=== PATIENT | female | born 1950 ===

== ENCOUNTER 2022-12-02 14:24 | Outpatient (REF) | payer OTHER, SELFPAY ==
--- NOTE | ~2022-12-02 | XR_ITS ---
EXAMINATION: XR LUMBOSACRAL SPINE WITH OBLIQUES CLINICAL INFORMATION: Status post arthrodesis COMPARISON: 05/24/2021 TECHNIQUE: FINDINGS: Patient is status post fusion at the level of L4-L5 and there is spacer at the same level. There are degenerative changes with narrowing of L3-L4 with subchondral sclerosis and marginal spurring and L5-S1. There is mild instability on flexion and extension views and the level of L3-L4.. XR/XR lumbar spine 4V min IMPRESSION: Mild instability seen at the level of L3-L4 on flexion and extension views. Postsurgical changes
== END 2022-12-02 14:25 | disposition home or self-care (01) ==
LOC: HO.HOSX 14:24
PROVIDERS: PCP Internal Medicine Endocrinology, Diabetes & Metabolism; Visit Provider Neurological Surgery
DX: M51.16 Intervertebral disc disorders with radiculopathy, lumbar region (principal); Z98.1 Arthrodesis status
CPT/HCPCS: 72110

== ENCOUNTER 2023-01-06 14:05 | Outpatient (REF) | payer OTHER, SELFPAY ==
--- NOTE | ~2023-01-06 | MR_ITS ---
EXAMINATION: MR LUMBAR SPINE WITHOUT CONTRAST CLINICAL INFORMATION: Intervertebral disc disorder is with radiculopathy, lumbar region. COMPARISON: Lumbar spine MRI 07/29/2021. TECHNIQUE: MRI of the lumbar spine was obtained using routine sequences without contrast. FINDINGS: There are postoperative findings related to instrumented fusion from L4 to L5 with transpedicular screws, paired rods, and an interbody device within the disc space. There is progressive moderate to severe disc height loss at L3-L4 with degenerative endplate changes and mild endplate edema. There is unchanged severe disc height loss at L5-S1. The distal spinal cord appears normal. The conus medullaris terminates normally at the L2 level. The visualized paraspinal muscles and intra-abdominal and pelvic contents are within normal limits. SPINAL LEVELS: L1-L2: No posterior disc abnormality. Mild facet arthropathy. No spinal canal or neural foraminal stenosis. L2-L3: No posterior disc abnormality. Mild to moderate facet arthropathy. No spinal canal or neural foraminal stenosis. L3-L4: Disc bulging with ligamentum flavum infolding and severe right and moderate left facet arthropathy and increased fluid in the right facet joint. Left foraminal protrusion resulting in severe left neural foraminal stenosis with compression of the exiting left L3 nerve root, progressed from prior. The previously seen right-sided foraminal protrusion has regressed but with persistent moderate to severe right-sided neural foraminal stenosis and moderate compression of the exiting right L3 nerve root. L4-L5: Instrumented fusion with posterior decompression changes. No spinal canal stenosis. No definite foraminal nerve root compression. L5-S1: Posterior decompression. Disc bulging with severe facet arthropathy. No spinal canal stenosis. Stable moderate bilateral neural foraminal stenosis with abutment of the exiting L5 nerve roots. MR/MR lumbar spine wo con IMPRESSION: 1. Postoperative findings related to instrumented fusion at L4-L5. No spinal canal stenosis or foraminal nerve root compression at this level. 2. At L3-L4 there is progressive moderate to severe disc height loss with degenerative endplate changes and mild endplate edema. Left foraminal protrusion results in progressive severe left neural foraminal stenosis with compression of the exiting left L3 nerve root. The previously seen right-sided foraminal protrusion has regressed but with persistent moderate to severe right-sided neural foraminal stenosis and moderate compression of the exiting right L3 nerve root. 3. At L5-S1 there is stable moderate bilateral neural foraminal stenosis with abutment of the exiting L5 nerve roots.
== END 2023-01-06 14:06 | disposition home or self-care (01) ==
LOC: HO.MRI 14:05
PROVIDERS: PCP Internal Medicine; Visit Provider Neurological Surgery
DX: M51.16 Intervertebral disc disorders with radiculopathy, lumbar region (principal); Z98.1 Arthrodesis status
CPT/HCPCS: 72148

== ENCOUNTER → 2023-01-12 13:59 | Outpatient (BNVA) | payer OTHER, SELFPAY | PROVIDERS: PCP Internal Medicine; Visit Provider Physician Assistant ==

== ENCOUNTER 2023-02-11 14:32 | Outpatient (AMB) | payer OTHER, SELFPAY ==
--- NOTE | 2023-02-11 15:26 | A.SPINEOV_ITS ---
Intake Intake Visit Reasons: Discuss surgery Intake Note: Ms. Olivares is here today to address some pre-surgical questions. Special Programs Director Required: No Assessment & Plan Assessment & Plan (1) Left upper extremity numbness: Code(s): R20.0 - Anesthesia of skin (2) Status post cervical spinal fusion: Code(s): Z98.1 - Arthrodesis status Plan Dear colleague, On February 11, 2023, I saw for preoperative visit your patient Nancy Rubio. She scheduled to undergo an oblique lateral lumbar interbody fusion L3- 4 to address her lumbar radiculopathy. She was last seen by my physician credentialing assistant and want to see me to discuss the procedure. I explained the procedure on a model with possible complications. During the visit she mentions that she has complete left arm numbness since 2 weeks with intermittent urinary incontinence. On exam, there is diffuse left arm numbness. No pathological reflexes. I would like to have an MRI of the cervical spine to exclude spinal cord compression that she has a history of cervical spine fusion and with the new symptoms of left arm numbness and incontinence this seems a good idea before the lumbar fusion surgery. Thank you for letting me take care of your patient. I will keep you updated on her progress. Franklin Mckeon MD, PhD Spine Fellowship Trained Neurosurgeon Director, [facility] [employer] Orders: Orders MR cervical spine wo con Today R20.0 - Anesthesia of skin, Z98.1 - Arthrodesis status Coding Level of Care Code Est Pt Level 2 (64195) Diagnoses Left upper extremity numbness R20.0 Status post cervical spinal fusion Z98.1
== END 2023-02-11 16:25 | disposition home or self-care (01) ==
PROVIDERS: PCP Internal Medicine; Visit Provider Neurological Surgery
DX: R20.0 Anesthesia of skin (principal); Z98.1 Arthrodesis status
CPT/HCPCS: 99212

== ENCOUNTER → 2023-02-11 14:32 | Outpatient (BNVA) | payer OTHER, SELFPAY | PROVIDERS: PCP Internal Medicine; Visit Provider Neurological Surgery ==

== ENCOUNTER → 2023-03-04 14:15 | Outpatient (BNV) | payer OTHER, SELFPAY | PROVIDERS: Admitting Provider Neurological Surgery; PCP Internal Medicine; Visit Provider Internal Medicine Cardiovascular Disease | DX: R94.31 Abnormal electrocardiogram [ECG] [EKG] (principal); I45.10 Unspecified right bundle-branch block | CPT/HCPCS: 93010 ==

== ENCOUNTER 2023-03-12 19:40 | Outpatient (REF) | payer OTHER, SELFPAY ==
--- NOTE | ~2023-03-12 | MR_ITS ---
EXAMINATION: MR CERVICAL SPINE WITHOUT CONTRAST CLINICAL INFORMATION: Numbness left upper extremity x2 weeks and incontinence. History of prior cervical fusion. COMPARISON: Cervical spine MRI 02/14/2015. TECHNIQUE: MRI of the cervical spine was obtained using routine sequences without contrast. FINDINGS: There are chronic postoperative changes of an anterior cervical discectomy and fusion with plate and screw hardware extending from C6 to C7. There is slight anterolisthesis of C3 on C4, C4 on C5, and C7 on T1 related to facet degenerative changes at each of these levels. Vertebral heights are preserved. No acute bone marrow signal changes. There is slight loss of intervertebral disc height and T2 signal intensity at multiple levels related to disc degeneration. There are short segments of increased intramedullary T2 signal intensity at levels of C3-C4 and C4-C5. The cervicomedullary junction is normal. Limited visualization of the posterior fossa reveals no abnormal finding. The occipital condyles and lateral C1 masses are intact. There is degenerative arthrosis of the atlantodental joint. C1-C2 articular facets are unremarkable. At C2-C3 the annular contour. The annular contour is normal. No canal stenosis. Bilateral facet degenerative change. Moderate neuroforaminal encroachment. At C3-C4 there is a pseudodisc bulge and buckling of the ligamenta flava causing moderate canal stenosis. Uncovertebral joint spurring in conjunction with facet degenerative change causes moderate bilateral neuroforaminal encroachment, greater on the right. At C4-C5 there is bridging bone that fuses the right articular facet joint. Mild canal stenosis. Uncovertebral joint spurring in conjunction with facet degenerative change causes mild bilateral neuroforaminal encroachment. At C5-C6 there is a diffusely bulging disc and buckling of the ligamenta flava causing moderate canal stenosis and subtle flattening of the AP contour of the cervical spinal cord. Uncovertebral joint spurring in conjunction with facet degenerative change causes moderate bilateral neuroforaminal encroachment. At C6-C7 there is no canal or neuroforaminal compromise. At C7-T1 there is a pseudodisc bulge. Buckling of ligamenta flava. Moderate canal stenosis. Uncovertebral joint spurring in conjunction with facet degenerative change causes severe left and moderate right neuroforaminal encroachment. Visualized soft tissues of the neck are normal. Vascular flow voids are grossly maintained. MR/MR cervical spine wo con IMPRESSION: There are chronic postoperative changes of an anterior cervical discectomy and fusion with plate and screw hardware extending from C6 to C7. There are short segments of chronic myelomalacia involving the cervical spinal cord at the levels of C3-C4 and C4-C5. Moderate canal stenosis at T3 C4, C5-C6, and C7-T1. There are varying degrees of neuroforaminal encroachment related to uncovertebral joint spurring and facet degenerative change as described above.
== END 2023-03-12 19:41 | disposition home or self-care (01) ==
LOC: HO.MRI 19:40
PROVIDERS: PCP Internal Medicine; Visit Provider Neurological Surgery
DX: R20.0 Anesthesia of skin (principal); Z98.1 Arthrodesis status
CPT/HCPCS: 72141

== ENCOUNTER 2023-03-17 07:57 | Inpatient (IN) | payer OTHER, SELFPAY ==
--- NOTE | 2023-03-04 | ECG_ITS ---
Test Reason : pre op Blood Pressure : / mmHG Vent. Rate : 060 BPM Atrial Rate : 060 BPM P-R Int : 196 ms QRS Dur : 126 ms QT Int : 418 ms P-R-T Axes : 060 -26 009 degrees QTc Int : 418 ms Normal sinus rhythm Right bundle branch block Inferior infarct , age undetermined Abnormal ECG No previous ECGs available Referred By: Meli Tafoya Electronically Signed By:Marcus Key
[2023-03-04 13:19] VITALS: BMI 31.3
[2023-03-04 13:32] VITALS: BP 153/67; PULSE 63; RESP 16; O2SAT 98
--- NOTE | 2023-03-04 13:39 | P.CONAN_ITS ---
Documented by User: Meli Tafoya NP 03/09/23 10:50 HPI - Anesthesia Eval Consult details Narrative: Pending labs, ekg, pcp note 73yo F for Transkambin Lumbar Interbody Fusion and Removal of old instumentation No recent illness No CP/SOB with very minimal activity r/t backpain Rarely checks blood sugar, but reports A1C~ 6% PONV Recently cleared by PCP for cataract but surgery pending d/t MD illness PMFSH Active Problems Active Problems: All Active Problems (Updated 03/04/23 @ 13:09 by Barbara Blas RN) Status post lumbar spinal arthrodesis (Acute) Lumbar disc herniation with radiculopathy (Acute) Status post cervical spinal fusion (Acute) Left upper extremity numbness (Acute) Past Medical History Medical History Cataract Diabetes mellitus, type 2 Glaucoma Hyperlipidemia Hypertension Hypothyroidism Osteoarthritis Osteopenia PONV (postoperative nausea and vomiting) Right bundle branch block (RBBB) Family History Family history of problems with anesthesia: No Surgical History Surgical History History of bilateral carpal tunnel release Hx of bariatric surgery Hx of colonoscopy Hx of hysterectomy Hx of partial thyroidectomy Previous back surgery History of Problems with Anesthesia: Yes (PONV) Social History Social History (Updated 03/04/23 @ 13:36 by Barbara Blas RN) Household Members: None Housing: House Are you a primary child care coordinator to a significant other at home: No Do you presently have visiting nurse or other home services: No Patient Tobacco Use Status: Former Tobacco user Quit Date: 2012 Tobacco use type: Cigarette Smoked in Last 30 Days: No Patient Interested in Nicotine Replacement: No Patient Given Instructions on How to Stop Smoking: No Second Hand Smoke Exposure: No Use of substances other than those prescribed or required for medical reasons: Yes Substance Use Type: Marijuana Substance Use Frequency: Weekly Currently Displaying Signs/Symptoms of Drug Intoxication Withdrawal: No Any prior treatment program specific to substance use: No Have you been hit, kicked, punched, or otherwise hurt by someone within the past year? If so, by whom?: No Do you feel safe in your current relationship?: Yes Is there a partner from a previous relationship who is making you feel unsafe now?: No Are you made to feel afraid or neglected: No Are you DNR?: No Advance Directives: No Advance Directives Information Provided: Yes Advance Directives on File: No Do you have thoughts of harming others: None Do you have a plan to hurt others: No Plan Recently lost weight without trying: No Eating poorly because of decreased appetite: No Nutrition Risks: No Nutritional Risk Patient : No : No Poor oral hygiene: No Meds Allergies Allergy/AdvReac Type Severity Reaction Status Date / Time No Known Allergies Allergy Verified 03/17/23 08:05 Home Medications Medication Instructions Recorded Confirmed Last Taken Type bupropion HCl 150 mg 24 hr tablet, 150 mg PO QAM 03/03/23 03/03/23 03/16/23 History extended release gabapentin 600 mg tablet 600 mg PO TID 03/03/23 03/03/23 03/16/23 History levothyroxine 100 mcg tablet 100 mcg PO MOTUWETHFRSA 03/03/23 03/17/23 03/16/23 History lisinopril 40 mg tablet 40 mg PO DAILY 03/03/23 03/03/23 03/16/23 History metformin 500 mg tablet,extended 500 mg PO DAILY 03/03/23 03/04/23 03/16/23 History release 24 hr rosuvastatin 10 mg tablet 10 mg PO DAILY 03/03/23 03/03/23 03/16/23 History travoprost 0.004 % eye drops 1 drp ophthalmic (eye) BEDTIME 03/03/23 03/03/23 03/16/23 History Exam Exam Date and Time: March 04, 2023 1339 Height,Weight and Vital Signs: Height 5 ft 5.5 in Weight 86.636 kg Last Vital Signs Pulse 63 03/04/23 13:32 Resp 16 03/04/23 13:32 BP 153/67 H 03/04/23 13:32 Pulse Ox 98 03/04/23 13:32 O2 Del Method Room Air 03/04/23 13:32 Pertinent Lab Results Pertinent Lab Results: CBC and BMP 01/2023 from outside facility WNL Narrative Narrative: EKG 02/2023 Vent. Rate : 060 BPM ? ? Atrial Rate : 060 BPM ?? P-R Int : 196 ms? QRS Dur : 126 ms ? ? QT Int : 418 ms ? ? ? P-R-T Axes : 060 -26 009 degrees ?? QTc Int : 418 ms ? Normal sinus rhythm Right bundle branch block Inferior infarct , age undetermined Abnormal ECG No change from 2020 outside facility EKG Airway Mallampati Class: III TM Dist: >3cm Neck ROM: Limited (s/p cspine surgery) Loose/Missing/Broken Teeth: Yes (molars pulled, capped front teeth, crowned molars throughout) Heart: RRR Lungs: CTAB Assessment and Plan Assessment Anesthesia Assessment: Anesthesia Plan Discussed and PAT Visit Final Anesthetic Review Family History of Problems with Anesthesia: No History of Problems with Anesthesia: Yes (PONV) Documented by User: Ajith Chinchilla MD 03/17/23 15:03 [facility] Past Medical History Medical History Cataract Diabetes mellitus, type 2 Glaucoma Hyperlipidemia Hypertension Hypothyroidism Osteoarthritis Osteopenia PONV (postoperative nausea and vomiting) Right bundle branch block (RBBB) Surgical History Surgical History History of bilateral carpal tunnel release Hx of bariatric surgery Hx of colonoscopy Hx of hysterectomy Hx of partial thyroidectomy Previous back surgery Social History Social History (Updated 03/04/23 @ 13:36 by Barbara Blas RN) Household Members: None Housing: House Are you a primary child care coordinator to a significant other at home: No Do you presently have visiting nurse or other home services: No Patient Tobacco Use Status: Former Tobacco user Quit Date: 2012 Tobacco use type: Cigarette Smoked in Last 30 Days: No Patient Interested in Nicotine Replacement: No Patient Given Instructions on How to Stop Smoking: No Second Hand Smoke Exposure: No Use of substances other than those prescribed or required for medical reasons: Yes Substance Use Type: Marijuana Substance Use Frequency: Weekly Currently Displaying Signs/Symptoms of Drug Intoxication Withdrawal: No Any prior treatment program specific to substance use: No Have you been hit, kicked, punched, or otherwise hurt by someone within the past year? If so, by whom?: No Do you feel safe in your current relationship?: Yes Is there a partner from a previous relationship who is making you feel unsafe now?: No Are you made to feel afraid or neglected: No Are you DNR?: No Advance Directives: No Advance Directives Information Provided: Yes Advance Directives on File: No Do you have thoughts of harming others: None Do you have a plan to hurt others: No Plan Recently lost weight without trying: No Eating poorly because of decreased appetite: No Nutrition Risks: No Nutritional Risk Patient : No : No Poor oral hygiene: No Meds Allergies Allergy/AdvReac Type Severity Reaction Status Date / Time No Known Allergies Allergy Verified 03/17/23 08:05 Home Medications Medication Instructions Recorded Confirmed Last Taken Type bupropion HCl 150 mg 24 hr tablet, 150 mg PO QAM 03/03/23 03/03/23 03/16/23 History extended release gabapentin 600 mg tablet 600 mg PO TID 03/03/23 03/03/23 03/16/23 History levothyroxine 100 mcg tablet 100 mcg PO MOTUWETHFRSA 03/03/23 03/17/23 03/16/23 History lisinopril 40 mg tablet 40 mg PO DAILY 03/03/23 03/03/23 03/16/23 History metformin 500 mg tablet,extended 500 mg PO DAILY 03/03/23 03/04/23 03/16/23 History release 24 hr rosuvastatin 10 mg tablet 10 mg PO DAILY 03/03/23 03/03/23 03/16/23 History travoprost 0.004 % eye drops 1 drp ophthalmic (eye) BEDTIME 03/03/23 03/03/23 03/16/23 History Assessment and Plan Final Anesthetic Review NPO: Yes ASA Class: III Final Preanesthetic Review: No Changes in Pt Med Stat, Meds/Allgs Chart Reviewed, Consent Obtained/Reviewed and Anes Risks/Benef Reviewed Patient Risk: Intermediate Procedure Risk: Low Anesthetic Plan Anesthetic Plan: GA Disposition: Standard PACU
[2023-03-17] VITALS (14 sets, daily range): BP systolic 144–182; BP diastolic 66–94; PULSE 68–79; RESP 10–17; TEMP 36.1–36.8; O2SAT 92–99; BMI 32.8
--- NOTE | ~2023-03-17 | FL_ITS ---
EXAMINATION: XR FLUOROSCOPY WITH IMAGES CLINICAL INFORMATION: Left L3-L4 lumbar interbody fusion. COMPARISON: Previous x-ray of the lumbar spine November 2022 MRI December 2022. TECHNIQUE: Fluoroscopy Supervised By: Dr. Franklin Baum. Fluoroscopy Time: 0.9 minutes Cumulative Dose: 83.4 mGy DAP: 11.707 Gy-cm2 Images: 2 FINDINGS: Images demonstrate posterior fusion hardware with rods and bilateral interpedicular screws and disc prosthesis in the lower lumbar spine. When compared with previous lumbar spine exam this is at the L3-L4 level. Intervertebral body disc spacer seen at the next more inferior level, L4-L5. Previously identified posterior fusion hardware at L4-L5 seen on lumbar spine MRI November 2022 no longer seen. FL/FL guidance in OR IMPRESSION: Fluoroscopy guidance for lumbar spine surgery.
[2023-03-17] MEDS: methocarbamoL 750 MG TABLET PO (08:35)
[2023-03-17] MEDS: Aprepitant 32 MG/4.4 ML VIAL IVPUSH (08:35)
[2023-03-17] MEDS: Gabapentin 300 MG CAPSULE PO (08:35)
[2023-03-17] MEDS: Lactated Ringers 1,000 ML 100 ML IVCONT (08:37)
[2023-03-17 08:45] LABS: Glucose, Whole Blood 88 mg/dL (60-115)
[2023-03-17] MEDS: ceFAZolin Sodium/Dextrose,Iso 2 GM/50 ML PIGGYBACK IV ×3 (10:20→20:20)
[2023-03-17] MEDS: Ketorolac Tromethamine 15 MG/ML VIAL IVPUSH ×2 (11:30→20:20)
--- NOTE | 2023-03-17 11:48 | W.PM.OPN ---
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 Previous L4-5 fusion in an another institution Postprocedure diagnosis: 1) same as above Procedure: 1) L3-4 oblique lateral lumbar interbody fusion with discectomy, preparation of the endplates and placement of a titanium bullet cage packed with allograft, anterior to the transverse process in modified prone position, with intraoperative biplanar fluoroscopy imaging and electrophysiological monitoring 2) Removal posterior instrumentation L4-5. Insertion L3-4 posterior minimally invasive pedicle screw placement and posterior lateral instrumentation and fusion with intraoperative biplanar fluoroscopic imaging and electrophysiological monitoring 3 L3-4 injection of 0.75 Marcaine in paravertebral tissue for postop management Consent Informed Consent was obtained for this operation. I have explained the nature, purpose and benefits of the operation. I have discussed the risks and benefit of the operation including possible complications or adverse events with patient/family. Alternative(s) were discussed with the patient with their relative benefits and risks as well as the consequences of not accepting the operation were included in obtaining consent. Surgeon: SOPHIE MERCEDES MD, PHD Procedure Assisted By: Hermes QUINTANILLA Description of Procedure: This is a complex surgery on the lumbar spine and an assistant professor of archaeology as needed for safety of the surgery for setup of instrumentation, retraction and closing. History: the patient had an L4-5 fusion in the past. She presented with back pain and lumbar radiculopathy due to adjacent degenerative disc disease L3-4 with associated spondylolisthesis and spinal stenosis. The patient was offered an oblique lumbar lateral interbody fusion followed by removal of L4-5 instrumentation and insertion of L3-4 insertion with aposterior lateral instrumented fusion L3-4. The procedure and complications were explained and the patient was consented. Procedure: The patient was brought to the operating room and endotracheally intubated. The patient was positioned on the Frederic spine table in a modified prone position for ease of access from the left side.. 2C arms were installed for fluoroscopy. Prepping and draping was done followed by timeout. The landmarks, including spinal processes, transverse processes, disc space, endplates and pedicles are identified and marked. The following steps are taken for each specified level: L3-4 level: Cage size 10 mm high and 33 mm long titanium . The patient was turned using the rotation of the surgical table so a near direct anterior lateral approach to the lumbar spine could be achieved. A small incision was then made superior to the mid iliac crest and then using biplanar fluoroscopy visualization, under electrophysiological monitoring and stimulation, we introduced an electrophysiological probe through the retroperitoneal space into the desired disc anterior to the transverse process and then passed it into the disc space after finding a silent window. The sleeve was retained and the probe was removed, then the K wire was passed sequentially into the disc space. A dilating tube was then passed along the same route. Following this, a working channel, a working channel was then passed sequentially into the disc space. The working channel was manually held in position while a series of disc cleaning tools were passed through the channel to remove the affected disc under clear and direct biplanar fluoroscopic visualization, decompress the nerve roots and equal corticated vertebral endplates at this segment. Arthrodesis of the intervertebral space via an anterior retroperitoneal exposure was achieved through [place] and lateral extraforaminal space. Allograft was added into the anterior disc space. The working channel was then removed. A titanium interbody cage tightly packed with allograft was then inserted into the midportion of the intervertebral disc space over a K-wire under biplanar fluoroscopic visualization and intraoperative neuro monitoring. The inter pedicular and intradiscal space was significantly enlarged and disc height was restored to worked normal anatomy there for releasing pressure on the nerve roots visual largely the spinal canal and lateral recess as well as foramen were bilateral decompressed and all bones were confined to the borders of the disc space . The following steps are then taken for each specified level: L4-5 level: 2 paramedian incisions were made to expose the previous L4-5 instrumentation. The locking caps,, bilateral rods and L4 and L5 pedicle screws were removed. A new 7.5 x 45 into a screw was inserted in the bilateral L4 pedicles under fluoroscopic guidance. Then two paramedian seizures were made for the L3 pedicle screw placement. The entry point to the pedicle is identified in the AP and lateral views and then the skin incision is injected with local anesthetic. We entered the pedicle with the pediguard tap after which a K-wire was introduced into the vertebral body. Additionally, I used a small instrument to decorticate along the screws to refresh the surface of the bone and facet I put some amount of allograft for additional stability for the posterolateral fusion L3-4. Over the K-wire we insert pedicle screws bilaterally with a diameter of 6.5 x 40 mm. After the screws were placed, we put the tere in place and under fluoroscopic imaging, we locked the tere in place and removed the screw tops and then each incision has been closed with 0 Vicryl for the fascia and a 3-0 Vicryl for the subdermal layer. Steri-Strips were used to approximate the incisions. An OpSite with Tegaderm was used to cover the incision. Final x-rays and AP and lateral projection showed good position of the interbody device and instrumentation. All sponge and needle counts were correct. The patient was extubated and transported in a stable condition to the recovery room. 2-0 Vicryl This procedure was done with the aid of a physician assistant professor of archaeology as a qualified resident was not available. he performed partial screw insertion, hemostasis and closure of the incisions Anesthesia: General Estimated Blood Loss (ml): 20 Specimen: None Duration of Surgery: 90 minutes Postoperative Plan: Admit to inpatient
[2023-03-17] MEDS: HYDROmorphone HCl 0.5 MG/0.5 ML SYRINGE 0.25 MG IVPUSH ×2 (12:21→12:30)
[2023-03-17] MEDS: oxyCODONE HCl Immed Release 5 MG TABLET PO ×2 (12:38→20:21)
--- NOTE | 2023-03-17 13:47 | PC.NURSE ---
as discussed with floor nurse dilaudid amount given and oxy as well as bladder scan of 319ml bed li time.
--- NOTE | 2023-03-17 14:05 | HO.NEURO.PN ---
Neurosurgery Operative Note Date of Service: 03/17/23 Narrative: POD: 0 Procedure:?L3-4 oblique lateral lumbar interbody fusion with discectomy. Removal of posterior instrumentation L4-5. Omaira was seen in her room postoperatively on .? She reports she is still having quite a bit of back pain which is well controlled with pain medication. She is otherwise doing well. She feels her symptoms are much better than pre-operatively, and reports no R leg pain at all at this time. Her diet orders are in, and nursing will be attempting to ambulate her to the bathroom shortly. She is scheduled to see PT. Afebrile, vital signs stable. Full sensation noted in lower extremities. plantar flexion / dorsiflexion intact. EHL intact. Did not further test strength as patient was just arriving to her room and waking up post-operatively. Back dressings have some staining without signs of hematoma. No active sanguineous drainage. Plan: Patient will be admitted to [facility] for pain control, post-surgical recovery and further evaluation. Dr. Mckeon made aware of patient status. Will round with him in the morning on this patient. He is aware of and agrees to this plan.
[2023-03-17] MEDS: Acetaminophen 325 MG TABLET 975 MG PO ×2 (14:10→20:21)
[2023-03-17] MEDS: 0.9 % Sodium Chloride 1,000 ML 75 ML IVCONT (14:12)
[2023-03-17] MEDS: Acetaminophen 1,000 MG/100 ML PIGGYBACK 400 MG IV (14:14)
[2023-03-17] MEDS: Gabapentin 600 MG TABLET PO ×2 (14:22→20:21)
[2023-03-17] MEDS: Docusate Sodium 100 MG CAPSULE PO (20:21)
[2023-03-17] MEDS: metFORMIN HCl ER 500 MG TAB.ER.24H PO (20:35)
[2023-03-17 20:46] LABS: Glucose, Whole Blood 243 mg/dL (60-115)
--- NOTE | 2023-03-17 21:54 | PC.NURSE ---
Patient states takes metformin at bedtime therefore it was given. POC was 243
[2023-03-17] MEDS: Latanoprost 0.005 % Ophth Sol 2.5 ML DROPS 1 DROP EYE-BOTH (21:58)
[2023-03-18] MEDS: Acetaminophen 325 MG TABLET 975 MG PO ×2 (02:57→09:08)
[2023-03-18] MEDS: ceFAZolin Sodium/Dextrose,Iso 2 GM/50 ML PIGGYBACK IV (02:58)
[2023-03-18] MEDS: oxyCODONE HCl Immed Release 5 MG TABLET PO ×2 (02:58→09:07)
[2023-03-18] MEDS: 0.9 % Sodium Chloride 1,000 ML 75 ML IVCONT (02:59)
[2023-03-18 03:07] VITALS: BP 152/74; PULSE 69; RESP 16; TEMP 36.2; O2SAT 96
[2023-03-18] MEDS: Levothyroxine Sodium 100 MCG TABLET PO (05:54)
[2023-03-18] MEDS: Ketorolac Tromethamine 15 MG/ML VIAL IVPUSH ×2 (05:54→11:48)
[2023-03-18 07:03] LABS: Glucose, Whole Blood 147 mg/dL (60-115)
[2023-03-18 07:22] VITALS: BP 131/61; PULSE 72; RESP 16; TEMP 36.6; O2SAT 97
--- NOTE | 2023-03-18 08:57 | PM.DS ---
DS: Providers Provider Date of Service: 03/18/23 Date of admission: 03/17/23 07:57 Primary care physician: Ian Holland III, MD DS: Diagnosis Discharge Diagnosis (1) Lumbar disc herniation with radiculopathy: Status: Acute DS: Summary Time Spent with Patient Time attestation: Total time managing care of this patient today ____ minutes. Discharge coordination time: Less than 30 minutes Quality: Safe Use of Opioids Does Pt have an Active Cancer Diagnosis on the Problem List?: No Quality: Stroke Does the patient have a stroke diagnosis?: No Physical Exam Vital Signs: Vital Signs: Last Vital Signs Temp 97.8 F 03/18/23 07:22 Pulse 72 03/18/23 07:22 Resp 16 03/18/23 07:22 BP 131/61 03/18/23 07:22 Pulse Ox 97 03/18/23 07:22 O2 Del Method Room Air 03/18/23 07:22 O2 Flow Rate 4 03/17/23 12:35 BMI result Body Mass Index 32.8 DS: Data Data Completed and Pending Labs on day of discharge: Laboratory Results - last 24 hr 03/17/23 03/18/23 20:31 06:56 POC Glucose 243 H 147 H Discharge Plan Discharge Anticipated Discharge Date/Time: 03/18/23 08:59 Patient Disposition: Home, Self-Care Discharge Diagnosis: S/p L3-4 diskectomy with lumbar fusion and removal of L4-5 instrumentation Referrals: Ian Holland III, MD [Primary Care Provider] - 1 Week Discharge Medications: New oxycodone 5 mg tablet 5 mg PO Q6H PRN (Reason: severe pain) 7 Days Qty: 28 0RF Rx Instructions: Partial Fill upon patient request. acetaminophen 500 mg capsule 500 mg PO Q4H 7 Days Qty: 42 0RF docusate sodium 50 mg capsule 50 mg PO BID Qty: 20 0RF Continued gabapentin 600 mg tablet 600 mg PO TID travoprost 0.004 % drops 1 drp ophthalmic (eye) BEDTIME levothyroxine 100 mcg tablet 100 mcg PO MOTUWETHFRSA Patient Comments: none on Thursday lisinopril 40 mg tablet 40 mg PO DAILY metformin 500 mg tablet extended release 24 hr 500 mg PO DAILY rosuvastatin 10 mg tablet 10 mg PO DAILY bupropion HCl 150 mg tablet extended release 24 hr 150 mg PO QAM Discharge Orders: Discharge Order (Routine); Ordered 03/18/23 Ordered By: Paul Lang Diet: Advance to usual diet Activity on Discharge: As tolerated Stand Alone Forms: Patient Portal Discharge page Activity Restrictions/Additional Instructions: After your spinal surgery we ask you to observe the following restrictions/guidelines: Activity: With lumbar fusion surgery it is normal to have days in the 1st couple of weeks where you have increased leg pain. This usually lasts 1-2 days and self resolves with the continuation of medication. Attempt to stay mobile and continue activity as tolerated. It is normal to feel some discomfort as you increase your activity, but that will improve with time. We ask you avoid heavy lifting or acitivities that cause pain. As a general rule, 8lbs is a safe limit for lifting right after surgery. Walk as much as you feel comfortable but not to exhaustion. You will feel extra tired the first few days after surgery. Stay well hydrated. It is OK to walk up and down stairs You may return to driving when you are off narcotics (such as vicodin, oxycodone, dilaudid, etc), and you are back to normal functional capacity. If you have any concerns please check with office before driving. Return to work is specific to each patient and each surgery, so please speak with your doctor/PA at first follow up. Please bring paperwork such as FMLA at that time if you need it filled out. Medications: It is recommended that you take Tylenol 500 mg every 4 hours for the 1st week postoperatively. Continue your Gabapentin Rx. We will give you a short supply of narcotics after surgery (usually one weeks worth). Please use this for breakthrough pain that is refractory to the Tylenol ibuprofen and gabapentin. If you need more please call the office but do not use more than prescribed. You will need to give our office 48 hours notice if you need narcotics refilled and we do not fill narcotics on weekends or evenings. If you are on a narcotic, it is a good idea to take a stool softener such as colace or senna to avoid constipation If you take blood thinner such as aspirin, Plavix, Coumadin, Effient, Eliquis etc for conditions such as Afib, DVT, Pulmonary embolus, coronary disease, stents etc please speak with your surgeon about specific details as to when you can resume these medications. You can resume NSAIDs on post op day 1 (eg: Motrin, Naproxen, etc). Follow up: Please call the office, , after surgery to arrange a 3 week follow up for wound check. Wound Care: You may remove your dressing on the first day after surgery. You may leave open to air. Please do not remove the steri strips underneath. they will fall off on their own in one week. IT IS NORMAL FOR THE WOUND TO OOZE OR BE BLOODY FOR A FEW DAYS AFTER SURGERY. IF THIS HAPPENS JUST PLACE NEW DRESSING OVER IT TO AVOID STAINING CLOTHES. You may shower on post op day # 1 We ask that you do not let the water soak the wound. If it does get wet, just towel dry lightly. Please do not scrub your incision or place any type of chemical/ointment on the wound. No tub baths, pools or jacuzzis for one month. If you have any leaking or redness from your wound, or fevers, please call office Care Plan Goals: Return to activity as tolerated Health Concerns: None Plan of Treatment: Follow-up in clinic in 3 weeks Assessment: Stable
--- NOTE | 2023-03-18 09:05 | P.F2F_ITS ---
Service Date Service Date: 03/18/23 Encounter Date of encounter: 03/18/23 Reasons for Services Signs and symptoms assessed: S/p L3-4 diskectomy and fusion, removal of L4-5 instrumentation Reason for prison: postoperative assessment and/or care, diabetic teaching, medication management, medication treatment and GI/ assessment Reason for physical therapy: home safety and mobility, therapeutic exercises, gait/transfer training and ADL training Reason for occupational therapy: home safety and mobility, therapeutic exe rcises, gait/transfer training, ADL training and energy conservation Reason for speech therapy: other Homebound: Leaving the home is medically contraindicated at this time without the assist of a device and/or another person due to the listed conditions above and below. Reason homebound: unsteady gait / fall risk, pain with ambulation, pain with transfers, poor balance / fall risk and weakness related to hospital stay Certification: Based on the above findings, I certify that this patient is confined to the home and needs intermittent prison care, physical therapy, or continues to need occupational therapy. The patient is under my care, and I have initiated the establishment of the plan of care. The patient will be followed by a physician who will periodically review the plan of care. Time Spent With Patient Time: Total time managing care of this patient today __10__ minutes.
[2023-03-18] MEDS: Docusate Sodium 100 MG CAPSULE PO (09:06)
[2023-03-18] MEDS: metFORMIN HCl ER 500 MG TAB.ER.24H PO (09:07)
[2023-03-18 09:08] VITALS: BP 131/61; PULSE 72; O2SAT 97
[2023-03-18] MEDS: buPROPion HCl XL 150 MG TAB.ER.24H PO (09:08)
[2023-03-18] MEDS: Gabapentin 600 MG TABLET PO (09:08)
[2023-03-18] MEDS: lisinopriL 40 MG TABLET PO (09:08)
[2023-03-18] MEDS: Atorvastatin Calcium 40 MG TABLET PO (09:08)
--- NOTE | 2023-03-18 09:08 | HO.NEURO.PN ---
Neurosurgery Operative Note Date of Service: 03/18/23 Narrative: POD: 1 Procedure: S/p L3-4 diskectomy and fusion, removal of instrumentation at L4-5 Omaira was seen in her room this morning on alongside Dr. Mckeon. She was just finishing her evaluation with PT. She reports she is up walking around is otherwise doing well. She feels her symptoms are much better than pre-operatively. She reports that her right-sided leg pain has completely resolved. She endorses no right-sided symptoms. She continues to report that she has no left-sided symptoms as she stated preoperatively. She is voiding well, tolerating diet, and ambulating to the bathroom. Afebrile, vital signs stable. Full strength 5/5 UE / LE. Patient was ambulating with assist of walker due to fear of falling as she had fallen prior to surgery. Back dressings have some staining without signs of hematoma. No active sanguineous drainage. Area is C/D/I. Plan: Patient meets criteria to be medically discharged home. [id number] was created for [facility] services. PT is aware of patient's want/desire to have at home services.
--- NOTE | 2023-03-18 09:26 | MHC.CM.PN ---
pt dcd home no skilled servies ordered by
[2023-03-18 09:33] LABS: Creatinine Clr Calc Pharmacy 46.3; Estimated Glomerular Filt Rate 43
--- NOTE | 2023-03-18 09:59 | MHC.CM.PN ---
Patient is discharged to home today. A face 2 Face document orders PT and [facility]. [facility] has been referred at Pts request. Patient has arranged for transport home.
[2023-03-18 11:26] LABS: Glucose, Whole Blood 144 mg/dL (60-115)
--- NOTE | 2023-03-18 13:47 | HO.POSTANES ---
Post Anesthesia Evaluation Post Anesthesia Evaluation Date of Service: 03/18/23 Vital Signs: Vital Signs Temp Pulse Resp BP Pulse Ox O2 Del Method 03/18/23 09:08 72 131/61 97 03/18/23 07:22 97.8 F 72 16 131/61 97 Room Air 03/18/23 03:07 97.2 F 69 16 152/74 H 96 Room Air Anesthesia: General Endotracheal-GETA Mental Status: Awake Pain Control: Satisfactory Nausea/Vomiting: None Hydration: Adequate Anesthesia-Related Issues: No Anes. Related Issues
== END 2023-03-18 13:44 | disposition home health service (06) | DRG 460 ==
LOC: HO.S3 03-18 13:43 → HO.SSSA 03-24 18:39
PROVIDERS: Physician Assistant; Admitting Provider Neurological Surgery; PCP Internal Medicine; Visit Provider Neurological Surgery
PROC: 0SG00A0 Fusion of Lumbar Vertebral Joint with Interbody Fusion Device, Anterior Approach, Anterior Column, Open Approach (ICD-10-PCS; principal; 2023-03-17 09:10)
DX: M43.16 Spondylolisthesis, lumbar region (principal); M54.16 Radiculopathy, lumbar region; E11.9 Type 2 diabetes mellitus without complications; E78.5 Hyperlipidemia, unspecified; I10 Essential (primary) hypertension; Z98.84 Bariatric surgery status; Z87.891 Personal history of nicotine dependence; Z79.890 Hormone replacement therapy; Z79.899 Other long term (current) drug therapy
CPT/HCPCS: 36415; 82565; 82947; 93005; 97116; 97162; 97530; C1713; C9145; J0131; J0690; J1100; J1170; J1885; J2405; J3010; L8699

== ENCOUNTER → 2023-03-17 07:57 | Outpatient (BNV) | payer OTHER, SELFPAY | PROVIDERS: Admitting Provider Physician Assistant; PCP Internal Medicine; Visit Provider Neurological Surgery | DX: M51.16 Intervertebral disc disorders with radiculopathy, lumbar region (principal); Z48.89 Encounter for other specified surgical aftercare | CPT/HCPCS: 20930; 22558; 22612; 22840; 22853; 63056; 99024; 99499 ==

== ENCOUNTER 2023-04-07 12:54 | Outpatient (AMB) | payer OTHER, SELFPAY ==
--- NOTE | 2023-04-07 13:08 | HO.SPINEOV ---
Intake Intake Visit Reasons: 1st post op Intake Note: Ms. Olivares is here today for her 1st post-op visit. 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 She is s/p L3-4 oblique lateral lumbar interbody fusion with discectomy performed on 03/17/23. Her postoperative course has been fairly straightforward, complicated only by some minor issues with her medication refills due to insurance coverage. She states that over the course of the last couple of weeks she is return to state of somewhat normalcy. 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 She states she is able to ambulate across campus and get to her classroom without much difficulty. She does use the assistance of a cane. Overall she endorses much improved symptoms compared to preoperatively. She states that her right leg symptoms are completely gone with no radiculopathy, but does say some persistent dull aching in her left side. She is encouraged that this is fairly common and can be seen in our patients who have OLIF procedures done. Her only real complaint is some nonspecific sensation differences of the dorsal side of her bilateral feet. She does not report any symptoms in her toes or her ankles. On exam of the surgical site all 5 incisions are clean, well-healing, nonerythematous, and nonedematous. No fluctuance, purulence, or other signs of infection are noted. She will be scheduled for a follow-up appointment in 6 weeks at which time we will get flexion-extension x-rays of her lumbar spine in order to better visualize the instrumentation after inflammation has resolved. The patient is agreeable to this plan and reports no further concerns or issues. Total amount of time spent in this visit was 20 minutes in discussion of symptoms, ordering X-ray imaging, ad subsequent plan of care. Paul Mckeon MD,PhD [facility] Orders: Orders XR lumbar spine 4V min 05/05/23 Z98.1 - Arthrodesis status Coding Level of Care Code Est Pt Level 3 (13314) Diagnoses Status post lumbar spinal arthrodesis Z98.1
== END 2023-04-07 13:28 | disposition home or self-care (01) ==
PROVIDERS: PCP Internal Medicine; Visit Provider Physician Assistant
DX: Z98.1 Arthrodesis status (principal)
CPT/HCPCS: 99024

== ENCOUNTER → 2023-04-07 12:54 | Outpatient (BNVA) | payer OTHER, SELFPAY | PROVIDERS: PCP Internal Medicine; Visit Provider Physician Assistant ==

== ENCOUNTER 2023-05-05 15:07 | Outpatient (REF) | payer OTHER, SELFPAY | END 2023-05-05 15:08 | disposition home or self-care (01) | LOC: HO.HOSX 15:07 | PROVIDERS: Visit Provider Physician Assistant | DX: Z13.89 Encounter for screening for other disorder (principal) ==

== ENCOUNTER 2023-05-19 12:42 | Outpatient (REF) | payer OTHER, SELFPAY ==
--- NOTE | ~2023-05-19 | XR_ITS ---
EXAMINATION: XR LUMBOSACRAL SPINE WITH OBLIQUES CLINICAL INFORMATION: Arthrodesis status. Status post L3-L4 interbody fusion. COMPARISON: MR lumbar spine 01/06/2023. X-ray lumbar spine 12/12/2022. TECHNIQUE: 4 views of the lumbar spine, inclusion of flexion and extension views. FINDINGS: Redemonstration of posterior fusion hardware with rods and bilateral interpedicular screws and disc prosthesis at L3-L4. Hardware appears intact. Intervertebral body disc spacer is seen at L4-L5 as previously noted. Atherosclerotic aortoiliac calcifications. Possible mild anterolisthesis at L4-L5 is difficult to evaluate due to overlying structures. XR/XR lumbar spine 4V min IMPRESSION: Redemonstration of posterior fusion hardware with rods and bilateral interpedicular screws and disc prosthesis at L3-L4. Hardware appears intact. Intervertebral body disc spacer is seen at L4-L5 as previously noted. Possible mild anterolisthesis at L4-L5 is difficult to evaluate due to overlying structures.
== END 2023-05-19 12:43 | disposition home or self-care (01) ==
LOC: HO.HOSX 12:42
PROVIDERS: Visit Provider Physician Assistant
DX: Z98.1 Arthrodesis status (principal)
CPT/HCPCS: 72110

== ENCOUNTER 2023-05-19 12:42 | Outpatient (AMB) | payer OTHER, SELFPAY ==
--- NOTE | 2023-05-19 12:59 | A.SPINEOV_ITS ---
Intake Intake Visit Reasons: 2nd post op with x-rays Intake Note: Ms. Alexandrea Rubio is here today for her 2nd post-op visit. 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 Omaira comes in today for her 2nd postoperative visit. She reports she is very satisfied with the surgery and feels much better than she did pre-operatively. The patient reports she is up walking around and completing the majority of her ADLs. She reports that she does still have some pain in her lower back/legs which increases with extended ambulation, but does feel that it is getting better. She has completely stopped her oxycodone is only taking gabapentin and Tylenol. She stated she has also significantly reduced her gabapentin to to 300 mg pills per day. She would like to reduce this until she only needs Tylenol. We reviewed her postoperative x-rays which show stable cage placement and stable placement of posterior instrumentation. This was compared to her intraoperative x-rays which show no changes compared to today. Mobility is intact. No neurological deficits. Patient is able to ambulate well with assistance of a cane. Incision sites are closed & well healed. Omaira was encouraged that she continues to get better each time we see her. We no longer need to follow up regularly with her. She may be discharged as a patient. Paul Mckeon MD,PhD [facility] Coding Level of Care Code Global (86016) Diagnoses Status post lumbar spinal arthrodesis Z98.1
== END 2023-05-19 13:29 | disposition home or self-care (01) ==
PROVIDERS: PCP Internal Medicine; Visit Provider Physician Assistant
DX: Z98.1 Arthrodesis status (principal)
CPT/HCPCS: 99024

== ENCOUNTER → 2023-05-19 12:42 | Outpatient (BNVA) | payer OTHER, SELFPAY | PROVIDERS: PCP Internal Medicine; Visit Provider Physician Assistant ==

== ENCOUNTER 2023-05-26 11:15 | Outpatient (REF) | payer OTHER, SELFPAY | END 2023-05-26 11:16 | disposition home or self-care (01) | LOC: HO.HOSX 11:15 | PROVIDERS: Visit Provider Physician Assistant | DX: Z13.89 Encounter for screening for other disorder (principal) ==

== ENCOUNTER 2023-08-13 14:38 | Outpatient (AMB) | payer OTHER, SELFPAY ==
--- NOTE | 2023-08-13 14:55 | A.SPINEOV_ITS ---
Intake Intake Visit Reasons: falling down Intake Note: Ms. Alexandrea Rubio is here today s/p fall. Allergies No Known Allergies Allergy (Verified 03/17/23 08:05) Assessment & Plan Assessment & Plan (1) Lumbar disc herniation with radiculopathy: Code(s): M51.16 - Intervertebral disc disorders with radiculopathy, lumbar region Plan HPI: Omaira comes in today for a follow-up visit as an established patient with a new issue. She reports that her right-sided leg pain that she previously had which we addressed with a lumbar spine surgery has been resolved. She reports that over the course of the last month or so she has been falling. She reports that this has been worsening, and initially began with her legs shaking/alerting her that she would fall. She is now at the point where she will fall without notice, meeting her legs do not shake or alert her that they are about to give out. She also reports that her disclosed urinary incontinence has not gotten any better, in she is now at the point where she has been wearing pads daily. She does report a history of prior Hx of 3 other spine surgeries; a L4-5 fusion done in 2019, a laminectomy with Coflex placement at L4-5 later that year, and an anterior diskectomy fusion C6-C7 in 2020. Her previous MRIs from [facility] show chronic myelomalacia which the radiologist reports is likely due to chronic long-term compression of the spinal cord. She states that this was addressed with her previous cervical spinal fusion. Exam: On examination today she has 4/5 strength with knee extension, and the rest of her strength is 5/5. it is noted that she has progressed truncal obesity since her last visit. Her sensation is grossly intact. She is still able to ambulate well and rises from a seated position without much difficulty. Gait is normal / non-spastic. (+) Granados's bilaterally. (+) 3-4 beats of clonus on the left. 1-2 beats of clonus on the right. Plan: Upon reviewing her MRI here at [facility] it is noted to be somewhat progressed to that completed at [place] in 2020. Her MRI from 2020 showed similar myelomalacia and only mildly progressed steonsis at C5-6 (adjacent segment). She also appears to have some newer kyphosis at of the cervical spine that originates at this level. Her myelopathic reflexes are likely longstanding as a result of her report chronic myelomalacia of the cervical spine. I reviewed this case with Dr. Mckeon alongside Omaira's imaging, and he does not believe there to be a neurosurgical intervention that could help resolve her symptoms at this time. We will be recommending Omaira follow up with a neurologist to address her weakness and reported bladder issues. I also believe that strength training her lower extremities can be of significant utility to her as her lower extremities are significantly incom mensurate to her upper trunk area. Total amount of time spent in this visit was 35 minutes in discussion of symptoms, MRI imaging results and subsequent plan of care Paul Mckeon MD,PhD [facility] Orders: Orders PT Evaluation and Treatment 08/13/23 Z98.890 - Other specified postprocedural states Referrals Neurology Referral R29.898 - Other symptoms and signs involving the musculoskeletal system Coding Level of Care Code Tele Est Pt Level 4 (39158) Diagnoses Lumbar disc herniation with radiculopathy M51.16
== END 2023-08-13 15:32 | disposition home or self-care (01) ==
PROVIDERS: PCP Internal Medicine; Visit Provider Physician Assistant
DX: M51.16 Intervertebral disc disorders with radiculopathy, lumbar region (principal)
CPT/HCPCS: 99214

== ENCOUNTER → 2023-08-13 14:38 | Outpatient (BNVA) | payer OTHER, SELFPAY | PROVIDERS: PCP Internal Medicine; Visit Provider Physician Assistant ==

== ENCOUNTER 2024-01-04 09:10 | Outpatient (AMB) | payer OTHER, SELFPAY ==
--- NOTE | 2024-01-04 09:15 | MHC.OFFVIS ---
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 Word Processor Technician Required: No Allergies acetaminophen [From Percocet] Allergy (Mild, Verified 01/04/24 09:21) Nausea oxycodone [From Percocet] Allergy (Mild, Verified 01/04/24 09:21) Nausea Medication List - Last Reconciled 01/04/24 by Alisha Vital MD acetaminophen 500 mg PO Q4H 7 days bupropion HCl XL 300 mg PO QAM docusate sodium 50 mg PO BID levothyroxine 100 mcg PO MOTUWETHFRSA lisinopril 40 mg PO DAILY rosuvastatin 10 mg PO DAILY HPI Comments Details: 73y/o female comes for lower extremity weakness. she had lower back surgery in January 2023 and started having weakness is right leg and falls.she also reports numbness tingling in her hands and fine motor coordination is difficult she also reports urinary incontinence. she denies memory issues she does report a history of prior Hx of 3 other spine surgeries; a L4-5 fusion done in 2019, a laminectomy with Coflex placement at L4-5 later that year, and an anterior diskectomy fusion C6-C7 in 2020. Her previous MRIs from [facility] show chronic myelomalacia which the radiologist reports is likely due to chronic long-term compression of the spinal cord. She states that this was addressed with her previous cervical spinal fusion. [facility] Medical History (Updated 01/04/24 @ 10:30 by Alisha Vital MD) Gait disorder Hand weakness Numbness and tingling in both hands Anxiety PONV (postoperative nausea and vomiting) Cataract Diabetes mellitus, type 2 Hyperlipidemia Hypertension Right bundle branch block (RBBB) Osteopenia Osteoarthritis Glaucoma Hypothyroidism Surgical History Hx of hysterectomy Hx of colonoscopy Hx of partial thyroidectomy History of bilateral carpal tunnel release Hx of bariatric surgery Previous back surgery Social History Household Members: None Housing: House Are you a primary veterinarian laboratory animal care to a significant other at home: No Do you presently have visiting nurse or other home services: No Patient Tobacco Use Status: Former Tobacco user Tobacco use type: Cigarette Second Hand Smoke Exposure: No Substance Use Type: Marijuana Physical Exam Vital Signs: Last Vital Signs Pulse 80 01/04/24 09:16 Resp 16 01/04/24 09:16 BP 146/74 H 01/04/24 09:16 BMI result Body Mass Index 29.4 Const Orientation/consciousness: patient oriented x3 Eyes Pupils: Equal, round and reactive pupils present Neuro Other: Finger nose- slow - difficulty Wide based impulsive gait General: patient oriented x3, tone normal and moves all extremities Cranial nerves: Yes Facial sensation intact/muscles of mastication intact, Yes Equal, round and reactive pupils present, Yes Bilaterally intact EOM present, Yes Nystagmus not present, Yes Normal facial strength present and Yes Midline tongue present Cognition (Neuro): normal cognition Gait exam (Neuro): Ataxic gait present Deep tendon reflexes (DTR's): Right triceps reflex intensity grade: 1+, Left triceps reflex intensity grade: 1+, Rt Biceps (C5, C6): 1+, Left biceps reflex intensity grade: 1+, Right brachioradialis reflex intensity grade: 1+, Left brachioradialis reflex intensity grade: 1+, Right patellar reflex intensity grade: 1+ and Left patellar reflex intensity grade: 1+ Psych Affect: Anxious affect present Results Reviewed Results Reviewed: MRI C spine 02/2023 There are chronic postoperative changes of an anterior cervical discectomy and fusion with plate and screw hardware extending from C6 to C7. There are short segments of chronic myelomalacia involving the cervical spinal cord at the levels of C3-C4 and C4-C5. Moderate canal stenosis at T3 C4, C5-C6, and C7-T1. There are varying degrees of neuroforaminal encroachment related to uncovertebral joint spurring and facet degenerative change as described above. MRI LS spine 01/2023 Postoperative findings related to instrumented fusion at L4-L5. No spinal canal stenosis or foraminal nerve root compression at this level. 2. At L3-L4 there is progressive moderate to severe disc height loss with degenerative endplate changes and mild endplate edema. Left foraminal protrusion results in progressive severe left neural foraminal stenosis with compression of the exiting left L3 nerve root. The previously seen right-sided foraminal protrusion has regressed but with persistent moderate to severe right-sided neural foraminal stenosis and moderate compression of the exiting right L3 nerve root. 3. At L5-S1 there is stable moderate bilateral neural foraminal stenosis with abutment of the exiting L5 nerve roots. Assessment & Plan Assessment & Plan (1) Numbness and tingling in both hands: Comment: ? carpal tunnel , ? cervical spondylosis Code(s): R20.0 - Anesthesia of skin; R20.2 - Paresthesia of skin Category: Medical (2) Gait disorder: Comment: Cervical cord myelomalacia ? neuropathy Code(s): R26.9 - Unspecified abnormalities of gait and mobility Category: Medical (3) Lower extremity weakness: Code(s): R29.898 - Other symptoms and signs involving the musculoskeletal system Category: Medical Plan MRI brain report form [place] November 16 . EMG /NCS everette UE to r/o carpal tunnel syndrome Declines PT Lab reports form pcp Orders: Orders NE electromyogram (EMG) Today R20.0 - Anesthesia of skin, R20.2 - Paresthesia of skin OT Evaluation and Treatment Today R20.0 - Anesthesia of skin, R20.2 - Paresthesia of skin, R29.898 - Other symptoms and signs involving the musculoskeletal system NE nerve conduction velocity Today R20.0 - Anesthesia of skin, R20.2 - Paresthesia of skin Coding Level of Care Code New Pt Level 4 (99060) Diagnoses Numbness and tingling in both hands R20.0; R20.2 Gait disorder R26.9 Lower extremity weakness R29.898
[2024-01-04 09:16] VITALS: BP 146/74; PULSE 80; RESP 16; BMI 29.4
== END 2024-01-04 09:59 | disposition home or self-care (01) ==
PROVIDERS: PCP Internal Medicine; Visit Provider Psychiatry & Neurology Neurology
DX: R20.0 Anesthesia of skin (principal); R20.2 Paresthesia of skin; R26.9 Unspecified abnormalities of gait and mobility; R29.898 Other symptoms and signs involving the musculoskeletal system
CPT/HCPCS: 99204

== ENCOUNTER → 2024-01-04 09:10 | Outpatient (BNVA) | payer OTHER, SELFPAY | PROVIDERS: PCP Internal Medicine; Visit Provider Psychiatry & Neurology Neurology ==

== ENCOUNTER 2024-01-12 09:36 | Outpatient (REF) | payer OTHER, SELFPAY ==
--- NOTE | 2024-01-12 09:40 | EMG_ITS ---
Bilateral median and ulnar motor and sensory studies were performed. Bilateral radial sensory study was performed and paraspinal muscles were tested with a needle. IMPRESSION: 1. [id number]-[id number] bilateral median neuropathy across carpal tunnel. 2. Mild bilateral ulnar neuropathy across cubital tunnel. MD NEREIDA Reese/LASHON / [phone]
== END 2024-01-12 09:37 | disposition home or self-care (01) ==
LOC: HO.NEURO 09:36
PROVIDERS: Visit Provider Psychiatry & Neurology Neurology
DX: R20.0 Anesthesia of skin (principal); R20.2 Paresthesia of skin
CPT/HCPCS: 95886; 95911

== ENCOUNTER 2024-02-09 10:30 | Outpatient (RCR) | payer OTHER, SELFPAY ==
--- NOTE | 2024-01-12 11:13 | MHC.OT.EP ---
[address] [phone] Occupational Therapy Plan of Care Patient Name: Omaira Rubio Date of Evaluation: 01/11/24 Diagnosis: B/L NUMBNESS AND TINGLING IN HANDS Pain Location: NONE Pain Score: Pain Scale Used: Aggravating Factors: Alleviating Factors: Assessment: MS JUSTICE RUBIO REPORTS GRADUAL WORSENING OF B/L PARASTHESIA IN HER HANDS OVER THE PAST YEAR. SHE IS SCHEDULED FOR AN EMG TOMORROW 01/12/24. SHE STATES SHE OFTEN DROPS ITEMS, HAS TROUBLE OPENING TIGHT JARS/ CONTAINERS, AND HAS WORSENING HANDWRITING/ TYPING WITH ERRORS. SEMMES KAYLIN ASSESSMENT IN HANDS INDICATES R SIDED LOSS OF PROTECTIVE SENSATION AND L SIDED DIMINISHED PROTECTIVE SENSATION. A 34% LIMITATION IS REPORTED PER THE QUICK DASH ASSESSMENT. ONGOING SKILLED OT IS WARRANTED TO ADDRESS JT PROTECTION, ACTIVITY MODIFICATION, EXPLORING USE OF AE/AT, AND SAFETY WITH IADLs. Frequency and Duration: The patient will be seen 1X/WEEK FOR 4 WEEKS Short Term Goals: IND HEP IND JT PROTECTION/ ACTIVITY MODIFICATION EXPLORE AND UTILIZE AE/AT FOR ADLs/ IADLs DEMO SAFETY WITH IADLS WITHOUT FURTHER INJURY TO UEs MOD IND ADL CLOSURE BOARD AND COMPLETE FINE MOTOR TASKS Snf Goals: SEE ABOVE Treatment Plan: Therapeutic Exercise Therapeutic Activity Home Exercise Program Splinting Neuro Re-ed Patient Education Desensitization/Sensory Re-ed Edema Control ADL Training Ultrasound NMES Iontophoresis Paraffin Fluidotherapy MHP Cold Packs Joint Mobilization Soft Tissue Mobilization Kinesiotaping Other (see comments) Electronically Signed By: MONICA VIRGEN OTR/L Please Sign and return to therapist. Thank you once again for your referral.
--- NOTE | 2024-02-22 11:40 | MHC.OT.DC ---
[address] [phone] F: [phone] Occupational Therapy Discharge Note Patient Name: Omaira Rubio Provider: Alisha Vital Diagnosis: B/L NUMBNESS AND TINGLING IN HANDS Date of Evaluation: 01/11/24 Date of Discharge: 02/22/24 Treatments to Date: 4 Cancellations to Date: 0 No Shows to Date: 0 Discharge Status: Independent with HEP Discharge Summary: MS JUSTICE RUBIO HAS MADE SOME IMPROVEMENTS IN HER UEs WITH HER PARTICIPATION IN OUTPATIENT OT. SHE IS IND WITH HER HEP. SHE EXPRESSES INTEREST IN SEEKING A CONSULT WITH AN ORTHOPEDIC MD. WILL TRANSITION Pt TO A HOME BASED PROGRAM AT THIS TIME. D/C OT SERVICES. Electronically Signed By: ISABEL RIOS/Elijah Reviewed/agree with student documentation: N/A Therapist: Please Sign and return to therapist, thank you for your referral.
== END 2024-02-22 11:40 | disposition home or self-care (01) ==
LOC: HO.OT 10:30
PROVIDERS: PCP Family Medicine; Visit Provider Psychiatry & Neurology Neurology
DX: R20.0 Anesthesia of skin (principal); R20.2 Paresthesia of skin; R29.898 Other symptoms and signs involving the musculoskeletal system
CPT/HCPCS: 97035; 97110; 97112; 97140; 97167

== ENCOUNTER 2024-02-12 13:21 | Outpatient (AMB) | payer OTHER, SELFPAY ==
--- NOTE | 2024-02-12 13:53 | A.SPINEOV_ITS ---
Intake Visit Reasons: numbness and tingling in hands Intake Note: Ms. Alexandrea Rubio is here today c/o numbness and tingling in the hands. Offal Roller Required: No Allergies acetaminophen [From Percocet] Allergy (Mild, Verified 02/12/24 13:54) Nausea oxycodone [From Percocet] Allergy (Mild, Verified 02/12/24 13:54) Nausea Assessment & Plan Assessment & Plan (1) Hand weakness: Code(s): R29.898 - Other symptoms and signs involving the musculoskeletal system Category: Medical Plan Mrs Alexandrea Rubio is here in follow-up. This is a patient known to us from lumbar fusion last year. She also has a known history of an anterior cervical fusion done at [facility] a number of years ago. Sometime over the beginning of the new year she reports that she started to notice some progressive numbness of her hands. She was seeing a neurologist and was told she had carpal tunnel. Unfortunately over the last few months she has had progressive worsening of the numbness of her hands to the point now where it is also running from her neck down into her arms. If she positions her neck just the right way she will get feelings of electricity jolting down through both of her arms. She is also having progressive arm weakness she is dropping everything and starting to fall. She is broken multiple glasses in her house because she keeps dropping them out of her hands. On my exam today, she is demonstrating significant weakness diffusely in the upper extremities and the proximal lower extremity muscle groups. She is diffusely hyperreflexic with Yefri sign and clonus. I am concerned that she has herniated a disc or has had progression of adjacent segment disease above or below her fusion. I am going to get an urgent MRI. Her MRI from last year done at [place] [facility] was starting to show new spinal cord signal changes above her fusion. My expectation is that that has progressed. We can review the MRI and call her with the results. Total amount of time spent in this visit was 20 minutes in discussion of symptoms, old cervical MRI imaging results and subsequent plan of care Hermes Mckeon MD,PhD [facility] Orders: Orders MR cervical spine wo con Today R29.898 - Other symptoms and signs involving the musculoskeletal system Coding Level of Care Code Est Pt Level 3 (09018) Diagnoses Hand weakness R29.898
== END 2024-02-12 14:20 | disposition home or self-care (01) ==
PROVIDERS: Visit Provider Physician Assistant
DX: R29.898 Other symptoms and signs involving the musculoskeletal system (principal)
CPT/HCPCS: 99213

== ENCOUNTER → 2024-02-12 13:21 | Outpatient (BNVA) | payer OTHER, SELFPAY | PROVIDERS: Visit Provider Physician Assistant ==

== ENCOUNTER 2024-02-25 16:01 | Outpatient (REF) | payer OTHER, SELFPAY | END 2024-02-25 16:02 | disposition home or self-care (01) | LOC: HO.HOSX 16:01 | PROVIDERS: Visit Provider Physician Assistant | DX: Z13.89 Encounter for screening for other disorder (principal) ==

== ENCOUNTER 2024-02-26 16:01 | Outpatient (REF) | payer OTHER, SELFPAY ==
--- NOTE | ~2024-02-26 | XR_ITS ---
EXAMINATION: XR CERVICAL SPINE CLINICAL INFORMATION: Anesthesia of skin. COMPARISON: 03/17/2023, 03/12/2023, 01/06/2023. TECHNIQUE: 4 views of the cervical spine with flexion and extension. FINDINGS: Grade 1 anterolisthesis with loss of disc space height at C4-C5 and C5-C6. Limited visualization of C6-C7 due to overlying bony and soft tissue structures. Status post ACDF at C6-C7. Slight anterolisthesis of C4 on C5 and C7 on T1 with extension. Slight anterolisthesis of C2 on C3, C3 on C4, C7 on T1 with flexion. XR/XR cervical spine 4V IMPRESSION: 1. Status post ACDF at C6-C7. 2. Grade 1 anterolisthesis with loss of disc space height at C4-C5 and C5-C6.
== END 2024-02-26 16:02 | disposition home or self-care (01) ==
LOC: HO.HOSX 16:01
PROVIDERS: Visit Provider Physician Assistant
DX: R20.2 Paresthesia of skin (principal); R20.0 Anesthesia of skin; Z98.1 Arthrodesis status
CPT/HCPCS: 72050

== ENCOUNTER 2024-03-02 06:20 | Day surgery (SDC) | payer OTHER, SELFPAY ==
--- NOTE | 2024-03-01 11:47 | P.CONAN_ITS ---
Documented by User: Meli Tafoya NP 03/01/24 12:10 HPI - Anesthesia Eval Consult details Narrative: 73yo F for C3-4 Ant Cerv Discectomy w/ fusion, possible plating No PAT appointment scheduled d/t urgency of procedure. Labs and E[facility]CP [facility] and [facility] Active Problems Active Problems: All Active Problems Bilateral carpal tunnel syndrome (Acute) Gait disorder (Acute) Hand weakness (Acute) Numbness and tingling in both hands (Acute) Anxiety (Acute) Lower extremity weakness (Acute) S/P spinal surgery (Acute) Status post lumbar spinal arthrodesis (Acute) Lumbar disc herniation with radiculopathy (Acute) Status post cervical spinal fusion (Acute) Left upper extremity numbness (Acute) Past Medical History Medical History Gait disorder Hand weakness Numbness and tingling in both hands Anxiety PONV (postoperative nausea and vomiting) Cataract Diabetes mellitus, type 2 Hyperlipidemia Hypertension Right bundle branch block (RBBB) Osteopenia Osteoarthritis Glaucoma Hypothyroidism Family History Family history of problems with anesthesia: No Surgical History Surgical History Hx of hysterectomy Hx of colonoscopy Hx of partial thyroidectomy History of bilateral carpal tunnel release Hx of bariatric surgery Previous back surgery History of Problems with Anesthesia: Yes Social History Social History Household Members: None Housing: House Are you a primary care connector to a significant other at home: No Do you presently have visiting nurse or other home services: No Patient Tobacco Use Status: Former Tobacco user Tobacco use type: Cigarette Second Hand Smoke Exposure: No Substance Use Type: Marijuana Substance Use Frequency: Daily Are you DNR?: No Advance Directives: No Advance Directives Information Provided: Yes Nutrition Risks: No Nutritional Risk Meds Allergies Allergy/AdvReac Type Severity Reaction Status Date / Time acetaminophen [From Percocet] Allergy Mild Nausea Verified 03/02/24 06:50 oxycodone [From Percocet] Allergy Mild Nausea Verified 03/02/24 06:50 Home Medications ?Medication ?Instructions ?Recorded ?Confirmed ?Last Taken ?Type levothyroxine 100 mcg tablet 100 mcg PO MOTUWETHFRSA 03/03/23 03/02/24 03/16/23 History lisinopril 40 mg tablet 40 mg PO DAILY 03/03/23 03/02/24 03/16/23 History rosuvastatin 10 mg tablet 10 mg PO DAILY 03/03/23 03/02/24 03/16/23 History bupropion HCl 150 mg 24 hr tablet, 300 mg PO QAM 01/04/24 03/02/24 Unknown History extended release Exam Pertinent Lab Results Pertinent Lab Results: CBC and BMP 01/2024 [place] Narrative Narrative: EKG 11/2023 SR @64 RBBB Assessment and Plan Assessment Anesthesia Assessment: Chart Reviewed Final Anesthetic Review Family History of Problems with Anesthesia: No History of Problems with Anesthesia: Yes Documented by User: Eva Ferro MD 03/02/24 08:09 [facility] Past Medical History Medical History Gait disorder Hand weakness Numbness and tingling in both hands Anxiety PONV (postoperative nausea and vomiting) Cataract Diabetes mellitus, type 2 Hyperlipidemia Hypertension Right bundle branch block (RBBB) Osteopenia Osteoarthritis Glaucoma Hypothyroidism Surgical History Surgical History Hx of hysterectomy Hx of colonoscopy Hx of partial thyroidectomy History of bilateral carpal tunnel release Hx of bariatric surgery Previous back surgery Social History Social History Household Members: None Housing: House Are you a primary care connector to a significant other at home: No Do you presently have visiting nurse or other home services: No Patient Tobacco Use Status: Former Tobacco user Tobacco use type: Cigarette Second Hand Smoke Exposure: No Substance Use Type: Marijuana Substance Use Frequency: Daily Are you DNR?: No Advance Directives: No Advance Directives Information Provided: Yes Nutrition Risks: No Nutritional Risk Meds Allergies Allergy/AdvReac Type Severity Reaction Status Date / Time acetaminophen [From Percocet] Allergy Mild Nausea Verified 03/02/24 06:50 oxycodone [From Percocet] Allergy Mild Nausea Verified 03/02/24 06:50 Home Medications ?Medication ?Instructions ?Recorded ?Confirmed ?Last Taken ?Type levothyroxine 100 mcg tablet 100 mcg PO MOTUWETHFRSA 03/03/23 03/02/24 03/16/23 History lisinopril 40 mg tablet 40 mg PO DAILY 03/03/23 03/02/24 03/16/23 History rosuvastatin 10 mg tablet 10 mg PO DAILY 03/03/23 03/02/24 03/16/23 History bupropion HCl 150 mg 24 hr tablet, 300 mg PO QAM 01/04/24 03/02/24 Unknown History extended release Exam Airway Mallampati Class: III (prominent upper central incisors) TM Dist: >3cm Neck ROM: Limited Loose/Missing/Broken Teeth: No Heart: RRR Lungs: CTA Assessment and Plan Assessment Anesthesia Assessment: Anesthesia Plan Discussed Final Anesthetic Review NPO: Yes ASA Class: II Final Preanesthetic Review: Meds/Allgs Chart Reviewed, Consent Obtained/Reviewed and Anes Risks/Benef Reviewed Patient Risk: Low Procedure Risk: Intermediate Anesthetic Plan Anesthetic Plan: GA Disposition: Standard PACU
[2024-03-02] VITALS (15 sets, daily range): BP systolic 143–177; BP diastolic 67–82; PULSE 55–69; RESP 16–18; TEMP 36.1–36.7; O2SAT 94–98; BMI 27.9
--- NOTE | ~2024-03-02 | FL_ITS ---
EXAMINATION: XR FLUOROSCOPY WITH IMAGES CLINICAL INFORMATION: Intraoperative cervical ACDF fluoroscopic guidance COMPARISON: Cervical x-rays 02/26/2024. TECHNIQUE: Fluoroscopy provided to: Dr. Mckeon Fluoroscopy time: 11 seconds DAP: 0.6305 Gycm2 Images: 2 FINDINGS: AP and lateral coned down images cervical spine show anterior fusion with plate and screws at C6-C7. Fusion device also noted C3-4 with disc prosthesis and oblique intrabody screws. No complication identified. Patient is intubated. Surgical clips overlie the left inferior neck. FL/FL guidance in OR IMPRESSION: Fluoroscopic guidance. Please refer to the full operative report for details. Electronically signed by: Vikram Roque MD 04/29/2024 02:45 PM EDT
[2024-03-02] MEDS: Lactated Ringers 1,000 ML 100 ML IVCONT (06:37)
--- NOTE | 2024-03-02 07:01 | PC.NURSE ---
Patient states that she no longer takes metformin x one month per order. Monitoring A1c and if medications will be needed in future. No POC required.
[2024-03-02] MEDS: Scopolamine 1.5 MG PATCH.TD.3 TRANSDERMA (07:05)
[2024-03-02] MEDS: methocarbamoL 750 MG TABLET PO (07:05)
[2024-03-02] MEDS: Gabapentin 300 MG CAPSULE PO (07:05)
--- NOTE | 2024-03-02 07:20 | MHC.SHP ---
Pre-Procedural Eval Section A - 24 Hr Update-Section A only Date of Service: 03/02/24 Section B - Complete if H&P > 30 days Chief Complaint: Disease of spinal cord, unspecified Allergies: Allergies Allergy/AdvReac Type Severity Reaction Status Date / Time acetaminophen [From Percocet] Allergy Mild Nausea Verified 03/02/24 06:50 oxycodone [From Percocet] Allergy Mild Nausea Verified 03/02/24 06:50 Review of Systems Sugical H&P ROS: Negative: Constitution, Cardiovascular, Respiratory, Neurological, Psychiatric, Hem-Onc, Allergic/Immunologic, Gastrointestinal, Genitourinary, Musculoskeletal, Integumentary, Endocrine and Eyes/Ears/Nose/Throat Exam Surgical H&P Exam: Not Evaluated: HEENT, Not Evaluated: Heart, Not Evaluated: Lungs, Not Evaluated: Extremities, Not Evaluated: Abdomen, Not Evaluated: Skin and Not Evaluated: Neurological Exam Comment: The patient is in NAD, A&OX3. She is well appearing. No evidence of recent surgery at proposed surgical incision site. Speaking clearly with no concerns. Continues to have bilateral upper extremity numbness. Plan Diagnosis/Plan: Unchanged I have reviewed the history and physical and performed a pertinent physical examination on my patient. No changes have occurred unless specified. Plan remains the same, C3-4 ACDF. Time Spent With Patient Time: Total time managing care of this patient today __7__ minutes.
--- NOTE | 2024-03-02 09:28 | PM.DS ---
DS: Providers Provider Date of Service: 03/02/24 Primary care physician: Diane King MD DS: Summary Time Attestation Discharge Coordination Time (in mins): 15 Quality: Safe Use of Opioids Does Pt have an Active Cancer Diagnosis on the Problem List?: No Quality: Stroke Does the patient have a stroke diagnosis?: No Physical Exam Vital Signs: Vital Signs: Last Vital Signs Temp 98.1 F 03/02/24 07:00 Pulse 69 03/02/24 07:00 Resp 18 03/02/24 07:00 BP 143/77 H 03/02/24 07:00 Pulse Ox 98 03/02/24 07:00 O2 Del Method Room Air 03/02/24 07:00 BMI result Body Mass Index 27.9 DS: Data Data Completed and Pending Completed studies during hospitalization [Text1]: Procedures Excision of Lumbar Vertebral Disc, Open Approach (03/17/23) Fusion of Lumbar Vertebral Joint with Interbody Fusion Device, Anterior Approach, Anterior Column, Open Approach (03/17/23) Insertion of Interspinous Process Spinal Stabilization Device into Lumbar Vertebral Joint, Open Approach (03/17/23) Monitoring of Peripheral Nervous Electrical Activity, Intraoperative, External Approach (03/17/23) Removal of Internal Fixation Device from Lumbar Vertebral Joint, Open Approach (03/17/23) Discharge Plan Discharge Patient Disposition: Home, Self-Care Referrals: Diane King MD [Primary Care Provider] - 1 Week Discharge Medications: New oxycodone 5 mg tablet 5 mg PO Q6H PRN (Reason: pain) Qty: 30 0RF Rx Instructions: Partial Fill upon patient request. Continued levothyroxine 100 mcg tablet 100 mcg PO MOTUWETHFRSA Patient Comments: none on Thursday lisinopril 40 mg tablet 40 mg PO DAILY rosuvastatin 10 mg tablet 10 mg PO DAILY acetaminophen 500 mg capsule 500 mg PO Q4H 7 Days Qty: 42 0RF docusate sodium 50 mg capsule 50 mg PO BID Qty: 20 0RF bupropion HCl 150 mg tablet extended release 24 hr 300 mg PO QAM Discharge Orders: Discharge Order (Routine); Ordered 03/02/24 Ordered By: Paul Lang Diet: Advance to usual diet Activity on Discharge: As tolerated Activity Restrictions/Additional Instructions: After your spinal surgery we ask you to observe the following restrictions/guidelines: Activity: It is normal to feel some discomfort as you increase your activity, but that will improve with time. We ask you avoid heavy lifting or acitivities that cause pain. As a general rule, 8lbs is a safe limit for lifting right after surgery. Walk as much as you feel comfortable but not to exhaustion. You will feel extra tired the first few days after surgery. Stay well hydrated. It is OK to walk up and down stairs You may return to driving when you are off narcotics (such as vicodin, oxycodone, dilaudid, etc), and you are back to normal functional capacity. If you have any concerns please check with office before driving. Return to work is specific to each patient and each surgery, so please speak with your doctor/PA at first follow up. Please bring paperwork such as FMLA at that time if you need it filled out. Medications: We will give you a short supply of narcotics after surgery (usually one weeks worth). If you need more please call the office but do not use more than prescribed. You will need to give our office 48 hours notice if you need narcotics refilled and we do not fill narcotics on weekends or evenings. If you are on a narcotic, it is a good idea to take a stool softener such as colace or senna to avoid constipation If you take blood thinner such as aspirin, Plavix, Coumadin, Effient, Eliquis etc for conditions such as Afib, DVT, Pulmonary embolus, coronary disease, stents etc please speak with your surgeon about specific details as to when you can resume these medications. You can resume NSAIDs on post op day 1 (eg: Motrin, Naproxen, etc). Follow up: Please call the office, , after surgery to arrange a 3 week follow up for wound check. Wound Care: You may remove your dressing on the first day after surgery. ?You may ?leave open to air. Please do not remove the steri strips underneath. they will fall off on their own in one week. IT IS NORMAL FOR THE WOUND TO OOZE OR BE BLOODY FOR A FEW DAYS AFTER SURGERY. ?IF THIS HAPPENS JUST PLACE NEW DRESSING OVER IT TO AVOID STAINING CLOTHES. You may shower on post op day # 1 We ask that you do not let the water soak the wound. If it does get wet, just towel dry lightly. Please do not scrub your incision or place any type of chemical/ointment on the wound. No tub baths, pools or jacuzzis for one month. If you have any leaking or redness from your wound, or fevers, please call the office. Print Language: Taiwanese
--- NOTE | 2024-03-02 09:28 | W.PM.OPN ---
Operative Note Operative Note Date of Service: 03/02/24 Narrative: Preoperative Diagnosis: Progressive cervical myelopathy Procedure: C3-C4 Anterior discectomy, arthrodesis and implantation cage ; C3-C4 anterior instrumentation ; local autograft; microscope Informed Consent was obtained for this operation. I have explained the nature, purpose and benefits of the operation. I have discussed the risks and benefit of the operation including possible complications or adverse events with patient/family. Alternative(s) were discussed with the patient with their relative benefits and risks as well as the consequences of not accepting the operation were included in obtaining consent. Surgeon: SOPHIE MERCEDES MD, PHD Procedure Assisted By: DWIGHT Lucero Description of Procedure: This 73-year-old female suffering from progressive cervical myelopathy. An MRI shows status post anterior diskectomy fusion C6-7 but more importantly it shows progressive myelomalacia behind the body of C4 due to spinal cord compression at C3-C4. There is also an old myelomalacia spot at C4-C5 without significant spinal cord compression. Flexion-extension x-rays do not show instability. She was offered an anterior diskectomy and fusion C3-C4. The procedure complications were explained. The patient was consented. The patient was brought to the operating room and endotracheally intubated. The patient was put in supine position with slight extension of the neck. Prep and drape was done followed by timeout. A mid cervical incision was made followed by opening of the platysma. The prevertebral fascia was reached following the natural planes while the physician evaluation assistant provided manual retraction. The prevertebral fascia was opened to expose the disc space. A spinal needle was placed in the disk space to confirm the correct level with xray. The longus colli muscles were released bilaterally and a self retaining retractor was inserted. Two Ruskin pins were placed in the C3-C4 vertebral bodies and distraction was give over the interspace. The discectomy was completed toward the posterior annulus of the disc. The microscope was brought in. The remainder of the discectomy was completed. The posterior ligament was opened and resected to expose the underlying dura. Osteophytes were resected from the body of C3-C4 to decompress the underlying spinal cord. The osteophytes were saved for autograft. Bilateral foraminotomies were done. The endplates were prepared after which a 8 mm cage filled with autograft was inserted into the disc space. A separate attached plate was locked down with 2 x 14 mm screws as anterior instrumentation. Final x-rays in AP and lateral projection showed a satisfactory position of the implant. The physician evaluation assistant took over. The Ruskin pin was removed. Hemostasis was done. He closed the incision in 2 layers with a 3-0 Vicryl. Steri-Strips used to approximate incision. An OpSite with Tegaderm was used to cover the incision. All sponge and needle counts were correct. Patient was extubated and transported in stable is to recovery room. Anesthesia: General Estimated Blood Loss (ml): 10 mL Duration of Surgery: 1 hour Postoperative Plan: Discharge home Complications: None
[2024-03-02] MEDS: ondansetron HCL 4 MG/2 ML VIAL IVPUSH (12:24)
== END 2024-03-02 13:52 | disposition home or self-care (01) ==
PROVIDERS: PCP Family Medicine; Visit Provider Neurological Surgery
PROC: (CPT 22551; principal; 2024-03-02 07:30)
DX: M50.01 Cervical disc disorder with myelopathy, high cervical region (principal); G95.89 Other specified diseases of spinal cord; R29.898 Other symptoms and signs involving the musculoskeletal system; R20.0 Anesthesia of skin; R20.2 Paresthesia of skin; I10 Essential (primary) hypertension; E78.5 Hyperlipidemia, unspecified; E11.9 Type 2 diabetes mellitus without complications; E03.9 Hypothyroidism, unspecified; M85.80 Other specified disorders of bone density and structure, unspecified site; M54.9 Dorsalgia, unspecified; Z98.1 Arthrodesis status; Z79.899 Other long term (current) drug therapy; Z88.5 Allergy status to narcotic agent; Z98.84 Bariatric surgery status
CPT/HCPCS: 22551; 22853; 20936; 22845; C1713; C1889; J0131; J0690; J1100; J1170; J2250; J2405; J2704; J3010; L8699

== ENCOUNTER → 2024-03-02 06:20 | Outpatient (BNV) | payer OTHER, SELFPAY | PROVIDERS: PCP Family Medicine; Visit Provider Neurological Surgery | DX: M50.020 Cervical disc disorder with myelopathy, mid-cervical region, unspecified level (principal) | CPT/HCPCS: 20936; 22551; 22845; 22853; 99499 ==

== ENCOUNTER 2024-03-14 16:36 | Outpatient (REF) | payer OTHER, SELFPAY | END 2024-03-14 16:37 | disposition home or self-care (01) | LOC: HO.HOSX 16:36 | PROVIDERS: Visit Provider Physician Assistant | DX: Z13.89 Encounter for screening for other disorder (principal) ==

== ENCOUNTER 2024-03-15 09:36 | Outpatient (REF) | payer OTHER, SELFPAY ==
--- NOTE | ~2024-03-15 | XR_ITS ---
EXAMINATION: XR CERVICAL SPINE CLINICAL INFORMATION: Status-post arthrodesis. COMPARISON: Prior radiographs, most recently 03/15/2024. TECHNIQUE: Frontal and lateral of the cervical spine, inclusive of flexion and extension views, were obtained. FINDINGS: There is bony demineralization. Vertebral body heights and alignment are normal. There is well-maintained alignment status-post C3-4 and C6-7 anterior fusions, with intact C3-4 anterior Low Profile fixator device and C6-7 anterior fixator plate and fixator screws. No hardware failure or loosening is seen. There is no acute fracture or spondylolisthesis. No instability is seen with flexion or extension. There is moderate degenerative disc disease at C2-3, C4-5 and C5-6. There is multi-level endplate and facet arthropathy. The posterior elements are intact. The prevertebral soft tissues are unremarkable, without swelling or gas. XR/XR cervical spine 4V IMPRESSION: There is well-maintained alignment status-post C3-4 and C6-7 anterior discectomies and fusions. No hardware failure or loosening is seen. There is no instability with flexion or extension. Electronically signed by: Jorge Stewart MD 04/07/2024 10:37 PM EDT
== END 2024-03-15 09:37 | disposition home or self-care (01) ==
LOC: HO.HOSX 09:36
PROVIDERS: Visit Provider Physician Assistant
DX: Z98.1 Arthrodesis status (principal); G95.9 Disease of spinal cord, unspecified
CPT/HCPCS: 72050

== ENCOUNTER 2024-03-15 14:24 | Outpatient (AMB) | payer OTHER, SELFPAY ==
--- NOTE | 2024-03-15 14:48 | HO.SPINEOV ---
Intake Visit Reasons: trouble using her hands Intake Note: Ms. Alexandrea Rubio is here today c/o trouble using her hands, also itchy rash on her neck after surgery. Slasher Required: No Allergies acetaminophen [From Percocet] Allergy (Mild, Verified 03/15/24 15:10) Nausea oxycodone [From Percocet] Allergy (Mild, Verified 03/15/24 15:10) Nausea Assessment & Plan Assessment & Plan (1) Cervical myelopathy: Code(s): G95.9 - Disease of spinal cord, unspecified Category: Medical Plan Mrs Alexandrea Rubio is about 2 weeks out from her anterior cervical fusion for compressive myelopathy. She called me yesterday concerned that she is having troubles at home. Doing simple things like feeding herself, doing ADLs like taking shower etc. are very difficult because her hands still remained weak and she is uncoordinated. I brought her in just to do an x-ray and check on the status of her fusion. Her wounds healing up very nicely but on exam she still remains quite weak in her hands, worse on the right. She still has some right arm weakness in the biceps and triceps as well. It does not seem significantly changed or improved after surgery. The left arm is maybe slightly stronger than what it was compared to my note from a few weeks back before she had her surgery. She remains hyperreflexic. Her x-rays today were reviewed with Dr. Mckeon and these look excellent. Unfortunately I think what she is dealing with here is persistent myelopathic symptoms due to the severe amount of compression that she had before surgery. We discussed before surgery that it is not known if she would improve after surgery and that the main goal was to stop the symptoms from getting worse. I am optimistic that it is still early in the process and we can have her work with occupational and physical therapy to make some improvements at home. I offered her the option of doing the therapy in her own home so they could evaluate her there in her own personal environment, but she would prefer that we do the therapy as an outpatient setting. I will give her referral for that. I told her if she has not improving over the course of the next 3-4 weeks we could certainly get an MRI just to double check everything. Hermes Mckeon MD, PhD [facility] Orders: Orders XR cervical spine 4V Today Z98.1 - Arthrodesis status Coding Level of Care Code Global (90264) Diagnoses Cervical myelopathy G95.9
== END 2024-03-15 16:00 | disposition home or self-care (01) ==
PROVIDERS: PCP Family Medicine; Visit Provider Physician Assistant
DX: G95.9 Disease of spinal cord, unspecified (principal)
CPT/HCPCS: 99024

== ENCOUNTER 2024-07-11 18:54 | Outpatient (REF) | payer OTHER, SELFPAY | END 2024-07-11 18:55 | disposition home or self-care (01) | LOC: HO.MRI 18:54 | PROVIDERS: PCP Family Medicine; Visit Provider Physician Assistant | DX: G95.9 Disease of spinal cord, unspecified (principal) | CPT/HCPCS: 72141 ==

== ENCOUNTER 2024-08-12 14:51 | Outpatient (AMB) | payer OTHER, SELFPAY ==
--- NOTE | 2024-08-12 15:33 | A.SPINEOV_ITS ---
Intake Visit Reasons: cervical laminectomy Intake Note: Ms. Alexandrea Rubio is here today c/o neck pain. 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 She underwent an anterior diskectomy and fusion C3-C4 in the past for these symptoms. Postoperatively, she had minor improvement. She continues to have dexterity loss, proximal leg weakness, muscle wasting and a spastic gait with balance problems. In addition to the symptoms, she has a positive Lhermitte on exam with extension with shooting electric shocks down her arms. We reviewed the MRI of the cervical spine of 07/11/2024 that shows the pre-existent myelomalacia at C3-4 and C4-C5. More importantly, there is on going posterior stenosis at C3-C4. I recommended a posterior C3-C4 laminectomy to provide maximum space for the spinal cord in an attempt to stabilize and maybe even improve her symptoms. The Lhermitte sign is worrying and is the main reason for me to offer her this decompression. We discuss the plan with the patient and her sister Laura. There was confusion about her lab work. Apparently there was a abnormal CBC with lymphocytosis and anemia. Fortunately, I was able to look into the records of [facility] and her latest lab values where basically normal. There was no anemia or lymphocytosis. Therefore I think we can go ahead and schedule her for the cervical laminectomy. She is tentatively scheduled for 10/05/2024. I spent 40 minutes in his consult to discuss the MRI findings and explaining the clinical situation and answering questions. Thank you for allowing me take care of your patient. Do not hesitate to call me with any questions or concerns. 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
== END 2024-08-15 08:58 | disposition home or self-care (01) ==
PROVIDERS: PCP Family Medicine; Visit Provider Neurological Surgery
DX: M47.12 Other spondylosis with myelopathy, cervical region (principal)
CPT/HCPCS: 99215

== ENCOUNTER → 2024-08-12 14:51 | Outpatient (BNVA) | payer OTHER, SELFPAY | PROVIDERS: PCP Family Medicine; Visit Provider Neurological Surgery ==

== ENCOUNTER → 2024-09-22 13:35 | Outpatient (BNV) | payer OTHER, SELFPAY | PROVIDERS: PCP Family Medicine; Visit Provider Internal Medicine Cardiovascular Disease | DX: R00.1 Bradycardia, unspecified (principal); I45.10 Unspecified right bundle-branch block; R94.31 Abnormal electrocardiogram [ECG] [EKG] | CPT/HCPCS: 93010 ==

== ENCOUNTER 2024-10-05 06:51 | Day surgery (SDC) | payer OTHER, SELFPAY ==
--- NOTE | 2024-09-22 | ECG_ITS ---
Test Reason : preop Blood Pressure : */* mmHG Vent. Rate : 59 BPM Atrial Rate : 59 BPM P-R Int : 196 ms QRS Dur : 132 ms QT Int : 408 ms P-R-T Axes : 52 -29 13 degrees QTcB Int : 403 ms Sinus bradycardia with Premature atrial complexes Right bundle branch block Inferior infarct (cited on or before 04-Mar-2023) Abnormal ECG When compared with ECG of 04-Mar-2023 14:15, Premature atrial complexes are now Present Referred By: Meli Tafoya Electronically Signed By: Marcus Key
[2024-09-22 12:59] VITALS: BP 143/81; PULSE 66; RESP 18; O2SAT 98; BMI 27.5
--- NOTE | 2024-09-22 13:18 | P.CONAN_ITS ---
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 (Acute) Cervical myelopathy (Acute) Bilateral carpal tunnel syndrome (Acute) Lower extremity weakness (Acute) S/P spinal surgery (Acute) Left upper extremity numbness (Acute) Status post cervical spinal fusion (Acute) Lumbar disc herniation with radiculopathy (Acute) Status post lumbar spinal arthrodesis (Acute) Gait disorder (Acute) Hand weakness (Acute) Numbness and tingling in both hands (Acute) Anxiety (Acute) Past Medical History Medical History Diverticulosis CKD (chronic kidney disease) stage 3, GFR 30-59 ml/min Iron deficiency B-cell lymphoproliferative disorder Tobacco use disorder Pancreatitis Obesity Numbness Neck pain Lumbar spondylosis Thyroid disease Depression Colovaginal fistula Back pain Gait disorder Hand weakness Numbness and tingling in both hands Anxiety PONV (postoperative nausea and vomiting) Cataract Diabetes mellitus, type 2 Hyperlipidemia Hypertension Right bundle branch block (RBBB) Osteopenia Osteoarthritis Glaucoma Hypothyroidism Family History Family history of problems with anesthesia: No Surgical History Surgical History Hx of bilateral cataract extraction History of back surgery History of back surgery History of esophagogastroduodenoscopy (EGD) Hx of tonsillectomy Hx of cholecystectomy Hx of hysterectomy Hx of colonoscopy Hx of partial thyroidectomy History of bilateral carpal tunnel release Hx of bariatric surgery Previous back surgery History of Problems with Anesthesia: Yes (PONV) Social History Social History Household Members: None Housing: House Are you a primary home day care provider to a significant other at home: No Do you presently have visiting nurse or other home services: No Patient Tobacco Use Status: Former Tobacco user Tobacco use type: Cigarette Second Hand Smoke Exposure: No Substance Use Type: Marijuana Substance Use Frequency: Occasionally Have you been hit, kicked, punched, or otherwise hurt by someone within the past year? If so, by whom?: No Are you DNR?: No Advance Directives: No Advance Directives Information Provided: Yes Advance Directives on File: No Recently lost weight without trying: No Eating poorly because of decreased appetite: No Nutrition Risks: No Nutritional Risk Patient : No : No Poor oral hygiene: Yes (upper crowns) Meds Allergies Allergy/AdvReac Type Severity Reaction Status Date / Time acetaminophen [From Percocet] Allergy Mild Nausea Verified 08/12/24 15:34 oxycodone [From Percocet] Allergy Mild Nausea Verified 08/12/24 15:34 Home Medications ?Medication ?Instructions ?Recorded ?Confirmed ?Last Taken ?Type levothyroxine 100 mcg tablet 100 mcg PO MOTUWETHFRSA 03/03/23 09/22/24 03/16/23 History lisinopril 40 mg tablet 40 mg PO BEDTIME 03/03/23 09/22/24 03/16/23 History rosuvastatin 10 mg tablet 10 mg PO BEDTIME 03/03/23 09/22/24 03/16/23 History bupropion HCl 150 mg 24 hr tablet, 300 mg PO QAM 01/04/24 09/22/24 Unknown History extended release acetaminophen 500 mg capsule 500 mg PO Q4H PRN moderate pain 09/22/24 09/22/24 Unknown History ferrous sulfate 325 mg (65 mg 325 mg PO Q OTHER DAY 09/22/24 09/22/24 Unknown History iron) tablet (iron) oxybutynin chloride 10 mg 10 mg PO DAILY 09/22/24 09/22/24 Unknown History tablet,extended release 24 hr Exam Height,Weight and Vital Signs: Height 5 ft 5.5 in Weight 76.204 kg Last Vital Signs Pulse 66 09/22/24 12:59 Resp 18 09/22/24 12:59 BP 143/81 H 09/22/24 12:59 Pulse Ox 98 09/22/24 12:59 O2 Del Method Room Air 09/22/24 12:59 Pertinent Lab Results Pertinent Lab Results: CBC and BMP 01/2024 OK Lab Results 09/22/24 Range/Units 14:01 WBC 6.1 (4.8-10.8) X10*3/uL RBC 4.48 (4.20-5.50) X10*6/uL Hgb 11.9 L (12.0-16.0) g/dl Hct 38.4 (37.0-47.0) % MCV 85.7 (80.0-98.0) fL MCH 26.6 L (27.0-33.0) pg MCHC 31.0 (31.0-35.0) g/dl RDW 14.0 (11.0-16.0) % Plt Count 212 (160-400) X10*3/uL MPV 9.5 (9.4-12.3) fL Absolute Nucleated RBC 0.000 (0.0-0.012) X10*3/uL Nucleated RBC % (auto) 0.0 (0.0-0.2) /100WBC Sodium 143 (135-145) mmol/L Potassium 4.5 (3.3-5.1) mmol/L Chloride 111 H (96-108) mmol/L Carbon Dioxide 26 (22-29) mmol/L Anion Gap 11 L (12-20) BUN 22 H (9-16) mg/dL Creatinine 1.35 (0.5-1.4) mg/dL Estim Creat Clear Calc 37.8 Estimated GFR 38 Random Glucose 78 (60-115) mg/dL Estimat Average Glucose 117 mg/dL Hemoglobin A1c % 5.7 (<6.0) % Calcium 9.4 (8.4-10.2) mg/dL Narrative Narrative: EKG 08/2024 Vent. Rate : 59 BPM Atrial Rate : 59 BPM P-R Int : 196 ms QRS Dur : 132 ms QT Int : 408 ms P-R-T Axes : 52 -29 13 degrees QTcB Int : 403 ms Sinus bradycardia with Premature atrial complexes Right bundle branch block Inferior infarct (cited on or before 04-Mar-2023) Abnormal ECG When compared with ECG of 04-Mar-2023 14:15, Premature atrial complexes are now Present EKG 11/2023 SR @64 RBBB Airway Mallampati Class: III (prominent upper central incisors) TM Dist: >3cm Neck ROM: Limited Loose/Missing/Broken Teeth: No (crowns stable) Heart: RRR Lungs: CTAB Assessment and Plan Assessment Anesthesia Assessment: Anesthesia Plan Discussed and PAT Visit Final Anesthetic Review Family History of Problems with Anesthesia: No History of Problems with Anesthesia: Yes (PONV) Documented by User: Kaye Pratt MD 10/05/24 09:39 [facility] Past Medical History Medical History Diverticulosis CKD (chronic kidney disease) stage 3, GFR 30-59 ml/min Iron deficiency B-cell lymphoproliferative disorder Tobacco use disorder Pancreatitis Obesity Numbness Neck pain Lumbar spondylosis Thyroid disease Depression Colovaginal fistula Back pain Gait disorder Hand weakness Numbness and tingling in both hands Anxiety PONV (postoperative nausea and vomiting) Cataract Diabetes mellitus, type 2 Hyperlipidemia Hypertension Right bundle branch block (RBBB) Osteopenia Osteoarthritis Glaucoma Hypothyroidism Surgical History Surgical History Hx of bilateral cataract extraction History of back surgery History of back surgery History of esophagogastroduodenoscopy (EGD) Hx of tonsillectomy Hx of cholecystectomy Hx of hysterectomy Hx of colonoscopy Hx of partial thyroidectomy History of bilateral carpal tunnel release Hx of bariatric surgery Previous back surgery Social History Social History Household Members: None Housing: House Are you a primary home day care provider to a significant other at home: No Do you presently have visiting nurse or other home services: No Patient Tobacco Use Status: Former Tobacco user Tobacco use type: Cigarette Second Hand Smoke Exposure: No Substance Use Type: Marijuana Substance Use Frequency: Occasionally Have you been hit, kicked, punched, or otherwise hurt by someone within the past year? If so, by whom?: No Are you DNR?: No Advance Directives: No Advance Directives Information Provided: Yes Advance Directives on File: No Recently lost weight without trying: No Eating poorly because of decreased appetite: No Nutrition Risks: No Nutritional Risk Patient : No : No Poor oral hygiene: Yes (upper crowns) Meds Allergies Allergy/AdvReac Type Severity Reaction Status Date / Time acetaminophen [From Percocet] Allergy Mild Nausea Verified 08/12/24 15:34 oxycodone [From Percocet] Allergy Mild Nausea Verified 08/12/24 15:34 Home Medications ?Medication ?Instructions ?Recorded ?Confirmed ?Last Taken ?Type levothyroxine 100 mcg tablet 100 mcg PO MOTUWETHFRSA 03/03/23 09/22/24 03/16/23 History lisinopril 40 mg tablet 40 mg PO BEDTIME 03/03/23 09/22/24 03/16/23 History rosuvastatin 10 mg tablet 10 mg PO BEDTIME 03/03/23 09/22/24 03/16/23 History bupropion HCl 150 mg 24 hr tablet, 300 mg PO QAM 01/04/24 09/22/24 Unknown History extended release acetaminophen 500 mg capsule 500 mg PO Q4H PRN moderate pain 09/22/24 09/22/24 Unknown History ferrous sulfate 325 mg (65 mg 325 mg PO Q OTHER DAY 09/22/24 09/22/24 Unknown History iron) tablet (iron) oxybutynin chloride 10 mg 10 mg PO DAILY 09/22/24 09/22/24 Unknown History tablet,extended release 24 hr Assessment and Plan Final Anesthetic Review NPO: Yes ASA Class: III Final Preanesthetic Review: No Changes in Pt Med Stat, Meds/Allgs Chart Reviewed, Consent Obtained/Reviewed and Anes Risks/Benef Reviewed Patient Risk: Intermediate Procedure Risk: Intermediate Anesthetic Plan Anesthetic Plan: GA Disposition: Standard PACU
[2024-09-22 14:25] LABS: Hematocrit 38.4 % (37.0-47.0); Hemoglobin 11.9 g/dl (12.0-16.0); Mean Corpuscular Hemoglobin 26.6 pg (27.0-33.0); Mean Corpuscular Volume 85.7 fL (80.0-98.0); Mean Platelet Volume 9.5 fL (9.4-12.3); Platelet Count 212 X10*3/uL (160-400); Red Blood Count 4.48 X10*6/uL (4.20-5.50); White Blood Count 6.1 X10*3/uL (4.8-10.8)
[2024-09-22 14:34] LABS: Estimated Average Glucose 117 mg/dL; Hemoglobin A1c % 5.7 % (<6.0); Total Hemoglobin (HGBA1C) 3180.1719 umol/L
[2024-09-22 15:02] LABS: Anion Gap 11 (12-20); Blood Urea Nitrogen 22 mg/dL (9-16); Calcium 9.4 mg/dL (8.4-10.2); Carbon Dioxide 26 mmol/L (22-29); Chloride 111 mmol/L (96-108); Creatinine Clr Calc Pharmacy 37.8; Estimated Glomerular Filt Rate 38; Glucose Random 78 mg/dL (60-115); Potassium 4.5 mmol/L (3.3-5.1); Sodium 143 mmol/L (135-145)
[2024-10-05] VITALS (20 sets, daily range): BP systolic 158–198; BP diastolic 74–89; PULSE 52–79; RESP 10–20; TEMP 36.4–37; O2SAT 95–99; BMI 29.5
--- NOTE | ~2024-10-05 | FL_ITS ---
EXAMINATION: FL GUIDANCE ONLY HISTORY: c3-4 laminectomy COMPARISON: Correlation is made with plain films of the cervical spine dated 03/15/2024. TECHNIQUE: Fluoroscopy time: 2.3 seconds. Cumulative Dose: 0.2552 mGy. DAP: 0.0968 mGym2 Images: 1. FINDINGS: A single fluoroscopic spot film of the cervical spine in the lateral projection demonstrates anterior cervical disc fusion at C3-4. FL/FL guidance in OR IMPRESSION: Fluoroscopy during procedure. Please see procedure report for additional information. Electronically signed by: Meliton Beltran MD 10/05/2024 12:28 PM EDT
--- NOTE | 2024-10-05 06:58 | MHC.SHP ---
Pre-Procedural Eval Section A - 24 Hr Update-Section A only Date of Service: 10/05/24 Section B - Complete if H&P > 30 days Chief Complaint: Other spondylosis with myelopathy, cervical region Allergies: Allergies Allergy/AdvReac Type Severity Reaction Status Date / Time acetaminophen [From Percocet] Allergy Mild Nausea Verified 08/12/24 15:34 oxycodone [From Percocet] Allergy Mild Nausea Verified 08/12/24 15:34 Review of Systems Sugical H&P ROS: Negative: Constitution, Cardiovascular, Respiratory, Neurological, Psychiatric, Hem-Onc, Allergic/Immunologic, Gastrointestinal, Genitourinary, Musculoskeletal, Integumentary, Endocrine and Eyes/Ears/Nose/Throat Exam Surgical H&P Exam: Not Evaluated: HEENT, Not Evaluated: Heart, Not Evaluated: Lungs, Not Evaluated: Extremities, Not Evaluated: Abdomen, Not Evaluated: Skin and Not Evaluated: Neurological Exam Comment: The patient is awake, alert, no acute distress. Proposed surgical incision site is clean, dry, with no recent signs of trauma or injury. Plan Diagnosis/Plan: Unchanged I have reviewed the history and physical and performed a pertinent physical examination on my patient. No changes have occurred unless specified. Plan remains the same, C3-4 laminectomy. Time Spent With Patient Time: Total time managing care of this patient today __12__ minutes.
[2024-10-05] MEDS: methocarbamoL 750 MG TABLET PO (07:51)
[2024-10-05] MEDS: Gabapentin 300 MG CAPSULE PO (07:51)
[2024-10-05] MEDS: Lactated Ringers 1,000 ML 100 ML IVCONT (07:57)
[2024-10-05] MEDS: ceFAZolin Sodium/Dextrose,Iso 2 GM/50 ML PIGGYBACK IV (10:40)
--- NOTE | 2024-10-05 11:35 | P.OP_ITS ---
Operative Note Operative Note Date of Service: 10/05/24 Narrative: Preoperative Diagnosis: cervical myelopathy Operation: C3, C4 laminectomy Consent Informed Consent was obtained for this operation. I have explained the nature, purpose and benefits of the operation. I have discussed the risks and benefit of the operation including possible complications or adverse events with patient/family. Alternative(s) were discussed with the patient with their relative benefits and risks as well as the consequences of not accepting the operation were included in obtaining consent. Surgeon: SOPHIE MERCEDES MD, PHD Procedure Assisted By: Hermes Johnson Description of Procedure This patient is suffering from cervical myelopathy despite anterior decompression. The MRI still shows posterior spinal cord compression. The patient was offered a posterior C3, C4 cervical laminectomy to make sure that the spinal cord has the most space to recover. The procedure complications were explained. The patient was consented. The patient was brought to the operating room and endotracheally intubated. The patient was turned in prone position on the gel rolls with the head fixated in [place]. Prep and drape was done followed by timeout. A midcervical incision was made. Dissection was carried down the midline to avoid blood loss. The paravertebral muscles were released to expose the C3, C4 laminae in preparation for the laminectomy. An x-ray confirmed the correct levels. A Leksell was used to remove the spinous processi in preparation for the laminectomy. A # 2. and 3 Kerr[place] were used to complete a C3, C4 laminectomy. The laminectomy was extended laterally near f lush with the pedicles. This resulted in good decompression of the spinal cord. Extensive hemostasis was done after which the physician elementary assistant teacher closed the fascia and subcutaneous layer with 2-0 Vicryl. Saida were used to approximate the incision. All sponge and needle counts were correct. The [place] was removed. Patient was extubated and transported in a stable base to the recover room. Anesthesia: General Estimated Blood Loss (ml): 30 mL Duration of Surgery: Under 60 Minutes Postoperative Plan: Discharge to home
--- NOTE | 2024-10-05 11:41 | P.DS_ITS ---
DS: Providers Provider Date of Service: 10/05/24 Date of discharge: 10/05/24 Primary care physician: Diane King MD DS: Summary Time Attestation Discharge Coordination Time (in mins): 12 Quality: Safe Use of Opioids Does Pt have an Active Cancer Diagnosis on the Problem List?: No Quality: Stroke Does the patient have a stroke diagnosis?: No Physical Exam Vital Signs: Vital Signs: Last Vital Signs Temp 98.6 F 10/05/24 07:35 Pulse 65 10/05/24 07:35 Resp 16 10/05/24 07:35 BP 158/75 H 10/05/24 07:35 Pulse Ox 99 10/05/24 07:35 O2 Del Method Room Air 10/05/24 07:35 BMI result Body Mass Index 29.5 DS: Data Data Completed and Pending Completed studies during hospitalization [Text1]: Procedures Excision of Lumbar Vertebral Disc, Open Approach (03/17/23) Fusion of Lumbar Vertebral Joint with Interbody Fusion Device, Anterior Approach, Anterior Column, Open Approach (03/17/23) Insertion of Interspinous Process Spinal Stabilization Device into Lumbar Vertebral Joint, Open Approach (03/17/23) Monitoring of Peripheral Nervous Electrical Activity, Intraoperative, External Approach (03/17/23) Removal of Internal Fixation Device from Lumbar Vertebral Joint, Open Approach (03/17/23) Discharge Plan Discharge Patient Disposition: Home, Self-Care Referrals: Diane King MD [Primary Care Provider] - 1 Week Discharge Medications: New hydromorphone 4 mg tablet See Rx Instructions .ROUTE .COMPLEX PRN (Reason: pain) Qty: 14 0RF Rx Instructions: Take 1/2 tablet by mouth every 4 hours. Partial Fill upon patient request. PRN Continued levothyroxine 100 mcg tablet 100 mcg PO MOTUWETHFRSA Patient Comments: none on Thursday lisinopril 40 mg tablet 40 mg PO BEDTIME rosuvastatin 10 mg tablet 10 mg PO BEDTIME bupropion HCl 150 mg tablet extended release 24 hr 300 mg PO QAM oxybutynin chloride 10 mg tablet extended release 24hr 10 mg PO DAILY acetaminophen 500 mg capsule 500 mg PO Q4H PRN (Reason: moderate pain) ferrous sulfate [iron] 325 mg (65 mg iron) Tablet 325 mg PO Q OTHER DAY Discharge Orders: Discharge Order (Routine); Ordered 10/05/24 Ordered By: Paul Lang Diet: Advance to usual diet Activity on Discharge: As tolerated Activity Restrictions/Additional Instructions: After your spinal surgery we ask you to observe the following restrictions/guidelines: Activity: It is normal to feel some discomfort as you increase your activity, but that will improve with time. We ask you avoid heavy lifting or acitivities that cause pain. As a general rule, 8lbs is a safe limit for lifting right after surgery. Walk as much as you feel comfortable but not to exhaustion. You will feel extra tired the first few days after surgery. Stay well hydrated. It is OK to walk up and down stairs You may return to driving when you are off narcotics (such as vicodin, oxycodone, dilaudid, etc), and you are back to normal functional capacity. If you have any concerns please check with office before driving. Return to work is specific to each patient and each surgery, so please speak with your doctor/PA at first follow up. Please bring paperwork such as FMLA at that time if you need it filled out. Medications: We recommend you take 1,000mg Tylenol every 8 hours for the first few weeks after surgery, if you do not have any liver issues and can tolerate this medication. Do not exceed 4,000mg daily. We will give you a short supply of narcotics after surgery (usually one weeks worth). If you need more please call the office but do not use more than prescribed. You will need to give our office 48 hours notice if you need narcotics refilled and we do not fill narcotics on weekends or evenings. If you are on a narcotic, it is a good idea to take a stool softener such as colace or senna to avoid constipation If you take blood thinner such as aspirin, Plavix, Coumadin, Effient, Eliquis etc for conditions such as Afib, DVT, Pulmonary embolus, coronary disease, stents etc please speak with your surgeon about specific details as to when you can resume these medications. You can resume NSAIDs on post op day 1 (eg: Motrin, Naproxen, etc). Follow up: Please call the office, , after surgery to arrange a 3 week follow up for wound check. Wound Care: You may remove your dressing on the first day after surgery. ?You may ?leave open to air. Please do not remove the steri strips underneath. they will fall off on their own in one week. IT IS NORMAL FOR THE WOUND TO OOZE OR BE BLOODY FOR A FEW DAYS AFTER SURGERY. ?IF THIS HAPPENS JUST PLACE NEW DRESSING OVER IT TO AVOID STAINING CLOTHES. You may shower on post op day # 1 We ask that you do not let the water soak the wound. If it does get wet, just towel dry lightly. Please do not scrub your incision or place any type of chemical/ointment on the wound. No tub baths, pools or jacuzzis for one month. If you have any leaking or redness from your wound, or fevers, please call the office. Print Language: Turkish
[2024-10-05] MEDS: HYDROmorphone HCl 0.5 MG/0.5 ML SYRINGE 0.25 MG IVPUSH ×6 (12:05→12:30)
[2024-10-05] MEDS: ondansetron HCL 4 MG/2 ML VIAL IVPUSH (13:25)
[2024-10-05] MEDS: Haloperidol Lactate 5 MG/ML VIAL 1 MG IVPUSH (14:10)
== END 2024-10-05 15:55 | disposition home or self-care (01) ==
PROVIDERS: Nurse Practitioner; PCP Family Medicine; Visit Provider Neurological Surgery
PROC: (CPT 63045; principal; 2024-10-05 10:00)
DX: M47.12 Other spondylosis with myelopathy, cervical region (principal); M54.2 Cervicalgia; G12.9 Spinal muscular atrophy, unspecified; G95.89 Other specified diseases of spinal cord; R29.818 Other symptoms and signs involving the nervous system; R26.81 Unsteadiness on feet; M62.82 Rhabdomyolysis; R27.8 Other lack of coordination; E11.22 Type 2 diabetes mellitus with diabetic chronic kidney disease; I12.9 Hypertensive chronic kidney disease with stage 1 through stage 4 chronic kidney disease, or unspecified chronic kidney disease; N18.30 Chronic kidney disease, stage 3 unspecified; Z79.899 Other long term (current) drug therapy; Z88.5 Allergy status to narcotic agent; Z87.891 Personal history of nicotine dependence
CPT/HCPCS: 63045; 63048; 36415; 80048; 83036; 85027; 93005; J0131; J0690; J1100; J1171; J1630; J2003; J2405; J2704; J3010

== ENCOUNTER → 2024-10-05 06:51 | Outpatient (BNV) | payer OTHER, SELFPAY | PROVIDERS: PCP Family Medicine; Visit Provider Neurological Surgery | DX: M50.01 Cervical disc disorder with myelopathy, high cervical region (principal) | CPT/HCPCS: 63045; 63048; 99499 ==

== ENCOUNTER 2024-10-19 15:26 | Outpatient (AMB) | payer OTHER, SELFPAY ==
--- NOTE | 2024-10-19 15:49 | HO.SPINEOV ---
Intake Visit Reasons: suture removal Intake Note: Ms. Alexandrea Rubio is here today to have her sutures removed. Cinema Or Theatre Manager Required: No Allergies acetaminophen [From Percocet] Allergy (Mild, Verified 10/19/24 15:49) Nausea oxycodone [From Percocet] Allergy (Mild, Verified 10/19/24 15:49) Nausea Assessment & Plan Assessment & Plan (1) Cervical myelopathy: Code(s): G95.9 - Disease of spinal cord, unspecified Category: Medical Plan: Dear colleague, On 10/19/2024 I saw for 1st postoperative visit peter Santoro. She underwent a C3-4 laminectomy for ongoing cervical myelopathy despite an anterior cervical fusion. Her main symptoms are dexterity loss and balance problems. She states that her balance has improved after the last decompression. We both thought it would be a good idea to refer for physical therapy for further strengthening and balance training. Today I removed the yohan and the incision looks healed. I discharged her from further follow-up and she will visit on a p.r.n. basis. Thank you for allowing me take care of your patient. Franklin Mckeon MD, PhD Spine Fellowship Trained Neurosurgeon Director, [facility] Orders: Orders PT Evaluation and Treatment Today G95.9 - Disease of spinal cord, unspecified Coding Level of Care Code Global (37576) Diagnoses Cervical myelopathy G95.9
--- OUTSIDE RECORDS SUMMARY | 2024-10-19 18:29 | XMS_ITS | Encounter Summary ---
Author Organization [facility] Address [address] [place] [address] Phone Care Team Providers Care Silverware Buffer Name Role Phone Diane King MD Primary Care Provider Encounter Details Date Type Department Care Team (Late st Contact Info) Description 06/15/2024 Documentation Only [facility] [address] [place] [address] Fauzia [address] [place] [address] Social History Tobacco Use Types Packs/Day Years Used Date Smoking Tobacco: Never Assessed Comments Unknown Sex and Gender Information Value Date Recorded Sex Assigned at Not on file Legal Sex Female 3:39 PM EDT Gender Identity Not on file Sexual Orientation Not on file documented as of this encounter Plan of Treatment Upcoming Encounters Date Type Department Care Team (Late st Contact Info) Description 12/26/2024 2:30 PM EDT Office Visit [facility] [address] [place] [address] Sal Ferrer MD [address] [place] [address] [place] [address] documented as of this encounter Visit Diagnoses Not on filedocumented in this encounter Care Teams Silverware Buffer Relationship Specialty Start Date End Date Diane King MD PCP - General Family Medicine 02/18/24 documented as of this encounter
--- OUTSIDE RECORDS SUMMARY | 2024-10-19 18:29 | XMS_ITS | Encounter Summary ---
Author Organization [facility] Address [address] [place] [address] Phone Care Team Providers Care Name Plate Stamper Name Role Phone Diane King MD Primary Care Provider [phone] Encounter Details Date Type Department Care Team (Late st Contact Info) Description 04/26/2024 Documentation Only [facility] [address] [place] [address] Fauzia [address] [place] [address] Social History Tobacco Use Types [...] Visit [facility] [address] [place] [address] Sal Ferrer MD [address] [place] [address] [place] [address] documented as of this encounter Visit Diagnoses Not on filedocumented in this encounter Care Teams Name Plate Stamper Relationship Specialty Start Date End Date Diane King MD PCP - General Family Medicine 02/18/24 documented as of this encounter
--- OUTSIDE RECORDS SUMMARY | 2024-10-19 18:29 | XMS_ITS | Encounter Summary ---
Author Organization [facility] Address [address] [place] [address] Phone Care Team Providers Care Marine Animal Trainer Name Role Phone Diane King MD Primary Care Provider Encounter Details Date Type Department Care Team (Late st Contact Info) Description 06/15/2024 Documentation Only [facility] [address] [place] [address] [address]auzia [address] [place] [address] Social History Tobacco Use Types [...] Visit [facility] [address] [place] [address] Sal Ferrer MD [address] [place] [address] [place] [address] documented as of this encounter Visit Diagnoses Not on filedocumented in this encounter Care Teams Marine Animal Trainer Relationship Specialty Start Date End Date Diane King MD PCP - General Family Medicine 02/18/24 documented as of this encounter
--- OUTSIDE RECORDS SUMMARY | 2024-10-19 18:29 | XMS_ITS | Clinical Summary ---
Author Organization [facility] Address [address] [place] [address] Phone Care Team Providers Care Oil Furnace Installer Name Role Phone Diane King MD Primary Care Provider Medications lisinopril 10 MG tablet Take 10 mg by mouth 1 (one) time each day Active ferrous sulfate (Fe Tabs) 325 (65 Fe) MG EC tablet Take 1 tablet (325 mg total) by mouth every other day Do not crush, chew, or split. 15 tablet 5 03/14/2024 Active Social History Tobacco Use Types Packs/Day Years Used Date Smoking Tobacco: Never Assessed Comments Unknown Sex and Gender Information Value Date Recorded Sex Assigned at Not on file Legal Sex Female 3:39 PM EDT Gender Identity Not on file Sexual Orientation Not on file Last Filed Vital Signs Vital Sign Reading Time Taken Comments Blood Pressure 124/62 06/20/2024 3:15 PM EST Pulse - - Temperature - - Respiratory Rate - - Oxygen Saturation - - Inhaled Oxygen Concentration - - Weight 79.4 kg (175 lb) 03/14/2024 4:09 PM EDT Height - - Body Mass Index - - Plan of Treatment Upcoming Encounters Date Type Department Care Team (Late st Contact Info) Description 12/26/2024 2:30 PM EDT Office Visit [facility] [address] [place] [address] Sal Ferrer MD [address] [place] [address] Health Maintenance Due Date Last Done Comments Breast Cancer Screening 1950 Colorectal Cancer Screening: Annual FOBT 2000 Colorectal Cancer Screening: Colonoscopy 2000 Colorectal Cancer Screening: Sigmoidoscopy 2000 Pneumococcal Vaccine: 65+ Years (2 of 2 - PCV) 04/03/2012 04/03/2011 Influenza Vaccine (#1) 2024 2, 05/12/2020, 07/14/2018 Diabetes: Hemoglobin A1C 06/20/2024 024, 01/22/2021 Diabetes: Ophthalmology Exam 06/20/2024 Diabetes: Pedal Pulse Checked 06/20/2024 Diabetes: Sensory Foot Exam 06/20/2024 Diabetes: Visual Foot Exam 06/20/2024 Hepatitis B Vaccine Aged Out No longe r eligible based on patient's age to complete this topic Insurance Care Teams Oil Furnace Installer Relationship Specialty Start Date End Date Diane King MD PCP - General Family Medicine 02/18/24
--- OUTSIDE RECORDS SUMMARY | 2024-10-19 18:29 | XMS_ITS | Encounter Summary ---
Author Organization [facility] Address [address] [place] [address] Phone Care Team Providers Care Rejoiner Name Role Phone Diane King MD Primary Care Provider Encounter Details Date Type Department Care Team (Late st Contact Info) Description 05/20/2024 Documentation Only [facility] [address] [place] [address] Fauzia [address] [place] [address] Social History Tobacco Use Types [...] Visit [facility] [address] [place] [address] Sal Ferrer MD [address] [place] [address] [place] [address] documented as of this encounter Visit Diagnoses Not on filedocumented in this encounter Care Teams Rejoiner Relationship Specialty Start Date End Date Diane King MD PCP - General Family Medicine 02/18/24 documented as of this encounter
--- OUTSIDE RECORDS SUMMARY | 2024-10-19 18:29 | XMS_ITS | Encounter Summary ---
Author Organization [facility] Address [address] [place] [address] Phone Care Team Providers Care Liner Worker Name Role Phone Diane King MD Primary Care Provider [phone] Encounter Details Date Type Department Care Team (Late st Contact Info) Description 06/15/2024 Documentation Only [facility] [address] [place] [address] Fauzia [address] [place] [address] Social History Tobacco Use Types [...] [facility] [address] [place] [address] Sal Ferrer MD [address] [place] [address] [place] [address] documented as of this encounter Visit Diagnoses Not on filedocumented in this encounter Care Teams Liner Worker Relationship Specialty Start Date End Date Diane King MD PCP - General Family Medicine 02/18/24 documented as of this encounter
--- OUTSIDE RECORDS SUMMARY | 2024-10-19 18:29 | XMS_ITS | Encounter Summary ---
Author Organization [facility] Address [address] [place] [address] Phone Care Team Providers Care Distribution Supervisor Name Role Phone Diane King MD Primary Care Provider Encounter Details Date Type Department Care Team (Late st Contact Info) Description 05/02/2024 Documentation Only [facility] [address] [place] [address] Fauzia Ball [address] [place] [address] Social History Tobacco Use Types [...] Visit [facility] [address] [place] [address] Sal Ferrer MD [address] [place] [address] [place] [address] documented as of this encounter Visit Diagnoses Not on filedocumented in this encounter Care Teams Distribution Supervisor Relationship Specialty Start Date End Date Diane King MD PCP - General Family Medicine 02/18/24 documented as of this encounter
--- OUTSIDE RECORDS SUMMARY | 2024-10-19 18:29 | XMS_ITS | Encounter Summary ---
Author Organization [facility] Address [address] [place] [address] Phone Care Team Providers Care Fabric Lay Out Worker Name Role Phone Diane King MD Primary Care Provider Encounter Details Date Type Department Care Team (Late st Contact Info) Description 06/14/2024 Documentation Only [facility] [address] [place] [address] Fauzia Ball [address] [place] [address] Social History Tobacco Use Types [...] Visit [facility] [address] [place] [address] Sal Ferrer MD [address] [place] [address] [place] [address] documented as of this encounter Visit Diagnoses Not on filedocumented in this encounter Care Teams Fabric Lay Out Worker Relationship Specialty Start Date End Date Diane King MD PCP - General Family Medicine 02/18/24 documented as of this encounter
--- OUTSIDE RECORDS SUMMARY | 2024-10-19 18:29 | XMS_ITS | Encounter Summary ---
Author Organization [facility] Address [address] [place] [address] Phone Care Team Providers Care Court Assistant Name Role Phone Diane King MD Primary Care Provider Encounter Details Date Type Department Care Team (Late st Contact Info) Description 02/18/2024 Documentation Only [facility] [address] [place] [address] [place] [address] [place] [address] Social History Tobacco Use Types [...] Visit [facility] [address] [place] [address] Sal Ferrer MD [address] [place] [address] [place] [address] documented as of this encounter Visit Diagnoses Not on filedocumented in this encounter Care Teams Court Assistant Relationship Specialty Start Date End Date Diane King MD PCP - General Family Medicine 02/18/24 documented as of this encounter
--- OUTSIDE RECORDS SUMMARY | 2024-10-19 18:29 | XMS_ITS ---
Author Name [facility] Organization Unknown Care Team Organization Name Specialty Phone Email Start Date End Da sarkis [facility] 05/31/2022 03/14/2024
--- OUTSIDE RECORDS SUMMARY | 2024-10-19 18:29 | XMS_ITS | Encounter Summary ---
Author Organization [facility] Address [address] [place] [address] Phone Care Team Providers Care Central Control Room Operator Name Role Phone Diane King MD Primary Care Provider Encounter Details Date Type Department Care Team (Late st Contact Info) Description 02/29/2024 Documentation Only [facility] [address] [place] [address] [place] [address] [place] [address] Social History Tobacco Use Types [...] Visit [facility] [address] [place] [address] Sal Ferrer MD [address] [place] [address] [place] [address] documented as of this encounter Visit Diagnoses Not on filedocumented in this encounter Care Teams Central Control Room Operator Relationship Specialty Start Date End Date Diane King MD PCP - General Family Medicine 02/18/24 documented as of this encounter
--- OUTSIDE RECORDS SUMMARY | 2024-10-19 18:29 | XMS_ITS | Clinical Summary ---
Author Organization [facility] Address [address] [place] [address] Phone Care Team Providers Care District Director Name Role Phone Diane King MD Primary Care Provider Allergies Active Allergy Reactions Criticality Noted Date Comments Morphine 06/04/2017 Nausea and vomiting Oxycodone Nausea And Vomiting Medium 02/07/2020 Oxycodone-Acetaminophe n Nausea And Vomiting Medium 02/07/2020 Medications buPROPion XL (WELLBUTRIN XL) 150 mg 24 hr tablet Take 1 tablet (150 mg total) by mouth 1 (one) time each day in the morning. 4 Active melatonin 1 mg tablet Take 1 Tablet by mouth. Active OXYBUTYNIN CHLORIDE ORAL Take by mouth. Active levothyroxine (SYNTHROID, LEVOTHROID) 100 mcg tablet TAKE 1 TABLET THURSDAY THROUGH THURSDAY AND OFF ON THURSDAY.(TAKI NG 6 DAYS A WEEK) 78 tablet 2 4 Active rosuvastatin (CRESTOR) 10 mg tablet TAKE 1 TABLET BY MOUTH EVERY DAY 90 tablet 5 Active lisinopril (PRINIVIL,ZEST RIL) 40 mg tablet TAKE 1 TABLET BY MOUTH EVERY DAY 90 tablet 5 Active rosuvastatin (CRESTOR) 10 mg tablet TAKE 1 TABLET BY MOUTH EVERY DAY 90 tablet 4 025 Discontinued lisinopril (PRINIVIL,ZEST RIL) 40 mg tablet TAKE 1 TABLET BY MOUTH EVERY DAY 90 tablet 5 025 Discontinued Active Problems Problem Noted Date Diagnosed Date B-cell lymphoproliferative disorder 06/06/2024 Iron deficiency 06/06/2024 Radicular pain of right upper extremity 12/21/19 Hypothyroid 10/09/2020 Lumbar spondylosis 02/13/2020 Numbness of right lower extremity 09/12/2019 Overview (04/27/2024): Foot, chronic post 2017 surgery Glaucoma 12/17/2018 Colovaginal fistula 07/14/2018 Primary osteoarthritis of left knee 01/06/2018 Osteopenia 11/14/2017 Overview (04/27/2024): T score -1.9 left hip, 11/12/2017 Back pain 02/05/2017 Overview (04/27/2024): L5-S1 decompression 01/01/2017 Right bundle branch block 12/19/2016 Pancreatitis 04/18/2011 Overview (04/27/2024): Recurrent pancreatitis. Obesity 09/26/2010 Type 2 diabetes mellitus without complications 0 09/26/2010 Neck pain 10/06/2006 Tobacco use disorder 10/06/2006 Essential hypertension, benign 10/07/2005 Mixed hyperlipidemia 09/11/2005 Depression 09/10/2005 Osteoarthritis, hand 09/10/2005 Encounters Date Type Department Care Team Description 08/16/[address] [facility] Hematology Oncology [address] [place] [phone] Ce Esquivel DO 08/04/2024 1:30 PM EST Office Visit [facility] Hematology Oncology [address] [place] [phone] Ce Esquivel DO B-cell lymphoproliferative disorder (CMS/HCC) (Primary Dx); Iron deficiency 08/04/[address] [facility] Hematology Oncology [address] [place] [phone] Rosa Cuellar, GILMA Pathology review from Last 3 Months Immunizations Name Administration Dates Next Due Influenza Quadravalent, MDCK , 0.5ml, preservative free (Flucelvax) 6mo and older 07/14/2018 Influenza trivalent, 0.5mL ( Fluzone High-dose) 65yo and older 04/06/2022 Influenza trivalent, with preservative (Fluzone; Afluria) 6mo and older 05/30/2021,05/11/2020,05/10/2015,2013,04/12/2013,05/23/2010 Influenza, Unspecified 05/12/2020 Perfusix Covid-19 Bivalent, Or iginal + Ba.1 (Non-Tailster Trademark LogoproIRAegis Mobility Bivalent) 04/06/2022 Perfusix SARS-CoV-2 COVID-19, mRNA, LNP-S, preservative free 10/14/2020 Tdap Tetanus diptheria acell ular pertussis (Boostrix; Adacel) 7yo and older 11/03/2023,04/13/2012 Surgical History Surgery Date Site/Laterality Comments PARTIAL HYSTERECTOMY PROCEDURE: ND SUPRACERVICAL ABDL HYSTER W/WO RMVL TUBE OVARY TONSILLECTOMY ADENOIDECTOMY, BILATERAL MYRINGOTOMY AND TUBES PROCEDURE: ND TONSILLECTOMY & ADENOIDECTOMY <AGE 12 HYSTERECTOMY PROCEDURE: HISTORICAL HYSTERECTOMY CHOLECYSTECTOMY PROCEDURE: ND LAPAROSCOPY SURG CHOLECYSTECTOMY OTHER SURGICAL HISTORY 10/04 PROCEDURE: ND TOTAL THYROID LOBECTOMY UNI W/WO ISTHMUSECTOMY; COMMENT: left, with reimplant L sup parathyroid, Dr Brown, [facility] OTHER SURGICAL HISTORY 04/01/2011 PROCEDURE: ND ERCP DX COLLECTION SPECIMEN BRUSHING/WASHING; COMMENT: [facility]; [facility]; normal post sphincterotomy appearance OTHER SURGICAL HISTORY 07/14/2011 PROCEDURE: ---- OTHER ----; COMMENT: sleeve gastrectomy COLONOSCOPY 04/28/08 PROCEDURE: HISTORICAL COLONOSCOPY; COMMENT: diverticulosis and hemorrhoids; repeat in five years CARPAL TUNNEL RELEASE PROCEDURE: HISTORICAL CARPAL TUNNEL REL; COMMENT: bilateral OTHER SURGICAL HISTORY 2011 PROCEDURE: ---- OTHER ----; COMMENT: gastric sleeve BACK SURGERY 01/01/2017 Right PROCEDURE: HISTORICAL BACK SURGERY; COMMENT: L5-S1 discectomy & foraminotomy OTHER SURGICAL HISTORY 2011 PROCEDURE: HISTORY OTHER; COMMENT: gastric sleeve Medical History Medical History Date Comments Mixed hyperlipidemia DX:Mixed hy perlipidemia Tobacco use disorder 10/06/2006 DX:Tobacco use disorder Essential hypertension, benign 10/07/2005 D X:Essential hypertension, benign Obesity 09/26/2010 DX:Obesity Goiter DX:Goiter; COMME NT: multi-nodular, removed 10/04 Generalized osteoarthrosis, involving hand 09/10/2005 DX:Generalized osteoarthrosi s, involving hand Glaucoma 12/17/2018 DX:Glaucoma Depression 09/10/2005 DX:Depression Osteoarthritis, hand 09/10/2005 DX:Osteoart hritis, hand Numbness of right lower extremity 09/12/2019 DX:Numbness of right lower extremity; COMMENT: Foot, chronic post 2017 surgery Type 2 diabetes mellitus wit hout complications 09/26/2010 DX:Type 2 diabetes mellitus without complications (HCC) Right bundle branch block 12/19/2016 DX:Rig ht bundle branch block Primary osteoarthritis of left knee 01/06/2018 DX:Primary osteoarthritis of left knee Pancreatitis 04/18/2011 DX:Pancreatitis; COMMENT: Recurrent pancreatitis. Osteopenia 11/14/2017 DX:Osteopenia; C OMMENT: T score -1.9 left hip, 11/12/2017 Family history of colonic polyps 08/08/2013 DX:Family history of colonic polyps Cervicalgia 10/06/2006 DX:Cervicalgia Colovaginal fistula 07/14/2018 DX:Colovagin al fistula Back pain 02/05/2017 DX:Back pain; CO MMENT: L5-S1 decompression 01/01/2017 Hypothyroid 10/09/2020 DX:Hypothyroid Family History Medical History Relation Name Comments Other: cardiac Father Arthritis Mother /RA Other: fibromyalgia Mother Pancreatic cancer Sister 1 Other: Lupus Sister 2 Breast cancer Neg Hx Relation Name Status Comments Father Maternal Grandfather Maternal Grandmother Mother Paternal Grandfather Paternal Grandmother Sister 1 Alive Sister 2 Alive Social History Tobacco Use Types Packs/Day Years Used Date Smoking Tobacco: Former Cigarettes Smokeless Tobacco: Never Alcohol Use Standard Drinks/Week Comments Not Currently 0 (1 standard drink = 0.6 oz pur e alcohol) Comments Unknown Sex and Gender Information Value Date Recorded Sex Assigned at Not on file Legal Sex Female 2:47 PM EST Gender Identity Not on file Sexual Orientation Not on file Obstetrics History Last Filed Vital Signs Vital Sign Reading Time Taken Comments Blood Pressure 181/73 08/04/2024 1:32 PM EST Pulse 69 08/04/2024 1:32 PM EST Temperature 37 ??C (98.6 ??F) 08/04/2024 1:32 PM EST Respiratory Rate - - Oxygen Saturation 100% 08/04/2024 1:32 PM EST Inhaled Oxygen Concentration - - Weight 75.8 kg (167 lb) 08/04/2024 1:32 PM EST Height 166.4 cm (5' 5.5 ) 08/04/2024 1:32 PM EST Body Mass Index 27.37 08/04/2024 1:32 PM EST Plan of Treatment Upcoming Encounters Date Type Department Care Team (Late st Contact Info) Description 11/08/2024 2:00 PM EDT Office Visit Adult Medicine - [place] [address] [place] [phone] Hiren Coelho, DWIGHT [address] [place] [address] 11/15/2024 2:00 PM EDT Office Visit [facility] Hematology Oncology [address] [place] [phone] Ce Esquivel, DO [address] [place] [address] 06/02/2025 2:30 PM EST Appointment Radiology Department - [address] [phone] Health Maintenance Due Date Last Done Comments Diabetes: Annual Foot Exam 1961 Diabetes: Annual Retina Eye Exam 1961 Zoster Vaccines (1 of 2) 2001 Pneumococcal Vaccine: 50+ Years (2 of 2 - PCV) 04/03/2012 04/03/2011 Colorectal Cancer Screening: Colonoscopy 07/02/2022 Depression Screening 07/02/2022 Falls Risk Assessment 07/02/2022 Social Influencers of Health Screening 07/02/2022 COVID-19 Vaccine ( season) 2024 05/05/2024, 05/30/2021, 11/04/2020, Additional history exists Diabetes: Annual Urine Albumin-Creatinine Ratio (uACR) 02/03/2025 02/04/2024 Diabetes: Blood Sugar Control Test (HGBA1C) 03/08/2025 09/08/2024, 02/02/2024, 02/02/2024, Additional history exists Diabetes: Annual GFR (Glomerular Filtration Rate) 09/08/2025 09/08/2024, 02/02/2024, 02/02/2024, Additional history exists Hypertension/CHF/CAD Annual BMP Blood Test 09/08/2025 09/08/2024, 02/02/2024, 02/02/2024, Additional history exists RSV Immunization Patients 60+ Years Old (1 - 1-dose 75+ series) 2026 Breast Cancer Screening 05/12/2026 05/12/20 24, 05/12/2024, 05/07/2023, Additional history exists Osteoporosis Screening (Bone Density Screening) 11/13/2027 11/12/2017 Cholesterol Screening (Lipid Panel) 09/08/2029 09/08/2024, 02/02/2024, 02/02/2024 DTaP,Tdap,and Td Vaccines (3 - Td or Tdap) 11/02/2033 11/03/2023, 04/13/2012 Hepatitis C Screening Completed 08/15/2013 Influenza Vaccine Completed 05/05/2024, , 05/30/2021, Additional history exists HIB Vaccines Aged Out No longer eligi ble based on patient's age to complete this topic HPV Vaccines Aged Out No longer eligi ble based on patient's age to complete this topic Hepatitis A Vaccines Aged Out No long er eligible based on patient's age to complete this topic Hepatitis B Vaccines Aged Out No long er eligible based on patient's age to complete this topic IPV Vaccines Aged Out No longer eligi ble based on patient's age to complete this topic MMR Vaccines Aged Out No longer eligi ble based on patient's age to complete this topic Meningococcal ACWY Vaccine Aged Out N o longer eligible based on patient's age to complete this topic Meningococcal B Vacine Aged Out No lo nger eligible based on patient's age to complete this topic RSV Immunization Patients Under 20 months Aged Out No longer eligible based on patient's age to complete this topic Varicella Vaccines Aged Out No longer eligible based on patient's age to complete this topic Medical Devices Implanted Type Area Manager Wound Device Identifier Shelf Expiration Date Model / Serial / Lot Sponge Surgiflo 8ml Hemostatic Matrix Absorbable Latex Free - [id number] Implanted:Qty: 1 on 02/13/2020 by Slick Caldwell MD Implants N/A: Spine Lumbar [employer] 04/25/2021 2991 / / [id number] Sponge Surgifoam Thk7mm 6x2cm Hemostatic Agent Gelatin - [id number] Implanted:Qty: 1 on 02/13/2020 by Slick Caldwell MD Implants N/A: Spine Lumbar [facility] [employer] 05/25/2023 1972 / / [id number] Surgiflo Hemostatic Matrix [facility] [id number] Implanted:Qty: 1 on 01/24/2021 by Josh Bhatti DO Implants N/A: Spine Cervical [facility] [employer] 09/23/2022 2991 / / [id number] Spacer [place] Draft [id number] Plif 2 Radiographic Marker Pin Self - [id number] Implanted:Qty: 1 on 02/13/2020 by Slick Caldwell MD N/A: Spine Lumbar DEPUY SYNTHES 08.803.11 0 / / Head Matrix Polyaxial Top Loading Titanium Screw Spine - [id number] Implanted:Qty: 4 on 02/13/2020 by Slick Caldwell MD N/A: Spine Lumbar DEPUY SYNTHES 04632.00 1 / / Cap Matrix Flat 5.5mm Step Square Thread Stardrive Cocr - [id number] Implanted:Qty: 4 on 02/13/2020 by Slick Caldwell MD N/A: Spine Lumbar DEPUY SYNTHES 092.09 9 / / Screw Matrix T25 Low Profile 45mm 6mm 2 Core 2 Lead - [id number] Implanted:Qty: 2 on 02/13/2020 by Slick Caldwell MD N/A: Spine Lumbar DEPUY SYNTHES 04639.64 5 / / Screw Matrix T25 Low Profile 55mm 6mm 2 Core 2 Lead - [id number] Implanted:Qty: 2 on 02/13/2020 by Slick Caldwell MD N/A: Spine Lumbar DEPUY SYNTHES 04.639.65 5 / / Coflex Interlaminar Implant Size 8 - [id number] Implanted:Qty: 1 on 02/13/2020 by Slick Caldwell MD N/A: Spine Lumbar [employer] 11/28/2023 [id number] / / [id number] Donnie Matrix Mile Red Curve 40mm 5.5mm Hard Titanium Spinal - [id number] Implanted:Qty: 2 on 02/13/2020 by Slick Caldwell MD N/A: Spine Lumbar DEPUY SYNTHES 04.636.04 0 / / Spacer Vikos 14.5x11.5x7mm 7d Stry-Spin [id number] - [id number] Implanted:Qty: 1 on 01/24/2021 by Josh Bhatti DO N/A: Spine Cervical [employer] 03/01/2025 [id number] [id number] / [id number] / Plate Cerv Anterior Constr 1 Level 20mm Stry-K2m [id number] Implanted:Qty: 1 on 01/24/2021 by Josh Bhatti DO N/A: Spine Cervical [employer] [id number] / / Screw Va Self-Start 4x14mm Stry-K2m [id number] Implanted:Qty: 4 on 01/24/2021 by Josh Bhatti DO N/A: Spine Cervical [employer] [id number] 4DA / / Procedures Procedure Name Priority Date/Time Associated Diagnosis Comments AP OUTSIDE CONSULT Routine 09/20/2024 2: 09 PM EST HEMOGLOBIN A1C Routine 09/08/2024 10:01 AM EST Essential hypertension, benign Hypothyroidism, unspecified type Mixed hyperlipidemia Type 2 diabetes mellitus without complication, without long-term current use of insulin ([facility]) THYROID STIMULATING HORMONE WITH REFLEX TO FREE T4 AND FREE T3 Routine 09/08/2024 10:01 AM EST Essential hypertension, benign Hypothyroidism, unspecified type Mixed hyperlipidemia Type 2 diabetes mellitus without complication, without long-term current use of insulin (CMS/[facility]) LIPID PANEL WITH REFLEX TO DIRECT LDL Routine 09/08/2024 10:01 AM EST Essential hypertension, benign Hypothyroidism, unspecified type Mixed hyperlipidemia Type 2 diabetes mellitus without complication, without long-term current use of insulin (CMS/HCC) COMPREHENSIVE METABOLIC PANEL Routine 09/08/2024 10:01 AM EST Essential hypertension, benign Hypothyroidism, unspecified type Mixed hyperlipidemia Type 2 diabetes mellitus without complication, without long-term current use of insulin (CMS/HCC) CBC WITH AUTO DIFFERENTIAL Routine 08/04/2024 2:21 PM EST B-cell lymphoproliferative disorder (CMS/HCC) Iron deficiency IRON AND TIBC Routine 08/04/2024 2:21 PM EST B-cell lymphoproliferative disorder (CMS/HCC) Iron deficiency CBC AND DIFFERENTIAL Routine 08/04/2024 2:21 PM EST B-cell lymphoproliferative disorder (CMS/HCC) Iron deficiency SCREENING MAMMOGRAPHY BI 2-VIEW BREAST INC CAD Routine 05/12/2024 2:09 PM EDT Encounter for screening mammogram for malignant neoplasm of breast URINE ALBUMIN CREATININE RATIO Routine 02/04/2024 DXA BONE DENSITY STUDY 1+ SITS AXIAL SKEL Routine 11/12/2017 2:31 PM EDT Unspecified menopausal and perimenopausal disorder HEPATITIS C SCREENING Routine 08/15/2013 from Last 3 Months or Most Recently Relevant to Health Maintenance Results * Anatomic pathology outside consult (09/20/2024 2:09 PM EST) Tissue Ce Esquivel DO LAB PATHOLOGY ORDERAB LES Final Result * Thyroid stimulating hormone with reflex to free t4 and free t3 (09/08/2024 10:01 AM EST) TSH 2.86 0.40 - 4.00 mcIU/mL LAB CHEMISTRY METHOD 09/08/2024 12:12 PM [facility] Blood Venous blood specimen / Unknown Venipuncture / Unknown 09/08/2024 10:01 AM EST 09/08/2024 10:01 AM EST Hiren QUINTANILLA LAB BLOOD ORDERABLES Final Re sult [facility] [address] [place] [address], [place] [phone] * Lipid panel with reflex to direct LDL (09/08/2024 10:01 AM EST) [facility] Cholesterol 124 0 - 200 mg/dL LAB CHEMISTRY METHOD 09/08/2024 12:04 PM [facility] Triglycerides 88 0 - 150 mg/dL LAB CHEMISTRY METHOD 09/08/2024 12:04 PM [facility] HDL 68 >=40 mg/dL LAB CHEMISTRY METHOD 09/08/2024 12:04 PM [facility] LDL Calculated 38 0 - 100 mg/dL LAB CHEMISTRY METHOD 09/08/2024 12:04 PM [facility] VLDL Cholesterol Rex 17.6 mg/dL LAB CHEMISTRY METHOD 09/08/2024 12:04 PM [facility] Non HDL Chol. (LDL+VLDL) 56 <145 mg/dL LAB CHEMISTRY METHOD 09/08/2024 12:04 PM [facility] Chol/HDL Ratio 1.8 0.0 - 4.4 LAB CHEMISTRY METHOD 09/08/2024 12:04 PM [facility] Blood Venous blood specimen / Unknown Venipuncture / Unknown 09/08/2024 10:01 AM EST 09/08/2024 10:01 AM EST Hiren QUINTANILLA LAB BLOOD ORDERABLES Final Re sult Performing Organization Address [facility]/ZIP Co de Phone Number [facility] [address] [place] [address], [place] [phone] * Hemoglobin A1c (09/08/2024 10:01 AM EST) [facility] Hemoglobin A1C 5.9 <6.5 % LAB CHEMISTRY METHOD 09/08/2024 2:08 PM EST [facility] Mean Bld Glu Estim. 123 mg/dL LAB CHEMISTRY METHOD 09/08/2024 2:08 PM [facility] Blood Venous blood specimen / Unknown Venipuncture / Unknown 09/08/2024 10:01 AM EST 09/08/2024 10:01 AM EST Hiren QUINTANILLA LAB BLOOD ORDERABLES Final Re sult Performing Organization Address [facility] Co de Phone Number [facility] [address] [place] [address], [place] [phone] * (ABNORMAL) Comprehensive metabolic panel (09/08/2024 10:01 AM EST) [facility] Sodium 140 133 - 145 mmol/L LAB CHEMISTRY METHOD 09/08/2024 12:15 PM [facility] Potassium 4.7 3.5 - 5.5 mmol/L LAB CHEMISTRY METHOD 09/08/2024 12:15 PM [facility] Chloride 106 96 - 110 mmol/L LAB CHEMISTRY METHOD 09/08/2024 12:15 PM [facility] CO2 30 21 - 32 mmol/L LAB CHEMISTRY METHOD 09/08/2024 12:15 PM [facility] Anion Gap 4 3 - 11 LAB CHEMISTRY METHOD 09/08/2024 12:15 PM [facility] Glucose 87 70 - 100 mg/dL LAB CHEMISTRY METHOD 09/08/2024 12:15 PM [facility] BUN 30(H) 5 - 25 mg/dL LAB CHEMISTRY METHOD 09/08/2024 12:15 PM [facility] Creatinine 1.63(H) 0.50 - 1.10 mg/dL LAB CHEMISTRY METHOD 09/08/2024 12:15 PM [facility] eGFR 33(L) >=60 mL/min/1. 73m2 LAB CHEMISTRY METHOD 09/08/2024 12:15 PM [facility] Comment:Calculation based on the??Chronic Kidney Disease Epidemiology Collaboration (CKD-EPI) equation refit??without adjustment for race. BUN/Creatinine Ratio 18.4 LAB CHEMISTRY METHOD 09/08/2024 12:15 PM [facility] Calcium 9.8 8.5 - 10.5 mg/dL LAB CHEMISTRY METHOD 09/08/2024 12:15 PM [facility] AST (SGOT) 29 10 - 42 unit/L LAB CHEMISTRY METHOD 09/08/2024 12:15 PM [facility] ALT (SGPT) 28 10 - 60 unit/L LAB CHEMISTRY METHOD 09/08/2024 12:15 PM [facility] Alkaline Phosphatase 94 42 - 121 unit/L LAB CHEMISTRY METHOD 09/08/2024 12:15 PM [facility] Total Protein 6.8 6.0 - 8.0 g/dL LAB CHEMISTRY METHOD 09/08/2024 12:15 PM [facility] Albumin 3.9 3.2 - 5.0 g/dL LAB CHEMISTRY METHOD 09/08/2024 12:15 PM [facility] Total Bilirubin 0.4 0.0 - 1.4 mg/dL LAB CHEMISTRY METHOD 09/08/2024 12:15 PM [facility] Blood Venous blood specimen / Unknown Venipuncture / Unknown 09/08/2024 10:01 AM EST 09/08/2024 10:01 AM EST us Hiren QUINTANILLA LAB BLOOD ORDERABLES Final Re sult [facility] [address] [place] [address], [place] [phone] * (ABNORMAL) CBC auto differential (08/04/2024 2:21 PM EST) WBC 6.7 4.8 - 10.8 K/mcL LAB HEMETOLOGY METHOD 08/04/2024 5:22 PM EST [facility] RBC 4.30 3.80 - 4.80 M/mcL LAB HEMETOLOGY METHOD 08/04/2024 5:22 PM [facility] Hemoglobin 11.5 11.5 - 16.0 g/dL LAB HEMETOLOGY METHOD 08/04/2024 5:22 PM [facility] Hematocrit 38.4 35.0 - 47.0 % LAB HEMETOLOGY METHOD 08/04/2024 5:22 PM EST [facility] MCV 88.9 79.0 - 98.0 FL LAB HEMETOLOGY METHOD 08/04/2024 5:22 PM [facility] MCH 26.6(L) 27.0 - 32.0 pcg LAB HEMETOLOGY METHOD 08/04/2024 5:22 PM [facility] MCHC 29.9(L) 32.0 - 37.0 g/dL LAB HEMETOLOGY METHOD 08/04/2024 5:22 PM EST [facility] RDW 14.2 11.0 - 15.0 % LAB HEMETOLOGY METHOD 08/04/2024 5:22 PM [facility] Platelets 216 130 - 400 K/mcL LAB HEMETOLOGY METHOD 08/04/2024 5:22 PM [facility] MPV 9.6 7.0 - 11.0 FL LAB HEMETOLOGY METHOD 08/04/2024 5:22 PM [facility] NRBC 0.0 <1.0 % LAB HEMETOLOGY METHOD 08/04/2024 5:22 PM [facility] NRBC Absolute 0.00 <0.10 K/mcL LAB HEMETOLOGY METHOD 08/04/2024 5:22 PM [facility] Neutrophils Relative 41.1 % LAB HEMETOLOGY METHOD 08/04/2024 5:22 PM [facility] Lymphocytes Relative 46.1 % LAB HEMETOLOGY METHOD 08/04/2024 5:22 PM [facility] Monocytes Relative 7.6 % LAB HEMETOLOGY METHOD 08/04/2024 5:22 PM [facility] Eosinophils Relative 4.3 % LAB HEMETOLOGY METHOD 08/04/2024 5:22 PM [facility] Basophils Relative 0.6 % LAB HEMETOLOGY METHOD 08/04/2024 5:22 PM [facility] Immature Granulocytes Relative 0.3 % LAB HEMETOLOGY METHOD 08/04/2024 5:22 PM [facility] Neutrophils Absolute 2.76 1.50 - 7.00 K/mcL LAB HEMETOLOGY METHOD 08/04/2024 5:22 PM [facility] Lymphocytes Absolute 3.10 1.00 - 5.00 K/mcL LAB HEMETOLOGY METHOD 08/04/2024 5:22 PM [facility] Monocytes Absolute 0.51 0.20 - 1.00 K/mcL LAB HEMETOLOGY METHOD 08/04/2024 5:22 PM [facility] Eosinophils Absolute 0.29 0.00 - 0.50 K/mcL LAB HEMETOLOGY METHOD 08/04/2024 5:22 PM [facility] Basophils Absolute 0.04 0.00 - 0.20 K/mcL LAB HEMETOLOGY METHOD 08/04/2024 5:22 PM [facility] Immature Granulocytes Absolute 0.02 0.00 - 0.03 K/mcL LAB HEMETOLOGY METHOD 08/04/2024 5:22 PM EST [facility] Blood Venous blood specimen / Unknown Venipuncture / Unknown 08/04/2024 2:21 PM EST 08/04/2024 4:31 PM EST [facility] Mary Jo Esquivel DO LAB BLOOD ORDERABLES Final Result Performing Organization Address [facility] Co de Phone Number [facility] [address] [place] [address], [place] [phone] * Iron and TIBC (08/04/2024 2:21 PM EST) Iron 44 40 - 150 mcg/dL LAB CHEMISTRY METHOD 08/04/2024 4:51 PM EST [facility] TIBC 275 250 - 450 mcg/dL LAB CHEMISTRY METHOD 08/04/2024 4:51 PM EST [facility] Iron Saturation 16 15 - 50 % LAB CHEMISTRY METHOD 08/04/2024 4:51 PM EST [facility] Blood Venous blood specimen / Unknown Venipuncture / Unknown 08/04/2024 2:21 PM EST 08/04/2024 4:31 PM EST Ce Esquivel DO LAB BLOOD ORDERABLES Final Result Performing Organization Address [facility]/ZIP Co de Phone Number [facility] [address] [place] [address], [place] [phone] * SCREENING MAMMOGRAPHY BI 2-VIEW BREAST INC CAD (05/12/2024 2:09 PM EDT) Anatomical Region Laterality Modality Radiographic Daria ging 05/07/2023 1:54 PM EDT Narrative 05/13/2024 9:34 AM EDT This is a summary report. The complete report is available in the patient's medical record. If you cannot access the medical record, please contact the sending organization for a detailed fax or copy. Full field digital screening tomosynthesis mammography, reviewed with CAD and compared to previous. The breasts are composed of fatty and fibroglandular tissue. ??No suspicious mass, architectural distortion or suspicious calcifications are identified. IMPRESSION: : No mammographic evidence of malignancy. BIRADS 1-Negative; N. Breast density: The breasts have scattered areas of fibroglandular density. 5 year breast cancer risk assessment 1.8 % Lifetime breast cancer risk assessment 4.2 % Breast cancer risk category Low (<15%) Location: [facility], [address] [place] [address], [id number], [phone] Procedure Note Frederic Melendrez MD - 05/24/2024 This is a summary report. The complete report is available in thepatient's medical record. If you cannot access the medical record, pleasecontact the sending organization for a detailed fax or copy. Full field digital screening tomosynthesis mammography, reviewed with CADand compared to previous. The breasts are composed of fatty andfibroglandular tissue. No suspicious mass, architectural distortion orsuspicious calcifications are identified. IMPRESSION: : No mammographic evidence of malignancy. BIRADS 1-Negative; N. Breast density: The breasts have scattered areas of fibroglandulardensity. 5 year breast cancer risk assessment 1.8 % Lifetime breast cancer risk assessment 4.2 % Breast cancer risk category Low (<15%) Location: [facility], [address] [place] [address], [id number], [phone] Ian Holland MD IMG XR PROCEDURES Final Result * Urine Albumin Creatinine Ratio (02/04/2024) Urine Albumin Creatinine Ratio abstracted Historical Provider HEALTH MAINTENANCE Final Result * DXA BONE DENSITY STUDY 1+ SITS AXIAL SKEL (11/12/2017 2:31 PM EDT) Anatomical Region Laterality Modality Bone Densitometr y 10/13/2017 1:35 PM EDT Narrative 11/12/2017 4:17 PM EDT DEXA SCAN: Lumbar Spine T-score is 0.0. ?? (SD relative to 20-29 y/o adult) Z-score is 1.1. ??(SD relative to age matched peers) This is considered normal bone density by WHO criteria. Asymmetric calcification projects over the left upper quadrant of the abdomen of uncertain clinical significance. Left Hip T-score is -1.9. Z-score is -0.9. This is considered osteopenia by WHO criteria. Comparison exam(s): None available. IMPRESSION: 1. Osteopenia by WHO criteria. This patient has a 4.3% risk of major osteoporotic fracture and a 0.6% risk of hip fracture over the next 10 years. (World Health Organization Fracture Risk Assessment) 2. Asymmetric calcification projected over the left upper quadrant of the abdomen of uncertain clinical significance. Consider abdominal radiograph for more complete evaluation. [facility] Department of Internal Medicine recommends using National Osteoporosis Foundation (NOF) guidelines in treatment decisions related to osteoporosis. NOF guidelines suggest considering treatment for postmenopausal women and men aged 50 or older presenting with the following: History of hip or vertebral fracture. T-score = -2.5 (DXA) at the femoral neck, total hip, or spine, after appropriate evaluation to exclude secondary causes. Low bone mass (T-score between -1.0 and -2.5 at the femoral neck or spine) AND a 10-year probability of a hip fracture = 3% OR a 10-year probability of a major osteoporosis-related fracture = 20% based on the [place]-adapted WHO algorithm Please note that all treatment decisions require clinical judgment and consideration of individual patient factors, including patient preferences, co-morbidities, previous drug use, risk factors not captured in the FRAX model (e.g., frailty, falls, vitamin D deficiency, increased bone turnover, interval significant decline in bone density) and possible under- or over-estimation of fracture risk by FRAX. Optional alternative screening schedule based on shanti Carrillo., [facility] August 14, 2011 for patients with osteopenia (based on hip BMD T-score) is as follows: * ??advanced osteopenia (T scores -2.00 to -2.49), BMD testing every year * ??moderate osteopenia (T scores -1.50 to -1.99), BMD testing every 5 years mild osteopenia or normal BMD (T scores -1.50 and higher), BMD testing every 15 years Procedure Note Elaine Rodriguez, - 07/15/2022 DEXA SCAN: Lumbar Spine T-score is 0.0. (SD relative to 20-29 y/o adult) Z-score is 1.1. (SD relative to age matched peers) This is considered normal bone density by WHO criteria. Asymmetric calcification projects over the left upper quadrant of theabdomen of uncertain clinical significance. Left Hip T-score is -1.9. Z-score is -0.9. This is considered osteopenia by WHO criteria. Comparison exam(s): None available. IMPRESSION: 1. Osteopenia by WHO criteria. This patient has a 4.3% risk of majorosteoporotic fracture and a 0.6% risk of hip fracture over the next 10 years. (World HealthOrganization Fracture Risk Assessment) 2. Asymmetric calcification projected over the left upper quadrant of theabdomen of uncertain clinical significance. Consider abdominal radiograph for more completeevaluation. [facility] Department of Internal Medicine recommendsusing National Osteoporosis Foundation (NOF) guidelines in treatment decisions related toosteoporosis. NOF guidelines suggest considering treatment for postmenopausal women and menaged 50 or older presenting with the following: History of hip or vertebral fracture. T-score = -2.5 (DXA) at the femoral neck, total hip, or spine, afterappropriate evaluation to exclude secondary causes. Low bone mass (T-score between -1.0 and -2.5 at the femoral neck or spine)AND a 10-year probability of a hip fracture = 3% OR a 10-year probability of a majorosteoporosis-related fracture = 20% based on the [place]-adapted WHO algorithm Please note that all treatment decisions require clinical judgment andconsideration of individual patient factors, including patient preferences, co- morbidities,previous drug use, risk factors not captured in the FRAX model (e.g., frailty, falls, vitaminD deficiency, increased bone turnover, interval significant decline in bone density) andpossible under- or over-estimation of fracture risk by FRAX. Optional alternative screening schedule based on shanti Carrillo., [place] for patients with osteopenia (based on hip BMD T-score) is as follows: * advanced osteopenia (T scores -2.00 to -2.49), BMD testing every year * moderate osteopenia (T scores -1.50 to -1.99), BMD testing every 5years mild osteopenia or normal BMD (T scores -1.50 and higher), BMD testingevery 15 years Gregorio Del Rio MD IMG DXA PROCEDURES Final Resul t * Hepatitis C Screening (08/15/2013) [facility] Hepatitis C Screening abstracted Historical Provider HEALTH MAINTENANCE Final Result from Last 3 Months or Most Recently Relevant to Health Maintenance Insurance [employer] Care Teams District Director Relationship Specialty Start Date End Date Diane King MD [facility] Main [place] [id number] [facility] - General 09/04/22
== END 2024-10-19 16:26 | disposition home or self-care (01) ==
LOC: HO.HNS 15:26
PROVIDERS: PCP Family Medicine; Visit Provider Neurological Surgery
DX: G95.9 Disease of spinal cord, unspecified (principal)
CPT/HCPCS: 99024

== ENCOUNTER 2024-12-28 19:15 | Outpatient (REF) | payer OTHER, SELFPAY ==
--- NOTE | ~2024-12-28 | MR_ITS ---
CLINICAL HISTORY: Z98.1 - Arthrodesis status MR lumbar spine without contrast. COMPARISON: None FINDINGS: Grade 1 anterolisthesis of L4 on L5 measuring 4 mm, degenerative. Posterior spinal fixation hardware bridges the L3 and L4 levels. Artifact from the hardware mildly limits evaluation at these levels. Vertebral heights are maintained. Marrow signal is benign. The conus terminates at superior endplate of L2 and is otherwise unremarkable. Visualized portions of the sacrum are normal. L5-S1: Loss of disc space height. Anterior marginal osteophytes. Mild posterior disc bulge measuring 3 mm. Facet joint arthrosis. Mild right and moderate left neural foraminal narrowing. Status post laminectomy at this level. L4-L5: Posterior disc uncovering measuring 4 mm. Facet joint arthrosis. Mild bilateral neural foraminal narrowing. L3-L4: Facet joint arthrosis. [id number] left neural foraminal narrowing. L2-L3: Ligamentum flavum hypertrophy. Facet joint arthrosis. Large synovial cyst present along the facet joint on the left extending along the posterior epidural space and into the foramina on the left. Severe spinal canal stenosis at this level measuring 5 mm. Severe left and right neural foraminal narrowing. Fluid present within the facet joints L2-3 bilaterally. L1-L2: Intervertebral disc is normal in height. No significant disc bulge or central canal stenosis. The visualized paraspinal musculature and retroperitoneal soft tissues are unremarkable. IMPRESSION: 1. Large synovial cyst along the facet joint at L2-3 with ligamentum flavum hypertrophy causes severe spinal canal stenosis. There is associated severe bilateral neural foraminal narrowing at this level. 2. Grade 1 anterolisthesis of L4 on L5, degenerative. 3. Posteriorly fixated L3-4 level without evidence of hardware complication. 4. Advanced mid to lower lumbar spondylosis with multilevel neural foraminal narrowing. This document has been electronically signed by: Colton Ritter MD on 12/29/2024 13:35:44
== END 2024-12-28 19:16 | disposition home or self-care (01) ==
LOC: HO.MRI 19:15
PROVIDERS: Visit Provider Physician Assistant
DX: Z98.1 Arthrodesis status (principal)
CPT/HCPCS: 72148

== ENCOUNTER → 2024-12-28 19:15 | Outpatient (BNV) | payer OTHER, SELFPAY | PROVIDERS: Visit Provider Radiology Diagnostic Radiology | DX: M71.30 Other bursal cyst, unspecified site (principal); M47.816 Spondylosis without myelopathy or radiculopathy, lumbar region | CPT/HCPCS: 72148 ==

== ENCOUNTER 2025-01-13 11:37 | Outpatient (AMB) | payer OTHER, SELFPAY ==
--- NOTE | 2025-01-13 11:58 | A.SPINEOV_ITS ---
Intake Visit Reasons: MRI f/u Intake Note: Ms. Alexandrea Rubio is here today to discuss the results of her MRI. Store Receiving Clerk Required: No Allergies acetaminophen (From Percocet) Allergy (Mild, Verified 10/19/24 15:49) Nausea oxycodone (From Percocet) Allergy (Mild, Verified 10/19/24 15:49) Nausea Assessment & Plan Assessment & Plan (1) Synovial cyst of lumbar facet joint: Code(s): M71.38 - Other bursal cyst, other site Category: Medical Plan: Dear colleague, On 01/13/2025, I saw for follow-up with a new complaint Omaira Rubio. As you know, she has an extensive spinal surgical history with cervical fusion and decompression for cervical myelopathy and 2 lumbar fusions with fusion of L3-4 and L4-5. She seems not together break. She now developed severe back pain radiating down both legs. She is in physical therapy in which she can only partially participate due to severe pain. She takes Tylenol which is not helping. The pain gets worse after prolonged sitting walking and standing. The worse is the morning getting up. We repeated an MRI of the lumbar spine which shows adjacent segment disease with a large synovial cyst coming from the left joint and causing severe spinal stenosis. Dynamic lumbar x-ray, however, showed no signs of instability. Therefore, I think it is worthwhile to offer her a synovial cyst resection as a 1st option. She is aware that if the cyst returns that she needs an extension of the previous fusion. She will be scheduled for 02/08/2025. I spent 45 minutes in his consult reviewing imaging and discussing plan of care. 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 fusion procedure: Code(s): M48.061 - Spinal stenosis, lumbar region without neurogenic claudication; M51.369 - Other intervertebral disc degeneration, lumbar region without mention of lumbar back pain or lower extremity pain; Z98.1 - Arthrodesis status Category: Medical Plan: fr Orders: Orders XR lumbar spine 4V min Today M48.061 - Spinal stenosis, lumbar region without neurogenic claudication, M51.369 - Other intervertebral disc degeneration, lumbar region without mention of lumbar back pain or lower extremity pain, M71.38 - Other bursal cyst, other site, Z98.1 - Arthrodesis status Coding Level of Care Code Est Pt Level 5 (03508) Diagnoses Synovial cyst of lumbar facet joint M71.38 Lumbar spinal stenosis due to adjacent segment 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
--- OUTSIDE RECORDS SUMMARY | 2025-01-13 12:00 | XMS_ITS | Encounter Summary ---
Author Organization [facility] Address [address] [place] [address] Phone Care Team Providers Care Field Sales Associate Name Role Phone Diane King MD Primary Care Provider + [phone] Encounter Details Date Type Department Care Team (Late st Contact Info) Description 06/15/2024 Documentation Only [facility] [address] [place] [address] Fauzia Ball [address] [place] [phone] Social History Tobacco Use Types Packs/Day [...] Care Team (Late st Contact Info) Description 07/13/2025 1:30 PM EST Office Visit [facility] [address] [place] [address] Sal Ferrer MD [address] [place] [address] [place] [address] documented as of this encounter Visit Diagnoses Not on filedocumented in this encounter Care Teams Field Sales Associate Relationship Specialty Start Date End Date Diane King MD PCP - General Family Medicine 02/18/24 documented as of this encounter
== END 2025-01-13 12:23 | disposition home or self-care (01) ==
LOC: HO.HNS 11:37
PROVIDERS: Visit Provider Neurological Surgery
DX: M71.38 Other bursal cyst, other site (principal); M48.061 Spinal stenosis, lumbar region without neurogenic claudication; M51.369 Other intervertebral disc degeneration, lumbar region without mention of lumbar back pain or lower extremity pain; Z98.1 Arthrodesis status
CPT/HCPCS: 99215

== ENCOUNTER 2025-01-13 11:37 | Outpatient (REF) | payer OTHER, SELFPAY ==
--- NOTE | ~2025-01-13 | XR_ITS ---
CLINICAL HISTORY: M48.061 - Spinal stenosis, lumbar region without neurogenic claudication --- Additional Notes or Special Instructions: AP lateral flexion extension 4 views lumbar spine Comparison: None provided Findings: Normal alignment. Iatrogenic findings at L3-L4 with surgical hardware in position. No acute fractures or dislocation. There is multiple level degenerative disc and facet change. There is aortic calcification. IMPRESSION: No acute findings. This document has been electronically signed by: Josh Minaya MD on 01/14/2025 08:54:50
== END 2025-01-13 11:38 | disposition home or self-care (01) ==
LOC: HO.HOSX 11:37
PROVIDERS: Visit Provider Neurological Surgery
DX: M71.38 Other bursal cyst, other site (principal); M48.061 Spinal stenosis, lumbar region without neurogenic claudication; M51.369 Other intervertebral disc degeneration, lumbar region without mention of lumbar back pain or lower extremity pain; Z98.1 Arthrodesis status
CPT/HCPCS: 72110

== ENCOUNTER → 2025-01-13 12:58 | Outpatient (BNV) | payer OTHER, SELFPAY | PROVIDERS: Visit Provider Specialist | DX: M51.369 Other intervertebral disc degeneration, lumbar region without mention of lumbar back pain or lower extremity pain (principal) | CPT/HCPCS: 72110 ==

== ENCOUNTER 2025-02-09 07:08 | Day surgery (SDC) | payer OTHER, SELFPAY ==
--- OUTSIDE RECORDS SUMMARY | 2025-01-16 12:10 | XMS_ITS | Encounter Summary ---
Author Organization [facility] Address [address] [place] [address] Phone Care Team Providers Care Accounts Receivable Administrator Name Role Phone Diane King MD Primary Care Provider + [phone] Encounter Details Date Type Department Care Team (Late st Contact Info) Description 06/15/2024 Documentation Only [facility] [address] [place] [address] Fauzia Ball [address] [place] [phone] Social History Tobacco Use Types Packs/Day [...] Visit [facility] [address] [place] [address] Sal Ferrer MD [address] [place] [address] [place] [address] documented as of this encounter Visit Diagnoses Not on filedocumented in this encounter Care Teams Accounts Receivable Administrator Relationship Specialty Start Date End Date Diane King MD PCP - General Family Medicine 02/18/24 documented as of this encounter
[2025-02-06 14:16] VITALS: BMI 29.5
--- NOTE | 2025-02-07 14:25 | HO.ANESPROP2 ---
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 (Acute) Cervical myelopathy (Acute) Bilateral carpal tunnel syndrome (Acute) Lower extremity weakness (Acute) S/P spinal surgery (Acute) Left upper extremity numbness (Acute) Status post cervical spinal fusion (Acute) Lumbar disc herniation with radiculopathy (Acute) Status post lumbar spinal arthrodesis (Acute) Gait disorder (Acute) Hand weakness (Acute) Numbness and tingling in both hands (Acute) Anxiety (Acute) Past Medical History Medical History Diverticulosis CKD (chronic kidney disease) stage 3, GFR 30-59 ml/min Iron deficiency B-cell lymphoproliferative disorder Tobacco use disorder Pancreatitis Obesity Numbness Neck pain Lumbar spondylosis Thyroid disease Depression Colovaginal fistula Back pain Gait disorder Hand weakness Numbness and tingling in both hands Anxiety PONV (postoperative nausea and vomiting) Cataract Diabetes mellitus, type 2 Hyperlipidemia Hypertension Right bundle branch block (RBBB) Osteopenia Osteoarthritis Glaucoma Hypothyroidism Family History Family history of problems with anesthesia: No Surgical History Surgical History Hx of bilateral cataract extraction History of esophagogastroduodenoscopy (EGD) Hx of tonsillectomy Hx of cholecystectomy Hx of hysterectomy Hx of colonoscopy Hx of partial thyroidectomy History of bilateral carpal tunnel release Hx of bariatric surgery Previous back surgery History of Problems with Anesthesia: Yes (PONV) Social History Social History Household Members: None Housing: House Are you a primary patient centered care specialist to a significant other at home: No Do you presently have visiting nurse or other home services: No Patient Tobacco Use Status: Former Tobacco user Tobacco use type: Cigarette Second Hand Smoke Exposure: No Use of substances other than those prescribed or required for medical reasons: Yes Substance Use Type: Marijuana Substance Use Frequency: Daily Advance Directives: No Advance Directives Information Provided: Yes Meds Allergies Allergy/AdvReac Type Severity Reaction Status Date / Time oxycodone (From Percocet) Allergy Mild Nausea Verified 10/19/24 15:49 Home Medications ?Medication ?Instructions ?Recorded ?Confirmed ?Last Taken ?Type levothyroxine 100 mcg tablet 100 mcg PO MOTUWETHFRSA 03/03/23 02/06/25 03/16/23 History lisinopril 40 mg tablet 40 mg PO BEDTIME 03/03/23 02/06/25 03/16/23 History rosuvastatin 10 mg tablet 10 mg PO BEDTIME 03/03/23 02/09/25 02/08/25 08:00 History bupropion HCl 150 mg 24 hr tablet, 300 mg PO QAM 01/04/24 02/06/25 Unknown History extended release acetaminophen 500 mg capsule 500 mg PO Q4H PRN moderate pain 09/22/24 02/06/25 Unknown History ferrous sulfate 325 mg (65 mg 325 mg PO Q OTHER DAY 09/22/24 02/06/25 Unknown History iron) tablet (iron) oxybutynin chloride 10 mg 10 mg PO DAILY 09/22/24 02/06/25 Unknown History tablet,extended release 24 hr Exam Height,Weight and Vital Signs: Height 5 ft 5.5 in Weight 81.647 kg Pertinent Lab Results Pertinent Lab Results: Laboratory Tests 09/22/24 14:01 WBC 6.1 Hgb 11.9 L Hct 38.4 Plt Count 212 Sodium 143 Potassium 4.5 Chloride 111 H Carbon Dioxide 26 BUN 22 H Creatinine 1.35 Narrative Narrative: EKG 08/2024 Vent. Rate : 59 BPM Atrial Rate : 59 BPM P-R Int : 196 ms QRS Dur : 132 ms QT Int : 408 ms P-R-T Axes : 52 -29 13 degrees QTcB Int : 403 ms Sinus bradycardia with Premature atrial complexes Right bundle branch block Inferior infarct (cited on or before 04-Mar-2023) Abnormal ECG When compared with ECG of 04-Mar-2023 14:15, Premature atrial complexes are now Present EKG 11/2023 SR @64 RBBB Assessment and Plan Assessment Anesthesia Assessment: Chart Reviewed Final Anesthetic Review Family History of Problems with Anesthesia: No History of Problems with Anesthesia: Yes (PONV) Documented by User: Kaye Pratt MD 02/09/25 07:58 PMFSH Past Medical History Medical History Diverticulosis CKD (chronic kidney disease) stage 3, GFR 30-59 ml/min Iron deficiency B-cell lymphoproliferative disorder Tobacco use disorder Pancreatitis Obesity Numbness Neck pain Lumbar spondylosis Thyroid disease Depression Colovaginal fistula Back pain Gait disorder Hand weakness Numbness and tingling in both hands Anxiety PONV (postoperative nausea and vomiting) Cataract Diabetes mellitus, type 2 Hyperlipidemia Hypertension Right bundle branch block (RBBB) Osteopenia Osteoarthritis Glaucoma Hypothyroidism Surgical History Surgical History Hx of bilateral cataract extraction History of esophagogastroduodenoscopy (EGD) Hx of tonsillectomy Hx of cholecystectomy Hx of hysterectomy Hx of colonoscopy Hx of partial thyroidectomy History of bilateral carpal tunnel release Hx of bariatric surgery Previous back surgery Social History Social History Household Members: None Housing: House Are you a primary patient centered care specialist to a significant other at home: No Do you presently have visiting nurse or other home services: No Patient Tobacco Use Status: Former Tobacco user Tobacco use type: Cigarette Second Hand Smoke Exposure: No Use of substances other than those prescribed or required for medical reasons: Yes Substance Use Type: Marijuana Substance Use Frequency: Daily Advance Directives: No Advance Directives Information Provided: Yes Meds Allergies Allergy/AdvReac Type Severity Reaction Status Date / Time oxycodone (From Percocet) Allergy Mild Nausea Verified 10/19/24 15:49 Home Medications ?Medication ?Instructions ?Recorded ?Confirmed ?Last Taken ?Type levothyroxine 100 mcg tablet 100 mcg PO MOTUWETHFRSA 03/03/23 02/06/25 03/16/23 History lisinopril 40 mg tablet 40 mg PO BEDTIME 03/03/23 02/06/25 03/16/23 History rosuvastatin 10 mg tablet 10 mg PO BEDTIME 03/03/23 02/09/25 02/08/25 08:00 History bupropion HCl 150 mg 24 hr tablet, 300 mg PO QAM 01/04/24 02/06/25 Unknown History extended release acetaminophen 500 mg capsule 500 mg PO Q4H PRN moderate pain 09/22/24 02/06/25 Unknown History ferrous sulfate 325 mg (65 mg 325 mg PO Q OTHER DAY 09/22/24 02/06/25 Unknown History iron) tablet (iron) oxybutynin chloride 10 mg 10 mg PO DAILY 09/22/24 02/06/25 Unknown History tablet,extended release 24 hr Exam Airway Mallampati Class: II TM Dist: >3cm Neck ROM: Limited Heart: rrr Lungs: cta Assessment and Plan Assessment Anesthesia Assessment: Anesthesia Plan Discussed Final Anesthetic Review NPO: Yes ASA Class: III Final Preanesthetic Review: No Changes in Pt Med Stat, Meds/Allgs Chart Reviewed, Consent Obtained/Reviewed and Anes Risks/Benef Reviewed Patient Risk: Intermediate Procedure Risk: Intermediate Anesthetic Plan Anesthetic Plan: GA and Agree w/ Assess. and Plan Disposition: Standard PACU
[2025-02-09] VITALS (7 sets, daily range): BP systolic 145–176; BP diastolic 66–84; PULSE 53–66; RESP 16–20; TEMP 36.1–37.3; O2SAT 94–99
--- NOTE | ~2025-02-09 | FL_ITS ---
EXAMINATION: FL GUIDANCE ONLY HISTORY: L2-3 Excision of synovial cyst, Left COMPARISON: Correlation is made with plain films of the lumbar spine is 2024. TECHNIQUE: Fluoroscopy time: Less than 1 minute. Cumulative Dose: 2.54 mGy. DAP: 0.513 mGym2 Images: 1. FINDINGS: A single fluoroscopic spot film of the lumbar spine in the lateral projection demonstrates a probe directed toward the L2-3 intervertebral disc space from a posterior approach. The patient is status post posterior fusion of L3 and L4. FL/FL guidance in OR IMPRESSION: Fluoroscopy during procedure. Please see procedure report for additional information. Electronically signed by: Meliton Beltran MD 02/09/2025 10:35 AM EDT
--- NOTE | 2025-02-09 07:08 | MHC.SHP ---
Pre-Procedural Eval Section A - 24 Hr Update-Section A only Date of Service: 02/09/25 The patient is an INPATIENT: No Changes since office visit: No Cold of Flu in the past 2 weeks, No New Medical Problems, No Changes in Medication and No Patient answered all questions The patient has been examined within 24 hours of the surgical procedure. The History & Physical has been completed within 30 days and I have reviewed it.: No Section B - Complete if H&P > 30 days Chief Complaint: Other bursal cyst, other site Allergies: Allergies Allergy/AdvReac Type Severity Reaction Status Date / Time oxycodone (From Percocet) Allergy Mild Nausea Verified 10/19/24 15:49 Review of Systems Sugical H&P ROS: Negative: Constitution, Cardiovascular, Respiratory, Neurological, Psychiatric, Hem-Onc, Allergic/Immunologic, Gastrointestinal, Genitourinary, Musculoskeletal, Integumentary, Endocrine and Eyes/Ears/Nose/Throat Exam Surgical H&P Exam: Normal: HEENT, Normal: Heart, Normal: Lungs, Normal: Extremities, Normal: Abdomen, Normal: Skin and Normal: Neurological (awake, alert,oriented x 3 ) Plan Diagnosis/Plan: Unchanged left L2-3 synovial cyst resection Time Spent With Patient Time: Total time managing care of this patient today __5__ minutes.
[2025-02-09] MEDS: Lactated Ringers 1,000 ML 100 ML IVCONT (07:53)
[2025-02-09 07:59] LABS: Glucose, Whole Blood 91 mg/dL (60-115)
--- NOTE | 2025-02-09 08:40 | P.DS_ITS ---
DS: Providers Provider Date of Service: 02/09/25 Date of discharge: 02/09/25 Primary care physician: Unknown Physician Admitting clinician: Franklin Mckeon DS: Diagnosis Discharge Diagnosis (1) Synovial cyst of lumbar facet joint: Status: Acute DS: Summary Time Attestation Discharge Coordination Time (in mins): 5 Quality: Safe Use of Opioids Does Pt have an Active Cancer Diagnosis on the Problem List?: No Quality: Stroke Does the patient have a stroke diagnosis?: No Physical Exam Vital Signs: Vital Signs: Last Vital Signs Temp 99.2 F 02/09/25 07:53 Pulse 63 02/09/25 07:53 Resp 18 02/09/25 07:53 BP 145/66 H 02/09/25 07:53 Pulse Ox 99 02/09/25 07:53 O2 Del Method Room Air 02/09/25 07:53 BMI result Body Mass Index 29.5 DS: Data Data Completed and Pending Completed studies during hospitalization [Text1]: Procedures Excision of Lumbar Vertebral Disc, Open Approach (03/17/23) Fusion of Lumbar Vertebral Joint with Interbody Fusion Device, Anterior Approach, Anterior Column, Open Approach (03/17/23) Insertion of Interspinous Process Spinal Stabilization Device into Lumbar Vertebral Joint, Open Approach (03/17/23) Monitoring of Peripheral Nervous Electrical Activity, Intraoperative, External Approach (03/17/23) Removal of Internal Fixation Device from Lumbar Vertebral Joint, Open Approach (03/17/23) Labs on day of discharge: Laboratory Results - last 24 hr 02/09/25 07:49 POC Glucose 91 Discharge Plan Discharge Patient Disposition: Home, Self-Care Referrals: Physician,Unknown J [Primary Care Provider, Medical] - 1 Week Discharge Medications: New oxycodone 5 mg tablet 5 mg PO Q4H PRN (Reason: pain) Qty: 30 0RF Rx Instructions: s/p synovial cyst resection of lumbar spine; Partial Fill upon patient request. docusate sodium [Colace] 100 mg capsule 100 mg PO BID Qty: 20 0RF Continued levothyroxine 100 mcg tablet 100 mcg PO MOTUWETHFRSA Patient Comments: none on Thursday lisinopril 40 mg tablet 40 mg PO BEDTIME rosuvastatin 10 mg tablet 10 mg PO BEDTIME bupropion HCl 150 mg tablet extended release 24 hr 300 mg PO QAM oxybutynin chloride 10 mg tablet extended release 24hr 10 mg PO DAILY acetaminophen 500 mg capsule 500 mg PO Q4H PRN (Reason: moderate pain) ferrous sulfate [iron] 325 mg (65 mg iron) Tablet 325 mg PO Q OTHER DAY Discontinued hydromorphone 4 mg tablet See Rx Instructions PO Q4H PRN (Reason: pain) Qty: 14 0RF Rx Instructions: Take 1/2 tablet orally every 4 hours PRN; Partial Fill upon patient request. Discharge Orders: Discharge Order (Routine); Ordered 02/09/25 Ordered By: Hermes Johnson Diet: Advance to usual diet Activity on Discharge: As tolerated Activity Restrictions/Additional Instructions: After your spinal surgery we ask you to observe the following restrictions/gu idelines: Activity: It is normal to feel some discomfort as you increase your activity, but that will improve with time. We ask you avoid heavy lifting or acitivities that cause pain. As a general rule, 8lbs is a safe limit for lifting right after surgery. Walk as much as you feel comfortable but not to exhaustion. You will feel extra tired the first few days after surgery. Stay well hydrated. It is OK to walk up and down stairs You may return to driving when you are off narcotics (such as vicodin, oxycodone, dilaudid, etc), and you are back to normal functional capacity. If you have any concerns please check with office before driving. Return to work is specific to each patient and each surgery, so please speak with your doctor/PA at first follow up. Please bring paperwork such as FMLA at that time if you need it filled out. Medications: For optimum pain control, it is best to start with a combination of 500 mg of Tylenol every 4 hours with 600 mg of Motrin every 8 hours, and use narcotics as needed in between for breakthrough pain. We will give you a short supply of narcotics after surgery (usually one weeks worth). If you need more please call the office but do not use more than prescribed. You will need to give our office 48 hours notice if you need narcotics refilled and we do not fill narcotics on weekends or evenings. If you are on a narcotic, it is a good idea to take a stool softener such as colace or senna to avoid constipation If you take blood thinner such as aspirin, Plavix, Coumadin, Effient, Eliquis etc for conditions such as Afib, DVT, Pulmonary embolus, coronary disease, stents etc please speak with your surgeon about specific details as to when you can resume these medications. You can resume NSAIDs on post op day 1 (eg: Motrin, Naproxen, etc). Follow up: Please call the office, , after surgery to arrange a 3 week follow up for wound check. Wound Care: You may remove your dressing on the first day after surgery. ?You may ?leave open to air. Please do not remove the steri strips underneath. they will fall off on their own in one week. IT IS NORMAL FOR THE WOUND TO OOZE OR BE BLOODY FOR A FEW DAYS AFTER SURGERY. ?IF THIS HAPPENS JUST PLACE NEW DRESSING OVER IT TO AVOID STAINING CLOTHES. You may shower on post op day # 1 We ask that you do not let the water soak the wound. If it does get wet, just towel dry lightly. Please do not scrub your incision or place any type of chemical/ointment on the wound. No tub baths, pools or jacuzzis for one month. If you have any leaking or redness from your wound, or fevers, please call office Print Language: Trinidadian
--- NOTE | 2025-02-09 10:08 | P.OP_ITS ---
Operative Note Operative Note Date of Service: 02/09/25 Narrative: Preoperative Diagnosis: Extradural benign mass (synovial cyst) compressing the L2-3 thecal sac and exiting nerve root Operation: L2-3 Laminotomy for removal of extradural benign mass with use of microscope Consent Informed Consent was obtained for this operation. I have explained the nature, purpose and benefits of the operation. I have discussed the risks and benefit of the operation including possible complications or adverse events with patient/family. Alternative(s) were discussed with the patient with their relative benefits and risks as well as the consequences of not accepting the operation were included in obtaining consent. Surgeon: SOPHIE MERCEDES MD, PHD Procedure Assisted By: Hermes coats Description of Procedure This 74-year-old female developed a large extradural mass causing severe L2-3 spinal stenosis above a previous fusion. The mass most likely represents a synovial cyst. The patient was offered a removal of the mass to decompress the nervous structure. The procedure complications were explained. The patient was consented. The patient was brought to the operating room and endotracheally intubated. The patient was turned in prone position on the Ryne frame. Prep and drape was done followed by timeout. Physician interior design assistant provided access. A mid lumbar incision was made followed by release of the paravertebral muscle on the left side to expose the L2-3 lamina and facet joint. An intraoperative x-ray was obtained to confirm the correct level. The microscope was brought in. I took over the procedure. The high-speed drill was used to do a L2-3 laminotomy. The flavum ligament was opened and immediately with characteristic of dura. I dissected the mass off the dura and nerve root with a 4. [place] and then removed the mass in toto. The mass was approximately 1 x 1 cm. The removal immediately caused a relief of the pressure on the thecal sac and a deployment of the thecal sac and exiting nerve root. A long the nerve root could be easily passed, a sign of adequate decompression of the nerve root . The microscope was removed. Hemostasis was done. Incision was closed in 2 layers. Steri-Strips were used to approximate incision. An OpSite with Tegaderm was used to cover the incision. All sponge needle counts were correct. Patient was extubated and transported in stable is to recovery room. Anesthesia: General Estimated Blood Loss (ml): Minimal Duration of Surgery: 65 Minutes Postoperative Plan: Discharge to home
== END 2025-02-09 12:50 | disposition home or self-care (01) ==
PROVIDERS: Visit Provider Neurological Surgery
PROC: (CPT 63267; principal; 2025-02-09 09:00)
DX: M71.38 Other bursal cyst, other site (principal); M48.061 Spinal stenosis, lumbar region without neurogenic claudication; M51.369 Other intervertebral disc degeneration, lumbar region without mention of lumbar back pain or lower extremity pain; Z98.1 Arthrodesis status; Z88.5 Allergy status to narcotic agent; I12.9 Hypertensive chronic kidney disease with stage 1 through stage 4 chronic kidney disease, or unspecified chronic kidney disease; E11.22 Type 2 diabetes mellitus with diabetic chronic kidney disease; N18.30 Chronic kidney disease, stage 3 unspecified; Z79.899 Other long term (current) drug therapy; Z98.890 Other specified postprocedural states; Z87.891 Personal history of nicotine dependence
CPT/HCPCS: 63267; 82947; J0131; J0690; J1100; J1885; J2003; J2405; J2704; J3010

== ENCOUNTER → 2025-02-09 07:08 | Outpatient (BNV) | payer OTHER, SELFPAY | PROVIDERS: Visit Provider Neurological Surgery | DX: M71.38 Other bursal cyst, other site (principal) | CPT/HCPCS: 63267; 69990; 99499 ==

== ENCOUNTER 2025-03-01 13:45 | Outpatient (AMB) | payer OTHER, SELFPAY ==
--- NOTE | 2025-03-01 14:13 | HO.SPINEOV ---
Intake Visit Reasons: 1st post op Intake Note: Ms. Alexandrea Rubio is here today for her 1st post-op visit. Allergies oxycodone (From Percocet) Allergy (Mild, Verified 10/19/24 15:49) Nausea Assessment & Plan Assessment & Plan (1) Synovial cyst of lumbar facet joint: Code(s): M71.38 - Other bursal cyst, other site Category: Medical Plan Dear colleague, On 02/28/2025, I saw for 1st postoperative visit Omaira Rubio. She underwent removal of a left-sided L2-3 synovial 6 on 02/09/2025 for severe radiculopathy. She states that the pain has improved but that she still has difficulty walking and standing for prolonged period of times. She sometimes needs an oxycodone that she breaks in half. The incisional site is painful but improving. On exam, the incision is healed. There is a small subcutaneous swelling. Getting out of the chair is painful in the lumbar region. Ambulation has much improved compared to preoperatively. Straight leg raising is negative bilaterally. I would like to follow-up in 6 weeks with an x-ray. The patient may call for another oxycodone prescription. Franklin Mckeon MD, PhD Spine Fellowship Trained Neurosurgeon Director, [facility] [place] [facility] Orders: Orders XR lumbar spine 2-3V 6 Weeks M71.38 - Other bursal cyst, other site Coding Level of Care Code Global (87976) Diagnoses Synovial cyst of lumbar facet joint M71.38
--- OUTSIDE RECORDS SUMMARY | 2025-03-01 14:13 | XMS_ITS | Clinical Summary ---
Author Organization [facility] Address [address] [place] [address] Phone Care Team Providers Care Field Supervisor Seed Production Name Role Phone Diane King MD Primary Care Provider Allergies Active Allergy Reactions Criticality Noted Date Comments Morphine 06/04/2017 Nausea and vomiting Oxycodone Nausea And Vomiting Medium 02/07/2020 Oxycodone-Acetaminophe n Nausea And Vomiting Medium 02/07/2020 Medications melatonin 1 mg tablet Take 1 Tablet by mouth. Active OXYBUTYNIN CHLORIDE ORAL Take by mouth. Active levothyroxine (SYNTHROID, LEVOTHROID) 100 mcg tablet TAKE 1 TABLET THURSDAY THROUGH THURSDAY AND OFF ON THURSDAY.(TAKIN G 6 DAYS A WEEK) 78 tablet 2 07/04/2024 Active ferrous sulfate 325 mg (65 mg iron) EC tablet Take 1 tablet (325 mg total) by mouth. 03/14/2024 Active buPROPion XL (WELLBUTRIN XL) 150 mg 24 hr tablet TAKE 1 TABLET BY MOUTH EVERY DAY IN THE MORNING 90 tablet 1 12/13/2024 Active rosuvastatin (CRESTOR) 10 mg tablet TAKE 1 TABLET BY MOUTH EVERY DAY 90 tablet 1 01/16/2025 Active lisinopril (PRINIVIL,ZESTR IL) 40 mg tablet TAKE 1 TABLET BY MOUTH EVERY DAY 90 tablet 1 01/16/2025 Active Active Problems Problem Noted Date Diagnosed Date B-cell lymphoproliferative d isorder ([facility] V24, [facility] V28) 06/06/2024 Iron deficiency 06/06/2024 Radicular pain of right upper extremity 12/21/19 21 Hypothyroid 10/09/2020 Lumbar spondylosis 02/13/2020 Numbness of [...] pancreatitis. Obesity 09/26/2010 Type 2 diabetes mellitus wit hout complications ([facility] V24, [facility] V28) 09/26/2010 Neck pain 10/06/2006 Tobacco use disorder 10/06/2006 Essential hypertension, benign 10/07/2005 Mixed hyperlipidemia 09/11/2005 Depression 09/10/2005 Osteoarthritis, hand 09/10/2005 Immunizations Name Administration Dates Next Due Influenza Quadravalent, 0.5m l (Fluad) 65yo and older 05/30/2021,05/11/2020 Influenza Quadravalent, MDCK , 0.5ml, preservative free (Flucelvax) 6mo and older 07/14/2018 Influenza trivalent, 0.5mL ( Fluad) 65yo and older 05/05/2024 Influenza trivalent, 0.5mL ( Fluzone High-dose) 65yo and older 04/06/2022 Influenza trivalent, with pr eservative (Fluzone; Afluria) 6mo and older 05/30/2021,05/11/2020,05/10/2015,05/23,04/12/2013,05/23/2010,10/08/2008 Influenza, Unspecified 05/12/2020 Pfizer Covid-19 Bivalent, Or iginal + Ba.1 (Non-US Trademark COMIRNATY Bivalent) 04/06/2022 Pfizer SARS-CoV-2 COVID-19, mRNA, LNP-S, preservative free 05/05/2024,10/14/2020 Pneumococcal conjugate 20 va lent (Prevnar 20, PCV 20) 2mo and older 11/08/2024 Pneumococcal polysaccharide 23 valent (Pneumovax 23) 2yo and older 04/03/2011 Tdap Tetanus diptheria acell ular pertussis (Boostrix; Adacel) 7yo and older 11/03/2023,04/13/2012 Surgical History Surgery Date Site/Laterality Comments PARTIAL HYSTERECTOMY PROCEDURE: [facility] SUPRACERVICAL ABDL HYSTER W/WO RMVL TUBE OVARY TONSILLECTOMY ADENOIDECTOMY, BILATERAL MYRINGOTOMY AND TUBES PROCEDURE: [place] TONSILLECTOMY & ADENOIDECTOMY <AGE 12 HYSTERECTOMY PROCEDURE: HISTORICAL HYSTERECTOMY CHOLECYSTECTOMY PROCEDURE: [facility] LAPAROSCOPY SURG CHOLECYSTECTOMY OTHER SURGICAL HISTORY 10/04 PROCEDURE: [facility] TOTAL THYROID LOBECTOMY UNI W/WO ISTHMUSECTOMY; COMMENT: left, with reimplant L sup parathyroid, Dr Brown, [facility] OTHER SURGICAL HISTORY 04/01/2011 PROCEDURE: [facility] ERCP DX COLLECTION SPECIMEN BRUSHING/WASHING; COMMENT: Desilets; [...] 2011 PROCEDURE: HISTORY OTHER; COMMENT: gastric sleeve CERVICAL LAMINECTOMY 10/05/[address] Mckeon Medical History Medical History Date Comments Mixed [...] Type 2 diabetes mellitus wit hout complications ([facility] V24, [facility] V28) 09/26/2010 DX:Type 2 diabetes mellitus without complications [...] Smoking Tobacco: Former Cigarettes Smokeless Tobacco: Never Tobacco Cessation:Counseling Given: Not Answered Alcohol Use Standard Drinks/Week Comments Not Currently 0 (1 standard drink = 0.6 oz pur e alcohol) Comments Unknown Sex and Gender Information Value Date Recorded Sex Assigned at Not on file Legal Sex Female 2:47 PM EST Gender Identity Not on file Sexual Orientation Not on file Obstetrics History Last Filed Vital Signs Vital Sign Reading Time Taken Comments Blood Pressure 184/77 11/15/2024 1:58 PM EDT Pulse 75 11/15/2024 1:58 PM EDT Temperature 37.2 C (99 F) 11/15/2024 1:58 PM EDT Respiratory Rate - - Oxygen Saturation 100% 11/15/2024 1:58 PM EDT Inhaled Oxygen Concentration - - Weight 73.9 kg (163 lb) 11/24/2024 10:01 AM EDT Height 165.1 cm (5' 5 ) 11/24/2024 10:01 AM EDT Body Mass Index 27.12 11/24/2024 10:01 AM EDT Plan of Treatment Upcoming Encounters Date Type Department Care Team (Late st Contact Info) Description 03/16/2025 9:30 AM EDT Telemedicine [facility] [address] [place] [phone] Janis Elizondo MD [address] [place] [address] 03/21/2025 2:00 PM EDT Office Visit [facility] Hematology Oncology [address] [place] [phone] Ce Esquivel, [address] [place] [address] 05/11/2025 2:30 PM EDT Office Visit Adult Medicine - [place] [address] [place] [phone] Diane King MD [address] [place] [address] 06/02/2025 2:30 PM EST Appointment Radiology Department - [address] [phone] Health Maintenance Due Date Last Done Comments Diabetes: Annual Foot Exam 1961 Diabetes: Annual Retina Eye Exam 1961 Zoster Vaccines (1 of 2) 1970 Social Influencers of Health Screening 07/02/2022 COVID-19 Vaccine ( season) 2024 05/05/2024, 05/30/2021, 11/04/2020, Additional history exists Diabetes: Annual Urine Albumin-Creatinine Ratio (uACR) 02/03/2025 02/04/2024 Diabetes: Blood Sugar Control Test (HGBA1C) 03/08/2025 09/08/2024, 02/02/2024, 02/02/2024, Additional history exists Influenza Vaccine (#1) 2025 , 04/06/2022, 05/30/2021, Additional history exists Diabetes: Annual GFR (Glomerular Filtration Rate) 09/08/2025 09/08/2024, 02/02/2024, 02/02/2024, Additional history exists Hypertension/CHF/CAD Annual BMP Blood Test 09/08/2025 09/08/2024, 02/02/2024, 02/02/2024, Additional history exists Falls Risk Assessment 11/08/2025 11/08/2024 RSV Immunization Adult Patients (1 - 1-dose 75+ series) 2026 Breast Cancer Screening 05/12/2026 05/12/20 24, 05/12/2024, 05/07/2023, Additional history exists Osteoporosis Screening (Bone Density Screening) 11/13/2027 11/12/2017 Colorectal Cancer Screening: Colonoscopy 07/04/2029 07/04/2024 Cholesterol Screening (Lipid Panel) 09/08/2029 09/08/2024, 02/02/2024, 02/02/2024 DTaP,Tdap,and Td Vaccines (3 - Td or Tdap) 11/02/2033 11/03/2023, 04/13/2012 Hepatitis C Screening Completed 08/15/2013 Depression Screening Completed 11/08/2024 Pneumococcal Vaccine: 50+ Years Completed 11/08/2024, 04/03/2011 HIB Vaccines Aged Out No longer eligi [...] age to complete this topic Meningococcal B Vaccine Aged Out No l onger eligible based on patient's age to complete this topic RSV Immunization Patients Under 20 months Aged Out No longer eligible based on patient's age to complete this topic Varicella Vaccines Aged Out No longer eligible based on patient's age to complete this topic Medical Devices Implanted Type Area Pipe Liner Device Identifier Shelf Expiration Date Model / Serial / Lot Sponge Surgiflo 8ml Hemostatic Matrix Absorbable Latex Free - [id number] Implanted:Qty: 1 on 02/13/2020 by Slick Caldwell MD Implants N/A: Spine Lumbar [employer] 04/25/2021 2991 / / [id number] Sponge Surgifoam Thk7mm 6x2cm Hemostatic Agent Gelatin - [id number] Implanted:Qty: 1 on 02/13/2020 by Slick Caldwell MD Implants N/A: Spine Lumbar [facility] [employer] 05/25/2023 1972 / / [id number] Surgiflo Hemostatic Matrix [facility] [id number] Implanted:Qty: 1 on 01/24/2021 by Josh Bhatti DO Implants N/A: Spine Cervical [employer] 09/23/2022 2991 / / [id number] Spacer Warfield [id number] Plif 2 Radiographic Marker Pin Self - [id number] Implanted:Qty: 1 on 02/13/2020 by Slick Caldwell MD N/A: Spine Lumbar [employer] 08803.11 0 / / Head Matrix Polyaxial Top Loading Titanium Screw Spine - [id number] Implanted:Qty: 4 on 02/13/2020 by Slick Caldwell MD N/A: Spine Lumbar [employer] 04632.00 1 / / Cap Matrix Flat 5.5mm Step Square Thread Stardrive Cocr - [id number] Implanted:Qty: 4 on 02/13/2020 by Slick Caldwell MD N/A: Spine Lumbar [employer] 09. 9 / / Screw Matrix T25 Low Profile 45mm 6mm 2 Core 2 Lead - [id number] Implanted:Qty: 2 on 02/13/2020 by Slick Caldwell MD N/A: Spine Lumbar [employer] 639.64 5 / / Screw Matrix T25 Low Profile 55mm 6mm 2 Core 2 Lead - [id number] Implanted:Qty: 2 on 02/13/2020 by Slick Caldwell MD N/A: Spine Lumbar [employer] 63965 5 / / Coflex Interlaminar Implant Size 8 - [id number] Implanted:Qty: 1 on 02/13/2020 by Slick Caldwell MD N/A: Spine Lumbar [employer] 11/28/2023 [id number] / / [id number] Donnie Matrix Mile Red Curve 40mm 5.5mm Hard Titanium Spinal - [id number] Implanted:Qty: 2 on 02/13/2020 by Slick Caldwell MD N/A: Spine Lumbar [employer] 636. 0 / / Spacer Vikos 14.5x11.5x7mm 7d Stry-Spin [id number] - [id number] Implanted:Qty: 1 on 01/24/2021 by Josh Bhatti DO N/A: Spine Cervical [employer] 03/01/[id number] 7L / [id number] / Plate Cerv Anterior Constr 1 Level 20mm Stry-K2m [id number] Implanted:Qty: 1 on 01/24/2021 by Josh Bhatti DO N/A: Spine Cervical [employer] [id number] / / Screw Va Self-Start 4x14mm Stry-K2m [id number] Implanted:Qty: 4 on 01/24/2021 by Josh Bhatti DO N/A: Spine Cervical [employer] [id number] [id number] / / Procedures Procedure Name Priority Date/Time Associated Diagnosis Comments COMPREHENSIVE METABOLIC PANEL Routine 09/08/2024 10:01 AM EST Essential hypertension, benign Hypothyroidism, unspecified type Mixed hyperlipidemia Type 2 diabetes mellitus without complication, without long-term current use of insulin ([facility] V24, [facility] V28) HEMOGLOBIN A1C Routine 09/08/2024 10:01 AM EST Essential hypertension, benign Hypothyroidism, unspecified type Mixed hyperlipidemia Type 2 diabetes mellitus without complication, without long-term current use of insulin ([facility] V24, [facility] V28) LIPID PANEL WITH REFLEX TO DIRECT LDL Routine 09/08/2024 10:01 AM EST Essential hypertension, benign Hypothyroidism, unspecified type Mixed hyperlipidemia Type 2 diabetes mellitus without complication, without long-term current use of insulin ([facility] V24, [facility] V28) SCREENING MAMMOGRAPHY BI 2-VIEW BREAST INC CAD Routine 05/12/2024 2:09 PM EDT Encounter for screening mammogram for malignant neoplasm of breast URINE ALBUMIN CREATININE RATIO Routine 02/04/2024 DXA BONE DENSITY STUDY 1+ SITS AXIAL SKEL Routine 11/12/2017 2:31 PM EDT Unspecified menopausal and perimenopausal disorder HEPATITIS C SCREENING Routine 08/15/2013 from Last 3 Months or Most Recently Relevant to Health Maintenance Results * Lipid panel with reflex to direct LDL (09/08/2024 10:01 AM EST) Cholesterol 124 0 - 200 mg/dL LAB [...] ORDERABLES Final Re sult Performing Organization Address [facility]/ZIP Co de Phone Number [facility] [address] [place] [address], [place] [phone] * Hemoglobin A1c (09/08/2024 10:01 AM EST) Hemoglobin A1C 5.9 <6.5 % LAB CHEMISTRY METHOD 09/08/2024 2:08 PM [facility] Mean Bld Glu Estim. 123 mg/dL LAB CHEMISTRY METHOD 09/08/2024 2:08 PM [facility] Blood Venous blood specimen / Unknown Venipuncture / Unknown 09/08/2024 10:01 AM EST 09/08/2024 10:01 AM EST us Hiren [facility]INT[facility] BLOOD ORDERABLES Final Re sult Performing Organization Address City/[facility]/ZIP Co de Phone Number [facility] [address] [place] [address], [place] [phone] * (ABNORMAL) Comprehensive metabolic panel (09/08/2024 10:01 AM EST) Sodium 140 133 - 145 mmol/L LAB [...] [facility] Comment:Calculation based on the Chronic Kidney Disease Epidemiology Collaboration (CKD-EPI) equation refit without adjustment for race. BUN/Creatinine Ratio 18.4 LAB [...] g/dL LAB CHEMISTRY METHOD 09/08/2024 12:15 PM EST [facility] Total Bilirubin 0.4 0.0 - 1.4 mg/dL LAB CHEMISTRY METHOD 09/08/2024 12:15 PM EST [facility] Blood Venous blood specimen / Unknown Venipuncture / Unknown 09/08/2024 10:01 AM EST 09/08/2024 10:01 AM EST [facility]INT[facility] BLOOD ORDERABLES Final Re sult [facility] ([facility]) [facility] [address] [place] [address], * SCREENING MAMMOGRAPHY BI 2-VIEW BREAST INC [...] are composed of fatty and fibroglandular tissue. No suspicious mass, architectural distortion or suspicious calcifications are identified. IMPRESSION: : No mammographic evidence of malignancy. BIRADS 1-Negative; N. Breast density: The breasts have scattered areas of fibroglandular density. 5 year breast cancer risk assessment 1.8 % Lifetime breast cancer risk assessment 4.2 % Breast cancer risk category Low (<15%) Location: [facility], [address] [place] [address], [place], [address], [phone] Procedure Note Frederic Melendrez MD - 05/24/2024 This is a summary report. The complete report is available in thepatient's medical record. If you cannot access the medical record, pleasecontact the sending organization for a detailed fax or copy. Full field digital screening tomosynthesis mammography, reviewed with CADezekiel compared to previous. The breasts are composed of fatty andfibroglandular tissue. No suspicious mass, architectural distortion orsuspicious calcifications are identified. IMPRESSION: : No mammographic evidence of malignancy. BIRADS 1-Negative; N. Breast density: The breasts have scattered areas of fibroglandulardensity. 5 year breast cancer risk assessment 1.8 % Lifetime breast cancer risk assessment 4.2 % Breast cancer risk category Low (<15%) Location: [facility], [address] [place] [address], [address], [phone] Ian Holland MD IMG XR PROCEDURES Final Result * Urine Albumin Creatinine Ratio (02/04/2024) Urine Albumin Creatinine Ratio abstracted [facility] Provider HEALTH MAINTENANCE Final Result * DXA [...] abdominal radiograph for more complete evaluation. The [facility] Department of Internal Medicine recommends using National [...] alternative screening schedule based on shanti Carrillo., [facility] August 14, 2011 for patients with osteopenia (based on hip BMD T-score) is as follows: * advanced osteopenia (T scores -2.00 to -2.49), BMD testing every year * moderate osteopenia (T scores -1.50 to -1.99), BMD testing every 5 years mild osteopenia or normal BMD (T scores -1.50 and higher), BMD testing every 15 years Procedure Note Elaine Rodriguez, DO - 07/15/2022 DEXA SCAN: Lumbar Spine T-score [...] Consider abdominal radiograph for more completeevaluation. The [facility] Department of Internal Medicine recommendsusing National Osteoporosis [...] FRAX. Optional alternative screening schedule based on alexa Carrillo al., NEJMJanuary 2011 for patients with osteopenia (based on hip BMD T-score) is as follows: * advanced osteopenia (T scores -2.00 to -2.49), BMD testing every year * moderate osteopenia (T scores -1.50 to -1.99), BMD testing every 5years mild osteopenia or normal BMD (T scores -1.50 and higher), BMD testingevery 15 years Gregorio Del Rio MD [facility] DXA PROCEDURES Final Resul t * Hepatitis C Screening (08/15/2013) [facility] Hepatitis C Screening abstracted Historical Provider HEALTH MAINTENANCE Final Result from Last 3 Months or Most Recently Relevant to Health Maintenance Insurance [facility] MEDICAID MEDICARE Care Teams Field Supervisor Seed Production Relationship Specialty Start Date End Date Diane King MD [address] [place] [phone] PCP - General 09/04/22
--- OUTSIDE RECORDS SUMMARY | 2025-03-01 14:13 | XMS_ITS ---
Author Name [facility] Organization Unknown Care Team Organization Name Specialty Phone Email Start Date End Da sarkis [facility] 05/31/2022 03/14/2024
--- OUTSIDE RECORDS SUMMARY | 2025-03-01 14:13 | XMS_ITS | Clinical Summary ---
Author Organization [facility] Address [address] [place] [phone] Phone Care Team Providers Care Database Coordinator Name Role Phone Ce Esquivelie Primary Care Provide r Social History Tobacco Use Types Packs/Day Years Used Date Smoking Tobacco: Never Assessed Education Answer Date Recorded Are you interested in more education? Not on delphine e 08/11/2024 Are you concerned about learning? Not on file 08/11/2024 No 08/11/2024 No 08/11/2024 Digital Access Answer Date Recorded No 08/11/2024 No 08/11/2024 Reliable internet access at home? Not on file 08/11/2024 Device with a working camera? Not on file Comments Unknown Sex and Gender Information Value Date Recorded Sex Assigned at Not on file Legal Sex Female 2:24 PM EST Gender Identity Not on file Sexual Orientation Not on file Plan of Treatment Not on file Medical Devices Not on file Insurance Home [employer] PLUS PPO [employer] PLUS PPO [employer] PLUS PPO [employer] PLUS PPO [employer] PLUS PPO [employer] PLUS PPO Care Teams Database Coordinator Relationship Specialty Start Date End Date Ce Esquivel DO [address] [place] [id number] PCP - General Internal Medicine 08/10/24 Additional Source Comments The information contained in this document represents components of the legal health record. It is not the complete legal health record.[facility]
--- OUTSIDE RECORDS SUMMARY | 2025-03-01 14:13 | XMS_ITS | Encounter Summary ---
Author Organization [facility] Address [address] [place] [address] Phone Care Team Providers Care Utility Worker Production Name Role Phone Diane King MD Primary Care Provider + [phone] Encounter Details Date Type Department Care Team (Late st Contact Info) Description 06/15/2024 Documentation Only [facility] [address] [place] [address] Fauzia Ball [address] [place] [phone] Social History Tobacco Use Types Packs/Day [...] [facility] [address] [place] [address] Sal Ferrer MD [address] [place] [address] [place] [address] documented as of this encounter Visit Diagnoses Not on filedocumented in this encounter Care Teams Utility Worker Production Relationship Specialty Start Date End Date Diane King MD PCP - General Family Medicine 02/18/24 documented as of this encounter
--- OUTSIDE RECORDS SUMMARY | 2025-03-01 14:13 | XMS_ITS | Clinical Summary ---
Author Organization [facility] Address [address] [place] [address] Care Team Providers Care Regional Director Of Admissions Name Role Phone Diane King MD Primary Care Provider Allergies Active Allergy Reactions Criticality Noted Date Comments Oxycodone-Acetaminophen Nausea And Vomiting Medium Oxycodone Nausea And Vomiting Medium 02/07/2020 Medications Medication Sig Dispensed Refills Start Date End Date Status aspirin EC 81 MG tablet Take 1 tablet (81 mg total) by mouth daily. 0 Active Melatonin 1 MG TABS tablet Take 1 tablet (1 mg total) by mouth every night at bedtime. 0 Active rosuvastatin (CRESTOR) tablet 10 mg Take 1 tablet (10 mg total) by mouth daily. 0 Active levothyroxine (SYNTHROID, LEVOXYL) tablet 100 mcg Take 1 tablet (100 mcg total) by mouth every morning on an empty stomach. 0 Active lisinopril (PRINIVIL,ZESTRIL) tablet 20 mg Take 2 tablets (40 mg total) by mouth daily. 0 Active buPROPion (WELLBUTRIN XL) 300 MG 24 hr tablet Take 1 tablet (300 mg total) by mouth daily. 0 Active travoprost, benzalkonium, (TRAVATAN) 0.004 % ophthalmic solution 1 drop every night at bedtime. 0 Active Multiple Vitamins-Minerals (MULTIPLE VITAMINS/WOMENS PO)Indications:gastri c sleeve vitamins Take by mouth. 0 Act tan gabapentin (NEURONTIN) 600 MG tablet Take 800 mg by mouth 4 (four) times a day. 0 Active metFORMIN (GLUCOPHAGE) tablet 500 mgIndications:Type 2 Diabetes Mellitus Take 1 tablet (500 mg total) by mouth 2 (two) times a day with meals. 0 Active senna (SENOKOT) 8.6 MG tablet Take 1 tablet by mouth 2 (two) times a day. 14 tablet 0 02/19/2021 Active HYDROmorphone (DILAUDID) 2 MG tabletIndications:S/P cervical spinal fusion Take 1 tablet (2 mg total) by mouth every 6 (six) hours as needed. 30 tablet 0 03/07/2021 Active methocarbamol (ROBAXIN) 750 MG tabletIndications:S/P cervical spinal fusion Take 1 tablet (750 mg total) by mouth 3 (three) times a day. 30 tablet 0 03/07/2021 Active lisinopril (PRINIVIL,ZESTRIL) tablet 40 mg Take 1 tablet (40 mg total) by mouth daily. 0 Active rosuvastatin (CRESTOR) tablet 10 mg Take 1 tablet (10 mg total) by mouth daily. 0 Active oxybutynin (DITROPAN-XL) 10 MG 24 hr tablet Take 1 tablet (10 mg total) by mouth daily. 0 Active Active Problems Problem Noted Date Diagnosed Date S/P cervical spinal fusion 02/07/2021 Neck pain 12/20/2020 Radicular pain of right upper extremity 12/21/19 21 Lumbar spondylosis 02/13/2020 Immunizations Name Administration Dates Next Due Covid-19 (J&J) 11/04/2020 Covid-19 (Pfizer) Dilution Required 10/14/2020 Family History Medical History Relation Name Comments Pancreatic cancer Sister Relation Name Status Comments Sister Social History Tobacco Use Types Packs/Day Years Used Date Smoking Tobacco: Former Cigarettes 0.3 5 Q uit: 2008 Smokeless Tobacco: Former Tobacco Cessation:Counseling Given: Not Answered Alcohol Use Standard Drinks/Week Comments Not Currently 0 (1 standard drink = 0.6 oz pur e alcohol) Sex and Gender Information Value Date Recorded Sex Assigned at Female 02/06/2020 12:42 PM EDT Gender Identity Female 01/21/2021 8:45 AM EDT Sexual Orientation Not on file Job Start Date Occupation Industry Not on file Not on file Not on file Last Filed Vital Signs Vital Sign Reading Time Taken Comments Blood Pressure 191/77 05/05/2024 2:12 PM EDT Pulse 75 05/05/2024 2:12 PM EDT Temperature 36.9 C (98.4 F) 05/05/2024 2:12 PM EDT Respiratory Rate 18 01/25/2021 8:24 AM EDT Oxygen Saturation 100% 05/05/2024 2:12 PM EDT Inhaled Oxygen Concentration - - Weight 76.9 kg (169 lb 9.6 oz) 05/05/2024 2:12 P M EDT Height 166.4 cm (5' 5.5 ) 05/05/2024 2:12 PM EDT Body Mass Index 27.79 05/05/2024 2:12 PM EDT Plan of Treatment Health Maintenance Due Date Last Done Comments Hepatitis C Screening 1951 Depression Screening 1963 Preventative Health Evaluation 1969 Colon Cancer Screening (Colonoscopy) 1996 Breast Cancer Screening (Mammogram) 2001 Shingrix-Zoster Vaccine (1 of 2) 2001 Fall Risk Assessment 2016 Osteoporosis Screening (DEXA Scan) 2016 Pneumococcal Vaccine (2 of 2 - PCV) 2016 04/03/2011 BMI Counseling 03/07/2022 03/07/2021, 01/24, 12/20/2020, Additional history exists COVID-19 Vaccine ( season) 2024 05/30/2021, 11/04/2020, 11/04/2020, Additional history exists Influenza Vaccine (#1) 2025 , 04/06/2022, 05/30/2021, Additional history exists RSV Adult > 60+ Yrs or (1 - 1-dose 75+ series) 2026 DTap / Tdap / Td (3 - Td or Tdap) 11/02/2033 11/03/2023, 04/13/2012 Hepatitis B Vaccines Aged Out No long er eligible based on patient's age to complete this topic RSV Ped < 20 months Aged Out No longe r eligible based on patient's age to complete this topic Medical Devices Implanted Type Area Soil Surveyor Device Identifier Shelf Expiration Date Model / Serial / Lot Sponge Surgiflo 8ml Hemostatic Matrix Absorbable Latex Free - [id number] - [id number] Implanted:Qty: 1 on 02/13/2020 by Slick Caldwell MD at [facility] [place] [facility] Hemostatic Agent Posterior: Spine Lumbar [employer] 04/25/2021 2991 / / [id number] Sponge Surgifoam Thk7mm 6x2cm Hemostatic Agent Gelatin - [id number] - [id number] Implanted:Qty: 1 on 02/13/2020 by Slick Caldwell MD at [facility] [place] [facility] Hemostatic Agent Posterior: Spine Lumbar [employer] - A [employer]J [employer] 05/25/2023 1972 / / [id number] Surgiflo Hemostatic Matrix Jn-Ethi [id number] - [id number] Implanted:Qty: 1 on 01/24/2021 by Josh Bhatti DO at [facility] [place] [facility] Hemostatic Agent N/A: Spine Cervical J[employer]J [employer] 09/23/2022 2991 / / [id number] Spacer [place] [id number] Plif 2 Radiographic Marker Pin Self - [id number] - [id number] Implanted:Qty: 1 on 02/13/2020 by Slick Caldwell MD at [facility] [facility] Posterior: Spine Lumbar [employer] 08.803.1 10 / / Head Matrix Polyaxial Top Loading Titanium Screw Spine - [id number] - [id number] Implanted:Qty: 4 on 02/13/2020 by Slick Caldwell MD at [facility] [place] [facility] Posterior: Spine Lumbar [employer] 04.632.0 01 / / Cap Matrix Flat 5.5mm Step Square Thread Stardrive Cocr - [id number] - [id number] Implanted:Qty: 4 on 02/13/2020 by Slick Caldwell MD at [facility] [place] [facility] Posterior: Spine Lumbar [employer] 09.632.0 99 / / Screw Matrix T25 Low Profile 45mm 6mm 2 Core 2 Lead - [id number] - [id number] Implanted:Qty: 2 on 02/13/2020 by Slick Caldwell MD at [facility] [facility] Posterior: Spine Lumbar [employer] 04.639.6 45 / / Screw Matrix T25 Low Profile 55mm 6mm 2 Core 2 Lead - [id number] - [id number] Implanted:Qty: 2 on 02/13/2020 by Slick Caldwell MD at [facility] [place] [facility] Posterior: Spine Lumbar [employer] 04.639.6 55 / / Coflex Interlaminar Implant Size 8 - [id number] - [id number] Implanted:Qty: 1 on 02/13/2020 by Slick Caldwell MD at [facility] [place] [facility] Posterior: Spine Lumbar [employer] 11/28/2023 [id number] / / [id number] Donnie Matrix Mile Red Curve 40mm 5.5mm Hard Titanium Spinal - [id number] - [id number] Implanted:Qty: 2 on 02/13/2020 by Slick Caldwell MD at [facility] [place] [facility] Posterior: Spine Lumbar [employer] 04636.0 40 / / Spacer Vikos 14.5x11.5x7mm 7d Stry-Spin [id number] - [id number] Implanted:Qty: 1 on 01/24/2021 by Josh Bhatti DO at [facility] [facility] N/A: Spine Cervical [employer] 03/01/2025 [id number] [id number] / [id number] / Plate Cerv Anterior Constr 1 Level 20mm Stry-K2m [id number] - [id number] Implanted:Qty: 1 on 01/24/2021 by Josh Bhatti DO at [facility] [place] [facility] Anterior: Spine Cervical E[employer] [id number] 20V / / Screw Va Self-Start 4x14mm Stry-K2m [id number] - [id number] Implanted:Qty: 4 on 01/24/2021 by Josh Bhatti DO at [facility] [facility] Anterior: Spine Cervical [employer] 8801-040 14DA / / Advance Directives For more information, please contact: [phone] Documents on File Type Date Recorded Patient Needle Leader Expl anation Advance Directive and Living Will 01/24/2021 5:36 AM Latest Code Status on File Code Status Date Activated Date Inactivated Comments Full Code 01/24/2021 10:04 AM 01/25/2021 8:16 PM This c ode status was ascertained in the following way: discussion with patient . Code Status History Code Status Date Activated Date Inactivated Comments Full Code 02/13/2020 10:59 AM 02/15/2020 10:23 PM Thi s code status was ascertained in the following way: discussion with patient . Care Teams Regional Director Of Admissions Relationship Specialty Start Date End Date Diane King MD [address] [place] [id number] PCP - General Family Medicine 03/11/24
== END 2025-03-01 14:38 | disposition home or self-care (01) ==
LOC: HO.HNS 13:45
PROVIDERS: Visit Provider Neurological Surgery
DX: M71.38 Other bursal cyst, other site (principal)
CPT/HCPCS: 99024

== ENCOUNTER → 2025-04-11 13:38 | Outpatient (BNV) | payer OTHER, SELFPAY | PROVIDERS: Visit Provider Radiology Diagnostic Radiology | DX: M51.360 Other intervertebral disc degeneration, lumbar region with discogenic back pain only (principal) | CPT/HCPCS: 72100 ==

== ENCOUNTER 2025-04-11 14:38 | Outpatient (REF) | payer OTHER, SELFPAY ==
--- NOTE | ~2025-04-11 | XR_ITS ---
EXAMINATION: XR LUMBOSACRAL SPINE CLINICAL INFORMATION: M71.38 - Other bursal cyst, other site COMPARISON: January 13, 2025 and May 24, 2021 TECHNIQUE: AP and lateral views of the lumbosacral spine. FINDINGS: There is increasing attenuation of a coarse calcific density left of L1 and L2 measuring 3.2 x 4.5 cm that is probably adrenal in nature. There is moderate atherosclerotic calcification in the aorta and iliac arteries. Vertebral body height is preserved. L2-3 demonstrates stable mild disc space narrowing. L5-S1 demonstrates stable moderate to severe disc space narrowing with endplate osteophytes. There are 5 nonrib-bearing lumbar segments. Again seen are posterior pedicle screws and rods at L3-4 with interbody spacer. There is also interbody spacer at L4-5. XR/XR lumbar spine 2-3V IMPRESSION: Chronic coarse calcified mass left of midline at the level of L1-2 is probably adrenal in nature and could be related to prior adrenal hemorrhage or calcified adrenal mass. It has been present since at least 2020. Stable postoperative changes with interbody fusion at L3, L4, and L5. Mild degenerative disc disease at L2-3 and severe degenerative disc disease at L5-S1. Electronically signed by: Jose L Santana MD 04/11/2025 02:03 PM EDT
--- OUTSIDE RECORDS SUMMARY | 2025-04-11 17:31 | XMS_ITS | Encounter Summary ---
Author Organization [facility] Address [address] [place] [address] Phone Care Team Providers Care Oil Field Equipment Mechanic Supervisor Name Role Phone Diane King MD Primary Care Provider + [phone] Encounter Details Date Type Department Care Team (Late st Contact Info) Description 05/20/2024 Documentation Only [facility] [address] [place] [address] Fauzia Ball [address] [place] [phone] Social History Tobacco Use Types Packs/Day [...] Visit [facility] [address] [place] [address] Sal Ferrer MD [address] [place] [address] [place] [address] documented as of this encounter Visit Diagnoses Not on filedocumented in this encounter Care Teams Oil Field Equipment Mechanic Supervisor Relationship Specialty Start Date End Date Diane King MD PCP - General Family Medicine 02/18/24 documented as of this encounter
--- OUTSIDE RECORDS SUMMARY | 2025-04-11 17:31 | XMS_ITS | Encounter Summary ---
Author Organization [facility] Address [address] [place] [address] Phone Care Team Providers Care Orthopedic Dentist Name Role Phone Diane King MD Primary Care Provider + [phone] Encounter Details Date Type Department Care Team (Late st Contact Info) Description 05/02/2024 Documentation Only [facility] [address] [place] [address] Fauzia Ball [address] [place] [phone] Social History Tobacco Use Types Packs/Day [...] Visit [facility] [address] [place] [address] Sal Ferrer MD [address] [place] [address] [place] [address] documented as of this encounter Visit Diagnoses Not on filedocumented in this encounter Care Teams Orthopedic Dentist Relationship Specialty Start Date End Date Diane King MD PCP - General Family Medicine 02/18/24 documented as of this encounter
--- OUTSIDE RECORDS SUMMARY | 2025-04-11 17:31 | XMS_ITS | Encounter Summary ---
Author Organization [facility] Address [address] [place] [address] Phone Care Team Providers Care Director Of Housing And Energy Services Name Role Phone Diane King MD Primary Care Provider + [phone] Encounter Details Date Type Department Care Team (Late st Contact Info) Description 06/14/2024 Documentation Only [facility] [address] [place] [address] Fauzia Ball [address] [place] [phone] Social History Tobacco Use Types Packs/Day [...] Visit [facility] [address] [place] [address] Sal Fererr MD [address] [place] [address] [place] [address] documented as of this encounter Visit Diagnoses Not on filedocumented in this encounter Care Teams Director Of Housing And Energy Services Relationship Specialty Start Date End Date Diane King MD PCP - General Family Medicine 02/18/24 documented as of this encounter
--- OUTSIDE RECORDS SUMMARY | 2025-04-11 17:31 | XMS_ITS | Encounter Summary ---
Author Organization [facility] Address [address] [place] [address] Phone Care Team Providers Care Senior Director Name Role Phone Diane King MD Primary Care Provider + [phone] Encounter Details Date Type Department Care Team (Late st Contact Info) Description 06/15/2024 Documentation Only [facility] [address] [place] [address] Fauzia Ball [address] [place] [phone] Social History Tobacco Use Types Packs/Day [...] Visit [facility] [address] [place] [address] Sal Ferrer MD [address] [place] [address] [place] [address] documented as of this encounter Visit Diagnoses Not on filedocumented in this encounter Care Teams Senior Director Relationship Specialty Start Date End Date Diane King MD PCP - General Family Medicine 02/18/24 documented as of this encounter
--- OUTSIDE RECORDS SUMMARY | 2025-04-11 17:31 | XMS_ITS | Encounter Summary ---
Author Organization [facility] [place], Address [address] [place] [address] Phone Care Team Providers Care Service Electrician Name Role Phone Diane King MD Primary Care Provider + [phone] Encounter Details Date Type Department Care Team (Late st Contact Info) Description 02/18/2024 Documentation Only [facility] [address] [place] [address] [place], [place] [address] [place] [address] Social History Tobacco Use Types [...] Visit [facility] [address] [place] [address] Sal Ferrer MD [address] [place] [address] [place] [address] documented as of this encounter Visit Diagnoses Not on filedocumented in this encounter Care Teams Service Electrician Relationship Specialty Start Date End Date Diane King MD PCP - General Family Medicine 02/18/24 documented as of this encounter
--- OUTSIDE RECORDS SUMMARY | 2025-04-11 17:31 | XMS_ITS | Encounter Summary ---
Author Organization [facility] Address [address] [place] [address] Phone Care Team Providers Care Marble Cutter Name Role Phone Diane King MD Primary Care Provider + [phone] Encounter Details Date Type Department Care Team (Late st Contact Info) Description 04/26/2024 Documentation Only [facility] [address] [place] [address] Fauzia Ball [address] [place] [phone] Social History Tobacco Use Types Packs/Day [...] Visit [facility] [address] [place] [address] Sal Ferrer MD [address] [place] [address] [place] [address] documented as of this encounter Visit Diagnoses Not on filedocumented in this encounter Care Teams Marble Cutter Relationship Specialty Start Date End Date Diane King MD PCP - General Family Medicine 02/18/24 documented as of this encounter
--- OUTSIDE RECORDS SUMMARY | 2025-04-11 17:31 | XMS_ITS | Encounter Summary ---
Author Organization [facility] [place], Address [address] [place] [address] Phone Care Team Providers Care Rotor Coil Taper Name Role Phone Diane King MD Primary Care Provider + [phone] Encounter Details Date Type Department Care Team (Late st Contact Info) Description 02/29/2024 Documentation Only [facility] [address] [place] [address] [place], [place] [address] [place] [phone] Social History Tobacco Use Types [...] Visit [facility] [address] [place] [address] Sal Ferrer MD [address] [place] [address] [place] [address] documented as of this encounter Visit Diagnoses Not on filedocumented in this encounter Care Teams Rotor Coil Taper Relationship Specialty Start Date End Date Diane King MD PCP - General Family Medicine 02/18/24 documented as of this encounter
--- OUTSIDE RECORDS SUMMARY | 2025-04-11 17:31 | XMS_ITS | Clinical Summary ---
Author Organization [facility] Address [address] [address] Phone Care Team Providers Care Leather Sprayer Name Role Phone Diane King MD Primary Care Provider + [phone] Medications lisinopril 10 MG tablet Take 10 [...] Sign Reading Time Taken Comments Blood Pressure 135/77 12/26/2024 2:40 PM EDT Pulse 69 12/26/2024 2:40 PM EDT Temperature - - Respiratory Rate - - Oxygen Saturation - - Inhaled Oxygen Concentration - - Weight 79.4 kg (175 lb) 03/14/2024 4:09 PM EDT Height - - Body Mass Index - - Plan of Treatment Upcoming Encounters Date Type Department Care Team (Late st Contact Info) Description 07/13/2025 1:30 PM EST Office Visit [facility] [place], [address] [place] [address] Sal Ferrer MD [address] [place] [address] Health Maintenance Due Date Last Done Comments Breast Cancer Screening 1950 Colorectal Cancer Screening: Annual FOBT 2000 Colorectal Cancer Screening: Colonoscopy 2000 Colorectal Cancer Screening: Sigmoidoscopy 2000 Pneumococcal Vaccine: 50+ Years (2 of 2 - PCV) 04/03/2012 04/03/2011 Diabetes: Ophthalmology Exam 06/20/2024 Diabetes: Pedal Pulse Checked 06/20/2024 Diabetes: Sensory Foot Exam 06/20/2024 Diabetes: Visual Foot Exam 06/20/2024 Diabetes: Hemoglobin A1C 12/06/2024 025, 02/02/2024, 01/22/2021 Influenza Vaccine (#1) 2025 4, 04/06/2022, 05/30/2021, Additional history exists Hepatitis B Vaccine Aged Out No longe r eligible based on patient's age to complete this topic Insurance [facility] Care Teams Leather Sprayer Relationship Specialty Start Date End Date Diane King MD PCP - General Family Medicine 02/18/24
--- OUTSIDE RECORDS SUMMARY | 2025-04-11 17:31 | XMS_ITS | Clinical Summary ---
Author Organization [facility] Address [address] [place] [phone] Phone Care Team Providers Care Bag Printer Name Role Phone Ce Esquivelie Primary Care [...] file Medical Devices Not on file Insurance [employer] PLUS PPO [employer] PLUS PPO [employer] PLUS PPO [employer] PLUS PPO [employer] PLUS PPO [employer] PLUS PPO Care Teams Bag Printer Relationship Specialty Start Date End Date Ce Esquviel DO [address] [place] [id number] PCP - General Internal Medicine 08/10/24 Additional Source Comments The information contained in this document represents components of the legal health record. It is not the complete legal health record.[facility]
--- OUTSIDE RECORDS SUMMARY | 2025-04-11 17:31 | XMS_ITS | Clinical Summary ---
Author Organization [facility] Address [address] [place] [address] Phone Care Team Providers Care Casino Runner Name Role Phone Diane King MD Primary [...] EVERY DAY 90 tablet 1 01/16/2025 Active oxyCODONE (ROXICODONE) 5 mg immediate release tablet Take 1 tablet (5 mg total) by mouth every 6 (six) hours if needed. 02/09/2025 Active Active Problems Problem Noted Date Diagnosed Date B-cell lymphoproliferative d isorder ([facility] V24, [facility] V28) 06/06/2024 Iron deficiency 06/06/2024 Radicular pain [...] Type 2 diabetes mellitus wit hout complications ([facility] V24, [facility] V28) 09/26/2010 Neck pain 10/06/2006 Tobacco use disorder 10/06/2006 Essential hypertension, benign 10/07/2005 Mixed hyperlipidemia 09/11/2005 Depression 09/10/2005 Osteoarthritis, hand 09/10/2005 Encounters Date Type Department Care Team Description 03/23/2025 10:30 AM EDT Telemedicine [facility] [address] [place] [address] Janis Elizondo MD Abnormal brain MRI (Primary Dx); Memory loss 03/21/2025 2:00 PM EDT Office Visit [facility] Hematology Oncology [address] [place] [address] Ce Esquivel DO B-cell lymphoproliferative disorder ([facility]/HCC V24, CMS/HCC V28) (Primary Dx); Iron deficiency 03/16/2025 Telephone [facility] Hematology Oncology [address] [place] [address] Ce Esquivel DO from Last 3 Months Immunizations Name Administration [...] Bivalent, Or iginal + Ba.1 (Non-US Trademark COMIRNATModria Bivalent) 04/06/2022 Pfizer SARS-CoV-2 COVID-19, mRNA, LNP-S, preservative free 05/05/2024,10/14/2020 Pneumococcal conjugate 20 va lent (Prevnar 20, PCV 20) 2mo and older 11/08/2024 Pneumococcal polysaccharide 23 valent (Pneumovax 23) 2yo and older 04/03/2011 Tdap Tetanus diptheria acell ular pertussis (Boostrix; Adacel) 7yo and older 11/03/2023,04/13/2012 Surgical History Surgery Date Site/Laterality Comments PARTIAL HYSTERECTOMY PROCEDURE: NV SUPRACERVICAL ABDL HYSTER W/WO RMVL TUBE OVARY TONSILLECTOMY ADENOIDECTOMY, BILATERAL MYRINGOTOMY AND TUBES PROCEDURE: NV TONSILLECTOMY & ADENOIDECTOMY <AGE 12 HYSTERECTOMY PROCEDURE: HISTORICAL HYSTERECTOMY CHOLECYSTECTOMY PROCEDURE: NV LAPAROSCOPY SURG CHOLECYSTECTOMY OTHER SURGICAL HISTORY 10/04 PROCEDURE: NV TOTAL THYROID LOBECTOMY UNI W/WO ISTHMUSECTOMY; COMMENT: left, with reimplant L sup parathyroid, Dr Brown, [facility] OTHER SURGICAL HISTORY 04/01/2011 PROCEDURE: NV ERCP DX COLLECTION SPECIMEN BRUSHING/WASHING; COMMENT: Desilets; [...] Type 2 diabetes mellitus wit hout complications (CMS/HCC V24, CMS/HCC V28) 09/26/2010 DX:Type 2 diabetes mellitus without [...] drink = 0.6 oz pur e alcohol) Housing Instability Answer Date Recorde d Are you worried that in the next 2 months you may not have stable housing? No 03/23/2025 Food Access & Nutrition Answer Date Rec orded Do you have access to a vari ety of food including fruits and vegetables? Yes 03/23/2025 Access to Healthcare Answer Date Record ed Within the last 3 months, [place] many times did you visit the emergency department for your medical care? 0 03/23/2025 Health Literacy Answer Date Recorded How often do you need to hav e someone help you when you read instructions, pamphlets, or other written material from your doctor or pharmacy? Never 03/23/2025 Caregiver: How often do you need to have someone help you when you read instructions, pamphlets, or other written material from your doctor or pharmacy? Not on file 03/23/2025 Financial Risk Answer Date Recorded How hard is it for you to pa y for the very basics like food, housing, medical care, and air conditioning / heating? Not very hard 03/23/2025 Transportation Answer Date Recorded Has the lack of transportati on kept you from meetings, work, or from getting things needed for daily living? No Has the lack of transportati on kept you from medical appointments or from getting medications? No 03/23/2025 Social Isolation Answer Date Recorded How often do you feel lonely or isolated from those around you? Sometimes 03/23/2025 Food Risk Answer Date Recorded Within the past 12 months we worried whether our food would run out before we got money to buy more. Never true 03/23/2025 Within the past 12 months th e food we bought just didn't last and we didn't have money to get more. Never true 03/23/2025 Dependent Care Answer Date Recorded Do you need help finding or paying for care for your loved ones. For example, childhood development teacher or elderly care for an older adult? No 03/23/2025 Education Answer Date Recorded Do you think completing more education or training, like finishing a GED, going to college, or learning a trade, would be helpful for you? No 03/23/2025 Employment and Income Answer Date Recor ded During the last four weeks, have you been actively looking for work? No 03/23/2025 Living Situation Answer Date Recorded What is your living situation? 0 03/23/2025 Comments Unknown Sex and Gender Information Value Date Recorded Sex Assigned at Not on file Legal Sex Female 2:47 PM EST Gender Identity Not on file Sexual Orientation Not on file Obstetrics History Last Filed Vital Signs Vital Sign Reading Time Taken Comments Blood Pressure 176/66 03/21/2025 2:00 PM EDT Pulse 65 03/21/2025 2:00 PM EDT Temperature 36.7 C (98 F) 03/21/2025 2:00 PM EDT Respiratory Rate - - Oxygen Saturation 98% 03/21/2025 2:00 PM EDT Inhaled Oxygen Concentration - - Weight 75.5 kg (166 lb 6.4 oz) 03/21/2025 2:00 P M EDT Height 165.1 cm (5' 5 ) 03/21/2025 2:00 PM EDT Body Mass Index 27.69 03/21/2025 2:00 PM EDT Plan of Treatment Upcoming Encounters Date Type Department Care Team (Late st Contact Info) Description 05/11/2025 2:30 PM EDT Office Visit Adult Medicine - [address] [phone] Diane King MD [address] [place] [address] 06/02/2025 2:50 PM EST Appointment Radiology Department - [address] [address] 11/21/2025 2:45 PM EDT Office Visit [facility] Hematology Oncology [address] [place] [address] Ce Esquivel, [address] [place] [address] Health Maintenance Due Date Last Done Comments Diabetes: Annual Foot Exam 1961 Diabetes: Annual Retina Eye Exam 1961 Zoster Vaccines (1 of 2) 1970 Diabetes: Annual Urine Albumin-Creatinine Ratio (uACR) 02/03/2025 02/04/2024 Diabetes: Blood Sugar Control Test (HGBA1C) 03/08/2025 09/08/2024, 02/02/2024, 02/02/2024, Additional history exists COVID-19 Vaccine ( season) 2025 05/05/2024, 05/30/2021, 11/04/2020, Additional history exists Influenza Vaccine (#1) 2025 , 04/06/2022, 05/30/2021, Additional history exists Diabetes: Annual GFR (Glomerular Filtration Rate) 09/08/2025 09/08/2024, 02/02/2024, 02/02/2024, Additional history exists Hypertension/CHF/CAD Annual BMP Blood Test 09/08/2025 09/08/2024, 02/02/2024, 02/02/2024, Additional history exists Falls Risk Assessment 11/08/2025 11/08/2024 RSV Immunization Adult Patients (1 - 1-dose 75+ series) 2026 Social Influencers of Health Screening 03/23/2026 03/23/2025 Breast Cancer Screening 05/12/2026 05/12/20 24, 05/12/2024, 05/07/2023, Additional history exists Osteoporosis Screening (Bone Density Screening) 11/13/2027 11/12/2017 Colorectal Cancer Screening: Colonoscopy 07/04/2029 07/04/2024 Cholesterol Screening (Lipid Panel) 09/08/2029 09/08/2024, 02/02/2024, 02/02/2024 DTaP,Tdap,and Td Vaccines (3 - Td or Tdap) 11/02/2033 11/03/2023, 04/13/2012 Hepatitis C Screening Completed 08/15/2013 Pneumococcal Vaccine: 50+ Years Completed 11/08/2024, 04/03/2011 Depression Screening Completed 03/23/2025 HIB Vaccines Aged Out No longer eligi [...] this topic Medical Devices Implanted Type Area Supervisor Roller Printing Device Identifier Shelf Expiration Date Model / Serial / Lot Sponge Surgiflo 8ml Hemostatic Matrix Absorbable Latex Free - [id number] Implanted:Qty: 1 on 02/13/2020 by lSick Caldwell MD Implants N/A: Spine Lumbar MAR[employer]ITA [employer] MAR[employer]ITA YAS 04/25/2021 2991 / / [id number] Sponge Surgifoam Thk7mm 6x2cm Hemostatic Agent Gelatin - [id number] Implanted:Qty: 1 on 02/13/2020 by [place] Caldwell MD Implants N/A: Spine Lumbar [employer] 05/25/20231971 / / [id number] Surgiflo Hemostatic Matrix [employer] [id number] Implanted:Qty: 1 on 01/24/2021 by Josh Bhatti DO Implants N/A: Spine Cervical [employer] 09/23/2022 2991 / / [id number] Spacer [place] [id number] Plif 2 Radiographic Marker Pin Self - [id number] Implanted:Qty: 1 on 02/13/2020 by [place] Caldwell MD N/A: Spine Lumbar DEPUY SYNTHES 08.803.11 0 / / Head Matrix Polyaxial Top Loading Titanium Screw Spine - [id number] Implanted:Qty: 4 on 02/13/2020 by [place] Caldwell MD N/A: Spine Lumbar DEPUY SYNTHES 04.632.00 1 / / Cap Matrix Flat 5.5mm Step Square Thread Stardrive Cocr - [id number] Implanted:Qty: 4 on 02/13/2020 by [place] Caldwell MD N/A: Spine Lumbar DEPUY SYNTHES 632.09 9 / / Screw Matrix T25 Low Profile 45mm 6mm 2 Core 2 Lead - [id number] Implanted:Qty: 2 on 02/13/2020 by [place] Caldwell MD N/A: Spine Lumbar DEPUY SYNTHES 9.64 5 / / Screw Matrix T25 Low Profile 55mm 6mm 2 Core 2 Lead - [id number] Implanted:Qty: 2 on 02/13/2020 by [place] Caldwell MD N/A: Spine Lumbar DEPUY SYNTHES 9.65 5 / / Coflex Interlaminar Implant Size 8 - [id number] Implanted:Qty: 1 on 02/13/2020 by [place] Caldwell MD N/A: Spine Lumbar PARADIGM SPINE [facility] 11/28/2023 [id number] / / [id number] Donnie Matrix Mile Red Curve 40mm 5.5mm Hard Titanium Spinal - [id number] Implanted:Qty: 2 on 02/13/2020 by [place] Caldwell MD N/A: Spine Lumbar DEPUY SYNTHES 6.04 0 / / Spacer Vikos 14.5x11.5x7mm 7d Stry-Spin [id number] - [id number] Implanted:Qty: 1 on 01/24/2021 by Josh Bhatti DO N/A: Spine Cervical EFREN SPINE 03/01/[id number] 7L / [id number] / Plate Cerv Anterior Constr 1 Level 20mm Stry-K2m [id number] Implanted:Qty: 1 on 01/24/2021 by Josh Bhatti DO N/A: Spine Cervical E[employer]EN SPINE [id number] / / Screw Fl Self-Start 4x14mm Stry-K2m [id number] Implanted:Qty: 4 on 01/24/2021 by Josh Bhatti DO N/A: Spine Cervical EFREN SPINE [id number] / / Procedures Procedure Name Priority Date/Time Associated Diagnosis Comments NV PROTEIN ELECTROPHORETIC FRACTIONATION & QUANTITATION SERUM Routine 03/17/2025 10:42 AM EDT B-cell lymphoproliferative disorder (CMS/HCC V24, CMS/HCC V28) PROTEIN, TOTAL Routine 03/17/2025 10:42 AM EDT B-cell lymphoproliferative disorder (CMS/HCC V24, CMS/HCC V28) CBC WITH AUTO DIFFERENTIAL Routine 03/17/2025 10:42 AM EDT B-cell lymphoproliferative disorder (CMS/HCC V24, CMS/HCC V28) PROTEIN ELECTROPHORESIS, SERUM Routine 03/17/2025 10:42 AM EDT B-cell lymphoproliferative disorder (CMS/HCC V24, CMS/HCC V28) KAPPA-LAMBDA QUANTITATIVE FREE LIGHT CHAINS Routine 03/17/2025 10:42 AM EDT B-cell lymphoproliferative disorder (CMS/HCC V24, CMS/HCC V28) CBC AND DIFFERENTIAL Routine 03/17/2025 10:42 AM EDT B-cell lymphoproliferative disorder (CMS/HCC V24, CMS/HCC V28) COMPREHENSIVE METABOLIC PANEL Routine 09/08/2024 10:01 AM EST Essential hypertension, benign Hypothyroidism, unspecified type Mixed hyperlipidemia Type 2 diabetes mellitus without complication, without long-term current use of insulin (CMS/HCC V24, CMS/HCC V28) HEMOGLOBIN A1C Routine 09/08/2024 10:01 AM EST Essential hypertension, benign Hypothyroidism, unspecified type Mixed hyperlipidemia Type 2 diabetes mellitus without complication, without long-term current use of insulin (CMS/HCC V24, CMS/HCC V28) LIPID PANEL WITH REFLEX TO DIRECT LDL Routine 09/08/2024 10:01 AM EST Essential hypertension, benign Hypothyroidism, unspecified type Mixed hyperlipidemia Type 2 diabetes mellitus without complication, without long-term current use of insulin ([facility] V24, [facility] V28) SCREENING MAMMOGRAPHY BI 2-VIEW BREAST INC [...] Recently Relevant to Health Maintenance Results * PATHOLOGIST REVIEW PROTEIN ELECTROPHORESIS (03/17/2025 10:42 AM EDT) Pathologist Interpretation 03/21/2025 6:14 PM EDT [facility] ([facility] Blood Venous blood specimen / Unknown Venipuncture / Unknown 03/17/2025 10:42 AM EDT 03/17/2025 12:06 PM EDT us Ce Esquivel DO LAB BLOOD ORDERABLES Final Result [facility] ([facility]) [facility] [address] [place] [address], * (ABNORMAL) Babb-lambda free light chains, quantitative (03/17/2025 10:42 AM EDT) Babb Free Light Chain 2.42(H) 0.33 - 1.94 mg/dL 03/20/2025 1:[address] [facility] Lambda Free Light Chain 2.62 0.57 - 2.63 mg/dL 03/20/2025 1:[address] [facility] Babb/Lambda FLC Ratio 0.92 0.26 - 1.65 03/20/2025 1:[address] [facility] Comment: Test performed at [facility], [address], [place] [address] Miguelina Arevalo MD, PhD - Avionics Integration Engineer Blood Venous blood specimen / Unknown Venipuncture / Unknown 03/17/2025 10:42 AM EDT 03/17/2025 12:06 PM EDT us Ce Esquivel DO LAB BLOOD ORDERABLES Final Result [facility] [address] [place] [address] * (ABNORMAL) CBC auto differential (03/17/2025 10:42 AM EDT) WBC 4.5(L) 4.8 - 10.8 K/mcL LAB HEMETOLOGY METHOD 03/17/2025 12:27 PM EDT [facility] RBC 4.50 3.80 - 4.80 M/mcL LAB HEMETOLOGY METHOD 03/17/2025 12:27 PM EDT [facility] Hemoglobin 12.3 11.5 - 16.0 g/dL LAB HEMETOLOGY METHOD 03/17/2025 12:27 PM EDT [facility] Hematocrit 40.0 35.0 - 47.0 % LAB HEMETOLOGY METHOD 03/17/2025 12:27 PM EDT [facility] MCV 88.9 79.0 - 98.0 FL LAB HEMETOLOGY METHOD 03/17/2025 12:27 PM EDT [facility] MCH 27.3 27.0 - 32.0 pcg LAB HEMETOLOGY METHOD 03/17/2025 12:27 PM EDT [facility] MCHC 30.8(L) 32.0 - 37.0 g/dL LAB HEMETOLOGY METHOD 03/17/2025 12:27 PM [facility] RDW 13.6 11.0 - 15.0 % LAB HEMETOLOGY METHOD 03/17/2025 12:27 PM [facility] Platelets 200 130 - 400 K/mcL LAB HEMETOLOGY METHOD 03/17/2025 12:27 PM [facility] MPV 9.5 7.0 - 11.0 FL LAB HEMETOLOGY METHOD 03/17/2025 12:27 PM [facility] NRBC 0.0 <1.0 % LAB HEMETOLOGY METHOD 03/17/2025 12:27 PM [facility] NRBC Absolute 0.00 <0.10 K/mcL LAB HEMETOLOGY METHOD 03/17/2025 12:27 PM [facility] Neutrophils Relative 62.9 % LAB HEMETOLOGY METHOD 03/17/2025 12:27 PM [facility] Lymphocytes Relative 24.4 % LAB HEMETOLOGY METHOD 03/17/2025 12:27 PM [facility] Monocytes Relative 7.6 % LAB HEMETOLOGY METHOD 03/17/2025 12:27 PM [facility] Eosinophils Relative 4.0 % LAB HEMETOLOGY METHOD 03/17/2025 12:27 PM [facility] Basophils Relative 0.7 % LAB HEMETOLOGY METHOD 03/17/2025 12:27 PM [facility] Immature Granulocytes Relative 0.4 % LAB HEMETOLOGY METHOD 03/17/2025 12:27 PM [facility] Neutrophils Absolute 2.83 1.50 - 7.00 K/mcL LAB HEMETOLOGY METHOD 03/17/2025 12:27 PM [facility] Lymphocytes Absolute 1.10 1.00 - 5.00 K/mcL LAB HEMETOLOGY METHOD 03/17/2025 12:27 PM EDT [facility] Monocytes Absolute 0.34 0.20 - 1.00 K/mcL LAB HEMETOLOGY METHOD 03/17/2025 12:27 PM EDT [facility] Eosinophils Absolute 0.18 0.00 - 0.50 K/mcL LAB HEMETOLOGY METHOD 03/17/2025 12:27 PM EDT [facility] Basophils Absolute 0.03 0.00 - 0.20 K/mcL LAB HEMETOLOGY METHOD 03/17/2025 12:27 PM EDT [facility] Immature Granulocytes Absolute 0.02 0.00 - 0.03 K/mcL LAB HEMETOLOGY METHOD 03/17/2025 12:27 PM EDT [facility] Blood Venous blood specimen / Unknown Venipuncture / Unknown 03/17/2025 10:42 AM EDT 03/17/2025 12:07 PM EDT Ce Esquivel DO LAB BLOOD ORDERABLES Final Result [facility] [address] [place] [address], * Protein electrophoresis, serum (03/17/2025 10:42 AM EDT) Total Protein 6.8 6.0 - 8.0 g/dL LAB CHEMISTRY METHOD 03/21/2025 6:14 PM EDT [facility] Albumin, Serum 3.8 2.9 - 4.1 g/dL LAB CHEMISTRY METHOD 03/21/2025 6:14 PM EDT [facility] Alpha 1 Globulin (g/dL) 0.2 0.1 - 0.5 g/dL LAB CHEMISTRY METHOD 03/21/2025 6:14 PM EDT [facility] Alpha 2 Globulin (g/dL) 1.0 0.7 - 1.5 g/dL LAB CHEMISTRY METHOD 03/21/2025 6:14 PM EDT [facility] Beta (g/dL) 0.9 0.7 - 1.5 g/dL LAB CHEMISTRY METHOD 03/21/2025 6:14 PM EDT [facility] Gamma Globulin (g/dL) 0.9 0.7 - 1.9 g/dL LAB CHEMISTRY METHOD 03/21/2025 6:14 PM EDT [facility] SPEP Interpretation No M-Dung seen. Essentially normal pattern. LAB CHEMISTRY METHOD 03/21/2025 6:14 PM EDT [facility] Blood Venous blood specimen / Unknown Venipuncture / Unknown 03/17/2025 10:42 AM EDT 03/17/2025 12:06 PM EDT Ce Esquivel DO LAB BLOOD ORDERABLES Final Result [facility] [address] [place] [address], [place] [phone] * Protein, total (03/17/2025 10:42 AM EDT) Total Protein 6.8 6.0 - 8.0 g/dL LAB CHEMISTRY METHOD 03/17/2025 1:28 PM EDT [facility] Blood Venous blood specimen / Unknown Venipuncture / Unknown 03/17/2025 10:42 AM EDT 03/17/2025 12:06 PM EDT Ce Esquivel DO LAB BLOOD ORDERABLES Final Result Performing Organization Address City/[facility]/ZIP Co de Phone Number [facility] [address] [place] [address], [place] [phone] * Lipid panel with reflex to direct LDL (09/08/2024 10:01 AM EST) Cholesterol 124 0 - 200 mg/dL LAB CHEMISTRY METHOD 09/08/2024 12:04 PM [facility] Triglycerides 88 0 - 150 mg/dL LAB CHEMISTRY METHOD 09/08/2024 12:04 PM [facility] HDL 68 >=40 mg/dL LAB CHEMISTRY METHOD 09/08/2024 12:04 PM [facility] LDL Calculated 38 0 - 100 mg/dL LAB CHEMISTRY METHOD 09/08/2024 12:04 PM [facility] VLDL Cholesterol Rex 17.6 mg/dL LAB CHEMISTRY METHOD 09/08/2024 12:04 PM [facility] Non HDL Chol. (LDL+VLDL) 56 <145 mg/dL LAB CHEMISTRY METHOD 09/08/2024 12:04 PM [facility] Chol/HDL Ratio 1.8 0.0 - 4.4 LAB CHEMISTRY METHOD 09/08/2024 12:04 PM [facility] Blood Venous blood specimen / Unknown Venipuncture / Unknown 09/08/2024 10:01 AM EST 09/08/2024 10:01 AM EST us Hiren QUINTANILLA LAB BLOOD ORDERABLES Final Re sult [facility] [address] [place] [address], * Hemoglobin A1c (09/08/2024 10:01 AM EST) Hemoglobin A1C 5.9 <6.5 % LAB CHEMISTRY METHOD 09/08/2024 2:08 PM [facility] Mean Bld Glu Estim. 123 mg/dL LAB CHEMISTRY METHOD 09/08/2024 2:08 PM [facility] Blood Venous blood specimen / Unknown Venipuncture / Unknown 09/08/2024 10:01 AM EST 09/08/2024 10:01 AM EST Hiren QUINTANILLA LAB BLOOD ORDERABLES Final Re sult [facility] [address] [place] [address], [place] [phone] * (ABNORMAL) Comprehensive metabolic panel (09/08/2024 10:01 AM EST) Sodium 140 133 - 145 mmol/L LAB CHEMISTRY METHOD 09/08/2024 12:15 PM [facility] Potassium 4.7 3.5 - 5.5 mmol/L LAB CHEMISTRY METHOD 09/08/2024 12:15 PM [facility] Chloride 106 96 - 110 mmol/L LAB CHEMISTRY METHOD 09/08/2024 12:15 PM [facility] CO2 30 21 - 32 mmol/L LAB CHEMISTRY METHOD 09/08/2024 12:15 PM [facility] Anion Gap 4 3 - 11 LAB CHEMISTRY METHOD 09/08/2024 12:15 PM [facility] Glucose 87 70 - 100 mg/dL LAB CHEMISTRY METHOD 09/08/2024 12:15 PM [facility] BUN 30(H) 5 - 25 mg/dL LAB CHEMISTRY METHOD 09/08/2024 12:15 PM [facility] Creatinine 1.63(H) 0.50 - 1.10 mg/dL LAB CHEMISTRY METHOD 09/08/2024 12:15 PM [facility] eGFR 33(L) >=60 mL/min/1. 73m2 LAB CHEMISTRY METHOD 09/08/2024 12:15 PM [facility] Comment:Calculation based on the Chronic Kidney Disease Epidemiology Collaboration (CKD-EPI) equation refit without adjustment for race. BUN/Creatinine Ratio 18.4 LAB CHEMISTRY METHOD 09/08/2024 12:15 PM [facility] Calcium 9.8 8.5 - 10.5 mg/dL LAB CHEMISTRY METHOD 09/08/2024 12:15 PM [facility] AST (SGOT) 29 10 - 42 unit/L LAB CHEMISTRY METHOD 09/08/2024 12:15 PM [facility] ALT (SGPT) 28 10 - 60 unit/L LAB CHEMISTRY METHOD 09/08/2024 12:15 PM [facility] Alkaline Phosphatase 94 42 - 121 unit/L LAB CHEMISTRY METHOD 09/08/2024 12:15 PM [facility] Total Protein 6.8 6.0 - 8.0 g/dL LAB CHEMISTRY METHOD 09/08/2024 12:15 PM [facility] Albumin 3.9 3.2 - 5.0 g/dL LAB CHEMISTRY METHOD 09/08/2024 12:15 PM [facility] Total Bilirubin 0.4 0.0 - 1.4 mg/dL LAB CHEMISTRY METHOD 09/08/2024 12:15 PM [facility] Blood Venous blood specimen / Unknown Venipuncture / Unknown 09/08/2024 10:01 AM EST 09/08/2024 10:01 AM EST Hiren QUINTANILLA LAB BLOOD ORDERABLES Final Re sult [facility] [address] [place] [address], * SCREENING MAMMOGRAPHY BI 2-VIEW BREAST INC [...] cancer risk category Low (<15%) Location: [facility], [address] [place] [address], [id number], [phone] Procedure Note Frederic Melendrez MD - 05/24/2024 [...] cancer risk category Low (<15%) Location: [facility], [address] [place] [address], [id number], [phone] Ian Holland MD IMG XR PROCEDURES Final [...] abdominal radiograph for more complete evaluation. [facility] Department of Internal Medicine recommends using National [...] alternative screening schedule based on shanti Carrillo., [facility] August 14, 2011 for patients with osteopenia (based on hip BMD T-score) is as follows: * advanced osteopenia (T scores -2.00 to -2.49), BMD testing every year * moderate osteopenia (T scores -1.50 to -1.99), BMD testing every 5 years mild osteopenia or normal BMD (T scores -1.50 and higher), BMD testing every 15 years Procedure Note Jennifer Elaine Nava DO - 07/15/2022 DEXA SCAN: Lumbar Spine [...] Consider abdominal radiograph for more completeevaluation. [facility] Department of Internal Medicine recommendsusing National Osteoporosis [...] alternative screening schedule based on shanti Carrillo., NEJJanuary 2011 for patients with osteopenia (based on [...] Resul t * Hepatitis C Screening (08/15/2013) [facility] Hepatitis C Screening abstracted us Historical Provider HEALTH MAINTENANCE Final Result from Last 3 Months or Most Recently Relevant to Health Maintenance Insurance [employer] MED[employer] Care Teams Casino Runner Relationship Specialty Start Date End Date Diane [place] MD [address] [place] [id number] PCP - General 09/04/22
--- OUTSIDE RECORDS SUMMARY | 2025-04-11 17:31 | XMS_ITS | Encounter Summary ---
Author Organization [facility] Address [address] [place] [address] Phone Care Team Providers Care Pie Dough Roller Name Role Phone Diane King MD Primary Care Provider + [phone] Encounter Details Date Type Department Care Team (Late st Contact Info) Description 06/15/2024 Documentation Only [facility] [address] [place] [address] Fauzia Ball [address] [place] [phone] Social History Tobacco Use Types Packs/Day [...] Visit [facility] [address] [place] [address] Sal Ferrer MD [address] [place] [address] [place] [address] documented as of this encounter Visit Diagnoses Not on filedocumented in this encounter Care Teams Pie Dough Roller Relationship Specialty Start Date End Date Diane King MD PCP - General Family Medicine 02/18/24 documented as of this encounter
--- OUTSIDE RECORDS SUMMARY | 2025-04-11 17:31 | XMS_ITS | Encounter Summary ---
Author Organization [facility] Address [address] [place] [address] Phone Care Team Providers Care Electric Relay Tester Name Role Phone Diane King MD Primary Care Provider + [phone] Encounter Details Date Type Department Care Team (Late st Contact Info) Description 06/15/2024 Documentation Only [facility] [address] [place] [address] Fauzia Ball [address] [place] [phone] Social History Tobacco Use Types Packs/Day [...] Visit [facility] [address] [place] [address] Sal Ferrer MD [address] [place] [address] [place] [address] documented as of this encounter Visit Diagnoses Not on filedocumented in this encounter Care Teams Electric Relay Tester Relationship Specialty Start Date End Date Diane King MD PCP - General Family Medicine 02/18/24 documented as of this encounter
== END 2025-04-11 14:39 | disposition home or self-care (01) ==
LOC: HO.HOSX 14:38
PROVIDERS: Visit Provider Neurological Surgery
DX: M71.38 Other bursal cyst, other site (principal)
CPT/HCPCS: 72100

== ENCOUNTER 2025-04-12 08:27 | Outpatient (REF) | payer OTHER, SELFPAY ==
--- OUTSIDE RECORDS SUMMARY | 2025-04-13 09:36 | XMS_ITS | Clinical Summary ---
Author Organization [facility] Address [address] [place] [address] Phone Care Team Providers Care Ornamental Ironworker Name Role Phone Diane King MD Primary Care Provider + [phone] Medications lisinopril 10 MG tablet Take 10 [...] Visit [facility] [place], [address] [place] [address] Sal Ferrer MD [address] [place] [address] Health Maintenance Due Date Last Done Comments [...] patient's age to complete this topic Insurance [facility] Care Teams Ornamental Ironworker Relationship Specialty Start Date End Date Diane King MD PCP - General Family Medicine 02/18/24
--- OUTSIDE RECORDS SUMMARY | 2025-04-13 09:36 | XMS_ITS | Clinical Summary ---
Author Organization [employer] [facility] Address [address] [place] [address] Care Team Providers Care Javascript Engineer Name Role Phone Diane King MD Primary [...] 01/24, 12/20/2020, Additional history exists COVID-19 Vaccine (2024- season) 2025 05/30/2021, 11/04/2020, 11/04/2020, Additional history exists Influenza [...] this topic Medical Devices Implanted Type Area Slug Press Operator Device Identifier Shelf Expiration Date Model / Serial / Lot Sponge Surgiflo 8ml Hemostatic Matrix Absorbable Latex Free - [id number] - [id number] Implanted:Qty: 1 on 02/13/2020 by Slick Caldwell MD at [facility] Hemostatic Agent Posterior: Spine Lumbar [employer] 04/25/2021 2991 / / [id number] Sponge Surgifoam Thk7mm 6x2cm Hemostatic Agent Gelatin - [id number] - [id number] Implanted:Qty: 1 on 02/13/2020 by Slick Caldwell MD at [facility] Hemostatic Agent Posterior: Spine Lumbar [employer] - A [employer] 05/25/2023 1972 / / [id number] Surgiflo Hemostatic Matrix Jn-Ethi 2991-763199 - [id number] Implanted:Qty: 1 on 01/24/2021 by Josh Bhatti DO at [facility] Hemostatic Agent N/A: Spine Cervical J[employer] 09/23/2022 2991 / / [id number] Spacer [place] [id number] Plif 2 Radiographic Marker Pin Self - 540225 - [id number] Implanted:Qty: 1 on 02/13/2020 by Slick Caldwell MD at [facility] Posterior: Spine Lumbar [employer] 08.803.1 10 / / Head Matrix Polyaxial Top Loading Titanium Screw Spine - 247836 - [id number] Implanted:Qty: 4 on 02/13/2020 by Slick Caldwell MD at [facility] Posterior: Spine Lumbar [employer] 04.632.0 01 / / Cap Matrix Flat 5.5mm Step Square Thread Stardrive Cocr - 027407 - [id number] Implanted:Qty: 4 on 02/13/2020 by Slick Caldwell MD at [facility] Posterior: Spine Lumbar [employer] 09.632.0 99 / / Screw Matrix T25 Low Profile 45mm 6mm 2 Core 2 Lead - [id number] - [id number] Implanted:Qty: 2 on 02/13/2020 by Slick Caldwell MD at [facility] Posterior: Spine Lumbar [employer] 04.639.6 45 / / Screw Matrix T25 Low Profile 55mm 6mm 2 Core 2 Lead - 356155 - [id number] Implanted:Qty: 2 on 02/13/2020 by Slick Caldwell MD at [facility] Posterior: Spine Lumbar [employer] 04.639.6 55 / / Coflex Interlaminar Implant Size 8 - Kx1021 - [id number] Implanted:Qty: 1 on 02/13/2020 by Slick Caldwell MD at [facility] Posterior: Spine Lumbar [employer] 11/28/2023 [id number] / / [id number] Donnie Matrix Mile Red Curve 40mm 5.5mm Hard Titanium Spinal - 689259 - [id number] Implanted:Qty: 2 on 02/13/2020 by Slick Caldwell MD at [facility] Posterior: Spine Lumbar [employer] 04636.0 40 / / Spacer Vikos 14.5x11.5x7mm 7d Stry-Spin [id number] [id number] - [id number] Implanted:Qty: 1 on 01/24/2021 by Josh Bhatti DO at [facility] N/A: Spine Cervical E[employer] SPINE 03/01/2025 2504-214 07L / [id number] / Plate Cerv Anterior Constr 1 Level 20mm Stry-K2m [id number] - [id number] Implanted:Qty: 1 on 01/24/2021 by Josh Bhatti DO at [facility] Anterior: Spine Cervical EFREN SPINE WB14-90U 20V / / Screw Va Self-Start 4x14mm Stry-K2m [id number] 4174 - [id number] Implanted:Qty: 4 on 01/24/2021 by Josh Bhatti DO at [facility] Anterior: Spine Cervical EFREN SPINE 8801-040 14DA / / Advance Directives For more information, please contact: [phone] Documents on File Type Date Recorded Patient Fulling Machine Operator Expl anation Advance Directive and Living Will [...] way: discussion with patient . Care Teams Javascript Engineer Relationship Specialty Start Date End Date Diane King MD [address] [place] [id number] PCP - General Family Medicine 03/11/24
--- OUTSIDE RECORDS SUMMARY | 2025-04-13 09:36 | XMS_ITS | Clinical Summary ---
Author Organization [facility] Address [address] [place] [id number] Phone Care Team Providers Care Window Installer Name Role Phone Ce Esquivelie Primary Care [...] file Medical Devices Not on file Insurance [employer] PLUS PPO Delivery Hero PLUS PPO Delivery Hero PLUS PPO Delivery Hero PLUS PPO Delivery Hero PLUS PPO Delivery Hero PLUS PPO Care Teams Window Installer Relationship Specialty Start Date End Date Ce Esquivel DO [address] [place] [id number] PCP - General Internal Medicine 08/10/24 Additional Source Comments The information contained in this document represents components of the legal health record. It is not the complete legal health record.[facility]
--- OUTSIDE RECORDS SUMMARY | 2025-04-13 09:36 | XMS_ITS | Encounter Summary ---
Author Organization [facility] Address [address] [place] [address] Phone Care Team Providers Care Certified Pharmacy Technician Name Role Phone Diane King MD Primary Care Provider + [phone] Encounter Details Date Type Department Care Team (Late st Contact Info) Description 06/15/2024 Documentation Only [facility] [address] [place] [address] Fauzia Ball [address] [place] [phone] Social History Tobacco Use Types Packs/Day [...] Visit [facility] [address] [place] [address] Sal Ferrer MD [address] [place] [address] [place] [address] documented as of this encounter Visit Diagnoses Not on filedocumented in this encounter Care Teams Certified Pharmacy Technician Relationship Specialty Start Date End Date Diane King MD PCP - General Family Medicine 02/18/24 documented as of this encounter
--- OUTSIDE RECORDS SUMMARY | 2025-04-13 09:36 | XMS_ITS | Encounter Summary ---
Author Organization [facility] Address [address] [place] [address] Phone Care Team Providers Care Equipment Operat0R Name Role Phone Diane King MD Primary Care Provider + [phone] Encounter Details Date Type Department Care Team (Late st Contact Info) Description 06/15/2024 Documentation Only [facility] [address] [place] [address] Fauzia Ball [address] [place] [phone] Social History Tobacco Use Types Packs/Day [...] Visit [facility] [address] [place] [address] Sal Ferrer MD [address] [place] [address] [place] [address] documented as of this encounter Visit Diagnoses Not on filedocumented in this encounter Care Teams Equipment Operat0R Relationship Specialty Start Date End Date Diane King MD PCP - General Family Medicine 02/18/24 documented as of this encounter
--- OUTSIDE RECORDS SUMMARY | 2025-04-13 09:36 | XMS_ITS | Encounter Summary ---
Author Organization [facility] [place], Address [address] [place] [address] Phone Care Team Providers Care Flight Follower Name Role Phone Diane King MD Primary Care Provider + [phone] Encounter Details Date Type Department Care Team (Late st Contact Info) Description 02/29/2024 Documentation Only [facility] [address] [address] [place] [address] [place] [address] Social History Tobacco Use Types [...] Visit [facility] [address] [address] Sal Ferrer MD [address] [place] [address] [place] [address] documented as of this encounter Visit Diagnoses Not on filedocumented in this encounter Care Teams Flight Follower Relationship Specialty Start Date End Date Diane King MD PCP - General Family Medicine 02/18/24 documented as of this encounter
--- OUTSIDE RECORDS SUMMARY | 2025-04-13 09:36 | XMS_ITS | Encounter Summary ---
Author Organization [facility] Address [address] [place] [address] Phone Care Team Providers Care Chucking Machine Set Up Operator Tool Name Role Phone Diane King MD Primary Care Provider + [phone] Encounter Details Date Type Department Care Team (Late st Contact Info) Description 06/15/2024 Documentation Only [facility] [address] [place] [address] Fauzia Ball [address] [place] [phone] Social History Tobacco Use Types Packs/Day [...] [facility] [address] [place] [address] Sal Ferrer MD [address] [place] [address] [place] [address] documented as of this encounter Visit Diagnoses Not on filedocumented in this encounter Care Teams Chucking Machine Set Up Operator Tool Relationship Specialty Start Date End Date Diane King MD PCP - General Family Medicine 02/18/24 documented as of this encounter
--- OUTSIDE RECORDS SUMMARY | 2025-04-13 09:37 | XMS_ITS | Encounter Summary ---
Author Organization [facility] Address [address] [place] [address] Phone Care Team Providers Care Quality Assurance/R&D Lab Technician Name Role Phone Diane King MD Primary Care Provider + [phone] Encounter Details Date Type Department Care Team (Late st Contact Info) Description 06/14/2024 Documentation Only [facility] [address] [place] [address] Fauzia Ball [address] [place] [phone] Social History Tobacco Use Types Packs/Day [...] Visit [facility] [address] [place] [address] Sal Ferrer MD [address] [place] [address] [place] [address] documented as of this encounter Visit Diagnoses Not on filedocumented in this encounter Care Teams Quality Assurance/R&D Lab Technician Relationship Specialty Start Date End Date Diane King MD PCP - General Family Medicine 02/18/24 documented as of this encounter
--- OUTSIDE RECORDS SUMMARY | 2025-04-13 09:37 | XMS_ITS | Encounter Summary ---
Author Organization [facility] Address [address] [place] [address] Phone Care Team Providers Care Engineering Equipment Operator Name Role Phone Diane King MD Primary Care Provider + [phone] Encounter Details Date Type Department Care Team (Late st Contact Info) Description 05/20/2024 Documentation Only [facility] [address] [place] [address] Fauzia Ball [address] [place] [phone] Social History Tobacco Use Types Packs/Day [...] Visit [facility] [address] [place] [address] Sal Ferrer MD [address] [place] [address] [place] [address] documented as of this encounter Visit Diagnoses Not on filedocumented in this encounter Care Teams Engineering Equipment Operator Relationship Specialty Start Date End Date Diane King MD PCP - General Family Medicine 02/18/24 documented as of this encounter
--- OUTSIDE RECORDS SUMMARY | 2025-04-13 09:37 | XMS_ITS | Clinical Summary ---
Author Organization [facility] Address [address] [place] [address] Phone Care Team Providers Care Tax Clerk Name Role Phone Diane King MD Primary [...] Date Diagnosed Date B-cell lymphoproliferative d isorder ([facility] V24, [facility] V28) 06/06/2024 Iron deficiency 06/06/2024 Radicular pain [...] Type 2 diabetes mellitus wit hout complications ([facility] V24, [facility] V28) 09/26/2010 Neck pain 10/06/2006 Tobacco use disorder 10/06/2006 Essential hypertension, benign 10/07/2005 Mixed hyperlipidemia 09/11/2005 Depression 09/10/2005 Osteoarthritis, hand 09/10/2005 Encounters Date Type Department Care Team Description 03/23/2025 10:30 AM EDT Telemedicine [facility] [address] [place] [address] Janis Elizondo MD Abnormal brain MRI (Primary Dx); Memory loss 03/21/2025 2:00 PM EDT Office Visit [facility] Hematology Oncology [address] [place] [address] Ce Esquivel DO B-cell lymphoproliferative disorder ([facility] V24, CMS/HCC V28) (Primary Dx); Iron deficiency 03/16/2025 Telephone [facility] Hematology Oncology [address] [place] [address] Ce Esquivel DO from Last [...] Bivalent, Or iginal + Ba.1 (Non-US Trademark COMIRNATMobile Patrol Bivalent) 04/06/2022 Pfizer SARS-CoV-2 COVID-19, mRNA, LNP-S, preservative free 05/05/2024,10/14/2020 Pneumococcal conjugate 20 va lent (Prevnar 20, PCV 20) 2mo and older 11/08/2024 Pneumococcal polysaccharide 23 valent (Pneumovax 23) 2yo and older 04/03/2011 Tdap Tetanus diptheria acell ular pertussis (Boostrix; Adacel) 7yo and older 11/03/2023,04/13/2012 Surgical History Surgery Date Site/Laterality Comments PARTIAL HYSTERECTOMY PROCEDURE: NM SUPRACERVICAL ABDL HYSTER W/WO RMVL TUBE OVARY TONSILLECTOMY ADENOIDECTOMY, BILATERAL MYRINGOTOMY AND TUBES PROCEDURE: NM TONSILLECTOMY & ADENOIDECTOMY <AGE 12 HYSTERECTOMY PROCEDURE: HISTORICAL HYSTERECTOMY CHOLECYSTECTOMY PROCEDURE: NM LAPAROSCOPY SURG CHOLECYSTECTOMY OTHER SURGICAL HISTORY 10/04 PROCEDURE: NM TOTAL THYROID LOBECTOMY UNI W/WO ISTHMUSECTOMY; COMMENT: left, with reimplant L sup parathyroid, Dr Brown, [facility] OTHER SURGICAL HISTORY 04/01/2011 PROCEDURE: NM ERCP DX COLLECTION SPECIMEN BRUSHING/WASHING; COMMENT: Desilets; [...] ed Within the last 3 months, [place] many times did you visit the emergency [...] care for your loved ones. For example, child neurologist or elderly care for an older adult? [...] PM EDT Office Visit Adult Medicine - [address] [address] Diane King MD [address] [place] [address] 06/02/2025 2:50 PM EST Appointment Radiology Department - [address] [address] 11/21/2025 2:45 PM EDT Office Visit [facility] Hematology Oncology [address] [place] [address] Ce Esquivel, [address] [place] [address] Health Maintenance Due Date Last Done Comments [...] this topic Medical Devices Implanted Type Area Gps Navigation Installer Device Identifier Shelf Expiration Date Model / Serial / Lot Sponge Surgiflo 8ml Hemostatic Matrix Absorbable Latex Free - [id number] Implanted:Qty: 1 on 02/13/2020 by Slick Caldwell MD Implants N/A: Spine Lumbar [employer] MAR[employer] YAS 04/25/2021 2991 / / [id number] Sponge Surgifoam Thk7mm 6x2cm Hemostatic Agent Gelatin - [id number] Implanted:Qty: 1 on 02/13/2020 by Slick Caldwell MD Implants N/A: Spine Lumbar [employer] 05/25/20231971 / / [id number] Surgiflo Hemostatic Matrix [facility] [id number] Implanted:Qty: 1 on 01/24/2021 by Josh Bhatti DO Implants N/A: Spine Cervical [employer] 09/23/2022 2991 / / [id number] Spacer Jewell [id number] Plif 2 Radiographic Marker Pin Self - [id number] Implanted:Qty: 1 on 02/13/2020 by Slick Caldwell MD N/A: Spine Lumbar DEPUY SYNTHES 08.803.11 0 / / Head Matrix Polyaxial Top Loading Titanium Screw Spine - [id number] Implanted:Qty: 4 on 02/13/2020 by Slick Caldwell MD N/A: Spine Lumbar [employer] 04.632.00 1 / / Cap Matrix Flat 5.5mm Step Square Thread Stardrive Cocr - [id number] Implanted:Qty: 4 on 02/13/2020 by Slick Caldwell MD N/A: Spine Lumbar [employer] 632.09 9 / / Screw Matrix T25 Low Profile 45mm 6mm 2 Core 2 Lead - [id number] Implanted:Qty: 2 on 02/13/2020 by Slick Caldwell MD N/A: Spine Lumbar DE[employer] SY[employer]ES 9.64 5 / / Screw Matrix T25 Low Profile 55mm 6mm 2 Core 2 Lead - [id number] Implanted:Qty: 2 on 02/13/2020 by Slick Caldwell MD N/A: Spine Lumbar DEPUY SYNTHES 9.65 5 / / Coflex Interlaminar Implant Size 8 - [id number] Implanted:Qty: 1 on 02/13/2020 by Slick Caldwell MD N/A: Spine Lumbar [employer] [facility] 11/28/2023 [id number] / / [id number] Donnie Matrix Mile Red Curve 40mm 5.5mm Hard Titanium Spinal - [id number] Implanted:Qty: 2 on 02/13/2020 by Slick Caldwell MD N/A: Spine Lumbar DEPU[employer] SYNTHES 6.04 0 / / Spacer Vikos 14.5x11.5x7mm 7d Stry-Spin [id number] - [id number] Implanted:Qty: 1 on 01/24/2021 by Josh Bhatti DO N/A: Spine Cervical E[employer]EN [employer]INE 03/01/[id number] 7L / [id number] / Plate Cerv Anterior Constr 1 Level 20mm Stry-K2m [id number] Implanted:Qty: 1 on 01/24/2021 by Josh Bhatti DO N/A: Spine Cervical E[employer]EN [employer] [id number] 0V / / Screw Id Self-Start 4x14mm Stry-K2m [id number] Implanted:Qty: 4 on 01/24/2021 by Josh Bhatti DO N/A: Spine Cervical E[employer] SPINE [id number] 4DA / / Procedures Procedure Name Priority Date/Time Associated Diagnosis Comments NM PROTEIN ELECTROPHORETIC FRACTIONATION & QUANTITATION SERUM Routine [...] complication, without long-term current use of insulin ([facility] V24, [facility] V28) SCREENING MAMMOGRAPHY BI 2-VIEW BREAST INC [...] EDT) Pathologist Interpretation 03/21/2025 6:14 PM EDT [facility] Blood Venous blood specimen / Unknown Venipuncture / Unknown 03/17/2025 10:42 AM EDT 03/17/2025 12:06 PM EDT us Ce Esquivel DO LAB BLOOD ORDERABLES Final Result [facility] [address] [place] [address], * (ABNORMAL) Rugby-lambda free light chains, quantitative (03/17/2025 10:42 AM EDT) Rugby Free Light Chain 2.42(H) 0.33 - 1.94 mg/dL 03/20/2025 1:[address] [facility] Lambda Free Light Chain 2.62 0.57 - 2.63 mg/dL 03/20/2025 1:[address] [facility] Rugby/Lambda FLC Ratio 0.92 0.26 - 1.65 03/20/2025 1:[address] [facility] Comment: Test performed at [facility], [address], [place] [address] Miugelina Arevalo MD, PhD - Health Worker Blood Venous blood specimen / Unknown Venipuncture / Unknown 03/17/2025 10:42 AM EDT 03/17/2025 12:06 PM EDT us Ce Esuqivel DO LAB BLOOD ORDERABLES Final Result [facility] [address] [place] [address] * (ABNORMAL) CBC auto differential (03/17/2025 10:42 AM EDT) WBC 4.5(L) 4.8 - 10.8 K/mcL LAB HEMETOLOGY METHOD 03/17/2025 12:27 PM EDT [facility] RBC 4.50 3.80 - 4.80 M/mcL LAB HEMETOLOGY METHOD 03/17/2025 12:27 PM EDT [facility] Hemoglobin 12.3 11.5 - 16.0 g/dL LAB HEMETOLOGY METHOD 03/17/2025 12:27 PM EDT [facility] Hematocrit 40.0 35.0 - 47.0 % LAB HEMETOLOGY METHOD 03/17/2025 12:27 PM EDT [facility] MCV 88.9 79.0 - 98.0 FL LAB HEMETOLOGY METHOD 03/17/2025 12:27 PM EDT [facility] MCH 27.3 27.0 - 32.0 pcg LAB HEMETOLOGY METHOD 03/17/2025 12:27 PM EDT [facility] MCHC 30.8(L) 32.0 - 37.0 g/dL LAB HEMETOLOGY METHOD 03/17/2025 12:[address] [facility] RDW 13.6 11.0 - 15.0 % LAB HEMETOLOGY METHOD 03/17/2025 12:[address] [facility] Platelets 200 130 - 400 K/mcL LAB HEMETOLOGY METHOD 03/17/2025 12:[address] [facility] MPV 9.5 7.0 - 11.0 FL LAB HEMETOLOGY METHOD 03/17/2025 12:[address] [facility] NRBC 0.0 <1.0 % LAB HEMETOLOGY METHOD 03/17/2025 12:[address] [facility] NRBC Absolute 0.00 <0.10 K/mcL LAB HEMETOLOGY METHOD 03/17/2025 12:[address] [facility] Neutrophils Relative 62.9 % LAB HEMETOLOGY METHOD 03/17/2025 12:[address] [facility] Lymphocytes Relative 24.4 % LAB HEMETOLOGY METHOD 03/17/2025 12:[address] [facility] Monocytes Relative 7.6 % LAB HEMETOLOGY METHOD 03/17/2025 12:[address] [facility] Eosinophils Relative 4.0 % LAB HEMETOLOGY METHOD 03/17/2025 12:[address] [facility] Basophils Relative 0.7 % LAB HEMETOLOGY METHOD 03/17/2025 12:[address] [facility] Immature Granulocytes Relative 0.4 % LAB HEMETOLOGY METHOD 03/17/2025 12:[address] [facility] Neutrophils Absolute 2.83 1.50 - 7.00 K/mcL LAB HEMETOLOGY METHOD 03/17/2025 12:[address] [facility] Lymphocytes Absolute 1.10 1.00 - 5.00 K/mcL LAB HEMETOLOGY METHOD 03/17/2025 12:27 PM EDT [facility] Monocytes Absolute 0.34 0.20 - 1.00 K/mcL LAB HEMETOLOGY METHOD 03/17/2025 12:27 PM EDT [facility] Eosinophils Absolute 0.18 0.00 - 0.50 K/mcL LAB HEMETOLOGY METHOD 03/17/2025 12:27 PM EDT [facility] Basophils Absolute 0.03 0.00 - 0.20 K/mcL LAB HEMETOLOGY METHOD 03/17/2025 12:27 PM EDT [facility] Immature Granulocytes Absolute 0.02 0.00 - 0.03 K/mcL LAB HEMETOLOGY METHOD 03/17/2025 12:27 PM EDT [facility] Blood Venous blood specimen / Unknown Venipuncture / Unknown 03/17/2025 10:42 AM EDT 03/17/2025 12:07 PM EDT Ce Esquivel DO LAB BLOOD ORDERABLES Final Result [facility] [address] [place] [address], * Protein electrophoresis, serum (03/17/2025 10:42 AM EDT) Total Protein 6.8 6.0 - 8.0 g/dL LAB CHEMISTRY METHOD 03/21/2025 6:14 PM EDT [facility] Albumin, Serum 3.8 2.9 - 4.1 g/dL LAB CHEMISTRY METHOD 03/21/2025 6:14 PM EDT [facility] Alpha 1 Globulin (g/dL) 0.2 0.1 - 0.5 g/dL LAB CHEMISTRY METHOD 03/21/2025 6:14 PM EDT [facility] Alpha 2 Globulin (g/dL) 1.0 0.7 - 1.5 g/dL LAB CHEMISTRY METHOD 03/21/2025 6:14 PM EDT [facility] Beta (g/dL) 0.9 0.7 - 1.5 g/dL LAB CHEMISTRY METHOD 03/21/2025 6:14 PM EDT [facility] Gamma Globulin (g/dL) 0.9 0.7 - 1.9 g/dL LAB CHEMISTRY METHOD 03/21/2025 6:14 PM EDT [facility] SPEP Interpretation No M-Dung seen. Essentially normal pattern. LAB CHEMISTRY METHOD 03/21/2025 6:14 PM EDT [facility] Blood Venous blood specimen / Unknown Venipuncture / Unknown 03/17/2025 10:42 AM EDT 03/17/2025 12:06 PM EDT Ce Esquivel DO LAB BLOOD ORDERABLES Final Result [facility] [address] [place] [address], [place] [phone] * Protein, total (03/17/2025 10:42 AM EDT) Total Protein 6.8 6.0 - 8.0 g/dL LAB CHEMISTRY METHOD 03/17/2025 1:28 PM EDT [facility] Blood Venous blood specimen / Unknown Venipuncture / Unknown 03/17/2025 10:42 AM EDT 03/17/2025 12:06 PM EDT Ce Esquivel DO LAB BLOOD ORDERABLES Final Result Performing Organization Address City/[facility]/ZIP Co de Phone Number [facility] [address] [place] [address], [place] [phone] * Lipid panel with reflex to direct LDL (09/08/2024 10:01 AM EST) Cholesterol 124 0 - 200 mg/dL LAB CHEMISTRY METHOD 09/08/2024 12:04 PM [facility] Triglycerides 88 0 - 150 mg/dL LAB CHEMISTRY METHOD 09/08/2024 12:04 PM [facility] HDL 68 >=40 mg/dL LAB CHEMISTRY METHOD 09/08/2024 12:04 PM [facility] LDL Calculated 38 0 - 100 mg/dL LAB CHEMISTRY METHOD 09/08/2024 12:04 PM [facility] VLDL Cholesterol Rex 17.6 mg/dL LAB CHEMISTRY METHOD 09/08/2024 12:04 PM [facility] Non HDL Chol. (LDL+VLDL) 56 <145 mg/dL LAB CHEMISTRY METHOD 09/08/2024 12:04 PM [facility] Chol/HDL Ratio 1.8 0.0 - 4.4 LAB CHEMISTRY METHOD 09/08/2024 12:04 PM [facility] Blood Venous blood specimen / Unknown Venipuncture / Unknown 09/08/2024 10:01 AM EST 09/08/2024 10:01 AM EST us Hiren QUINTANILLA LAB BLOOD ORDERABLES Final Re sult [facility] [address] [place] [address], * Hemoglobin A1c (09/08/2024 10:01 AM EST) Hemoglobin A1C 5.9 <6.5 % LAB CHEMISTRY METHOD 09/08/2024 2:08 PM [facility] Mean Bld Glu Estim. 123 mg/dL LAB CHEMISTRY METHOD 09/08/2024 2:08 PM [facility] Blood Venous blood specimen / Unknown Venipuncture / Unknown 09/08/2024 10:01 AM EST 09/08/2024 10:01 AM EST Hiren QUINTANILLA LAB BLOOD ORDERABLES Final Re sult [facility] [address] [place] [address], [place] [phone] * (ABNORMAL) Comprehensive metabolic panel (09/08/2024 10:01 AM EST) Sodium 140 133 - 145 mmol/L LAB CHEMISTRY METHOD 09/08/2024 12:15 PM [facility] Potassium 4.7 3.5 - 5.5 mmol/L LAB CHEMISTRY METHOD 09/08/2024 12:15 PM [facility] Chloride 106 96 - 110 mmol/L LAB CHEMISTRY METHOD 09/08/2024 12:15 PM [facility] CO2 30 21 - 32 mmol/L LAB CHEMISTRY METHOD 09/08/2024 12:15 PM [facility] Anion Gap 4 3 - 11 LAB CHEMISTRY METHOD 09/08/2024 12:15 PM [facility] Glucose 87 70 - 100 mg/dL LAB CHEMISTRY METHOD 09/08/2024 12:15 PM [facility] BUN 30(H) 5 - 25 mg/dL LAB CHEMISTRY METHOD 09/08/2024 12:15 PM [facility] Creatinine 1.63(H) 0.50 - 1.10 mg/dL LAB CHEMISTRY METHOD 09/08/2024 12:15 PM [facility] eGFR 33(L) >=60 mL/min/1. 73m2 LAB CHEMISTRY METHOD 09/08/2024 12:15 PM [facility] Comment:Calculation based on the Chronic Kidney Disease Epidemiology Collaboration (CKD-EPI) equation refit without adjustment for race. BUN/Creatinine Ratio 18.4 LAB CHEMISTRY METHOD 09/08/2024 12:15 PM [facility] Calcium 9.8 8.5 - 10.5 mg/dL LAB CHEMISTRY METHOD 09/08/2024 12:15 PM [facility] AST (SGOT) 29 10 - 42 unit/L LAB CHEMISTRY METHOD 09/08/2024 12:15 PM [facility] ALT (SGPT) 28 10 - 60 unit/L LAB CHEMISTRY METHOD 09/08/2024 12:15 PM [facility] Alkaline Phosphatase 94 42 - 121 unit/L LAB CHEMISTRY METHOD 09/08/2024 12:15 PM [facility] Total Protein 6.8 6.0 - 8.0 g/dL LAB CHEMISTRY METHOD 09/08/2024 12:15 PM [facility] Albumin 3.9 3.2 - 5.0 g/dL LAB CHEMISTRY METHOD 09/08/2024 12:15 PM [facility] Total Bilirubin 0.4 0.0 - 1.4 mg/dL LAB CHEMISTRY METHOD 09/08/2024 12:15 PM [facility] Blood Venous blood specimen / Unknown Venipuncture / Unknown 09/08/2024 10:01 AM EST 09/08/2024 10:01 AM EST Hiren QUINTANILLA LAB BLOOD ORDERABLES Final Re sult [facility] [address] [place] [address], * SCREENING MAMMOGRAPHY BI 2-VIEW BREAST INC [...] risk category Low (<15%) Location: [facility], [address] [place] [address], [address], [phone] Procedure Note Frederic Melendrez MD - 05/24/2024 [...] risk category Low (<15%) Location: [facility], [address] [place] [address], [address], [phone] Ian Holland MD IMG XR PROCEDURES Final [...] alternative screening schedule based on shanti Carrillo., [facility] August 14, 2011 for patients with osteopenia [...] Resul t * Hepatitis C Screening (08/15/2013) [facility] Hepatitis C Screening abstracted us Historical Provider HEALTH MAINTENANCE Final Result from Last 3 Months or Most Recently Relevant to Health Maintenance Insurance [employer] MEDICARE Care Teams Tax Clerk Relationship Specialty Start Date End Date Diane King MD [address] [place] [phone] PCP - General 09/04/22
--- OUTSIDE RECORDS SUMMARY | 2025-04-13 09:37 | XMS_ITS | Encounter Summary ---
Author Organization [facility] Address [address] [place] [address] Phone Care Team Providers Care Databases Computer Consultant Name Role Phone Diane King MD Primary Care Provider + [phone] Encounter Details Date Type Department Care Team (Late st Contact Info) Description 04/26/2024 Documentation Only [facility] [address] [place] [address] Fauzia Ball [address] [place] [phone] Social History Tobacco Use Types Packs/Day [...] [facility] [address] [place] [address] Sal Ferrer MD [address] [place] [address] [place] [address] documented as of this encounter Visit Diagnoses Not on filedocumented in this encounter Care Teams Databases Computer Consultant Relationship Specialty Start Date End Date Diane King MD PCP - General Family Medicine 02/18/24 documented as of this encounter
--- OUTSIDE RECORDS SUMMARY | 2025-04-13 09:37 | XMS_ITS | Encounter Summary ---
Author Organization [facility] Address [address] [place] [address] Phone Care Team Providers Care Patrol Community Service Officer Name Role Phone Diane King MD Primary Care Provider + [phone] Encounter Details Date Type Department Care Team (Late st Contact Info) Description 05/02/2024 Documentation Only [facility] [address] [place] [address] Fauzia Ball [address] [place] [phone] Social History Tobacco Use Types Packs/Day [...] Visit [facility] [address] [place] [address] Sal Ferrer MD [address] [place] [address] [place] [address] documented as of this encounter Visit Diagnoses Not on filedocumented in this encounter Care Teams Patrol Community Service Officer Relationship Specialty Start Date End Date Diane King MD PCP - General Family Medicine 02/18/24 documented as of this encounter
--- OUTSIDE RECORDS SUMMARY | 2025-04-13 09:37 | XMS_ITS | Encounter Summary ---
Author Organization [facility] [place], Address [address] [place] [address] Phone Care Team Providers Care Human Service Coordinator Name Role Phone Diane King MD Primary Care Provider + [phone] Encounter Details Date Type Department Care Team (Late st Contact Info) Description 02/18/2024 Documentation Only [facility] [address] [place] [address] [place], [place] [address] [place] [address] Social History Tobacco Use Types [...] Visit [facility] [address] [place] [address] Sal Ferrer MD [address] [place] [address] [place] [address] documented as of this encounter Visit Diagnoses Not on filedocumented in this encounter Care Teams Human Service Coordinator Relationship Specialty Start Date End Date Diane King MD PCP - General Family Medicine 02/18/24 documented as of this encounter
== END 2025-04-12 08:28 | disposition home or self-care (01) ==
LOC: HO.HOSX 08:27
PROVIDERS: Visit Provider Neurological Surgery
DX: Z13.89 Encounter for screening for other disorder (principal)

== ENCOUNTER 2025-04-14 07:56 | Outpatient (REF) | payer OTHER, SELFPAY ==
--- OUTSIDE RECORDS SUMMARY | 2025-04-15 07:58 | XMS_ITS | Encounter Summary ---
Author Organization [facility] Address [address] [place] [address] Phone Care Team Providers Care Radiology Asst Name Role Phone Diane King MD Primary Care Provider + [phone] Encounter Details Date Type Department Care Team (Late st Contact Info) Description 06/15/2024 Documentation Only [facility] [address] [place] [address] Fauzia Ball [address] [place] [phone] Social History Tobacco Use Types Packs/Day [...] Visit [facility] [address] [place] [address] Sal Ferrer MD [address] [place] [address] [place] [address] documented as of this encounter Visit Diagnoses Not on filedocumented in this encounter Care Teams Radiology Asst Relationship Specialty Start Date End Date Diane King MD PCP - General Family Medicine 02/18/24 documented as of this encounter
--- OUTSIDE RECORDS SUMMARY | 2025-04-15 07:58 | XMS_ITS | Clinical Summary ---
Author Organization [facility] Address [address] [place] [address] Phone Care Team Providers Care Jailor Name Role Phone Diane King MD Primary [...] Date Diagnosed Date B-cell lymphoproliferative d isorder ([facility] V24, [facility] V28) 06/06/2024 Iron deficiency 06/06/2024 Radicular pain [...] Type 2 diabetes mellitus wit hout complications ([facility] V24, [facility] V28) 09/26/2010 Neck pain 10/06/2006 Tobacco use disorder 10/06/2006 Essential hypertension, benign 10/07/2005 Mixed hyperlipidemia 09/11/2005 Depression 09/10/2005 Osteoarthritis, hand 09/10/2005 Encounters Date Type Department Care Team Description 03/23/2025 10:30 AM EDT Telemedicine [facility] [address] [place] [address] Janis Elizondo MD Abnormal brain MRI (Primary Dx); Memory loss 03/21/2025 2:00 PM EDT Office Visit [facility] Hematology Oncology [address] [place] [address] Ce Esquivel DO B-cell lymphoproliferative disorder ([facility] V24, CMS/HCC V28) (Primary Dx); Iron deficiency 03/16/2025 Telephone [facility] Hematology Oncology [address] [place] [address] Ce Esquivel DO from Last [...] Bivalent, Or iginal + Ba.1 (Non-US Trademark COMIRNATVocalocity Bivalent) 04/06/2022 Pfizer SARS-CoV-2 COVID-19, mRNA, LNP-S, preservative free 05/05/2024,10/14/2020 Pneumococcal conjugate 20 va lent (Prevnar 20, PCV 20) 2mo and older 11/08/2024 Pneumococcal polysaccharide 23 valent (Pneumovax 23) 2yo and older 04/03/2011 Tdap Tetanus diptheria acell ular pertussis (Boostrix; Adacel) 7yo and older 11/03/2023,04/13/2012 Surgical History Surgery Date Site/Laterality Comments PARTIAL HYSTERECTOMY PROCEDURE: MI SUPRACERVICAL ABDL HYSTER W/WO RMVL TUBE OVARY TONSILLECTOMY ADENOIDECTOMY, BILATERAL MYRINGOTOMY AND TUBES PROCEDURE: MI TONSILLECTOMY & ADENOIDECTOMY <AGE 12 HYSTERECTOMY PROCEDURE: HISTORICAL HYSTERECTOMY CHOLECYSTECTOMY PROCEDURE: MI LAPAROSCOPY SURG CHOLECYSTECTOMY OTHER SURGICAL HISTORY 10/04 PROCEDURE: MI TOTAL THYROID LOBECTOMY UNI W/WO ISTHMUSECTOMY; COMMENT: left, with reimplant L sup parathyroid, Dr Brown, [facility] OTHER SURGICAL HISTORY 04/01/2011 PROCEDURE: MI ERCP DX COLLECTION SPECIMEN BRUSHING/WASHING; COMMENT: Desilets; [...] care for your loved ones. For example, early childhood or elderly care for an older adult? [...] PM EDT Office Visit Adult Medicine - [address] [address] Diane King MD [address] [place] [address] 06/02/2025 2:50 PM EST Appointment Radiology Department - [address] [address] 11/21/2025 2:45 PM EDT Office Visit [facility] Hematology Oncology [address] [place] [address] Ce Esquivel, [address] [place] [address] Health Maintenance Due Date Last Done Comments [...] this topic Medical Devices Implanted Type Area Informatics Physician Liaison Device Identifier Shelf Expiration Date Model / Serial / Lot Sponge Surgiflo 8ml Hemostatic Matrix Absorbable Latex Free - [id number] Implanted:Qty: 1 on 02/13/2020 by Slick Caldwell MD Implants N/A: Spine Lumbar MAR[employer]ITA [employer] MAR[employer]ITA YAS 04/25/2021 2991 / / [id number] Sponge Surgifoam Thk7mm 6x2cm Hemostatic Agent Gelatin - [id number] Implanted:Qty: 1 on 02/13/2020 by Slick Caldwell MD Implants N/A: Spine Lumbar JNJ [employer] 05/25/20231971 / / [id number] Surgiflo Hemostatic Matrix [facility] [id number] Implanted:Qty: 1 on 01/24/2021 by Josh Bhatti DO Implants N/A: Spine Cervical JNJ [employer] 09/23/2022 2991 / / [id number] Spacer [place] [id number] Plif 2 Radiographic Marker Pin Self - [id number] Implanted:Qty: 1 on 02/13/2020 by Slick Caldwell MD N/A: Spine Lumbar DEPUY SYNTHES 08.803.11 0 / / Head Matrix Polyaxial Top Loading Titanium Screw Spine - [id number] Implanted:Qty: 4 on 02/13/2020 by Slick Caldwell MD N/A: Spine Lumbar DEPUY SYNTHES 04.632.00 1 / / Cap Matrix Flat 5.5mm Step Square Thread Stardrive Cocr - [id number] Implanted:Qty: 4 on 02/13/2020 by Slick Caldwell MD N/A: Spine Lumbar DEPUY SYNTHES 632.09 9 / / Screw Matrix T25 Low Profile 45mm 6mm 2 Core 2 Lead - [id number] Implanted:Qty: 2 on 02/13/2020 by Slick Caldwell MD N/A: Spine Lumbar DEPUY SYNTHES 9.64 5 / / Screw Matrix T25 Low Profile 55mm 6mm 2 Core 2 Lead - [id number] Implanted:Qty: 2 on 02/13/2020 by Silck Caldwell MD N/A: Spine Lumbar DEPUY SYNTHES 9.65 5 / / Coflex Interlaminar Implant Size 8 - [id number] Implanted:Qty: 1 on 02/13/2020 by Slick Caldwell MD N/A: Spine Lumbar PAR[employer]M [employer] [facility] 11/28/2023 [id number] / / [id number] Donnie Matrix [place] Red Curve 40mm 5.5mm Hard Titanium Spinal - [id number] Implanted:Qty: 2 on 02/13/2020 by Slick Caldwell MD N/A: Spine Lumbar DEPUY SYNTHES 6.04 0 / / Spacer Vikos 14.5x11.5x7mm 7d Stry-Spin [id number] - [id number] Implanted:Qty: 1 on 01/24/2021 by Josh Bhatti DO N/A: Spine Cervical EFREN SPINE 03/01/20253447-0937 7L / [id number] / Plate Cerv Anterior Constr 1 Level 20mm Stry-K2m [id number] Implanted:Qty: 1 on 01/24/2021 by Josh Bhatti DO N/A: Spine Cervical EFREN SPINE [id number] 0V / / Screw Ak Self-Start 4x14mm Stry-K2m [id number] Implanted:Qty: 4 on 01/24/2021 by Josh Bhatti DO N/A: Spine Cervical EFREN SPINE [id number] 4DA / / Procedures Procedure Name Priority Date/Time Associated Diagnosis Comments MI PROTEIN ELECTROPHORETIC FRACTIONATION & QUANTITATION SERUM Routine [...] complication, without long-term current use of insulin ([facility] V24, [facility] V28) SCREENING MAMMOGRAPHY BI 2-VIEW BREAST INC [...] EDT) Pathologist Interpretation 03/21/2025 6:14 PM EDT [facility] Blood Venous blood specimen / Unknown Venipuncture / Unknown 03/17/2025 10:42 AM EDT 03/17/2025 12:06 PM EDT us Ce Esqiuvel DO LAB BLOOD ORDERABLES Final Result [facility] [address] [place] [address], * (ABNORMAL) [place]-lambda free light chains, quantitative (03/17/2025 10:42 AM EDT) [place] Free Light Chain 2.42(H) 0.33 - 1.94 mg/dL 03/20/2025 1:58 PM EDT [facility] Lambda Free Light Chain 2.62 0.57 - 2.63 mg/dL 03/20/2025 1:58 PM EDT [facility] [place]/Lambda FLC Ratio 0.92 0.26 - 1.65 03/20/2025 1:58 PM EDT [facility] Comment: Test performed at [facility], [address], [place] [address] Miguelina Arevalo MD, PhD - Senior Estimator Blood Venous blood specimen / Unknown Venipuncture / Unknown 03/17/2025 10:42 AM EDT 03/17/2025 12:06 PM EDT us Ce Esquivel DO LAB BLOOD ORDERABLES Final Result [facility] [address] [place] [address] * (ABNORMAL) CBC auto differential (03/17/2025 10:42 AM EDT) WBC 4.5(L) 4.8 - 10.8 K/mcL LAB HEMETOLOGY METHOD 03/17/2025 12:27 PM EDT [facility] RBC 4.50 3.80 - 4.80 M/mcL LAB HEMETOLOGY METHOD 03/17/2025 12:27 PM EDT [facility] Hemoglobin 12.3 11.5 - 16.0 g/dL LAB HEMETOLOGY METHOD 03/17/2025 12:27 PM EDT [facility] Hematocrit 40.0 35.0 - 47.0 % LAB HEMETOLOGY METHOD 03/17/2025 12:27 PM EDT [facility] MCV 88.9 79.0 - 98.0 FL LAB HEMETOLOGY METHOD 03/17/2025 12:27 PM EDT [facility] MCH 27.3 27.0 - 32.0 pcg LAB HEMETOLOGY METHOD 03/17/2025 12:27 PM EDT [facility] MCHC 30.8(L) 32.0 - 37.0 g/dL LAB HEMETOLOGY METHOD 03/17/2025 12:27 PM [facility] RDW 13.6 11.0 - 15.0 % LAB HEMETOLOGY METHOD 03/17/2025 12:27 PM [facility] Platelets 200 130 - 400 K/mcL LAB HEMETOLOGY METHOD 03/17/2025 12:27 PM [facility] MPV 9.5 7.0 - 11.0 FL LAB HEMETOLOGY METHOD 03/17/2025 12:27 PM [facility] NRBC 0.0 <1.0 % LAB HEMETOLOGY METHOD 03/17/2025 12:27 PM [facility] NRBC Absolute 0.00 <0.10 K/mcL LAB HEMETOLOGY METHOD 03/17/2025 12:27 PM [facility] Neutrophils Relative 62.9 % LAB HEMETOLOGY METHOD 03/17/2025 12:27 PM [facility] Lymphocytes Relative 24.4 % LAB HEMETOLOGY METHOD 03/17/2025 12:27 PM [facility] Monocytes Relative 7.6 % LAB HEMETOLOGY METHOD 03/17/2025 12:27 PM [facility] Eosinophils Relative 4.0 % LAB HEMETOLOGY METHOD 03/17/2025 12:27 PM [facility] Basophils Relative 0.7 % LAB HEMETOLOGY METHOD 03/17/2025 12:27 PM [facility] Immature Granulocytes Relative 0.4 % LAB HEMETOLOGY METHOD 03/17/2025 12:27 PM [facility] Neutrophils Absolute 2.83 1.50 - 7.00 K/mcL LAB HEMETOLOGY METHOD 03/17/2025 12:27 PM [facility] Lymphocytes Absolute 1.10 1.00 - 5.00 K/mcL LAB HEMETOLOGY METHOD 03/17/2025 12:27 PM EDT [facility] Monocytes Absolute 0.34 0.20 - 1.00 K/mcL LAB HEMETOLOGY METHOD 03/17/2025 12:27 PM EDT [facility] Eosinophils Absolute 0.18 0.00 - 0.50 K/mcL LAB HEMETOLOGY METHOD 03/17/2025 12:27 PM EDT [facility] Basophils Absolute 0.03 0.00 - 0.20 K/mcL LAB HEMETOLOGY METHOD 03/17/2025 12:27 PM EDT [facility] Immature Granulocytes Absolute 0.02 0.00 - 0.03 K/mcL LAB HEMETOLOGY METHOD 03/17/2025 12:27 PM EDT [facility] Blood Venous blood specimen / Unknown Venipuncture / Unknown 03/17/2025 10:42 AM EDT 03/17/2025 12:07 PM EDT Ce Esquivel DO LAB BLOOD ORDERABLES Final Result [facility] [address] [place] [address], * Protein electrophoresis, serum (03/17/2025 10:42 AM EDT) Total Protein 6.8 6.0 - 8.0 g/dL LAB CHEMISTRY METHOD 03/21/2025 6:14 PM EDT [facility] Albumin, Serum 3.8 2.9 - 4.1 g/dL LAB CHEMISTRY METHOD 03/21/2025 6:14 PM EDT [facility] Alpha 1 Globulin (g/dL) 0.2 0.1 - 0.5 g/dL LAB CHEMISTRY METHOD 03/21/2025 6:14 PM EDT [facility] Alpha 2 Globulin (g/dL) 1.0 0.7 - 1.5 g/dL LAB CHEMISTRY METHOD 03/21/2025 6:14 PM EDT [facility] Beta (g/dL) 0.9 0.7 - 1.5 g/dL LAB CHEMISTRY METHOD 03/21/2025 6:14 PM EDT [facility] Gamma Globulin (g/dL) 0.9 0.7 - 1.9 g/dL LAB CHEMISTRY METHOD 03/21/2025 6:14 PM EDT [facility] SPEP Interpretation No M-Dugn seen. Essentially normal pattern. LAB CHEMISTRY METHOD 03/21/2025 6:14 PM EDT [facility] Blood Venous blood specimen / Unknown Venipuncture / Unknown 03/17/2025 10:42 AM EDT 03/17/2025 12:06 PM EDT Ce Esquivel DO LAB BLOOD ORDERABLES Final Result [facility] [address] [place] [address], [place] [phone] * Protein, total (03/17/2025 10:42 AM EDT) Total Protein 6.8 6.0 - 8.0 g/dL LAB CHEMISTRY METHOD 03/17/2025 1:28 PM EDT [facility] Blood Venous blood specimen / Unknown Venipuncture / Unknown 03/17/2025 10:42 AM EDT 03/17/2025 12:06 PM EDT Ce Esquivel DO LAB BLOOD ORDERABLES Final Result Performing Organization Address City/[facility]/ZIP Co de Phone Number [facility] [address] [place] [address], [place] [phone] * Lipid panel with reflex to direct LDL (09/08/2024 10:01 AM EST) Cholesterol 124 0 - 200 mg/dL LAB CHEMISTRY METHOD 09/08/2024 12:04 PM [facility] Triglycerides 88 0 - 150 mg/dL LAB CHEMISTRY METHOD 09/08/2024 12:04 PM [facility] HDL 68 >=40 mg/dL LAB CHEMISTRY METHOD 09/08/2024 12:04 PM [facility] LDL Calculated 38 0 - 100 mg/dL LAB CHEMISTRY METHOD 09/08/2024 12:04 PM [facility] VLDL Cholesterol Rex 17.6 mg/dL LAB CHEMISTRY METHOD 09/08/2024 12:04 PM [facility] Non HDL Chol. (LDL+VLDL) 56 <145 mg/dL LAB CHEMISTRY METHOD 09/08/2024 12:04 PM [facility] Chol/HDL Ratio 1.8 0.0 - 4.4 LAB CHEMISTRY METHOD 09/08/2024 12:04 PM [facility] Blood Venous blood specimen / Unknown Venipuncture / Unknown 09/08/2024 10:01 AM EST 09/08/2024 10:01 AM EST us Hiren QUINTANILLA LAB BLOOD ORDERABLES Final Re sult [facility] [address] [place] [address], * Hemoglobin A1c (09/08/2024 10:01 AM EST) Hemoglobin A1C 5.9 <6.5 % LAB CHEMISTRY METHOD 09/08/2024 2:08 PM [facility] Mean Bld Glu Estim. 123 mg/dL LAB CHEMISTRY METHOD 09/08/2024 2:08 PM [facility] Blood Venous blood specimen / Unknown Venipuncture / Unknown 09/08/2024 10:01 AM EST 09/08/2024 10:01 AM EST Hiren QUINTANILLA LAB BLOOD ORDERABLES Final Re sult [facility] [address] [place] [address], [place] [phone] * (ABNORMAL) Comprehensive metabolic panel (09/08/2024 10:01 AM EST) Sodium 140 133 - 145 mmol/L LAB CHEMISTRY METHOD 09/08/2024 12:15 PM [facility] Potassium 4.7 3.5 - 5.5 mmol/L LAB CHEMISTRY METHOD 09/08/2024 12:15 PM [facility] Chloride 106 96 - 110 mmol/L LAB CHEMISTRY METHOD 09/08/2024 12:15 PM [facility] CO2 30 21 - 32 mmol/L LAB CHEMISTRY METHOD 09/08/2024 12:15 PM [facility] Anion Gap 4 3 - 11 LAB CHEMISTRY METHOD 09/08/2024 12:15 PM [facility] Glucose 87 70 - 100 mg/dL LAB CHEMISTRY METHOD 09/08/2024 12:15 PM [facility] BUN 30(H) 5 - 25 mg/dL LAB CHEMISTRY METHOD 09/08/2024 12:15 PM [facility] Creatinine 1.63(H) 0.50 - 1.10 mg/dL LAB CHEMISTRY METHOD 09/08/2024 12:15 PM [facility] eGFR 33(L) >=60 mL/min/1. 73m2 LAB CHEMISTRY METHOD 09/08/2024 12:15 PM [facility] Comment:Calculation based on the Chronic Kidney Disease Epidemiology Collaboration (CKD-EPI) equation refit without adjustment for race. BUN/Creatinine Ratio 18.4 LAB CHEMISTRY METHOD 09/08/2024 12:15 PM [facility] Calcium 9.8 8.5 - 10.5 mg/dL LAB CHEMISTRY METHOD 09/08/2024 12:15 PM [facility] AST (SGOT) 29 10 - 42 unit/L LAB CHEMISTRY METHOD 09/08/2024 12:15 PM [facility] ALT (SGPT) 28 10 - 60 unit/L LAB CHEMISTRY METHOD 09/08/2024 12:15 PM [facility] Alkaline Phosphatase 94 42 - 121 unit/L LAB CHEMISTRY METHOD 09/08/2024 12:15 PM [facility] Total Protein 6.8 6.0 - 8.0 g/dL LAB CHEMISTRY METHOD 09/08/2024 12:15 PM [facility] Albumin 3.9 3.2 - 5.0 g/dL LAB CHEMISTRY METHOD 09/08/2024 12:15 PM [facility] Total Bilirubin 0.4 0.0 - 1.4 mg/dL LAB CHEMISTRY METHOD 09/08/2024 12:15 PM [facility] Blood Venous blood specimen / Unknown Venipuncture / Unknown 09/08/2024 10:01 AM EST 09/08/2024 10:01 AM EST Hiren QUINTANILLA LAB BLOOD ORDERABLES Final Re sult [facility] [address] [place] [address], * SCREENING MAMMOGRAPHY BI 2-VIEW BREAST INC [...] Breast cancer risk category Low (<15%) Location: [facility], [address] [place] [address], [address], [phone] Procedure Note Frederic Melendrez MD - 05/24/2024 [...] Breast cancer risk category Low (<15%) Location: [facility], [address] [place] [address], [address], [phone] Ian Holland MD IMG XR PROCEDURES Final [...] abdominal radiograph for more complete evaluation. The [facility] Department of Internal Medicine recommends [...] alternative screening schedule based on shanti Carrillo., [facility] August 14, 2011 for patients with osteopenia (based on hip BMD T-score) is as follows: * advanced osteopenia (T scores -2.00 to -2.49), BMD testing every year * moderate osteopenia (T scores -1.50 to -1.99), BMD testing every 5 years mild osteopenia or normal BMD (T scores -1.50 and higher), BMD testing every 15 years Procedure Note Jennifer Elaien Nava DO - 07/15/2022 DEXA SCAN: Lumbar [...] Consider abdominal radiograph for more completeevaluation. The [facility] Department of Internal Medicine recommendsusing [...] Resul t * Hepatitis C Screening (08/15/2013) [facility] Hepatitis C Screening abstracted us Historical Provider HEALTH MAINTENANCE Final Result from Last 3 Months or Most Recently Relevant to Health Maintenance Insurance [employer] Care Teams Jailor Relationship Specialty Start Date End Date Diane King MD [address] [place] [id number] PCP - General 09/04/22
--- OUTSIDE RECORDS SUMMARY | 2025-04-15 07:58 | XMS_ITS | Clinical Summary ---
Author Organization [facility] Address [address] [place] [address] Phone Care Team Providers Care Security Checker Name Role Phone Diane King MD Primary Care Provider + [phone] Medications lisinopril 10 MG tablet Take 10 [...] Visit [facility], [address] [place] [address] Sal Ferrer MD [address] [place] [address] Health Maintenance Due Date Last Done Comments [...] patient's age to complete this topic Insurance [facility] Care Teams Security Checker Relationship Specialty Start Date End Date Diane King MD PCP - General Family Medicine 02/18/24
--- OUTSIDE RECORDS SUMMARY | 2025-04-15 07:58 | XMS_ITS | Encounter Summary ---
Author Organization [facility] Address [address] [place] [address] Phone Care Team Providers Care Outdoor Recreation Specialist Name Role Phone Diane King MD Primary Care Provider + [phone] Encounter Details Date Type Department Care Team (Late st Contact Info) Description 05/20/2024 Documentation Only [facility] [address] [place] [address] Fauzia Ball [address] [place] [address] Social History Tobacco Use Types Packs/Day [...] Visit [facility] [address] [place] [address] Sal Ferrer MD [address] [place] [address] [place] [address] documented as of this encounter Visit Diagnoses Not on filedocumented in this encounter Care Teams Outdoor Recreation Specialist Relationship Specialty Start Date End Date Diane King MD PCP - General Family Medicine 02/18/24 documented as of this encounter
--- OUTSIDE RECORDS SUMMARY | 2025-04-15 07:58 | XMS_ITS | Clinical Summary ---
Author Organization [facility] Address [address] [place] [address] Care Team Providers Care Wrapper And Preserver Name Role Phone Diane King MD Primary [...] this topic Medical Devices Implanted Type Area Air Tube Releaser Device Identifier Shelf Expiration Date Model / Serial / Lot Sponge Surgiflo 8ml Hemostatic Matrix Absorbable Latex Free - [id number] - [id number] Implanted:Qty: 1 on 02/13/2020 by Slick Caldwell MD at [facility] Hemostatic Agent Posterior: Spine Lumbar [employer] 04/25/2021 2991 / / [id number] Sponge Surgifoam Thk7mm 6x2cm Hemostatic Agent Gelatin - 365272 - [id number] Implanted:Qty: 1 on 02/13/2020 by Slick Caldwell MD at [facility] Hemostatic Agent Posterior: Spine Lumbar [employer] - A [employer] 05/25/2023 1972 / / [id number] Surgiflo Hemostatic Matrix Jn-Ethi 2991-159505 - [id number] Implanted:Qty: 1 on 01/24/2021 by Josh Bhatti DO at [facility] Hemostatic Agent N/A: Spine Cervical JNJ [employer] 09/23/2022 2991 / / [id number] Spacer [place] [id number] 2 Radiographic Marker Pin Self - 159054 - [id number] Implanted:Qty: 1 on 02/13/2020 by Slick Caldwell MD at [facility] Posterior: Spine Lumbar SYNTHES INC 08.803.1 10 / / Head Matrix Polyaxial Top Loading Titanium Screw Spine - 379534 - [id number] Implanted:Qty: 4 on 02/13/2020 by Slick Caldwell MD at [facility] Posterior: Spine Lumbar SY[employer] 04.632.0 01 / / Cap Matrix Flat 5.5mm Step Square Thread Stardrive Cocr - 894355 - [id number] Implanted:Qty: 4 on 02/13/2020 by Slick Caldwell MD at [facility] Posterior: Spine Lumbar SY[employer] 09.632.0 99 / / Screw Matrix T25 Low Profile 45mm 6mm 2 Core 2 Lead - [id number] - [id number] Implanted:Qty: 2 on 02/13/2020 by Slick Caldwell MD at [facility] Posterior: Spine Lumbar [employer] INC 04.639.6 45 / / Screw Matrix T25 Low Profile 55mm 6mm 2 Core 2 Lead - [id number] - [id number] Implanted:Qty: 2 on 02/13/2020 by Slick Caldwell MD at [facility] Posterior: Spine Lumbar SY[employer] INC 04.639.6 55 / / Coflex Interlaminar Implant Size 8 - [id number] - [id number] Implanted:Qty: 1 on 02/13/2020 by Slick Caldwell MD at [facility] Posterior: Spine Lumbar [employer] 11/28/2023 [id number] / / [id number] Donnie Matrix [place] Red Curve 40mm 5.5mm Hard Titanium Spinal - 005659 - [id number] Implanted:Qty: 2 on 02/13/2020 by Slick Caldwell MD at [facility] Posterior: Spine Lumbar SYNTHES INC 04636.0 40 / / Spacer Vikos 14.5x11.5x7mm 7d Stry-Spin [id number]-015 942 - [id number] Implanted:Qty: 1 on 01/24/2021 by Josh Bhatti DO at [facility] N/A: Spine Cervical EFREN SPINE 03/01/2025 2504-214 07L / [id number] / Plate Cerv Anterior Constr 1 Level 20mm Stry-K2m [id number] - [id number] Implanted:Qty: 1 on 01/24/2021 by Josh Bhatti DO at [facility] Anterior: Spine Cervical EFREN SPINE [id number] 20V / / Screw Va Self-Start 4x14mm Stry-K2m [id number] - [id number] Implanted:Qty: 4 on 01/24/2021 by Josh Bhatti DO at [facility] Anterior: Spine Cervical E[employer]EN SPINE 8801-040 14DA / / Advance Directives For more information, please contact: [phone] Documents on File Type Date Recorded Patient Staff Cytotechnologist Expl anation Advance Directive and Living Will [...] way: discussion with patient . Care Teams Wrapper And Preserver Relationship Specialty Start Date End Date Diane King MD [address] [place] [phone] PCP - General Family Medicine 03/11/24
--- OUTSIDE RECORDS SUMMARY | 2025-04-15 07:58 | XMS_ITS | Clinical Summary ---
Author Organization [facility] Address [address] [place] [phone] Phone Care Team Providers Care Box Stapler Name Role Phone Ce Esquivelie Primary Care [...] file Medical Devices Not on file Insurance [employer] PLUS PPO [employer] PL[employer] PPO [employer] PPO [employer] PPO [employer] PPO [employer] PPO Care Teams Box Stapler Relationship Specialty Start Date End Date Ce Esquivel DO [address] [place] [address] PCP - General Internal Medicine 08/10/24 Additional Source Comments The information contained in this document represents components of the legal health record. It is not the complete legal health record.[facility]
--- OUTSIDE RECORDS SUMMARY | 2025-04-15 07:58 | XMS_ITS | Encounter Summary ---
Author Organization [facility], Address [address] [place] [address] Phone Care Team Providers Care Polysomnographic Technician Name Role Phone Diane King MD Primary Care Provider + [phone] Encounter Details Date Type Department Care Team (Late st Contact Info) Description 02/18/2024 Documentation Only [facility] [address] [address] [place], [place] [address] [place] [address] Social History Tobacco Use Types [...] [facility] [address] [address] Sal Ferrer MD [address] [place] [address] [place] [address] documented as of this encounter Visit Diagnoses Not on filedocumented in this encounter Care Teams Polysomnographic Technician Relationship Specialty Start Date End Date Diane King MD PCP - General Family Medicine 02/18/24 documented as of this encounter
--- OUTSIDE RECORDS SUMMARY | 2025-04-15 07:58 | XMS_ITS | Encounter Summary ---
Author Organization [facility] Address [address] [place] [address] Phone Care Team Providers Care Receivable Executive Name Role Phone Diane King MD Primary Care Provider + [phone] Encounter Details Date Type Department Care Team (Late st Contact Info) Description 06/15/2024 Documentation Only [facility] [address] [place] [address] Fauzia Ball [address] [place] [phone] Social History Tobacco Use Types Packs/Day [...] Visit [facility] [address] [place] [address] Sal Ferrer MD [address] [place] [address] [place] [address] documented as of this encounter Visit Diagnoses Not on filedocumented in this encounter Care Teams Receivable Executive Relationship Specialty Start Date End Date Diane King MD PCP - General Family Medicine 02/18/24 documented as of this encounter
--- OUTSIDE RECORDS SUMMARY | 2025-04-15 07:58 | XMS_ITS | Encounter Summary ---
Author Organization [facility] Address [address] [place] [address] Phone Care Team Providers Care Clinical Applications Specialist Name Role Phone Diane King MD Primary Care Provider + [phone] Encounter Details Date Type Department Care Team (Late st Contact Info) Description 06/15/2024 Documentation Only [facility] [address] [place] [address] Fauzia Ball [address] [place] [phone] Social History Tobacco Use Types Packs/Day [...] Visit [facility] [address] [place] [address] Sal Ferrer MD [address] [place] [address] [place] [address] documented as of this encounter Visit Diagnoses Not on filedocumented in this encounter Care Teams Clinical Applications Specialist Relationship Specialty Start Date End Date Diane King MD PCP - General Family Medicine 02/18/24 documented as of this encounter
--- OUTSIDE RECORDS SUMMARY | 2025-04-15 07:58 | XMS_ITS | Encounter Summary ---
Author Organization [facility] Address [address] [place] [address] Phone Care Team Providers Care Editor Managing Director Name Role Phone Diane King MD Primary Care Provider + [phone] Encounter Details Date Type Department Care Team (Late st Contact Info) Description 05/02/2024 Documentation Only [facility] [address] [place] [address] Fauzia Ball [address] [place] [phone] Social History Tobacco Use Types Packs/Day [...] Visit [facility] [address] [place] [address] Sal Ferrer MD [address] [place] [address] [place] [address] documented as of this encounter Visit Diagnoses Not on filedocumented in this encounter Care Teams Editor Managing Director Relationship Specialty Start Date End Date Diane King MD PCP - General Family Medicine 02/18/24 documented as of this encounter
--- OUTSIDE RECORDS SUMMARY | 2025-04-15 07:58 | XMS_ITS | Encounter Summary ---
Author Organization [facility] [place], Address [address] [place] [address] Phone Care Team Providers Care Aircraft Mechanic Electrical And Radio Name Role Phone Diane King MD Primary Care Provider + [phone] Encounter Details Date Type Department Care Team (Late st Contact Info) Description 02/29/2024 Documentation Only [facility] [address] [place] [address] [place], [place] [address] [place] [address] Social History Tobacco Use Types [...] Visit [facility] [address] [place] [address] Sal Ferrer MD [address] [place] [address] [place] [address] documented as of this encounter Visit Diagnoses Not on filedocumented in this encounter Care Teams Aircraft Mechanic Electrical And Radio Relationship Specialty Start Date End Date Diane King MD PCP - General Family Medicine 02/18/24 documented as of this encounter
--- OUTSIDE RECORDS SUMMARY | 2025-04-15 07:58 | XMS_ITS | Encounter Summary ---
Author Organization [facility] Address [address] [place] [address] Phone Care Team Providers Care Branch Lending Manager Name Role Phone Diane King MD Primary Care Provider + [phone] Encounter Details Date Type Department Care Team (Late st Contact Info) Description 06/14/2024 Documentation Only [facility] [address] [place] [address] Fauzia Ball [address] [place] [phone] Social History Tobacco Use Types Packs/Day [...] Visit [facility] [address] [place] [address] Sal Ferrer MD [address] [place] [address] [place] [address] documented as of this encounter Visit Diagnoses Not on filedocumented in this encounter Care Teams Branch Lending Manager Relationship Specialty Start Date End Date Diane King MD PCP - General Family Medicine 02/18/24 documented as of this encounter
--- OUTSIDE RECORDS SUMMARY | 2025-04-15 07:58 | XMS_ITS | Encounter Summary ---
Author Organization [facility] Address [address] [place] [address] Phone Care Team Providers Care It Engineer Name Role Phone Diane King MD Primary Care Provider + [phone] Encounter Details Date Type Department Care Team (Late st Contact Info) Description 04/26/2024 Documentation Only [facility] [address] [place] [address] Fauzia Ball [address] [place] [phone] Social History Tobacco Use Types Packs/Day [...] Visit [facility] [address] [place] [address] Sal Ferrer MD [address] [place] [address] [place] [address] documented as of this encounter Visit Diagnoses Not on filedocumented in this encounter Care Teams It Engineer Relationship Specialty Start Date End Date Diane King MD PCP - General Family Medicine 02/18/24 documented as of this encounter
== END 2025-04-14 07:57 | disposition home or self-care (01) ==
LOC: HO.HOSX 07:56
PROVIDERS: Visit Provider Neurological Surgery
DX: Z13.89 Encounter for screening for other disorder (principal)

== ENCOUNTER 2025-04-14 13:24 | Outpatient (AMB) | payer OTHER, SELFPAY ==
--- OUTSIDE RECORDS SUMMARY | 2025-04-14 13:28 | XMS_ITS | Clinical Summary ---
Author Organization [facility] Address [address] [place] [address] Phone Care Team Providers Care Laboratory Chemist Name Role Phone Ce Esquivelie Primary Care [...] file Medical Devices Not on file Insurance [employer] PLUS PPO [employer] PLUS PPO [employer] PLUS PPO [employer] PLUS PPO [employer] PLUS PPO [employer] PPO Care Teams Laboratory Chemist Relationship Specialty Start Date End Date Ce Esquivel DO [address] [place] [id number] PCP - General Internal Medicine 08/10/24 Additional Source Comments The information contained in this document represents components of the legal health record. It is not the complete legal health record.[facility]
--- OUTSIDE RECORDS SUMMARY | 2025-04-14 13:28 | XMS_ITS | Clinical Summary ---
Author Organization [facility] Address [address] [place] [address] Phone Care Team Providers Care Warp Tier Name Role Phone Diane King MD Primary [...] Date Diagnosed Date B-cell lymphoproliferative d isorder ([facility] V24, [facility] V28) 06/06/2024 Iron deficiency 06/06/2024 [...] Type 2 diabetes mellitus wit hout complications ([facility] V24, [facility] V28) 09/26/2010 Neck pain 10/06/2006 Tobacco use disorder 10/06/2006 Essential hypertension, benign 10/07/2005 Mixed hyperlipidemia 09/11/2005 Depression 09/10/2005 Osteoarthritis, hand 09/10/2005 Encounters Date Type Department Care Team Description 03/23/2025 10:30 AM EDT Telemedicine [facility] [address] [facility] [address] [place] [address] Janis Elizondo MD Abnormal brain MRI (Primary Dx); Memory loss 03/21/2025 2:00 PM EDT Office Visit [facility] Hemat[facility] Oncology [address] [place] [address] Ce Esquivel DO B-cell lymphoproliferative disorder ([facility]/HCC V24, [facility]/HCC V28) (Primary Dx); Iron deficiency 03/16/2025 Telephone [facility]cology [address] [place] [address] Ce Esquivel DO from Last [...] Bivalent, Or iginal + Ba.1 (Non-US Trademark [email or web address] Bivalent) 04/06/2022 Pfizer SARS-CoV-2 COVID-19, mRNA, LNP-S, preservative free 05/05/2024,10/14/2020 Pneumococcal conjugate 20 va lent (Prevnar 20, PCV 20) 2mo and older 11/08/2024 Pneumococcal polysaccharide 23 valent (Pneumovax 23) 2yo and older 04/03/2011 Tdap Tetanus diptheria acell ular pertussis (Boostrix; Adacel) 7yo and older 11/03/2023,04/13/2012 Surgical History Surgery Date Site/Laterality Comments PARTIAL HYSTERECTOMY PROCEDURE: [place] SUPRACERVICAL ABDL HYSTER W/WO RMVL TUBE OVARY TONSILLECTOMY ADENOIDECTOMY, BILATERAL MYRINGOTOMY AND TUBES PROCEDURE: NJ TONSILLECTOMY & ADENOIDECTOMY <AGE 12 HYSTERECTOMY PROCEDURE: HISTORICAL HYSTERECTOMY CHOLECYSTECTOMY PROCEDURE: NJ LAPAROSCOPY SURG CHOLECYSTECTOMY OTHER SURGICAL HISTORY 10/04 PROCEDURE: NJ TOTAL THYROID LOBECTOMY UNI W/WO ISTHMUSECTOMY; COMMENT: left, with reimplant L sup parathyroid, Dr Brown, [facility] OTHER SURGICAL HISTORY 04/01/2011 PROCEDURE: NJ ERCP DX COLLECTION SPECIMEN BRUSHING/WASHING; COMMENT: Desilets; [...] for your loved ones. For example, child advocate or elderly care for an older adult? [...] PM EDT Office Visit Adult Medicine - [address] [address] Diane King MD [address] [place] [address] 06/02/2025 2:50 PM EST Appointment Radiology Department - [address] [address] 11/21/2025 2:45 PM EDT Office Visit [facility]cology [address] [place] [address] Ce Esquivel, [address] [place] [address] Health Maintenance Due Date Last Done Comments [...] this topic Medical Devices Implanted Type Area Vamp Liner Device Identifier Shelf Expiration Date Model / Serial / Lot Sponge Surgiflo 8ml Hemostatic Matrix Absorbable Latex Free - [id number] Implanted:Qty: 1 on 02/13/2020 by Slick Caldwell MD Implants N/A: Spine Lumbar MARQUITA [employer] MARQUITA YAS 04/25/2021 2991 / / [id number] Sponge Surgifoam Thk7mm 6x2cm Hemostatic Agent Gelatin - [id number] Implanted:Qty: 1 on 02/13/2020 by Slick Caldwell MD Implants N/A: Spine Lumbar JNJ [employer] INC 05/25/20231971 / / [id number] Surgiflo Hemostatic Matrix [facility] [id number] Implanted:Qty: 1 on 01/24/2021 by Josh Bhatti DO Implants N/A: Spine Cervical JNJ [employer] 09/23/2022 2991 / / [id number] Spacer [place] [id number] Plif 2 Radiographic Marker Pin Self - [id number] Implanted:Qty: 1 on 02/13/2020 by Slick Caldwell MD N/A: Spine Lumbar DEPUY SYNTHES 08.803.11 0 / / Head Matrix Polyaxial Top Loading Titanium Screw Spine - [id number] Implanted:Qty: 4 on 02/13/2020 by Slick Caldwell MD N/A: Spine Lumbar DEPUY SYNTHES 04.632.00 1 / / Cap Matrix Flat 5.5mm Step Square Thread Stardrive Cocr - [id number] Implanted:Qty: 4 on 02/13/2020 by Slick Caldwell MD N/A: Spine Lumbar DEPUY SYNTHES 632.09 9 / / Screw Matrix T25 Low Profile 45mm 6mm 2 Core 2 Lead - [id number] Implanted:Qty: 2 on 02/13/2020 by Slick Caldwell MD N/A: Spine Lumbar DEPUY SYNTHES 9.64 5 / / Screw Matrix T25 Low Profile 55mm 6mm 2 Core 2 Lead - [id number] Implanted:Qty: 2 on 02/13/2020 by Slick Caldwell MD N/A: Spine Lumbar DEPUY SYNTHES 9.65 5 / / Coflex Interlaminar Implant Size 8 - [id number] Implanted:Qty: 1 on 02/13/2020 by Slick Caldwell MD N/A: Spine Lumbar PARADIGM SPINE [facility] 11/28/2023 [id number] / / [id number] Donnie Matrix [place] Red Curve 40mm 5.5mm Hard Titanium Spinal - [id number] Implanted:Qty: 2 on 02/13/2020 by Slick Caldwell MD N/A: Spine Lumbar DEPUY SYNTHES 6.04 0 / / Spacer Vikos 14.5x11.5x7mm 7d Stry-Spin [id number] [id number] - [id number] Implanted:Qty: 1 on 01/24/2021 by Josh Bhatti DO N/A: Spine Cervical EFREN SPINE 03/01/20252657-2202 7L / [id number] / Plate Cerv Anterior Constr 1 Level 20mm Stry-K2m [id number] Implanted:Qty: 1 on 01/24/2021 by Josh Bhatti DO N/A: Spine Cervical EFREN SPINE [id number] 0V / / Screw Wy Self-Start 4x14mm Stry-K2m [id number] Implanted:Qty: 4 on 01/24/2021 by Josh Bhatti DO N/A: Spine Cervical EFREN SPINE [id number] 4DA / / Procedures Procedure Name Priority Date/Time Associated Diagnosis Comments [place] PROTEIN ELECTROPHORETIC FRACTIONATION & QUANTITATION SERUM Routine [...] complication, without long-term current use of insulin ([facility] V24, [facility] V28) SCREENING MAMMOGRAPHY BI 2-VIEW [...] EDT) Pathologist Interpretation 03/21/2025 6:14 PM EDT [facility] Blood Venous blood specimen / Unknown Venipuncture / Unknown 03/17/2025 10:42 AM EDT 03/17/2025 12:06 PM EDT us Ce Esquivel DO LAB BLOOD ORDERABLES Final Result [facility] ([facility] [address] [place] [address], * (ABNORMAL) [place]-lambda free light chains, quantitative (03/17/2025 10:42 AM EDT) [place] Free Light Chain 2.42(H) 0.33 - 1.94 mg/dL 03/20/2025 1:58 PM EDT [facility] Lambda Free Light Chain 2.62 0.57 - 2.63 mg/dL 03/20/2025 1:58 PM EDT [facility] [place]/Lambda FLC Ratio 0.92 0.26 - 1.65 03/20/2025 1:58 PM EDT [facility] Comment: Test performed at [facility], [address], [place] [address] Miguelina Arevalo MD, PhD - Authorization Representative Blood Venous blood specimen / Unknown Venipuncture / Unknown 03/17/2025 10:42 AM EDT 03/17/2025 12:06 PM EDT us Ce Esquivel DO LAB BLOOD ORDERABLES Final Result [facility] [address] [place] [address] * (ABNORMAL) CBC auto differential (03/17/2025 10:42 AM EDT) WBC 4.5(L) 4.8 - 10.8 K/mcL LAB HEMETOLOGY METHOD 03/17/2025 12:27 PM EDT [facility] RBC 4.50 3.80 - 4.80 M/mcL LAB HEMETOLOGY METHOD 03/17/2025 12:27 PM EDT [facility] Hemoglobin 12.3 11.5 - 16.0 g/dL LAB HEMETOLOGY METHOD 03/17/2025 12:27 PM EDT [facility] Hematocrit 40.0 35.0 - 47.0 % LAB HEMETOLOGY METHOD 03/17/2025 12:27 PM EDT [facility] MCV 88.9 79.0 - 98.0 FL LAB HEMETOLOGY METHOD 03/17/2025 12:27 PM EDT [facility] MCH 27.3 27.0 - 32.0 pcg LAB HEMETOLOGY METHOD 03/17/2025 12:27 PM EDT [facility] MCHC 30.8(L) 32.0 - 37.0 g/dL LAB HEMETOLOGY METHOD 03/17/2025 12:27 PM [facility] RDW 13.6 11.0 - 15.0 % LAB HEMETOLOGY METHOD 03/17/2025 12:27 PM [facility] Platelets 200 130 - 400 K/mcL LAB HEMETOLOGY METHOD 03/17/2025 12:27 PM [facility] MPV 9.5 7.0 - 11.0 FL LAB HEMETOLOGY METHOD 03/17/2025 12:27 PM [facility] NRBC 0.0 <1.0 % LAB HEMETOLOGY METHOD 03/17/2025 12:27 PM [facility] NRBC Absolute 0.00 <0.10 K/mcL LAB HEMETOLOGY METHOD 03/17/2025 12:27 PM [facility] Neutrophils Relative 62.9 % LAB HEMETOLOGY METHOD 03/17/2025 12:27 PM [facility] Lymphocytes Relative 24.4 % LAB HEMETOLOGY METHOD 03/17/2025 12:27 PM [facility] Monocytes Relative 7.6 % LAB HEMETOLOGY METHOD 03/17/2025 12:27 PM [facility] Eosinophils Relative 4.0 % LAB HEMETOLOGY METHOD 03/17/2025 12:27 PM [facility] Basophils Relative 0.7 % LAB HEMETOLOGY METHOD 03/17/2025 12:27 PM [facility] Immature Granulocytes Relative 0.4 % LAB HEMETOLOGY METHOD 03/17/2025 12:27 PM [facility] Neutrophils Absolute 2.83 1.50 - 7.00 K/mcL LAB HEMETOLOGY METHOD 03/17/2025 12:27 PM [facility] Lymphocytes Absolute 1.10 1.00 - 5.00 K/mcL LAB HEMETOLOGY METHOD 03/17/2025 12:27 PM EDT [facility] Monocytes Absolute 0.34 0.20 - 1.00 K/mcL LAB HEMETOLOGY METHOD 03/17/2025 12:27 PM EDT [facility] Eosinophils Absolute 0.18 0.00 - 0.50 K/mcL LAB HEMETOLOGY METHOD 03/17/2025 12:27 PM EDT [facility] Basophils Absolute 0.03 0.00 - 0.20 K/mcL LAB HEMETOLOGY METHOD 03/17/2025 12:27 PM EDT [facility] Immature Granulocytes Absolute 0.02 0.00 - 0.03 K/mcL LAB HEMETOLOGY METHOD 03/17/2025 12:27 PM EDT [facility] Blood Venous blood specimen / Unknown Venipuncture / Unknown 03/17/2025 10:42 AM EDT 03/17/2025 12:07 PM EDT Ce Esquivel DO LAB BLOOD ORDERABLES Final Result [facility] [address] [place] [address], * Protein electrophoresis, serum (03/17/2025 10:42 AM EDT) Total Protein 6.8 6.0 - 8.0 g/dL LAB CHEMISTRY METHOD 03/21/2025 6:14 PM EDT [facility] Albumin, Serum 3.8 2.9 - 4.1 g/dL LAB CHEMISTRY METHOD 03/21/2025 6:14 PM EDT [facility] Alpha 1 Globulin (g/dL) 0.2 0.1 - 0.5 g/dL LAB CHEMISTRY METHOD 03/21/2025 6:14 PM EDT [facility] Alpha 2 Globulin (g/dL) 1.0 0.7 - 1.5 g/dL LAB CHEMISTRY METHOD 03/21/2025 6:14 PM EDT [facility] Beta (g/dL) 0.9 0.7 - 1.5 g/dL LAB CHEMISTRY METHOD 03/21/2025 6:14 PM EDT [facility] Gamma Globulin (g/dL) 0.9 0.7 - 1.9 g/dL LAB CHEMISTRY METHOD 03/21/2025 6:14 PM EDT [facility] SPEP Interpretation No M-Dung seen. Essentially normal pattern. LAB CHEMISTRY METHOD 03/21/2025 6:14 PM EDT [facility] Blood Venous blood specimen / Unknown Venipuncture / Unknown 03/17/2025 10:42 AM EDT 03/17/2025 12:06 PM EDT Ce Esquivel DO LAB BLOOD ORDERABLES Final Result [facility] [address] [place] [address], [place] [phone] * Protein, total (03/17/2025 10:42 AM EDT) Total Protein 6.8 6.0 - 8.0 g/dL LAB CHEMISTRY METHOD 03/17/2025 1:28 PM EDT [facility] Blood Venous blood specimen / Unknown Venipuncture / Unknown 03/17/2025 10:42 AM EDT 03/17/2025 12:06 PM EDT Ce Esquivel DO LAB BLOOD ORDERABLES Final Result Performing Organization Address City/[facility]/ZIP Co de Phone Number [facility] [address] [place] [address], [place] [phone] * Lipid panel with reflex to direct LDL (09/08/2024 10:01 AM EST) Cholesterol 124 0 - 200 mg/dL LAB CHEMISTRY METHOD 09/08/2024 12:[address] [facility] Triglycerides 88 0 - 150 mg/dL LAB CHEMISTRY METHOD 09/08/2024 12:[address] [facility] HDL 68 >=40 mg/dL LAB CHEMISTRY METHOD 09/08/2024 12:[address] [facility] LDL Calculated 38 0 - 100 mg/dL LAB CHEMISTRY METHOD 09/08/2024 12:[address] [facility] VLDL Cholesterol Rex 17.6 mg/dL LAB CHEMISTRY METHOD 09/08/2024 12:[address] [facility] Non HDL Chol. (LDL+VLDL) 56 <145 mg/dL LAB CHEMISTRY METHOD 09/08/2024 12:[address] [facility] Chol/HDL Ratio 1.8 0.0 - 4.4 LAB CHEMISTRY METHOD 09/08/2024 12:[address] [facility] Blood Venous blood specimen / Unknown Venipuncture / Unknown 09/08/2024 10:01 AM EST 09/08/2024 10:01 AM EST us Hiren QUINTANILLA LAB BLOOD ORDERABLES Final Re sult [facility] [address] [place] [address], * Hemoglobin A1c (09/08/2024 10:01 AM EST) Hemoglobin A1C 5.9 <6.5 % LAB CHEMISTRY METHOD 09/08/2024 2:[address] [facility] Mean Bld Glu Estim. 123 mg/dL LAB CHEMISTRY METHOD 09/08/2024 2:[address] [facility] Blood Venous blood specimen / Unknown Venipuncture / Unknown 09/08/2024 10:01 AM EST 09/08/2024 10:01 AM EST Hiren QUINTANILLA LAB BLOOD ORDERABLES Final Re sult [facility] [address] [place] [address], [place] [phone] * (ABNORMAL) Comprehensive metabolic panel (09/08/2024 10:01 AM EST) Sodium 140 133 - 145 mmol/L LAB CHEMISTRY METHOD 09/08/2024 12:[address] [facility] Potassium 4.7 3.5 - 5.5 mmol/L LAB CHEMISTRY METHOD 09/08/2024 12:[address] [facility] Chloride 106 96 - 110 mmol/L LAB CHEMISTRY METHOD 09/08/2024 12:[address] [facility] CO2 30 21 - 32 mmol/L LAB CHEMISTRY METHOD 09/08/2024 12:[address] [facility] Anion Gap 4 3 - 11 LAB CHEMISTRY METHOD 09/08/2024 12:[address] [facility] Glucose 87 70 - 100 mg/dL LAB CHEMISTRY METHOD 09/08/2024 12:[address] [facility] BUN 30(H) 5 - 25 mg/dL LAB CHEMISTRY METHOD 09/08/2024 12:[address] [facility] Creatinine 1.63(H) 0.50 - 1.10 mg/dL LAB CHEMISTRY METHOD 09/08/2024 12:[address] [facility] eGFR 33(L) >=60 mL/min/1. 73m2 LAB CHEMISTRY METHOD 09/08/2024 12:[address] [facility] Comment:Calculation based on the Chronic Kidney Disease Epidemiology Collaboration (CKD-EPI) equation refit without adjustment for race. BUN/Creatinine Ratio 18.4 LAB CHEMISTRY METHOD 09/08/2024 12:[address] [facility] Calcium 9.8 8.5 - 10.5 mg/dL LAB CHEMISTRY METHOD 09/08/2024 12:[address] [facility] AST (SGOT) 29 10 - 42 unit/L LAB CHEMISTRY METHOD 09/08/2024 12:[address] [facility] ALT (SGPT) 28 10 - 60 unit/L LAB CHEMISTRY METHOD 09/08/2024 12:[address] [facility] Alkaline Phosphatase 94 42 - 121 unit/L LAB CHEMISTRY METHOD 09/08/2024 12:[address] [facility] Total Protein 6.8 6.0 - 8.0 g/dL LAB CHEMISTRY METHOD 09/08/2024 12:[address] [facility] Albumin 3.9 3.2 - 5.0 g/dL LAB CHEMISTRY METHOD 09/08/2024 12:[address] [facility] Total Bilirubin 0.4 0.0 - 1.4 mg/dL LAB CHEMISTRY METHOD 09/08/2024 12:[address] [facility] Blood Venous blood specimen / Unknown Venipuncture / Unknown 09/08/2024 10:01 AM EST 09/08/2024 10:01 AM EST Hiren QUINTANILLA LAB BLOOD ORDERABLES Final Re sult [facility] [address] [place] [address], * SCREENING MAMMOGRAPHY BI 2-VIEW BREAST INC [...] Breast cancer risk category Low (<15%) Location: [facility], [address] [place] [address], [address], [phone] Procedure Note Frederic Melendrez MD - 05/24/2024 [...] Breast cancer risk category Low (<15%) Location: [facility], [address] [place] [address], [phone], [phone] Ian Holland MD IMG XR PROCEDURES Final [...] abdominal radiograph for more complete evaluation. [facility] Department of Internal Medicine recommends using [...] alternative screening schedule based on shanti Carrillo., [facility] August 14, 2011 for patients [...] Consider abdominal radiograph for more completeevaluation. [facility] Department of Internal Medicine recommendsusing National [...] Resul t * Hepatitis C Screening (08/15/2013) [facility] Hepatitis C Screening abstracted us Historical Provider HEALTH MAINTENANCE Final Result from Last 3 Months or Most Recently Relevant to Health Maintenance Insurance [employer] MEDICARE Care Teams Warp Tier Relationship Specialty Start Date End Date Diane King MD [address] [place] [id number] PCP - General 09/04/22
--- OUTSIDE RECORDS SUMMARY | 2025-04-14 13:28 | XMS_ITS | Encounter Summary ---
Author Organization [facility] Address [address] [place] [address] Phone Care Team Providers Care Heater Furnace Name Role Phone Diane King MD Primary Care Provider + [phone] Encounter Details Date Type Department Care Team (Late st Contact Info) Description 06/15/2024 Documentation Only [facility] [address] [place] [address] Fauzia Ball [address] [place] [address] Social History Tobacco Use Types Packs/Day [...] Visit [facility] [address] [place] [address] Sal Ferrer MD [address] [place] [address] [place] [address] documented as of this encounter Visit Diagnoses Not on filedocumented in this encounter Care Teams Heater Furnace Relationship Specialty Start Date End Date Diane King MD PCP - General Family Medicine 02/18/24 documented as of this encounter
--- OUTSIDE RECORDS SUMMARY | 2025-04-14 13:28 | XMS_ITS | Clinical Summary ---
Author Organization [facility] Address [address] [place] [address] Care Team Providers Care Plant Worker Name Role Phone Diane King MD [...] this topic Medical Devices Implanted Type Area Tire Adjuster Device Identifier Shelf Expiration Date Model / Serial / Lot Sponge Surgiflo 8ml Hemostatic Matrix Absorbable Latex Free - [id number] - [id number] Implanted:Qty: 1 on 02/13/2020 by Slick Caldwell MD at [facility] Hemostatic Agent Posterior: Spine Lumbar [employer] 04/25/2021 2991 / / [id number] Sponge Surgifoam Thk7mm 6x2cm Hemostatic Agent Gelatin - 114808 - [id number] Implanted:Qty: 1 on 02/13/2020 by Slick Caldwell MD at [facility] Hemostatic Agent Posterior: Spine Lumbar [employer] - [employer] 05/25/2023 1972 / / [id number] Surgiflo Hemostatic Matrix Jn-Ethi 2991-620687 - [id number] Implanted:Qty: 1 on 01/24/2021 by Josh Bhatti DO at [facility] Hemostatic Agent N/A: Spine Cervical JNJ [employer] 09/23/2022 2991 / / [id number] Spacer [place] [id number] Plif 2 Radiographic Marker Pin Self - 170748 - [id number] Implanted:Qty: 1 on 02/13/2020 by Slick Caldwell MD at [facility] Posterior: Spine Lumbar SYNTHES INC 08.803.1 10 / / Head Matrix Polyaxial Top Loading Titanium Screw Spine - 025179 - [id number] Implanted:Qty: 4 on 02/13/2020 by Slick Caldwell MD at [facility] Posterior: Spine Lumbar [employer] 04.632.0 01 / / Cap Matrix Flat 5.5mm Step Square Thread Stardrive Cocr - 436299 - [id number] Implanted:Qty: 4 on 02/13/2020 by Slick Caldwell MD at [facility] Posterior: Spine Lumbar [employer] 09.632.0 99 / / Screw Matrix T25 Low Profile 45mm 6mm 2 Core 2 Lead - 898706 - [id number] Implanted:Qty: 2 on 02/13/2020 by Slick Caldwell MD at [facility] Posterior: Spine Lumbar SY[employer] INC 04.639.6 45 / / Screw Matrix T25 Low Profile 55mm 6mm 2 Core 2 Lead - 052968 - [id number] Implanted:Qty: 2 on 02/13/2020 by Slick Caldwell MD at [facility] Posterior: Spine Lumbar SYNTHES INC 04.639.6 55 / / Coflex Interlaminar Implant Size 8 - [id number] - [id number] Implanted:Qty: 1 on 02/13/2020 by Slick Caldwell MD at [facility] Posterior: Spine Lumbar PARADIGM SPINE 11/28/2023 [id number] / / [id number] Donnie Matrix Mile Red Curve 40mm 5.5mm Hard Titanium Spinal - 625537 - [id number] Implanted:Qty: 2 on 02/13/2020 by Slick Caldwell MD at [facility] Posterior: Spine Lumbar SYNTHES INC 04636.0 40 / / Spacer Vikos 14.5x11.5x7mm 7d Stry-Spin [id number]-400 942 - [id number] Implanted:Qty: 1 on 01/24/2021 by Josh Bhatti DO at [facility] N/A: Spine Cervical EFREN SPINE 03/01/2025 2504-214 07L / [id number] / Plate Cerv Anterior Constr 1 Level 20mm Stry-K2m [id number] - [id number] Implanted:Qty: 1 on 01/24/2021 by Josh Bhatti DO at [facility] Anterior: Spine Cervical EFREN SPINE [id number] 20V / / Screw Va Self-Start 4x14mm Stry-K2m [id number] 4174 - [id number] Implanted:Qty: 4 on 01/24/2021 by Josh Bhatti DO at [facility] Anterior: Spine Cervical EFREN SPINE 8801-040 14DA / / Advance Directives For more information, please contact: [phone] Documents on File Type Date Recorded Patient Bin Worker Expl anation Advance Directive and Living Will [...] way: discussion with patient . Care Teams Plant Worker Relationship Specialty Start Date End Date Diane King MD [address] [place] [phone] PCP - General Family Medicine 03/11/24
--- OUTSIDE RECORDS SUMMARY | 2025-04-14 13:28 | XMS_ITS | Encounter Summary ---
Author Organization [facility] [place], Address [address] [place] [address] Phone Care Team Providers Care Pediatric Oncologist Name Role Phone Diane King MD Primary Care Provider + [phone] Encounter Details Date Type Department Care Team (Late st Contact Info) Description 02/18/2024 Documentation Only [facility] [address] [place] [address] [place], [place] [address] [place] [address] Social History Tobacco Use Types [...] Visit [facility] [address] [place] [address] Sal Ferrer MD [address] [place] [address] [place] [address] documented as of this encounter Visit Diagnoses Not on filedocumented in this encounter Care Teams Pediatric Oncologist Relationship Specialty Start Date End Date Diane King MD PCP - General Family Medicine 02/18/24 documented as of this encounter
--- OUTSIDE RECORDS SUMMARY | 2025-04-14 13:28 | XMS_ITS | Encounter Summary ---
Author Organization [facility] Address [address] [place] [address] Phone Care Team Providers Care Retail Attendant Name Role Phone Diane King MD Primary Care Provider + [phone] Encounter Details Date Type Department Care Team (Late st Contact Info) Description 06/15/2024 Documentation Only [facility] [address] [place] [address] Fauzia Ball [address] [place] [address] Social History Tobacco Use Types Packs/Day [...] [facility] [address] [place] [address] Sal Ferrer MD [address] [place] [address] [place] [address] documented as of this encounter Visit Diagnoses Not on filedocumented in this encounter Care Teams Retail Attendant Relationship Specialty Start Date End Date Diane King MD PCP - General Family Medicine 02/18/24 documented as of this encounter
--- OUTSIDE RECORDS SUMMARY | 2025-04-14 13:28 | XMS_ITS | Encounter Summary ---
Author Organization [facility] Address [address] [place] [address] Phone Care Team Providers Care Industrial Technology Education Teacher Name Role Phone Diane King MD Primary Care Provider + [phone] Encounter Details Date Type Department Care Team (Late st Contact Info) Description 06/14/2024 Documentation Only [facility] [address] [place] [address] Fauzia Ball [address] [place] [phone] Social History Tobacco Use Types Packs/Day [...] Visit [facility] [address] [place] [address] Sal Ferrer MD [address] [place] [address] [place] [address] documented as of this encounter Visit Diagnoses Not on filedocumented in this encounter Care Teams Industrial Technology Education Teacher Relationship Specialty Start Date End Date Diane King MD PCP - General Family Medicine 02/18/24 documented as of this encounter
--- OUTSIDE RECORDS SUMMARY | 2025-04-14 13:28 | XMS_ITS | Encounter Summary ---
Author Organization [facility] Address [address] [place] [address] Phone Care Team Providers Care Valve And Regulator Repairer Name Role Phone Diane King MD Primary Care Provider + [phone] Encounter Details Date Type Department Care Team (Late st Contact Info) Description 04/26/2024 Documentation Only [facility] [address] [place] [address] Fauzia Ball [address] [place] [phone] Social History Tobacco Use Types Packs/Day [...] Visit [facility] [address] [place] [address] Sal Ferrer MD [address] [place] [address] [place] [address] documented as of this encounter Visit Diagnoses Not on filedocumented in this encounter Care Teams Valve And Regulator Repairer Relationship Specialty Start Date End Date Diane King MD PCP - General Family Medicine 02/18/24 documented as of this encounter
--- OUTSIDE RECORDS SUMMARY | 2025-04-14 13:28 | XMS_ITS | Encounter Summary ---
Author Organization [facility] Address [address] [place] [address] Phone Care Team Providers Care Nicu Rn Name Role Phone Diane King MD Primary Care Provider + [phone] Encounter Details Date Type Department Care Team (Late st Contact Info) Description 06/15/2024 Documentation Only [facility] [address] [place] [address] Fauzia Ball [address] [place] [phone] Social History Tobacco Use Types Packs/Day [...] Visit [facility] [address] [place] [address] Sal Ferrer MD [address] [place] [address] [place] [address] documented as of this encounter Visit Diagnoses Not on filedocumented in this encounter Care Teams Nicu Rn Relationship Specialty Start Date End Date Diane King MD PCP - General Family Medicine 02/18/24 documented as of this encounter
--- OUTSIDE RECORDS SUMMARY | 2025-04-14 13:28 | XMS_ITS | Encounter Summary ---
Author Organization [facility] Address [address] [place] [address] Phone Care Team Providers Care Direct Care Staffer Name Role Phone Diane King MD Primary Care Provider + [phone] Encounter Details Date Type Department Care Team (Late st Contact Info) Description 05/20/2024 Documentation Only [facility] [address] [place] [address] Fauzia Ball [address] [place] [phone] Social History Tobacco Use Types Packs/Day [...] Visit [facility] [address] [place] [address] Sal Ferrer MD [address] [place] [address] [place] [address] documented as of this encounter Visit Diagnoses Not on filedocumented in this encounter Care Teams Direct Care Staffer Relationship Specialty Start Date End Date Diane King MD PCP - General Family Medicine 02/18/24 documented as of this encounter
--- OUTSIDE RECORDS SUMMARY | 2025-04-14 13:28 | XMS_ITS | Encounter Summary ---
Author Organization [facility] Address [address] [place] [address] Phone Care Team Providers Care Point Of Sale Associate Name Role Phone Diane King MD Primary Care Provider + [phone] Encounter Details Date Type Department Care Team (Late st Contact Info) Description 05/02/2024 Documentation Only [facility] [address] [place] [address] Fauzia Ball [address] [place] [phone] Social History Tobacco Use Types Packs/Day [...] Visit [facility] [address] [place] [address] Sal Ferrer MD [address] [place] [address] [place] [address] documented as of this encounter Visit Diagnoses Not on filedocumented in this encounter Care Teams Point Of Sale Associate Relationship Specialty Start Date End Date Diane King MD PCP - General Family Medicine 02/18/24 documented as of this encounter
--- OUTSIDE RECORDS SUMMARY | 2025-04-14 13:28 | XMS_ITS | Encounter Summary ---
Author Organization [facility] Address [address] [place] [address] Phone Care Team Providers Care Supervisor Bridges And Buildings Name Role Phone Diane King MD Primary Care Provider + [phone] Encounter Details Date Type Department Care Team (Late st Contact Info) Description 02/29/2024 Documentation Only [facility] [address] [address] [place], [place] [address] [place] [address] Social History Tobacco Use Types [...] Visit [facility] [address] [place] [place] [address] Sal Ferrer MD [address] [place] [address] [place] [address] documented as of this encounter Visit Diagnoses Not on filedocumented in this encounter Care Teams Supervisor Bridges And Buildings Relationship Specialty Start Date End Date Diane King MD PCP - General Family Medicine 02/18/24 documented as of this encounter
--- OUTSIDE RECORDS SUMMARY | 2025-04-14 13:28 | XMS_ITS | Clinical Summary ---
Author Organization [facility] Address [address] [place] [address] Phone Care Team Providers Care Yardage Caller Name Role Phone Diane King MD Primary Care Provider + [phone] Medications lisinopril 10 MG tablet Take 10 [...] Visit [facility] [place], [address] [place] [address] Sal Ferrer MD [address] [place] [address] Health Maintenance Due Date Last Done Comments [...] patient's age to complete this topic Insurance [facility] Care Teams Yardage Caller Relationship Specialty Start Date End Date Diane King MD PCP - General Family Medicine 02/18/24
--- NOTE | 2025-04-14 13:45 | HO.SPINEOV ---
Intake Visit Reasons: 2nd post op with Xrays Intake Note: Ms. Alexandrea Rubio is here today for her 2nd post op Glass Designer Required: No Allergies oxycodone (From Percocet) Allergy (Mild, Verified 10/19/24 15:49) Nausea Assessment & Plan Assessment & Plan (1) S/P spinal surgery: Code(s): Z98.890 - Other specified postprocedural states Category: Surgical Plan Dear colleague come on 04/14/2025, I saw for follow-up Omaira Rubio. As you know, she has an extensive spinal surgical history. Her latest surgery was removal of a left L2-3 synovial cyst for severe left leg pain. The severe, constant pain is gone. She does have back pain with standing and walking. However, when she walks with a walker the symptoms are very well manageable. She would like to have a referral to pain management to discuss pain medication regimen and to see if there is any other treatments possible to treat the back pain that occurs without a walker. I explained to the patient that there must be micro instability at the L2-3 level but that additional surgery should not be attempted. An postoperative x-ray today does not show any signs of significant instability at this level. Franklin Mckeon MD, PhD Spine Fellowship Trained Neurosurgeon Director, [facility] Orders: Orders XR lumbar spine 4V min Today Z98.890 - Other specified postprocedural states Referrals Pain Management Referral Z98.890 - Other specified postprocedural states Coding Level of Care Code Global (27397) Diagnoses S/P spinal surgery Z98.890
== END 2025-04-14 14:03 | disposition home or self-care (01) ==
LOC: HO.HNS 13:25
PROVIDERS: Visit Provider Neurological Surgery
DX: Z98.890 Other specified postprocedural states (principal)
CPT/HCPCS: 99024

== ENCOUNTER 2025-05-16 13:22 | Outpatient (AMB) | payer OTHER, SELFPAY ==
--- NOTE | 2025-05-16 13:25 | A.OFFVIS_ITS ---
Vital Signs 05/16/25 13:30 Height 5 ft 5.5 in Weight 160 lb BMI 26.2 BP 150/73 H Blood Pressure Location Rt brachial Position Sitting Pulse 73 Pulse Source Pulse Oximeter Pulse Oximetry (%) 98 Oxygen Delivery Method Room Air Intake Visit Reasons: Discuss pain pill regimen Intake Note: Pain today 12/03 Student Services Vice President Required: No Accompanied by: Self / Same As Patient Allergies oxycodone (From Percocet) Allergy (Unknown, Verified 05/16/25 13:30) Vomiting HPI Comments Details: The patient is a 75-year-old female presenting with chronic back pain. Her pain history includes multiple back surgeries which started after sleeve gastrectomy, beginning with an L4-L5 fusion in 2019, followed by a laminectomy with Coflex placement later that year, and an anterior discectomy and fusion at C6-C7 in 2020. Her most recent surgery was in January 2025, involving the removal of a left- sided L2-L3 synovial cyst due to severe radiculopathy. Despite the surgeries, she continues to experience significant back and right posterior leg pain, primarily in the right buttock radiating to the posterior thigh, not extending past the knee. The pain is exacerbated by standing and walking and impacts her mobility, requiring the use of a walker. Following her third or fourth surgery, the patient developed numbness in her hands and feet, which persists. Her medical history includes Type 2 Diabetes Mellitus, which is currently stable, with a recent A1c of 6.5%. Previous physical therapy was halted due to concerns of exacerbating a synovial cyst. The patient reports that she stopped short-term gabapentin use in 2022 but hesitates to restart due to increased appetite and other potential adverse effects. She occasionally uses oxycodone, which she finds helpful in managing her pain but has reported challenges with refills for continued prescribing. Patient denies any urinary or bowel incontinence or saddle anesthesia. She reports chronic cervical myelomalacia, previously managed with a cervical spinal fusion, still resulting in weakness and leg instability. 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 Pain affects her daily activities, functioning, mobility, mood, social interactions, work, and quality of life. - Onset: Chronic, following multiple back surgeries - Quality: Constant, sharp, tingling, sore, aching and heavy - Location: Back, radiating to the right buttock and posterior thigh - Radiation: Does not extend past the knee - Exacerbating factors: Standing, walking, lifting and prolonged activity - Relieving factors: Tylenol Extra Strength, heat therapy, marijuana 2-3x/week and occasional oxycodone - Interference: Affects daily activities, functioning, sleep, and social activities - Affect: Pain impacts mood and psychological well-being, contributing to anxiety and difficulty sleeping - Analgesia: Current medications include Tylenol Extra Strength and oxycodone, with pain levels ranging from 5/10 to 7/10 - Adverse Effects: Oxycodone causes nausea, and gabapentin increases appetite - Activities of Daily Living: Pain interferes with work, teaching, and mobility, requiring the use of a walker - Aberrant Drug Related Behaviors: No evidence of misuse; oxycodone is used sparingly [facility] Medical History (Updated 05/16/25 @ 20:44 by SYEDA Ornelas) Diverticulosis CKD (chronic kidney disease) stage 3, GFR 30-59 ml/min Iron deficiency B-cell lymphoproliferative disorder Tobacco use disorder Pancreatitis Obesity Numbness Neck pain Lumbar spondylosis Thyroid disease Depression Colovaginal fistula Back pain Gait disorder Hand weakness Numbness and tingling in both hands Anxiety PONV (postoperative nausea and vomiting) Cataract Diabetes mellitus, type 2 Hyperlipidemia Hypertension Right bundle branch block (RBBB) Osteopenia Osteoarthritis Glaucoma Hypothyroidism Surgical History Hx of bilateral cataract extraction History of esophagogastroduodenoscopy (EGD) Hx of tonsillectomy Hx of cholecystectomy Hx of hysterectomy Hx of colonoscopy Hx of partial thyroidectomy History of bilateral carpal tunnel release Hx of bariatric surgery Previous back surgery Social History (Updated 05/16/25 @ 13:35 by Maricarmen Gan) Household Members: None Housing: House Are you a primary zoo caretaker to a significant other at home: No Do you presently have visiting nurse or other home services: No Alcohol intake: never Patient Tobacco Use Status: Former Tobacco user Tobacco use type: Cigarette Second Hand Smoke Exposure: No Substance Use Type: Marijuana Substance Use Frequency: Weekly Review of Systems Const Details: - Musculoskeletal: Reports chronic back pain, right buttock pain radiating to the posterior thigh, and numbness in hands and feet - Neurological: Denies groin pain, reports numbness in hands and feet - Endocrine: Reports stable diabetes management with A1c of 6.5% - Psychological: Reports anxiety and difficulty sleeping related to external stressors All systems reviewed & are unremarkable except as noted in HPI and below Physical Exam Vital Signs: Last Vital Signs Pulse 73 05/16/25 13:30 BP 150/73 H 05/16/25 13:30 Pulse Ox 98 05/16/25 13:30 Oxygen Delivery Method Room Air 05/16/25 13:30 BMI result Body Mass Index 26.2 General: Appears afebrile. Alert and oriented. Mood and affect appropriate. Follows and participates in conversation appropriately. Respiratory effort is unlabored. No cough. Able to transition from sit to stand without assistance. Increased pain with getting up from sitting position. Ambulates with antalgic, slow gait, uses walker with ambulation. General: Yes no CVA tenderness Back/Spine/Pelvis Other: Limited lumbar ROM due to pain. Lumbar flexion and extension, bending forward and axial rotations reproduce moderate pain. No midline TTP in cervical, thoracic or lumbar spine. Well healed multiple vertical lower back incisions with normal scarring. Demonstrates 5/5 left and 4/5 right strength of quadriceps bilaterally as well as flexion/dorsiflexion of bilateral feet against resistance. 2+ pedal pulses bilaterally. Straight leg rise with dorsiflexion positive bilaterally. +1 patellar and achilles reflexes bilaterally. Facet loading test positive bilaterally. Clarissa sign, Frederic?s, Pelvic compression and Stinchfield tests are positive on the right. No groin pain with I/E hip rotations. Valsalva maneuver negative. Back: no CVA tenderness Cervical Spine: cervical muscular tenderness, Cervical spine scars present and No Cervical spine tenderness Thoracic/Lumbar Spine: thoracic and lumbar spine normal to inspection, Thoracic/lumbar spine scar(s), Lasegue's sign positive bilateral and diffuse, pain with thoraco-lumbar ROM, thoraco-lumbar ROM limited, No thoracic spinal tenderness and No lumbar spinal tenderness Pelvis: buttock tenderness on the right Sacroiliac joints: bilaterally tender to palpation Extrem General: Yes capillary refill normal, Yes no clubbing, cyanosis or edema and Yes no calf tenderness Results Reviewed Results Reviewed: XR LUMBOSACRAL SPINE 04/11/25 CLINICAL INFORMATION: M71.38 - Other bursal cyst, other site COMPARISON: January 13, 2025 and May 24, 2021 TECHNIQUE: AP and lateral views of the lumbosacral spine. FINDINGS: There is increasing attenuation of a coarse calcific density left of L1 and L2 measuring 3.2 x 4.5 cm that is probably adrenal in nature. There is moderate atherosclerotic calcification in the aorta and iliac arteries. Vertebral body height is preserved. L2-3 demonstrates stable mild disc space narrowing. L5-S1 demonstrates stable moderate to severe disc space narrowing with endplate osteophytes. There are 5 nonrib-bearing lumbar segments. Again seen are posterior pedicle screws and rods at L3-4 with interbody spacer. There is also interbody spacer at L4-5. IMPRESSION: Chronic coarse calcified mass left of midline at the level of L1-2 is probably adrenal in nature and could be related to prior adrenal hemorrhage or calcified adrenal mass. It has been present since at least 2020. Stable postoperative changes with interbody fusion at L3, L4, and L5. Mild degenerative disc disease at L2-3 and severe degenerative disc disease at L5-S1. MR lumbar spine wo con 12/28/24 CLINICAL HISTORY: Z98.1 - Arthrodesis status MR lumbar spine without contrast. COMPARISON: None FINDINGS: Grade 1 anterolisthesis of L4 on L5 measuring 4 mm, degenerative. Posterior spinal fixation hardware bridges the L3 and L4 levels. Artifact from the hardware mildly limits evaluation at these levels. Vertebral heights are maintained. Marrow signal is benign. The conus terminates at superior endplate of L2 and is otherwise unremarkable. Visualized portions of the sacrum are normal. L5-S1: Loss of disc space height. Anterior marginal osteophytes. Mild posterior disc bulge measuring 3 mm. Facet joint arthrosis. Mild right and moderate left neural foraminal narrowing. Status post laminectomy at this level. L4-L5: Posterior disc uncovering measuring 4 mm. Facet joint arthrosis. Mild bilateral neural foraminal narrowing. L3-L4: Facet joint arthrosis. Vzbk-vo-kstgnsil left neural foraminal narrowing. L2-L3: Ligamentum flavum hypertrophy. Facet joint arthrosis. Large synovial cyst present along the facet joint on the left extending along the posterior epidural space and into the foramina on the left. Severe spinal canal stenosis at this level measuring 5 mm. Severe left and right neural foraminal narrowing. Fluid present within the facet joints L2-3 bilaterally. L1-L2: Intervertebral disc is normal in height. No significant disc bulge or central canal stenosis. The visualized paraspinal musculature and retroperitoneal soft tissues are unremarkable. IMPRESSION: 1. Large synovial cyst along the facet joint at L2-3 with ligamentum flavum hypertrophy causes severe spinal canal stenosis. There is associated severe bilateral neural foraminal narrowing at this level. 2. Grade 1 anterolisthesis of L4 on L5, degenerative. 3. Posteriorly fixated L3-4 level without evidence of hardware complication. 4. Advanced mid to lower lumbar spondylosis with multilevel neural foraminal narrowing. Assessment & Plan Assessment & Plan (1) Lumbar post-laminectomy syndrome: Code(s): M96.1 - Postlaminectomy syndrome, not elsewhere classified Category: Medical (2) Chronic neck and back pain: Code(s): M54.2 - Cervicalgia; M54.9 - Dorsalgia, unspecified; G89.29 - Other chronic pain Category: Medical (3) Status post lumbar spinal arthrodesis: Code(s): Z98.1 - Arthrodesis status Category: Medical (4) Lumbar degenerative disc disease: Code(s): M51.36 - Other intervertebral disc degeneration, lumbar region Category: Medical (5) Sacroiliac joint pain: Code(s): M53.3 - Sacrococcygeal disorders, not elsewhere classified Category: Medical (6) Lumbar spondylosis: Code(s): M47.816 - Spondylosis without myelopathy or radiculopathy, lumbar region Category: Medical Plan The treatment plan for the patient involves addressing her chronic back pain through interventional pain management strategies. Schedule Caudal epidural steroid injection with catheter under light sedation and fluoroscopy, providing potential pain relief for 3-6 months for chronic low back pain with radicular symptoms and post laminectomy syndrome. Expectations, risks and benefits were reviewed. Patient is aware she will be contacted to schedule this procedure. Given history of glaucoma, we will obtain clearance from patient's Dock Attendant for steroid injection. Additionally, we discussed spinal cord stimulation as a potential long-term solution, pending a psychological evaluation and a trial period. Consider alternative pain management strategies if the current regimen proves insufficient or causes undue side effects. I have informed patient that we do not offer opioid program at this time. All questions and concerns have been answered and patient agreed with the treatment plan. Follow up for and sooner as needed. Patient was informed and verbally consented to the use of an ambient scribe for clinic note documentation during this visit. Coding Level of Care Code New Pt Level 4 (66322) Diagnoses Lumbar post-laminectomy syndrome M96.1 Chronic neck and back pain M54.2; M54.9; G89.29 Status post lumbar spinal arthrodesis Z98.1 Lumbar degenerative disc disease M51.36 Sacroiliac joint pain M53.3 Lumbar spondylosis M47.816
[2025-05-16 13:30] VITALS: BP 150/73; PULSE 73; O2SAT 98; BMI 26.2
--- OUTSIDE RECORDS SUMMARY | 2025-05-16 17:29 | XMS_ITS | Encounter Summary ---
Author Organization [facility] Address [address] [place] [address] Phone Care Team Providers Care Radiologic Electronic Specialist Name Role Phone Diane King MD Primary Care Provider + [phone] Encounter Details Date Type Department Care Team (Late st Contact Info) Description 06/15/2024 Documentation Only [facility] [address] [place] [address] Fauzia Ball [address] [place] [phone] Social History Tobacco Use Types Packs/Day [...] Visit [facility] [address] [place] [address] Sal Ferrer MD [address] [place] [address] [place] [address] documented as of this encounter Visit Diagnoses Not on filedocumented in this encounter Care Teams Radiologic Electronic Specialist Relationship Specialty Start Date End Date Diane King MD PCP - General Family Medicine 02/18/24 documented as of this encounter
--- OUTSIDE RECORDS SUMMARY | 2025-05-16 17:29 | XMS_ITS | Encounter Summary ---
Author Organization [facility] Address [address] [place] [address] Phone Care Team Providers Care Research Lab Assistant Name Role Phone Diane King MD Primary Care Provider + [phone] Encounter Details Date Type Department Care Team (Late st Contact Info) Description 06/15/2024 Documentation Only [facility] [address] [place] [address] Fauzia Ball [address] [place] [phone] Social History Tobacco Use Types Packs/Day [...] Visit [facility] [address] [place] [address] Sal Ferrer MD [address] [place] [address] [place] [address] documented as of this encounter Visit Diagnoses Not on filedocumented in this encounter Care Teams Research Lab Assistant Relationship Specialty Start Date End Date Diane King MD PCP - General Family Medicine 02/18/24 documented as of this encounter
--- OUTSIDE RECORDS SUMMARY | 2025-05-16 17:29 | XMS_ITS | Clinical Summary ---
Author Organization [facility] Address [address] [place] [address] Phone Care Team Providers Care Shell Trim Tool Setter Name Role Phone Diane King MD Primary Care Provider + [phone] Medications lisinopril 10 MG tablet Take 10 [...] Visit [facility] [place], [address] [place] [address] Sal Ferrer MD [address] [place] [address] Health Maintenance Due Date Last Done Comments Breast Cancer Screening 1950 Colorectal Cancer Screening: Annual FOBT 2000 Colorectal Cancer Screening: Colonoscopy 2000 Colorectal Cancer Screening: Sigmoidoscopy 2000 Pneumococcal Vaccine: 50+ Years (2 of 2 - PCV) 04/03/2012 04/03/2011 Diabetes: Ophthalmology Exam 06/20/2024 Diabetes: Pedal Pulse Checked 06/20/2024 Diabetes: Sensory Foot Exam 06/20/2024 Diabetes: Visual Foot Exam 06/20/2024 Diabetes: Hemoglobin A1C 12/06/2024 025, 09/08/2024, 02/02/2024, Additional history exists Influenza Vaccine (#1) 2025 4, 04/06/2022, 05/30/2021, Additional history exists Hepatitis B Vaccine Aged Out No longe r eligible based on patient's age to complete this topic Insurance [facility] Care Teams Shell Trim Tool Setter Relationship Specialty Start Date End Date Diane King MD PCP - General Family Medicine 02/18/24
--- OUTSIDE RECORDS SUMMARY | 2025-05-16 17:29 | XMS_ITS | Encounter Summary ---
Author Organization [facility], Address [address] [place] [address] Phone Care Team Providers Care Nurse Care Manager Name Role Phone Diane King MD Primary Care Provider + [phone] Encounter Details Date Type Department Care Team (Late st Contact Info) Description 02/29/2024 Documentation Only [facility] [address] [place] [address] [place], [place] [address] [place] [address] Social History Tobacco Use Types [...] Visit [facility] [address] [place] [address] Sal Ferrer MD [address] [place] [address] [place] [address] documented as of this encounter Visit Diagnoses Not on filedocumented in this encounter Care Teams Nurse Care Manager Relationship Specialty Start Date End Date Diane King MD PCP - General Family Medicine 02/18/24 documented as of this encounter
--- OUTSIDE RECORDS SUMMARY | 2025-05-16 17:29 | XMS_ITS | Clinical Summary ---
Author Organization [facility] Address [address] [place] [address] Phone Care Team Providers Care Court Supervisor Name Role Phone Diane King MD Primary Care Provider Allergies Active Allergy Reactions Criticality Noted Date Comments Morphine 06/04/2017 Nausea and vomiting Oxycodone Nausea And Vomiting Medium 02/07/2020 Oxycodone-Acetaminophe n Nausea And Vomiting Medium 02/07/2020 Medications melatonin 1 mg tablet Take 1 Tablet by mouth. Active OXYBUTYNIN CHLORIDE ORAL Take by mouth. Active ferrous sulfate 325 mg (65 mg iron) EC tablet Take 1 tablet (325 mg total) by mouth. 4 Active buPROPion XL (WELLBUTRIN XL) 150 mg 24 hr tablet TAKE 1 TABLET BY MOUTH EVERY DAY IN THE MORNING 90 tablet 1 5 Active rosuvastatin (CRESTOR) 10 mg tablet TAKE 1 TABLET BY MOUTH EVERY DAY 90 tablet 1 5 Active lisinopril (PRINIVIL,ZEST RIL) 40 mg tablet TAKE 1 TABLET BY MOUTH EVERY DAY 90 tablet 1 5 Active oxyCODONE (ROXICODONE) 5 mg immediate release tablet Take 1 tablet (5 mg total) by mouth every 6 (six) hours if needed. 5 Active levothyroxine (SYNTHROID, LEVOTHROID) 100 mcg tablet TAKE 1 TABLET THURSDAY THROUGH THURSDAY AND OFF ON THURSDAY.(TAKI NG 6 DAYS A WEEK) 78 tablet 2 5 Active levothyroxine (SYNTHROID, LEVOTHROID) 100 mcg tablet TAKE 1 TABLET THURSDAY THROUGH THURSDAY AND OFF ON THURSDAY.(TAKI NG 6 DAYS A WEEK) 78 tablet 2 4 025 Discontinued Active Problems Problem Noted Date Diagnosed Date B-cell lymphoproliferative d isorder ([facility] V24, [facility] V28) 06/06/2024 [...] Type 2 diabetes mellitus wit hout complications ([facility] V24, [facility] V28) 09/26/2010 Neck pain 10/06/2006 Tobacco use disorder 10/06/2006 Essential hypertension, benign 10/07/2005 Mixed hyperlipidemia 09/11/2005 Depression 09/10/2005 Osteoarthritis, hand 09/10/2005 Encounters Date Type Department Care Team Description 03/23/2025 10:30 AM EDT Telemedicine [address] [place] [address] Janis Elizondo MD Abnormal brain MRI (Primary Dx); Memory loss 03/21/2025 2:00 PM EDT Office Visit [facility] Hematology Oncology [address] [place] [address] Ce Esquivel DO B-cell lymphoproliferative disorder ([facility] V24, [facility] V28) (Primary Dx); Iron deficiency 03/16/2025 Telephone [facility] Hematology Oncology [address] [place] [address] Ce Esquivel DO from Last 3 Months Immunizations Immunization Administration Dates Next Due Influenza Quadravalent, 0.5m l (Fluad) 65yo and older 05/30/2021,05/11/2020 Influenza Quadravalent, MDCK , 0.5ml, preservative free (Flucelvax) 6mo and older 07/14/2018 Influenza trivalent, 0.5mL ( Fluad) 65yo and older 05/05/2024 Influenza trivalent, 0.5mL ( Fluzone High-dose) 65yo and older 04/06/2022 Influenza trivalent, with pr eservative (Fluzone; Afluria) 6mo and older 05/30/2021,05/11/2020,05/10/2015,05/23,04/12/2013,05/23/2010,10/08/2008 Influenza, Unspecified 05/12/2020 [facility] Covid-19 Bivalent, Or iginal + Ba.1 (Non-US Trademark [employer] Bivalent) 04/06/2022 [facility] SARS-CoV-2 COVID-19, mRNA, LNP-S, preservative free 05/05/2024,10/14/2020 Pneumococcal conjugate 20 va lent (Prevnar 20, PCV 20) 2mo and older 11/08/2024 Pneumococcal polysaccharide 23 valent (Pneumovax 23) 2yo and older 04/03/2011 Tdap Tetanus diptheria acell ular pertussis (Boostrix; Adacel) 7yo and older 11/03/2023,04/13/2012 Surgical History Surgery Date Site/Laterality Comments PARTIAL HYSTERECTOMY PROCEDURE: MD SUPRACERVICAL ABDL HYSTER W/WO RMVL TUBE OVARY TONSILLECTOMY ADENOIDECTOMY, BILATERAL MYRINGOTOMY AND TUBES PROCEDURE: MD TONSILLECTOMY & ADENOIDECTOMY <AGE 12 HYSTERECTOMY PROCEDURE: HISTORICAL HYSTERECTOMY CHOLECYSTECTOMY PROCEDURE: MD LAPAROSCOPY SURG CHOLECYSTECTOMY OTHER SURGICAL HISTORY 10/04 PROCEDURE: MD TOTAL THYROID LOBECTOMY UNI W/WO ISTHMUSECTOMY; COMMENT: left, with reimplant L sup parathyroid, Dr Brown, [facility] OTHER SURGICAL HISTORY 04/01/2011 PROCEDURE: MD ERCP DX COLLECTION SPECIMEN BRUSHING/WASHING; COMMENT: Desilets; [...] Record ed Within the last 3 months, ho w many times did you visit the emergency [...] care for your loved ones. For example, children teacher or elderly care for an older [...] Date Recorded What is your living situation? Unrecognized valu e 03/23/2025 Comments Unknown Sex and Gender Information [...] Care Team (Late st Contact Info) Description 06/02/2025 2:50 PM EST Appointment Radiology Department [address] [address] 06/30/2025 3:30 PM EST Office Visit Adult Medicine [address] [address] Diane King MD [address] [place] [address] 11/21/2025 2:45 PM EDT Office Visit [facility] Hematology Oncology [address] [place] [phone] Ce Esquivel, [address] [place] [address] Health Maintenance Due Date Last Done Comments [...] this topic Medical Devices Implanted Type Area Health Care Coach Device Identifier Shelf Expiration Date Model / Serial / Lot Sponge Surgiflo 8ml Hemostatic Matrix Absorbable Latex Free - [id number] Implanted:Qty: 1 on 02/13/2020 by Slick Caldwell MD Implants N/A: Spine Lumbar MAR[employer]ITA [employer] MARQUITA YAS 04/25/2021 299 / / [id number] Sponge Surgifoam Thk7mm 6x2cm Hemostatic Agent Gelatin - [id number] Implanted:Qty: 1 on 02/13/2020 by Slick Caldwell MD Implants N/A: Spine Lumbar JNJ [employer] INC 05/25/20231971 / / [id number] Surgiflo Hemostatic Matrix [facility]i [id number] Implanted:Qty: 1 on 01/24/2021 by Rosamond, Josh M, DO Implants N/A: Spine Cervical JNJ [employer] 09/23/2022 2991 / / [id number] Spacer Whiteside [id number] Plif 2 Radiographic Marker Pin Self - [id number] Implanted:Qty: 1 on 02/13/2020 by Slick Caldwell MD N/A: Spine Lumbar DEPUY SYNTHES 08.803.11 0 / / Head Matrix Polyaxial Top Loading Titanium Screw Spine - [id number] Implanted:Qty: 4 on 02/13/2020 by Slick Caldwell MD N/A: Spine Lumbar DEPUY SYNTHES 632.00 1 / / Cap Matrix Flat 5.5mm Step Square Thread Stardrive Cocr - [id number] Implanted:Qty: 4 on 02/13/2020 by Slick Caldwell MD N/A: Spine Lumbar DEPUY SYNTHES 09632.09 9 / / Screw Matrix T25 Low Profile 45mm 6mm 2 Core 2 Lead - [id number] Implanted:Qty: 2 on 02/13/2020 by Slick Caldwell MD N/A: Spine Lumbar DEPUY SYNTHES 9.64 5 / / Screw Matrix T25 Low Profile 55mm 6mm 2 Core 2 Lead - [id number] Implanted:Qty: 2 on 02/13/2020 by Slick Caldwell MD N/A: Spine Lumbar DEPUY SYNTHES 9.65 5 / / Coflex Interlaminar Implant Size 8 - [id number] Implanted:Qty: 1 on 02/13/2020 by Slick Caldwell MD N/A: Spine Lumbar PARADIGM SPINE [facility] 11/28/2023 [id number] / / [id number] Donnie Matrix Mile Red Curve 40mm 5.5mm Hard Titanium Spinal - [id number] Implanted:Qty: 2 on 02/13/2020 by Slick Caldwell MD N/A: Spine Lumbar DEPUY SYNTHES .636.04 0 / / Spacer Vikos 14.5x11.5x7mm 7d Stry-Spin [id number] 942 - [id number] Implanted:Qty: 1 on 01/24/2021 by Josh Bhatti DO N/A: Spine Cervical EFRNE SPINE 03/01/[id number] 7L / [id number] / Plate Cerv Anterior Constr 1 Level 20mm Stry-K2m [id number] Implanted:Qty: 1 on 01/24/2021 by Josh Bhatti, DO N/A: Spine Cervical EFREN SPINE [id number] 0V / / Screw Va Self-Start 4x14mm Stry-K2m [id number] Implanted:Qty: 4 on 01/24/2021 by Josh Bhatti DO N/A: Spine Cervical EFREN SPINE [id number] 4DA / / Procedures Procedure Name Priority Date/Time Associated Diagnosis Comments MD PROTEIN ELECTROPHORETIC FRACTIONATION & QUANTITATION SERUM Routine 03/17/2025 10:42 AM EDT B-cell lymphoproliferative disorder ([facility]/HCC V24, [facility]/HCC V28) PROTEIN, TOTAL Routine 03/17/2025 10:42 AM EDT B-cell lymphoproliferative disorder ([facility]/HCC V24, CMS/HCC V28) CBC WITH AUTO DIFFERENTIAL Routine 03/17/2025 10:42 AM EDT B-cell lymphoproliferative disorder (CMS/HCC V24, CMS/HCC V28) PROTEIN ELECTROPHORESIS, SERUM Routine 03/17/2025 10:42 AM EDT B-cell lymphoproliferative disorder (CMS/HCC V24, CMS/HCC V28) KAPPA-LAMBDA QUANTITATIVE FREE LIGHT CHAINS Routine 03/17/2025 10:42 AM EDT B-cell lymphoproliferative disorder (CMS/HCC V24, CMS/HCC V28) CBC AND DIFFERENTIAL Routine 03/17/2025 10:42 AM EDT B-cell lymphoproliferative disorder ([facility]/HCC V24, CMS/HCC V28) COMPREHENSIVE METABOLIC PANEL Routine 09/08/2024 10:01 AM EST Essential hypertension, benign Hypothyroidism, unspecified type Mixed hyperlipidemia Type 2 diabetes mellitus without complication, without long-term current use of insulin (CMS/HCC V24, CMS/HCC V28) HEMOGLOBIN A1C Routine 09/08/2024 10:01 AM EST Essential hypertension, benign Hypothyroidism, unspecified type Mixed hyperlipidemia Type 2 diabetes mellitus without complication, without long-term current use of insulin ([facility] V24, [facility] V28) LIPID PANEL WITH REFLEX TO DIRECT LDL Routine 09/08/2024 10:01 AM EST Essential hypertension, benign Hypothyroidism, unspecified type Mixed hyperlipidemia Type 2 diabetes mellitus without complication, without long-term current use of insulin ([facility] V24, [facility] V28) SCREENING [...] EDT) Pathologist Interpretation 03/21/2025 6:14 PM EDT [facility] Blood Venous blood specimen / Unknown Venipuncture / Unknown 03/17/2025 10:42 AM EDT 03/17/2025 12:06 PM EDT us Ce Esquivel DO LAB BLOOD ORDERABLES Final Result [facility] [address] [place] [address], * (ABNORMAL) Wisdom-lambda free light chains, quantitative (03/17/2025 10:42 AM EDT) [facility] Wisdom Free Light Chain 2.42(H) 0.33 - 1.94 mg/dL 03/20/2025 1:58 PM EDT [facility] Lambda Free Light Chain 2.62 0.57 - 2.63 mg/dL 03/20/2025 1:58 PM EDT [facility] Wisdom/Lambda FLC Ratio 0.92 0.26 - 1.65 03/20/2025 1:58 PM EDT [facility] Comment: Test performed at [facility], [address], [place] [address] Miguelina Arevaol MD, PhD - Master [employer] Blood Venous blood specimen / Unknown Venipuncture / Unknown 03/17/2025 10:42 AM EDT 03/17/2025 12:06 PM EDT Ce Esquivel DO LAB BLOOD ORDERABLES Final Result [facility] [address] [place] [address] * (ABNORMAL) CBC auto differential (03/17/2025 10:42 AM EDT) [facility] WBC 4.5(L) 4.8 - 10.8 K/mcL LAB [...] [place] LAB [facility]OLOG[facility] MCH 27.3 27.0 - 32.0 pcg LAB HEMETOLOGY METHOD 03/17/2025 12:27 PM [facility] MCHC 30.8(L) 32.0 - 37.0 g/dL LAB HEMETOLOGY METHOD 03/17/2025 12:27 PM [facility] RDW 13.6 11.0 - 15.0 % LAB HEMETOLOGY METHOD 03/17/2025 12:27 PM [facility] Platelets 200 130 - 400 K/mcL LAB HEMETOLOGY METHOD 03/17/2025 12:27 PM [facility] MPV 9.5 7.0 - 11.0 FL LAB HEMETOLOGY METHOD 03/17/2025 12:27 PM [facility] NRBC 0.0 <1.0 % LAB HEMETOLOGY METHOD 03/17/2025 12:27 PM [facility] NRBC Absolute 0.00 <0.10 K/mcL LAB HEMETOLOGY METHOD 03/17/2025 12:27 PM [facility] Neutrophils Relative 62.9 % LAB HEMETOLOGY METHOD 03/17/2025 12:27 PM [facility] Lymphocytes Relative 24.4 % LAB HEMETOLOGY METHOD 03/17/2025 12:27 PM [facility] Monocytes Relative 7.6 % LAB HEMETOLOGY METHOD 03/17/2025 12:27 PM [facility] Eosinophils Relative 4.0 % LAB HEMETOLOGY METHOD 03/17/2025 12:27 PM [facility] Basophils Relative 0.7 % LAB HEMETOLOGY METHOD 03/17/2025 12:27 PM [facility] Immature Granulocytes Relative 0.4 % LAB HEMETOLOGY METHOD 03/17/2025 12:27 PM EDT [facility] Neutrophils Absolute 2.83 1.50 - 7.00 K/mcL LAB HEMETOLOGY METHOD 03/17/2025 12:27 PM EDT [facility] Lymphocytes Absolute 1.10 1.00 - [...] 10:42 AM EDT 03/17/2025 12:07 PM EDT us Ce Esquivel DO LAB BLOOD ORDERABLES Final Result [facility] [address] [place] [address], * Protein electrophoresis, serum (03/17/2025 10:42 AM [...] BLOOD ORDERABLES Final Result Performing Organization Address City/[facility] Co de Phone Number [facility] [address] [place] [address], * Protein, total (03/17/2025 10:42 AM EDT) Total Protein 6.8 6.0 - 8.0 g/dL LAB CHEMISTRY METHOD 03/17/2025 1:28 PM EDT [facility] Blood Venous blood specimen / Unknown Venipuncture / Unknown 03/17/2025 10:42 AM EDT 03/17/2025 12:06 PM EDT Ce Esquivel DO LAB BLOOD ORDERABLES Final Result [facility] [address] [place] [address], [place] [phone] * Lipid panel with reflex to direct LDL (09/08/2024 10:01 AM EST) Cholesterol 124 0 - 200 mg/dL LAB CHEMISTRY METHOD 09/08/2024 12:04 PM EST [facility] Triglycerides 88 0 - 150 mg/dL LAB CHEMISTRY METHOD 09/08/2024 12:04 PM [facility] HDL 68 >=40 mg/dL LAB CHEMISTRY METHOD 09/08/2024 12:04 PM [facility] LDL Calculated 38 0 - 100 mg/dL LAB CHEMISTRY METHOD 09/08/2024 12:04 PM [facility] VLDL Cholesterol Rex 17.6 mg/dL LAB CHEMISTRY METHOD 09/08/2024 12:04 PM [facility] Non HDL Chol. (LDL+VLDL) 56 <145 mg/dL LAB CHEMISTRY METHOD 09/08/2024 12:04 PM [facility] Chol/HDL Ratio 1.8 0.0 - 4.4 LAB CHEMISTRY METHOD 09/08/2024 12:04 PM [facility] Blood Venous blood specimen / Unknown Venipuncture / Unknown 09/08/2024 10:01 AM EST 09/08/2024 10:01 AM EST Hiren QUINTANILLA LAB BLOOD ORDERABLES Final Re sult [facility] [address] [place] [address], [place] [phone] * Hemoglobin A1c (09/08/2024 10:01 AM EST) Hemoglobin A1C 5.9 <6.5 % LAB CHEMISTRY METHOD 09/08/2024 2:08 PM [facility] Mean Bld Glu Estim. 123 mg/dL LAB CHEMISTRY METHOD 09/08/2024 2:08 PM [facility] Blood Venous blood specimen / Unknown Venipuncture / Unknown 09/08/2024 10:01 AM EST 09/08/2024 10:01 AM EST us Hiren QUINTANILLA LAB BLOOD ORDERABLES Final Re sult [facility] [address] [place] [address], [place] [phone] * (ABNORMAL) Comprehensive metabolic panel (09/08/2024 10:01 AM EST) Sodium 140 133 - 145 mmol/L LAB CHEMISTRY METHOD 09/08/2024 12:15 PM [facility] Potassium 4.7 3.5 - 5.5 mmol/L LAB CHEMISTRY METHOD 09/08/2024 12:15 PM [facility] Chloride 106 96 - 110 mmol/L LAB CHEMISTRY METHOD 09/08/2024 12:15 PM [facility] CO2 30 21 - 32 mmol/L LAB CHEMISTRY METHOD 09/08/2024 12:15 PM [facility] Anion Gap 4 3 - 11 LAB CHEMISTRY METHOD 09/08/2024 12:15 PM [facility] Glucose 87 70 - 100 mg/dL LAB CHEMISTRY METHOD 09/08/2024 12:15 PM [facility] BUN 30(H) 5 - 25 mg/dL LAB CHEMISTRY METHOD 09/08/2024 12:15 PM [facility] Creatinine 1.63(H) 0.50 - 1.10 mg/dL LAB CHEMISTRY METHOD 09/08/2024 12:15 PM [facility] eGFR 33(L) >=60 mL/min/1. 73m2 LAB CHEMISTRY METHOD 09/08/2024 12:15 PM [facility] Comment:Calculation based on the Chronic Kidney Disease Epidemiology Collaboration (CKD-EPI) equation refit without adjustment for race. BUN/Creatinine Ratio 18.4 LAB CHEMISTRY METHOD 09/08/2024 12:15 PM [facility] Calcium 9.8 8.5 - 10.5 mg/dL LAB CHEMISTRY METHOD 09/08/2024 12:15 PM [facility] AST (SGOT) 29 10 - 42 unit/L LAB CHEMISTRY METHOD 09/08/2024 12:15 PM [facility] ALT (SGPT) 28 10 - 60 unit/L LAB CHEMISTRY METHOD 09/08/2024 12:15 PM [facility] Alkaline Phosphatase 94 42 - 121 unit/L LAB CHEMISTRY METHOD 09/08/2024 12:15 PM [facility] Total Protein 6.8 6.0 - 8.0 g/dL LAB CHEMISTRY METHOD 09/08/2024 12:15 PM [facility] Albumin 3.9 3.2 - 5.0 g/dL LAB CHEMISTRY METHOD 09/08/2024 12:15 PM [facility] Total Bilirubin 0.4 0.0 - 1.4 mg/dL LAB CHEMISTRY METHOD 09/08/2024 12:15 PM [facility] Blood Venous blood specimen / Unknown Venipuncture / Unknown 09/08/2024 10:01 AM EST 09/08/2024 10:01 AM EST us Hiren QUINTANILLA LAB BLOOD ORDERABLES Final Re sult [facility] [address] [place] [address], * SCREENING MAMMOGRAPHY BI 2-VIEW BREAST INC [...] risk category Low (<15%) Location: [facility], [address] [place] [address], [address], [phone] Procedure Note Frederic Melendrez MD - 05/24/2024 [...] risk category Low (<15%) Location: [facility], [address] [place] [address], [address], [phone] us Ian Holland MD IMG XR PROCEDURES Final [...] abdominal radiograph for more complete evaluation. [facility] Department of Internal Medicine recommends using [...] alternative screening schedule based on shanti Carrillo., [facility] August 14, 2011 for patients with osteopenia (based on hip BMD T-score) is as follows: * advanced osteopenia (T scores -2.00 to -2.49), BMD testing every year * moderate osteopenia (T scores -1.50 to -1.99), BMD testing every 5 years mild osteopenia or normal BMD (T scores -1.50 and higher), BMD testing every 15 years Procedure Note Elaine Rodriguez DO - 07/15/2022 DEXA SCAN: Lumbar Spine [...] Consider abdominal radiograph for more completeevaluation. [facility] Department of Internal Medicine recommendsusing National [...] Resul t * Hepatitis C Screening (08/15/2013) [facility] Hepatitis C Screening abstracted Historical Provider HEALTH MAINTENANCE Final Result from Last 3 Months or Most Recently Relevant to Health Maintenance Insurance [employer] MEDICARE Care Teams Court Supervisor Relationship Specialty Start Date End Date Diane King MD NPI: [id number] [place] [id number] PCP - General 09/04/22
--- OUTSIDE RECORDS SUMMARY | 2025-05-16 17:29 | XMS_ITS | Clinical Summary ---
Author Organization [facility] Address [address] [place] [address] Care Team Providers Care Change Agent Name Role Phone Diane King MD Primary [...] this topic Medical Devices Implanted Type Area Horse Show Manager Device Identifier Shelf Expiration Date Model / Serial / Lot Sponge Surgiflo 8ml Hemostatic Matrix Absorbable Latex Free - [id number] - [id number] Implanted:Qty: 1 on 02/13/2020 by Slick Caldwell MD at [facility] Hemostatic Agent Posterior: Spine Lumbar [employer] 04/25/2021 2991 / / [id number] Sponge Surgifoam Thk7mm 6x2cm Hemostatic Agent Gelatin - 106234 - [id number] Implanted:Qty: 1 on 02/13/2020 by Slick Caldwell MD at [facility] Hemostatic Agent Posterior: Spine Lumbar [employer] - A [employer] 05/25/2023 1972 / / [id number] Surgiflo Hemostatic Matrix Jn-Ethi 2991-397305 - [id number] Implanted:Qty: 1 on 01/24/2021 by Josh Bhatti DO at [facility] Hemostatic Agent N/A: Spine Cervical JNJ [employer] 09/23/2022 2991 / / [id number] Spacer Norton [id number] Plif 2 Radiographic Marker Pin Self - 369002 - [id number] Implanted:Qty: 1 on 02/13/2020 by Slick Caldwell MD at [facility] Posterior: Spine Lumbar SYNTHES INC 08.803.1 10 / / Head Matrix Polyaxial Top Loading Titanium Screw Spine - 340811 - [id number] Implanted:Qty: 4 on 02/13/2020 by Slick Caldwell MD at [facility] Posterior: Spine Lumbar [employer] 04.632.0 01 / / Cap Matrix Flat 5.5mm Step Square Thread Stardrive Cocr - 647357 - [id number] Implanted:Qty: 4 on 02/13/2020 by Slick Caldwell MD at [facility] Posterior: Spine Lumbar SY[employer] 09.632.0 99 / / Screw Matrix T25 Low Profile 45mm 6mm 2 Core 2 Lead - 104979 - [id number] Implanted:Qty: 2 on 02/13/2020 by Slick Caldwell MD at [facility] Posterior: Spine Lumbar SY[employer] INC 04.639.6 45 / / Screw Matrix T25 Low Profile 55mm 6mm 2 Core 2 Lead - [id number] - [id number] Implanted:Qty: 2 on 02/13/2020 by Slick Caldwell MD at [facility] Posterior: Spine Lumbar SYNTHES INC 04.639.6 55 / / Coflex Interlaminar Implant Size 8 - [id number] - [id number] Implanted:Qty: 1 on 02/13/2020 by Slick Caldwell MD at [facility] Posterior: Spine Lumbar PARADIGM SPINE 11/28/2023 [id number] / / [id number] Donnie Matrix Mile Red Curve 40mm 5.5mm Hard Titanium Spinal - [id number] - [id number] Implanted:Qty: 2 on 02/13/2020 by Slick Caldwell MD at [facility] Posterior: Spine Lumbar SYNTHES INC 04636.0 40 / / Spacer Vikos 14.5x11.5x7mm 7d Stry-Spin [id number] 942 - [id number] Implanted:Qty: 1 on 01/24/2021 by Josh Bhatti DO at [facility] N/A: Spine Cervical EFREN SPINE 03/01/2025 2504-214 07L / [id number] / Plate Cerv Anterior Constr 1 Level 20mm Stry-K2m [id number] - [id number] Implanted:Qty: 1 on 01/24/2021 by Josh Bhatti DO at [facility] Anterior: Spine Cervical EFREN SPINE [id number] 20V / / Screw Va Self-Start 4x14mm Stry-K2m [id number] 4174 - [id number] Implanted:Qty: 4 on 01/24/2021 by Josh Bhatti DO at [facility] Anterior: Spine Cervical EFREN SPINE 8801-040 14DA / / Advance Directives For more information, please contact: [phone] Documents on File Type Date Recorded Patient Account Information Clerk Expl anation Advance Directive and Living Will [...] way: discussion with patient . Care Teams Change Agent Relationship Specialty Start Date End Date Diane King MD [address] [place] [id number] PCP - General Family Medicine 03/11/24
--- OUTSIDE RECORDS SUMMARY | 2025-05-16 17:29 | XMS_ITS | Clinical Summary ---
Author Organization [facility] Address [address] [place] [phone] Phone Care Team Providers Care Utilization Review Rn Name Role Phone Ce Esquivelie Primary Care [...] file Medical Devices Not on file Insurance Ey[employer]re[employer] PLUS PPO Nuenz PLUS PPO Nuenz PLUS PPO Nuenz PLUS PPO Nuenz PLUS PPO Nuenz PLUS PPO Care Teams Utilization Review Rn Relationship Specialty Start Date End Date Ce Esquivel DO [address] [place] [phone] PCP - General Internal Medicine 08/10/24 Additional Source Comments The information contained in this document represents components of the legal health record. It is not the complete legal health record.[facility]
--- OUTSIDE RECORDS SUMMARY | 2025-05-16 17:29 | XMS_ITS | Encounter Summary ---
Author Organization [facility] [place], Address [address] [place] [address] Phone Care Team Providers Care Bus Company Manager Name Role Phone Diane King MD Primary Care Provider + [phone] Encounter Details Date Type Department Care Team (Late st Contact Info) Description 02/18/2024 Documentation Only [facility] [address] [place] [address] Stephen [place], [place] [address] [place] [address] Social History Tobacco Use Types [...] Visit [facility] [address] [place] [address] Sal Ferrer MD [address] [place] [address] [place] [address] documented as of this encounter Visit Diagnoses Not on filedocumented in this encounter Care Teams Bus Company Manager Relationship Specialty Start Date End Date Diane King MD PCP - General Family Medicine 02/18/24 documented as of this encounter
--- OUTSIDE RECORDS SUMMARY | 2025-05-16 17:29 | XMS_ITS | Encounter Summary ---
Author Organization [facility] Address [address] [place] [address] Phone Care Team Providers Care Corrugated Sheet Material Sheeter Name Role Phone Diane King MD Primary Care Provider + [phone] Encounter Details Date Type Department Care Team (Late st Contact Info) Description 06/15/2024 Documentation Only [facility] [address] [place] [address] Fauzia Ball [address] [place] [phone] Social History Tobacco Use Types Packs/Day [...] [facility] [address] [place] [address] Sal Ferrer MD [address] [place] [address] [place] [address] documented as of this encounter Visit Diagnoses Not on filedocumented in this encounter Care Teams Corrugated Sheet Material Sheeter Relationship Specialty Start Date End Date Diane King MD PCP - General Family Medicine 02/18/24 documented as of this encounter
--- OUTSIDE RECORDS SUMMARY | 2025-05-16 17:29 | XMS_ITS | Encounter Summary ---
Author Organization [facility] Address [address] [place] [address] Phone Care Team Providers Care Portable Machine Sander Name Role Phone Diane King MD Primary Care Provider + [phone] Encounter Details Date Type Department Care Team (Late st Contact Info) Description 05/02/2024 Documentation Only [facility] [address] [place] [address] Fauzia Ball [address] [place] [phone] Social History Tobacco Use Types Packs/Day [...] [facility] [address] [place] [address] Sal Ferrer MD [address] [place] [address] [place] [address] documented as of this encounter Visit Diagnoses Not on filedocumented in this encounter Care Teams Portable Machine Sander Relationship Specialty Start Date End Date Diane King MD PCP - General Family Medicine 02/18/24 documented as of this encounter
--- OUTSIDE RECORDS SUMMARY | 2025-05-16 17:30 | XMS_ITS | Encounter Summary ---
Author Organization [facility] Address [address] [place] [address] Phone Care Team Providers Care Impregnator Carbon Products Name Role Phone Diane King MD Primary Care Provider + [phone] Encounter Details Date Type Department Care Team (Late st Contact Info) Description 05/20/2024 Documentation Only [facility] [address] [place] [address] Fauzia Ball [address] [place] [phone] Social History Tobacco Use Types Packs/Day [...] Visit [facility] [address] [place] [address] Sal Ferrer MD [address] [place] [address] [place] [address] documented as of this encounter Visit Diagnoses Not on filedocumented in this encounter Care Teams Impregnator [employer] Products Relationship Specialty Start Date End Date Diane King MD PCP - General Family Medicine 02/18/24 documented as of this encounter
--- OUTSIDE RECORDS SUMMARY | 2025-05-16 17:30 | XMS_ITS | Encounter Summary ---
Author Organization [facility] Address [address] [place] [address] Phone Care Team Providers Care Photographer Portrait Name Role Phone Diane King MD Primary Care Provider + [phone] Encounter Details Date Type Department Care Team (Late st Contact Info) Description 04/26/2024 Documentation Only [facility] [address] [place] [address] Fauzia Ball [address] [place] [phone] Social History Tobacco Use Types Packs/Day [...] Visit [facility] [address] [place] [address] Sal Ferrer MD [address] [place] [address] [place] [address] documented as of this encounter Visit Diagnoses Not on filedocumented in this encounter Care Teams Photographer Portrait Relationship Specialty Start Date End Date Diane King MD PCP - General Family Medicine 02/18/24 documented as of this encounter
--- OUTSIDE RECORDS SUMMARY | 2025-05-16 17:30 | XMS_ITS | Encounter Summary ---
Author Organization [facility] Address [address] [place] [address] Phone Care Team Providers Care Equalizer Operator Name Role Phone Diane King MD Primary Care Provider + [phone] Encounter Details Date Type Department Care Team (Late st Contact Info) Description 06/14/2024 Documentation Only [facility] [address] [place] [address] Fauzia Ball [address] [place] [phone] Social History Tobacco Use Types Packs/Day [...] Visit [facility] [address] [place] [address] Sal Ferrer MD [address] [place] [address] [place] [address] documented as of this encounter Visit Diagnoses Not on filedocumented in this encounter Care Teams Equalizer Operator Relationship Specialty Start Date End Date Diane King MD PCP - General Family Medicine 02/18/24 documented as of this encounter
== END 2025-05-16 14:16 | disposition home or self-care (01) ==
LOC: HO.PMC 13:23
PROVIDERS: PCP Family Medicine; Visit Provider Nurse Practitioner Family
DX: M96.1 Postlaminectomy syndrome, not elsewhere classified (principal); M54.2 Cervicalgia; M54.9 Dorsalgia, unspecified; G89.29 Other chronic pain; Z98.1 Arthrodesis status; M51.369 Other intervertebral disc degeneration, lumbar region without mention of lumbar back pain or lower extremity pain; M53.3 Sacrococcygeal disorders, not elsewhere classified; M47.816 Spondylosis without myelopathy or radiculopathy, lumbar region
CPT/HCPCS: 99204

== ENCOUNTER 2025-07-21 08:18 | Day surgery (SDC) | payer OTHER, SELFPAY ==
[2025-07-17 13:47] VITALS: BMI 26.2
--- NOTE | 2025-07-17 14:54 | P.CONAN_ITS ---
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 (Acute) Cervical myelopathy (Acute) Bilateral carpal tunnel syndrome (Acute) Lower extremity weakness (Acute) S/P spinal surgery (Acute) Left upper extremity numbness (Acute) Status post cervical spinal fusion (Acute) Lumbar disc herniation with radiculopathy (Acute) Status post lumbar spinal arthrodesis (Acute) Lumbar spondylosis (Acute) Gait disorder (Acute) Hand weakness (Acute) Numbness and tingling in both hands (Acute) Anxiety (Acute) Past Medical History Medical History (Updated 07/17/25 @ 13:42 by Shantal Lee RN) Diverticulosis CKD (chronic kidney disease) stage 3, GFR 30-59 ml/min Iron deficiency B-cell lymphoproliferative disorder Tobacco use disorder Pancreatitis Obesity Neck pain Lumbar spondylosis Thyroid disease Depression Colovaginal fistula Back pain Gait disorder Hand weakness Numbness and tingling in both hands Anxiety PONV (postoperative nausea and vomiting) Cataract Diabetes mellitus, type 2 Hyperlipidemia Hypertension Right bundle branch block (RBBB) Osteopenia Osteoarthritis Glaucoma Hypothyroidism Family History Family history of problems with anesthesia: No Surgical History Surgical History (Updated 07/17/25 @ 13:43 by Shantal Lee RN) History of back surgery Hx of bilateral cataract extraction History of esophagogastroduodenoscopy (EGD) Hx of tonsillectomy Hx of cholecystectomy Hx of hysterectomy Hx of colonoscopy Hx of partial thyroidectomy History of bilateral carpal tunnel release Hx of bariatric surgery Previous back surgery History of Problems with Anesthesia: Yes (PONV) Social History Social History (Updated 05/16/25 @ 13:35 by Maricarmen Gan) Household Members: None Housing: House Are you a primary inspector health care facilities to a significant other at home: No Do you presently have visiting nurse or other home services: No Alcohol intake: never Patient Tobacco Use Status: Former Tobacco user Tobacco use type: Cigarette Second Hand Smoke Exposure: No Substance Use Type: Marijuana Have you been hit, kicked, punched, or otherwise hurt by someone within the past year? If so, by whom?: No Are you DNR?: No Advance Directives: No Advance Directives Information Provided: Yes Meds Allergies Allergy/AdvReac Type Severity Reaction Status Date / Time oxycodone (From Percocet) AdvReac Intermediate Vomiting Verified 07/21/25 09:47 Home Medications ?Medication ?Instructions ?Recorded ?Confirmed ?Last Taken ?Type levothyroxine 100 mcg tablet 100 mcg PO MOTUWETHFRSA 0 03/03/23 07/17/25 03/16/23 History lisinopril 40 mg tablet 40 mg PO BEDTIME 03/03/2303/16/23 History rosuvastatin 10 mg tablet 10 mg PO BEDTIME 03/03/2302/08/25 08:00 History bupropion HCl 150 mg 24 hr tablet, 300 mg PO QAM 01/0307/17/25 Unknown History extended release acetaminophen 500 mg capsule 500 mg PO Q4H PRN moderat e pain 09/22/24 02/06/25 Unknown History ferrous sulfate 325 mg (65 mg 325 mg PO Q OTHER DAY 02/06/25 Unknown History iron) tablet (iron) oxybutynin chloride 10 mg 10 mg PO DAILY 09/22/2406/27 Unknown History tablet,extended release 24 hr multivitamin 1 tab PO DAILY 05/16/25 Unk nown History Exam Height,Weight and Vital Signs: Height 5 ft 5.5 in Weight 72.575 kg Pertinent Lab Results Pertinent Lab Results: Miya 02/2025 WBC 4.8 - 10.8 K/mcL 4.5?Low? RBC 3.80 - 4.80 M/mcL 4.50 Hemoglobin 11.5 - 16.0 g/dL 12.3 Hematocrit 35.0 - 47.0 % 40.0 MCV 79.0 - 98.0 FL 88.9 MCH 27.0 - 32.0 pcg 27.3 MCHC 32.0 - 37.0 g/dL 30.8?Low? RDW 11.0 - 15.0 % 13.6 Platelets 130 - 400 K/mcL 200 Laboratory Tests 09/22/24 14:01 WBC 6.1 RBC 4.48 Hgb 11.9 L Hct 38.4 Plt Count 212 Sodium 143 Potassium 4.5 Chloride 111 H BUN 22 H Creatinine 1.35 Assessment and Plan Assessment Anesthesia Assessment: Chart Reviewed Final Anesthetic Review Family History of Problems with Anesthesia: No History of Problems with Anesthesia: Yes (PONV) Documented by User: Richard Redding MD 07/21/25 10:02 ON LICENSE OF [facility] Active Problems Active Problems: Marlon Active Problems (Updated 07/17/25 @ 13:42 by Shantal Lee RN) Sacroiliac joint pain (Acute) Lumbar degenerative disc disease (Acute) Chronic neck and back pain (Acute) Lumbar post-laminectomy syndrome (Acute) Synovial cyst of lumbar facet joint (Acute) Lumbar spinal stenosis due to adjacent segment disease after fusion procedure (Acute) 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 (Acute) Cervical myelopathy (Acute) Bilateral carpal tunnel syndrome (Acute) Lower extremity weakness (Acute) S/P spinal surgery (Acute) Left upper extremity numbness (Acute) Status post cervical spinal fusion (Acute) Lumbar disc herniation with radiculopathy (Acute) Status post lumbar spinal arthrodesis (Acute) Lumbar spondylosis (Acute) Gait disorder (Acute) Hand weakness (Acute) Numbness and tingling in both hands (Acute) Anxiety (Acute) Past Medical History Medical History (Updated 07/17/25 @ 13:42 by Shantal Lee RN) Diverticulosis CKD (chronic kidney disease) stage 3, GFR 30-59 ml/min Iron deficiency B-cell lymphoproliferative disorder Tobacco use disorder Pancreatitis Obesity Neck pain Lumbar spondylosis Thyroid disease Depression Colovaginal fistula Back pain Gait disorder Hand weakness Numbness and tingling in both hands Anxiety PONV (postoperative nausea and vomiting) Cataract Diabetes mellitus, type 2 Hyperlipidemia Hypertension Right bundle branch block (RBBB) Osteopenia Osteoarthritis Glaucoma Hypothyroidism Surgical History Surgical History (Updated 07/17/25 @ 13:43 by Shantal Lee RN) History of back surgery Hx of bilateral cataract extraction History of esophagogastroduodenoscopy (EGD) Hx of tonsillectomy Hx of cholecystectomy Hx of hysterectomy Hx of colonoscopy Hx of partial thyroidectomy History of bilateral carpal tunnel release Hx of bariatric surgery Previous back surgery Social History Social History (Updated 05/16/25 @ 13:35 by Maricarmen Gan) Household Members: None Housing: House Are you a primary inspector health care facilities to a significant other at home: No Do you presently have visiting nurse or other home services: No Alcohol intake: never Patient Tobacco Use Status: Former Tobacco user Tobacco use type: Cigarette Second Hand Smoke Exposure: No Substance Use Type: Marijuana Have you been hit, kicked, punched, or otherwise hurt by someone within the past year? If so, by whom?: No Are you DNR?: No Advance Directives: No Advance Directives Information Provided: Yes Meds Allergies Allergy/AdvReac Type Severity Reaction Status Date / Time oxycodone (From Percocet) AdvReac Intermediate Vomiting Verified 07/21/25 09:47 Home Medications ?Medication ?Instructions ?Recorded ?Confirmed ?Last Taken ?Type levothyroxine 100 mcg tablet 100 mcg PO MOTUWETHFRSA 0 03/03/23 07/17/25 03/16/23 History lisinopril 40 mg tablet 40 mg PO BEDTIME 03/03/2303/16/23 History rosuvastatin 10 mg tablet 10 mg PO BEDTIME 03/03/2302/08/25 08:00 History bupropion HCl 150 mg 24 hr tablet, 300 mg PO QAM 01/0307/17/25 Unknown History extended release acetaminophen 500 mg capsule 500 mg PO Q4H PRN moderat e pain 09/22/24 02/06/25 Unknown History ferrous sulfate 325 mg (65 mg 325 mg PO Q OTHER DAY 02/06/25 Unknown History iron) tablet (iron) oxybutynin chloride 10 mg 10 mg PO DAILY 09/22/2406/27 Unknown History tablet,extended release 24 hr multivitamin 1 tab PO DAILY 05/16/25 Unk nown History Exam Airway Mallampati Class: II TM Dist: >3cm Neck ROM: Full Loose/Missing/Broken Teeth: No Heart: ok Lungs: ok Assessment and Plan Assessment Anesthesia Assessment: Anesthesia Plan Discussed Final Anesthetic Review NPO: Yes ASA Class: III Final Preanesthetic Review: No Changes in Pt Med Stat, Meds/Allgs Chart Reviewed, Consent Obtained/Reviewed and Anes Risks/Benef Reviewed Patient Risk: Intermediate Procedure Risk: Intermediate Anesthetic Plan Anesthetic Plan: MAC:, Agree w/ Assess. and Plan and TIVA Disposition: Standard PACU
--- NOTE | ~2025-07-21 | FL_ITS ---
EXAMINATION: XR FLUOROSCOPY WITH IMAGES CLINICAL INFORMATION: Injection COMPARISON: None available. TECHNIQUE: Fluoroscopy time: 9.5 seconds DAP: 6.2 mGy Images: 2 FINDINGS: Fluoroscopy provided for caudal injection, with images demonstrating a needle positioning and contrast. No radiologist present. FL/FL guidance in OR IMPRESSION: Fluoroscopy provided for procedure. See procedure report for details. Electronically signed by: Adam Stephens MD 07/21/2025 04:20 PM [facility]
[2025-07-21 08:37] VITALS: BP 187/77; PULSE 73; RESP 19; TEMP 36.5; O2SAT 96; BMI 28.0
[2025-07-21] MEDS: Lactated Ringers 1,000 ML 100 ML IVCONT (08:51)
--- NOTE | 2025-07-21 10:01 | P.BOP_ITS ---
Brief Operative Note Date of Service: 07/21/25 Pre-op diagnosis: Postlaminectomy syndrome Post-op diagnosis: same Procedure: Caudal epidural steroid injection with catheter Surgeon: Vinnie Salazar MD Was an Security Control Center Operator used for this Procedure?: No Estimated blood loss (mL): 0 Condition: stable Disposition: PACU
--- NOTE | 2025-07-21 10:01 | MHC.SHP ---
Pre-Procedural Eval Section A - 24 Hr Update-Section A only Date of Service: 07/21/25 The patient is an INPATIENT: No Changes since office visit: No Cold of Flu in the past 2 weeks, No New Medical Problems, No Changes in Medication and No Patient answered all questions The patient has been examined within 24 hours of the surgical procedure. The History & Physical has been completed within 30 days and I have reviewed it.: No Section B - Complete if H&P > 30 days Chief Complaint: intervertebral disc degeneration, lumbar,postlamin Allergies: Allergies Allergy/AdvReac Type Severity Reaction Status Date / Time oxycodone (From Percocet) AdvReac Intermediate Vomiting Verified 07/21/25 09:47 Review of Systems Sugical H&P ROS: Negative: Constitution, Cardiovascular, Respiratory, Neurological, Psychiatric, Hem-Onc, Allergic/Immunologic, Gastrointestinal, Genitourinary, Musculoskeletal, Integumentary, Endocrine and Eyes/Ears/Nose/Throat Exam Surgical H&P Exam: Normal: HEENT, Normal: Heart, Normal: Lungs, Normal: Extremities, Normal: Abdomen, Normal: Skin and Normal: Neurological (awake, alert,oriented x 3 ) Plan Diagnosis/Plan: Unchanged I have reviewed the history and physical and performed a pertinent physical examination on my patient. No changes have occurred unless specified. Time Spent With Patient Time: Total time managing care of this patient today ____ minutes.
[2025-07-21 10:34] VITALS: BP 167/81; PULSE 66; RESP 15; TEMP 36.3; O2SAT 98
--- NOTE | 2025-07-21 10:38 | P.OP_ITS ---
Operative Note Operative Note Date of Service: 07/21/25 Narrative: Caudal epidural steroid injection with catheter . Omaira is very pleasant 75 years old female who came to the operating room for performance of the caudal epidural steroid injection with catheter to treat p ostlaminectomy syndrome lumbar spine. Informed consent was thoroughly explained to the patient and risks were explained as risks of bleeding infection peripheral nerve damage spinal cord damage and headache. She was brought to the operating room and positioned prone on the operating table. ASA monitors were applied patient was sedated. Time-out was performed delineating name and date of of the patient nature of the procedure side and site of the procedure. The lower back of the patient buttocks of the patient that intergluteal crease were prepped with ChloraPrep and draped with sterile self adhesive utility towels. C-arm was brought over the operating field and sacral bone was demonstrated on the screen. Sacral hiatus was chosen as the target of the injection. Location of the sacral hiatus was determined on anterior posterior and lateral C-arm views. After that projection of the point 1.5 cm below the level of the sacral hiatus was injected with solution of lidocaine 2% and ropivacaine 0.5% mixed 1-1. After that 18 gauge Touhy needle was inserted through the skin wheal and was advanced to were the sacral hiatus on intermittent anterior posterior and lateral views. When tip of the needle entered the caudal canal through the sacral hiatus injection of the contrast was performed delineating epidurogram. After that 22 gauge epidural catheter was inserted through the epidural needle and it was advanced into the needle until the resistance was felt. Contrast was injected into the catheter and demonstrated epidural spread of the contrast. After that 30 cc of preservative-free normal saline was injected into the catheter. Upon completion of the saline injection injection of the lidocaine 1% mixed with Kenalog 40 mg was performed into the catheter. After that the catheter and needle were removed from the insertion site EN mass. Sterile Band- Aid with bacitracin was applied. The patient tolerated procedure well. She was taken outside of the operating room to recovery room where she recovered uneventfully.
[2025-07-21 10:49] VITALS: BP 182/83; PULSE 59; RESP 16; O2SAT 99
[2025-07-21 11:05] VITALS: BP 164/98; PULSE 56; RESP 16; TEMP 36.3; O2SAT 98
== END 2025-07-21 11:54 | disposition home or self-care (01) ==
PROVIDERS: Visit Provider Anesthesiology
PROC: 3E0R3GC Introduction of Other Therapeutic Substance into Spinal Canal, Percutaneous Approach (ICD-10-PCS; CPT 62322; principal; 2025-07-21 10:00)
DX: M96.1 Postlaminectomy syndrome, not elsewhere classified (principal); G89.29 Other chronic pain; M54.2 Cervicalgia; M53.3 Sacrococcygeal disorders, not elsewhere classified; M51.360 Other intervertebral disc degeneration, lumbar region with discogenic back pain only; M47.816 Spondylosis without myelopathy or radiculopathy, lumbar region; R26.2 Difficulty in walking, not elsewhere classified; R26.9 Unspecified abnormalities of gait and mobility; R20.0 Anesthesia of skin; R20.2 Paresthesia of skin; Z98.1 Arthrodesis status; E11.22 Type 2 diabetes mellitus with diabetic chronic kidney disease; I12.9 Hypertensive chronic kidney disease with stage 1 through stage 4 chronic kidney disease, or unspecified chronic kidney disease; N18.30 Chronic kidney disease, stage 3 unspecified; I45.10 Unspecified right bundle-branch block; E61.1 Iron deficiency; E78.5 Hyperlipidemia, unspecified; Z87.891 Personal history of nicotine dependence; Z88.5 Allergy status to narcotic agent; Z98.890 Other specified postprocedural states; Z98.84 Bariatric surgery status
CPT/HCPCS: 62323; J2003; J2704; J3301; Q9967

== ENCOUNTER → 2025-07-21 08:18 | Outpatient (BNV) | payer OTHER, SELFPAY | PROVIDERS: Visit Provider Anesthesiology | DX: M96.1 Postlaminectomy syndrome, not elsewhere classified (principal) | CPT/HCPCS: 62323 ==